=== PATIENT | female | born 1950 | race Caucasian/White ===

== ENCOUNTER 2023-10-05 11:08 | Outpatient (OUT) | payer MEDICARE, OTHER, SELFPAY ==
--- NOTE | 2023-10-05 | XR_ITS ---
The [address] [address] Patient Name: HINA OROZCO MRN: [id number] date: 1950 Sex: F Assigned Patient Location: Current Patient Location: Accession/Order Number: [id number] Exam Date: 10/05/2023 11:15 Report Date: 10/06/2023 07:08 At the request of: IVANNA ARREGUIN Procedure: XR foot LT min 3V PROCEDURE: XR foot LT min 3V HISTORY: LEFT FOOT PAIN ; pain when flexing toes; first toe pain and swelling COMPARISON: None. FINDINGS: BONES:Mild displaced proximal medial corner fracture involving the 5th proximal phalanx with intra-articular extension. Mild degenerative changes the first metatarsophalangeal joint. SOFT TISSUES:No visible soft tissue swelling. EFFUSION:None visible. OTHER: Negative. XR/XR foot LT min 3V IMPRESSION: 1. Mildly displaced proximal medial corner fracture of the 5th proximal phalanx. I suspect this is subacute to chronic. 2. Mild degenerative changes of the first metatarsophalangeal joint. Electronically authenticated by: LILIA STOUT Date: 10/06/2023 07:08
== END 2023-10-05 11:09 | disposition home or self-care (01) ==
LOC: EC 11:10
PROVIDERS: PCP Internal Medicine; Visit Provider Podiatrist Foot & Ankle Surgery
DX: M79.672 Pain in left foot (principal); S92.512A Displaced fracture of proximal phalanx of left lesser toe(s), initial encounter for closed fracture
CPT/HCPCS: 73630

== ENCOUNTER 2025-04-02 07:54 | Outpatient (OUT) | payer MEDICARE, SELFPAY ==
--- OUTSIDE RECORDS SUMMARY | 2025-03-21 14:00 | XMS_ITS | Encounter Summary ---
Author Organization [facility] Address [address] [place] [address] Care Team Providers Care Supervisor Communications And Signals Name Role Phone Tomas Paige DO Unavailable [phone] Chaitanya Dooley MD Primary Care Provider [phone] Encounter Details DateTypeDepartmentCare Team (Latest Contact Info)Hdjvosflyoy36/09/2025 2:00 PM EDTAncillary Procedure [facility] [address] [place] [phone] Breast pain Social History Tobacco UseTypesPacks/DayYears UsedDateSmoking Tobacco: NeverPassive Smoke Exposure: PastSmokeless Tobacco: NeverAlcohol UseStandard Drinks/WeekCommentsYes 0 (1 standard drink = 0.6 oz pure alcohol)Alcohol: 1 or 2 drinks on a typical day/monthly or less Caffeine: 5-6 cups a day of coffee per dayAUDIT-CAnswerDate RecordedQ1: How often do you have a drink containing alcohol?Monthly or less 03/28/2023Q2: How many drinks containing alcohol do you have on a typical day when you are drinking?1 or Q3: How often do you have six or more drinks on one occasion?Less than /16/2023PHQ-2AnswerDate Recorded Patient Health Questionnaire-2 Qqrfg872/29/2024CommentsNoSex and Gender InformationValueDate RecordedSex Assigned at BirthNot on fileLegal SexFemale 08/25/2022 7:05 PM EDTGender IdentityNot on fileSexual OrientationNot on file documented as of this encounter Plan of Treatment DateTypeDepartmentCare Team (Latest Contact Info)Tdbxszvrnrm60/22/2025 10:00 AM EDTAncillary Procedure [facility] [address] [place] [address] 04/03/2025 10:30 AM EDTOffice Visit [facility] [address] [place] [phone] Nadia Ceja MD [address] [place] [address] 04/11/2025 9:30 AM EDTOffice Visit [facility] [address] [place] [phone] 05/21/2025 11:00 AM ESTOffice Visit [facility] [address] [place] [facility] [place] [phone] Columba Nelson MD [address] [place] [address] 07/12/2025 11:00 AM ESTOffice Visit [facility] [address] [place] [phone] Harsha Philippe DO [address] [place] [address] documented as of this encounter Procedures Procedure NamePriorityDate/TimeAssociated DiagnosisCommentsBI MAMMOGRAM DIAGNOSTIC TOMOSYNTHESIS EXNYPNOPEBlbjpmb03/09/2025 2:16 PM EDT Breast pain documented in this encounter Results * Bilateral diagnostic mammogram with tomosynthesis (03/21/2025 2:16 PM EDT) Anatomical RegionLateralityModalityBreastBilateralMammographySpecimen (Source) Anatomical Location / LateralityCollection Method / VolumeCollection Time Received Time03/21/2025 5:02 PM EDT Impressions 03/21/2025 5:26 PM EDT No specific evidence of malignancy seen in either breast. Likely small benign finding on ultrasound in the left breast as noted. Based on the ultrasound finding, follow-up ultrasound study of the left breast with attention to the 12:00 region is recommendedin 6 months to assess stability. BI- RADS recommendation will be based on the ultrasound finding. BIRADS 3 - Probably Benign Findings DENSITY: There are scattered areas of fibroglandular density. FOLLOW-UP: Breast Ultrasound in 6 Months Board Certified Radiologists. ??Accredited by the ACR and FDA. MAMMOGRAPHY IS VERY IMPORTANT TO YOUR HEALTH. ??THE [employer] GUIDELINES RECOMMEND THAT WOMEN 40 YEARS OF AGE AND OLDER SHOULD HAVE A MAMMOGRAM EVERY YEAR. A REMINDER LETTER WILL BE SENT AT THE APPROPRIATE TIME. ?? ELECTRONICALLY SIGNED BY: Tarun Cuellar M.D. Narrative 03/21/2025 5:26 PM EDT EXAMINATION: BI MAMMOGRAM DIAGNOSTIC TOMOSYNTHESIS BILATERAL CLINICAL HISTORY: ??Breast pain TECHNIQUE: Diagnostic digital mammogram study of both breasts was performed with 2D and 3D tomosynthesis imaging. Study was compared to the screening mammogram study of the breasts dated 10/30/2024 and ultrasound study of the breasts dated 03/21/2025. FINDINGS: Standard views of the breasts were obtained as well as coned-down compression views and true lateral views bilaterally. Exaggerated lateral cc view was obtained on the right. Mild scattered benign-appearing vascular calcifications are noted bilaterally. No evidence of interval dominant spiculated mass, grouped microcalcifications or skin thickening which would be suggestive of malignancy. A few small benign- appearing asymmetric densities are seen bilaterally likely related to focal fibrocystic changes. Ultrasound study of the breasts demonstrates a likely small benign finding at the 12 o'clock position on the left without obvious correlating abnormality on the mammogram study. Based on the ultrasound finding, follow-up ultrasound study of the left breast with attention to this area in 6 months isrecommended to assess stability. Authorizing ProviderResult TypeResult StatusNadia Ceja MDIMTr BI PROCEDURES Final Result documented in this encounter Visit Diagnoses Diagnosis Breast pain Mastodynia documented in this encounter Additional Health Concerns AssessmentNoted TimePHQ-9 Depression Total Score: 10:00 AM EDT documented as of this encounter Care Teams Team MemberRelationshipSpecialtyStart DateEnd Date Tomas Paige DO [address] [place] [address] PCP - ACO Reach08/12/23 Chaitanya Dooley MD [address] [place] [address] PCP - GeneralInternal Medicine02/01/25documented as of this encounter
--- OUTSIDE RECORDS SUMMARY | 2025-03-21 14:30 | XMS_ITS | Encounter Summary ---
Author Organization [facility] Address [address] [place] [address] Care Team Providers Care Asphalt Roller Person Name Role Phone Tomas Paige DO Unavailable Chaitanya Dooley MD Primary Care Provider [phone] Encounter Details DateTypeDepartmentCare Team (Latest Contact Info)Iaszsiybjzz28/09/2025 2:30 PM EDTAncillary Procedure [facility] [address] [place] [address] Breast pain Social History Tobacco UseTypesPacks/DayYears UsedDateSmoking [...] or more drinks on one occasion?Less than datipny23/16/2023PHQ-2AnswerDate Recorded Patient Health Questionnaire-2 Tknrn017/29/2024CommentsNoSex and Gender InformationValueDate RecordedSex Assigned at BirthNot on fileLegal SexFemale 08/25/2022 7:05 PM EDTGender IdentityNot on fileSexual OrientationNot on file documented as of this encounter Plan of Treatment DateTypeDepartmentCare Team (Latest Contact Info)Pzxysnlczwk99/22/2025 10:00 AM EDTAncillary Procedure [facility] [address] [place] [phone] 04/03/2025 10:30 AM EDTOffice Visit [facility] [address] [place] [phone] Nadia Ceja MD [address] [place] [address] 04/11/2025 9:30 AM EDTOffice Visit [facility] [address] [place] [phone] 05/21/2025 11:00 AM ESTOffice Visit [facility] [address] [place] [phone] Columba Nelson MD [address] [place] [address] 07/12/2025 11:00 AM ESTOffice Visit [facility] [address] [place] [phone] Harsha Philippe DO [address] [place] [address] documented as of this encounter Procedures Procedure NamePriorityDate/TimeAssociated DiagnosisCommentsBI US BREAST COMPLETE YNUIUGEHVYobetgb85/09/2025 3:07 PM EDT Breast pain documented in this encounter Results * Bilateral breast US complete (03/21/2025 3:07 PM EDT)Anatomical Region LateralityModalityBreastBilateralUltrasoundSpecimen (Source)Anatomical Location / LateralityCollection Method / VolumeCollection TimeReceived Time 03/21/2025 5:16 PM EDT Impressions 03/21/2025 5:26 PM EDT Impression: Bilateral breast ultrasound study demonstrates a likely benign finding at the 12 o'clock position in the left breast as described. No obvious correlating mammographic abnormality. Follow-up ultrasound study of the left breast with attention to the 12:00 region likely benign finding is recommended in 6 months to assess stability. No obvious neoplasm. When correlating the studies no convincing evidence of neoplasm. BI-RADS 3 ELECTRONICALLY SIGNED BY: Tarun Cuellar M.D. Narrative 03/21/2025 5:26 PM EDT Examination: BI US BREAST COMPLETE BILATERAL Reason for Study: breast pain Comparison: Diagnostic mammogram study of the breasts dated 03/21/2025. Technique: Complete bilateral breast ultrasound study was performed to include all 4 quadrants, subareolar and axillary regions of the breasts. Findings: Within the 12 o'clock position of the left breast approximately 2.5 cm from the nipple there is an ovoid area of mild decreased echogenicity with internal echoes measuring 1.3 x 1.3 x 0.5 cm. No obvious internal vascularity or posterior shadowing. Finding has a benign appearance and may represent complex cyst, intramammary lymph node or fibroadenoma. Other possibly would be less likely.No obvious correlating abnormality on the mammogram study. No obvious solid vascular mass to suggest neoplasm. When correlating the studies no convincing evidence of neoplasm. No obvious abnormal calcifications or vascularity. There is mild ductal dilatation in the subareolar regions bilaterally not felt to be acutely significant. No obvious adenopathy in the axillary regions. Authorizing ProviderResult TypeResult StatusNadia Ceja MDIMTr US PROCEDURES Final Result documented in this encounter Visit Diagnoses Diagnosis Breast pain Mastodynia documented in this encounter Additional Health Concerns AssessmentNoted TimePHQ-9 Depression Total Score: 10:00 AM EDT documented as of this encounter Care Teams Team MemberRelationshipSpecialtyStart DateEnd Date Tomas Paige DO [address] [place] [address] PCP - ACO Reach08/12/23 Chaitanya Dooley MD [address] [place] [address] PCP - GeneralInternal Medicine02/01/25documented as of this encounter
--- OUTSIDE RECORDS SUMMARY | 2025-03-25 08:45 | XMS_ITS | Encounter Summary ---
Author Organization [facility] Address [address] [place] [address] Care Team Providers Care Rotary Helper Name Role Phone Tomas Paige Berto DO Unavailable [phone] Chaitanya Dooley MD Primary Care Provider [phone] Reason for Referral * Consultation (Routine) - ClosedSpecialtyDiagnoses / ProceduresReferred By ContactReferred To ContactBreast Surgery Diagnoses Breast pain Vaginal discharge Genetic predisposition to breast cancer Mammogram abnormal H/O breast biopsy Procedures NM OFFICE/OUTPATIENT [facility] 60 MINUTES Nadia Ceja MD [address] [facility] [address] [place] [address] Phone: tel: fax: Saundra Mcdowell MD [address] [place] [address] [place] [address] Phone: tel: fax: Referral IDStatusReasonStart DateExpiration DateVisits RequestedVisits [id number] Specialty Services Required / * Imaging (Routine) - AuthorizedSpecialtyDiagnoses / ProceduresReferred By ContactReferred To ContactRadiology Diagnoses Breast pain Breast tenderness Breast symptom Genetic predisposition to breast cancer Other specified disorders of breast Mammogram abnormal H/O breast biopsy Procedures Bilateral breast MR with and without contrast Nadia Ceja MD [address] [facility] [address] [place] [address] Phone: tel: fax: [facility] Centralized [place]uling [place] [address] Phone: tel: fax: Referral Carlitos DateExpiration DateVisits RequestedVisits [id number]/20/20254/ Reason for Visit * ReasonCommentsGynecologic ExamPatient present for New patient yearly, patient was last seen in 2019. Patient was unable to give aurine sample to send out for culture. 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 Encounter Details DateTypeDepartmentCare Team (Latest Contact Info)Tdzclqyhgte58/13/2025 8:45 AM EDTOffice Visit [facility] [place] [facility] [address] [place] [phone] Nadia Ceja MD [address] [place] [address] Encounter for gynecological examination without abnormal finding (Primary Dx); Vaginitis and vulvovaginitis; Cervicitis and endocervicitis; Encounter for gynecological examination; Breast pain; Breast tenderness; Erythema of breast; Breast symptom; Nocturia more than twice per night; Vaginal discharge; Vaginal itching; Encounter for screening for cervical cancer; Genetic predisposition to breast cancer; Other specified disorders of breast; Mammogram abnormal; H/O breast biopsy; Hormone imbalance; Miscarriage ([facility]); Acute vaginitis Social History Tobacco UseTypesPacks/DayYears UsedDateSmoking Tobacco: NeverPassive [...] or more drinks on one occasion?Less than eeugxch5703/28/2023HQ-2AnswerDate Recorded Patient Health Questionnaire-2 Byrny269/29/2024CommentsNoSex and Gender InformationValueDate RecordedSex Assigned at BirthNot on fileLegal SexFemale 08/25/2022 7:05 PM EDTGender IdentityNot on fileSexual OrientationNot on file documented as of this encounter Last Filed Vital Signs Vital SignReadingTime TakenCommentsBlood Kuqvyfaw245/7403/25/2025 8:39 AM EDT Pulse--Temperature--Respiratory Rate--Oxygen Saturation--Inhaled Oxygen Concentration--Weight--Tegrpl551.6 cm (5' 6 )03/25/2025 8:39 AM EDTBody Mass Index--documented in this encounter Progress Notes * Nadia Ceja MD - 03/25/2025 8:45 AM EDT Images from the original note were not included. Nadia Ceja MD Obstetrics and Gynecology Patient: Fide Sultana : 1950 (74 y.o.) Exam Date: 03/25/2025 Reason for Visit - Chief Complaint Patient presents with Gynecologic Exam Patient present for New patient yearly, patient was last seen in 2019. Patient was unable to give aurine sample to send out for culture. 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 She is also experiencing breast issues, she has been having breast pain, tenderness, redness, and warm to the touch in both breast for about a week also associated with the evening time and located around the nipple only, she does not have a history of any recent trauma. Mammogram and Ultrasound 03/21 Likely small benign finding on ultrasound in the left breast as noted. Based on the ultrasound finding, follow-up ultrasound study of the left breast with attention to the 12:00 region is recommendedin 6 months to assess stability. History of Present Illness History of Present Illness The patient presents with breast swelling and tenderness that has been ongoing for three weeks. Thesymptoms are most prominent at night and upon waking in the morning, with the patient describing the sensation as similar to how her breasts felt when she was younger while waiting for her menstrual period. She initially suspected her medication Crestor might be contributing to the symptoms, and upon discontinuing it, the symptoms resolved, which she reports is a common occurrence according to her daughter who is a pharmacist. The patient has been experiencing some vaginal itching but denies any vaginal discharge. She is notcurrently using any hormones or creams. The breast symptoms have caused her significant worry over the past three weeks. Visit Vitals BP 126/74 (BP Location: Left arm) Ht 5' 6 BMI 22.65 kg/m?? OB Status Postmenopausal Smoking Status Never BSA 1.72 m?? History of Present Illness, Associated Treatments and Results - OB History Para Term AB Living 0 0 0 0 0 2 SAB IAB Ectopic Multiple Live Births 0 0 0 0 0 Constitutional: Negative. HENT: Negative. Eyes: Negative. Respiratory: Negative. Cardiovascular: Negative. Gastrointestinal: Negative. Endocrine: Negative. Genitourinary: Negative. Musculoskeletal: Negative. Skin: Negative. Allergic/Immunologic: Negative. Neurological: Negative. Hematological: Negative. Psychiatric/Behavioral: Negative. Allergies Allergen Reactions Latex Unknown Sulfa Antibiotics Other Reaction(s): sulfa powder wong. Naproxen Palpitations Current Outpatient Medications: celecoxib (CeleBREX) 200 MG capsule, TAKE ONE CAPSULE BY MOUTH DAILY FOR 90 DAYS for 90, Disp: 90 capsule, Rfl: 3 cholecalciferol (Vitamin D-3) 50 MCG (1999) capsule, 1 capsule 1 (one) time each day at the sametime., Disp: , Rfl: cyclobenzaprine (Flexeril) 5 MG tablet, Take 1 tablet (5 mg) by mouth 2 (two) times a day as neededfor muscle spasms, Disp: 40 tablet, Rfl: 0 diazePAM (Valium) 5 MG tablet, Take 1 tablet (5 mg) by mouth every 12 (twelve) hours, Disp: 15 tablet, Rfl: 0 dorzolamide-timolol (Cosopt) 2-0.5 % ophthalmic solution, ADMINISTER 1 DROP INTO THE LEFT EYE IN THE MORNING AND 1 DROP BEFORE BEDTIME., Disp: 10 mL, Rfl: 3 ipratropium (Atrovent) 0.06 % nasal spray, INSTILL 2 SPRAYS IN EACH NOSTRIL THREE TIMES A DAY FOR 30 DAYS, Disp: 15 mL, Rfl: 1 latanoprost (Xalatan) 0.005 % ophthalmic solution, APPLY 1 DROP INTO BOTH EYES AT BEDTIME, Disp: 7.5 mL, Rfl: 4 rosuvastatin (Crestor) 10 MG tablet, Take 1 tablet (10 mg) by mouth at bedtime, Disp: 90 tablet, Rfl: 1 triamterene-hydroCHLOROthiazide (Dyazide) 37.5-25 MG capsule, TAKE ONE CAPSULE BY MOUTH ONCE DAILY IN THE MORNING, Disp: 90 capsule, Rfl: 2 Past Medical History: Diagnosis Date Dry eyes Epiretinal membrane (ERM) of both eyes Glaucoma Hepatitis B History of migraine headaches HTN (hypertension) IBS (irritable bowel syndrome) Meniere's disease Multilevel degenerative disc disease Myalgia Osteoarthritis Osteopenia PCO (posterior capsular opacification) Plantar wart, left foot Skin cancer Tinnitus, left Vertigo Vitamin D deficiency Past Surgical History: Procedure Laterality Date BREAST BIOPSY Right 2001 benign BUNIONECTOMY CARDIAC ELECTROPHYSIOLOGY MAPPING AND ABLATION 2000 Heart Ablation CATARACT EXTRACTION COLONOSCOPY 02/2010 IR JOINT ASPIRATION Arthrocentesis of the right knee joint PARS PLANA VITRECTOMY W/ EMP STRIPPING Left Dr. Heck NM ARTHROSCOPY KNEE DIAGNOSTIC W/WO SYNOVIAL BX SPX Left 2004 NM DRAIN/INJECT LARGE JOINT/BURSA Arthrocentesis of the left knee anserine bursa NM INJECT TENDON ORIGIN/INSERT NM INJECT TENDON SHEATH/LIGAMENT Family History Problem Relation Name Age of Onset Hypertension Mother Stroke Mother Thyroid disease Mother Alzheimer's disease Father Diabetes Father Hypertension Father Cancer Father Diabetes Sister Diabetes Paternal Grandmother Hypertension Child Social History Tobacco Use Smoking Status Never Passive exposure: Past Smokeless Tobacco Never Physical Exam - General appearance, mentation, extraocular movements, facial strength and movement, hearing, upper and lower extremity strength and tone, sensation to gross testing, coordination, and gait are normalor at baseline unless noted below. Physical Exam Constitutional: Appearance: Normal appearance. Genitourinary: Right Labia: No rash. Left Labia: No rash. Right Adnexa: no mass present. Left Adnexa: no mass present. No cervical lesion. Uterus is anteverted. Breasts: Right: Normal. No mass or nipple discharge. Left: Normal. No mass or nipple discharge. HENT: Head: Normocephalic and atraumatic. Cardiovascular: Rate and Rhythm: Normal rate and regular rhythm. Pulmonary: Breath sounds: Normal breath sounds. Abdominal: General: There is no distension. Palpations: Abdomen is soft. There is no mass. Tenderness: There is no abdominal tenderness. Musculoskeletal: General: Normal range of motion. Cervical back: Neck supple. Lymphadenopathy: Cervical: No cervical adenopathy. Neurological: Mental Status: She is alert and oriented to person, place, and time. Skin: General: Skin is warm and dry. Psychiatric: Mood and Affect: Mood normal. Behavior: Behavior normal. Breasts dense without erythema Assessment/Plan ICD-10-CM 1. Encounter for gynecological examination without abnormal finding Z01.419 IGP, APT HPV,RFX 16/18,45 2. Vaginitis and vulvovaginitis N76.0 GENITAL MYCOPLASMAS ALECIA, SWAB NuSwab Vaginitis Plus (VG+) 3. Cervicitis and endocervicitis N72 GENITAL MYCOPLASMAS ALECIA, SWAB NuSwab Vaginitis Plus (VG+) 4. Encounter for gynecological examination Z01.419 5. Breast pain N64.4 6. Breast tenderness N64.4 7. Erythema of breast L53.9 8. Breast symptom N64.59 9. Nocturia more than twice per night R35.1 10. Vaginal discharge N89.8 GENITAL MYCOPLASMAS ALECIA, SWAB NuSwab Vaginitis Plus (VG+) 11. Vaginal itching N89.8 GENITAL MYCOPLASMAS ALECIA, SWAB NuSwab Vaginitis Plus (VG+) 12. Encounter for screening for cervical cancer Z12.4 IGP, APT HPV,RFX 16/18,45 13. Genetic predisposition to breast cancer Z15.01 Pap ordered Pt can find results in MyChart in 72 hours Breast tenderness and swelling Assessment: Patient reports breast tenderness and swelling, primarily occurring at night and upon waking in the morning. Symptoms are described as similar to premenstrual breast changes experienced in youth. Patient discontinued Crestor (rosuvastatin) after suspecting it as the cause, and reports that this is a common side effect. However, symptoms have persisted for three weeks. No vaginal discharge reported, but patient mentions some itching. No current use of hormones or creams. Clinical examination does not suggest breast cancer, but further evaluation is warranted due to ongoing symptoms. Recent mammogram with findings and 6 mpnth follow up advised Plan: - Refer patient to breast specialist for further evaluation - Order breast MRI - Schedule ultrasound to assess ovarian health - Order estrogen level test - Follow up with breast specialist appointment-referral sent Vaginal swabs and prescriptions sent for vaginal symptoms Assessment & Plan documented in this encounter Plan of Treatment DateTypeDepartmentCare Team (Latest Contact Info)Aczadgqfjbt66/22/2025 10:00 AM EDTAncillary Procedure [facility] [address] [place] [phone] 04/03/2025 10:30 AM EDTOffice Visit [facility] [place] [facility] [address] [place] [address] Nadia Ceja MD [address] [place] [address] 04/11/2025 9:30 AM EDTOffice Visit [facility] [address] [place] [address] 05/21/2025 11:00 AM ESTOffice Visit [facility] [place] [phone] Columba Nelson MD [address] [place], [place] [phone] 07/12/2025 11:00 AM ESTOffice Visit N[facility] [address] [place] [phone] Harsha Philippe DO [address] [place] [address] (work) NameTypePriorityAssociated DiagnosesOrder ScheduleGENITAL MYCOPLASMAS ALECIA, SWAB Pathology and CytologyRoutine Vaginitis and vulvovaginitis Cervicitis and endocervicitis Vaginal discharge Vaginal itching Ordered: 03/25/2025NuSwab Vaginitis Plus (VG+)MicrobiologyRoutine Vaginitis and vulvovaginitis Cervicitis and endocervicitis Vaginal discharge Vaginal itching Ordered: 03/25/2025ilateral breast MR with and without contrastImagingRoutine Breast pain Breast tenderness Breast symptom Genetic predisposition to breast cancer Other specified disorders of breast Mammogram abnormal H/O breast biopsy Expected: 04/01/2025, Expires: 09/23/2025NameTypePriorityAssociated Diagnoses Order ScheduleAmbulatory referral to Breast ClinicOutpatient ReferralRoutine Breast pain Vaginal discharge Genetic predisposition to breast cancer Mammogram abnormal H/O breast biopsy Expected: 03/25/2025 (Approximate), Expires: 09/23/2025documented as of this encounter Procedures Procedure NamePriorityDate/TimeAssociated IwyxogkzfHgoealzmARRJtqjpbw16/13/2025 9:43 AM EDT Hormone imbalance IGP, APT HPV,RFX 16/18,41Pycdtvn17/13/2025 12:00 AM EDT Encounter for gynecological examination without abnormal finding Encounter for screening for cervical cancer documented in this encounter Results * (ABNORMAL) Follicle stimulating hormone (03/25/2025 9:43 AM EDT)ComponentValue Ref RangeTest MethodAnalysis TimePerformed AtPathologist PxkbobgezRBH13.4(L) 25.8 - 134.8 mIU/mLLABCORPComment: ? Adult Female ? Range ?Follicular phase ?3.5 - ??12.5 ?Ovulation phase ? 4.7 - ??21.5 ?Luteal phase ?1.7 - ?? 7.7 ?Postmenopausal ? 25.8 - 134.8 Specimen (Source)Anatomical Location / LateralityCollection Method / Volume Collection TimeReceived TimeBloodVenous blood specimen / Kzkabdi6403/25/2025 9:43 AM EDT1 Narrative [facility] - 03/25/2025 3:07 PM EDT Performed at: 01 - [facility] [address], [address], [place], [place] [id number] Photo Specialist: Fran Zelaya MD, Phone: ??[phone] Authorizing ProviderResult TypeResult StatusNadia Ceja MDLAB BLOOD ORDERABLESFinal ResultPerforming OrganizationAddressCity/State/ZIP CodePhone Number [facility] * IGP, APT HPV,RFX 16/18,45 (03/25/2025 12:00 AM EDT)ComponentValueRef RangeTest MethodAnalysis TimePerformed AtPathologist SignatureDiagnosis:CommentLABCORP Comment:NEGATIVE FOR INTRAEPITHELIAL LESION OR MALIGNANCY.Specimen Adequacy: CommentLABCORPComment:Satisfactory for evaluation. No endocervical component is identified.Clinician Provided ICD10:CommentLABCORPComment: Z01.419 Z12.4 Performed By:CommentLABCORPComment:Kathya Robbins, Contracting Officer ([facility])Cyto Comments .LABCORPNote:CommentLABCORPComment: The Pap smear is a screening test designed to aid in the detection of premalignant and malignant conditions of the uterine cervix. ??It is not a diagnostic procedure and should not be used as the sole means of detecting cervical cancer. ??Both false-positive and false-negative reports do occur. Test Methodology:CommentLABCORPComment: This liquid based ThinPrep(R) pap test was interpreted using the [employer]R) Genius(TM) Cervical Algorithm whole slide imaging system. HPV AptimaNegativeNegativeLABCORPComment: This nucleic acid amplification test detects fourteen high-risk HPV types (16,18,31,33,35,39,45,51,52,56,58,59,66,68) without differentiation. Specimen (Source)Anatomical Location / LateralityCollection Method / Volume Collection TimeReceived TimeVaginal Fluid/ Narrative [facility] - 03/28/2025 4:08 PM EDT Performed at: 01 - [facility] [address] ??[id number] Photo Specialist: Stacey Luevano MD, Phone: ??[phone] Performed at: ??02 - [facility] [address] ??[id number] Photo Specialist: Stacey Luevano MD, Phone: ??[phone] Specimen Comment: No. of containers..01 ThinPrep Vial Authorizing ProviderResult TypeResult StatusNadia Ceja [facility] BLOOD ORDERABLESFinal ResultPerforming OrganizationAddressCity/State/ZIP CodePhone Number [facility] documented in this encounter Visit Diagnoses Diagnosis Encounter for gynecological examination without abnormal finding- Primary Vaginitis and vulvovaginitis Cervicitis and endocervicitis Encounter for gynecological examination Breast pain Mastodynia Breast tenderness Mastodynia Erythema of breast Breast symptom Nocturia more than twice per night Vaginal discharge Leukorrhea, not specified as infective Vaginal itching Pruritus of genital organs Encounter for screening for cervical cancer Genetic predisposition to breast cancer Genetic susceptibility to malignant neoplasm of breast Other specified disorders of breast Mammogram abnormal Abnormal mammogram, unspecified H/O breast biopsy Hormone imbalance Miscarriage ([facility]) Unspecified spontaneous without mention of complication Acute vaginitis Unspecified vaginitis and vulvovaginitis documented in this encounter Additional Health Concerns AssessmentNoted TimePHQ-9 Depression Total Score: 10:00 AM EDT documented as of this encounter Care Teams Team MemberRelationshipSpecialtyStart DateEnd Date Tomas Paige DO [address] [address] [place] [address] PCP - ACO [place]08/12/23 Chaitanya Dooley MD [address] [place] [address] PCP - GeneralInternal Medicine02/01/25documented as of this encounter
--- OUTSIDE RECORDS SUMMARY | 2025-04-02 08:01 | XMS_ITS | Encounter Summary ---
Author Organization [facility] Address [address] [place] [address] Care Team Providers Care Grinder Set Up Operator Thread Name Role Phone Tomas Paige DO Unavailable [phone] Chaitanya Dooley MD Primary Care Provider [phone] Reason for Visit * ReasonOnset MajeNtuqxlgaAyvwohw55/19/2025 Encounter Details DateTypeDepartmentCare Team (Latest Contact Info)Xqwpcizmxzn54/19/2025Results Follow-Up [facility] [address] [facility] [address] [place] [phone] Nadia Ceja MD [address] [facility] [address] [place] [address] IGP, APT HPV,RFX 16/18,45, Follicle stimulating hormone Social History Tobacco UseTypesPacks/DayYears UsedDateSmoking Tobacco: NeverPassive [...] on a typical day when you are drinking? or Q3: How often do you have six or more drinks on one occasion?Less than fldyqqd9003/28/2023HQ-2AnswerDate Recorded Patient Health Questionnaire-2 Ckkaj810/29/2024CommentsNoSex and Gender InformationValueDate RecordedSex Assigned at BirthNot on fileLegal SexFemale 08/25/2022 7:05 PM EDTGender IdentityNot on fileSexual OrientationNot on file documented as of this encounter Miscellaneous Notes * Telephone Encounter - Jeanie Reddy LPN - 04/01/2025 12:57 PM EDT Pt returned call to . Reviewed chart, advised her per PPJ , she still needs to have MRI done, andrepeat TSH. Pt would like lab order sent to [facility]. Lab sent. Pt voiced understanding . * Addendum Note - Jeanie Reddy LPN - 04/01/2025 12:36 PM EDTAddended by: JEANIE REDDY on: 04/01/2025 12:36 PM Modules accepted: Orders * Telephone Encounter - Mouna Jaramillo MA - 04/01/2025 12:26 PM EDT Attempted to call patient back to advised PPJ would like her to continue with the MRI. No answer ----- Message from Dr. Nadia Ceja sent at 04/01/2025 11:42 AM EDT ----- Yes please complete MRI ----- Message ----- From: Mouna Jaramillo MA Sent: 04/01/2025 10:59 AM EDT To: Nadia Ceja MD ----- Message from Mouna Jaramillo MA sent at 04/01/2025 10:59 AM EDT ----- Patient not on any hormones, wanting to know if she should still get MRI * Result Encounter Note - Nadia Ceja MD - 04/01/2025 11:42 AM EDT Yes please complete MRI * Telephone Encounter - Mouna Jaramillo MA - 04/01/2025 10:54 AM EDT Patient returned call, advised patient of results. Patient stated she's currently not taking any hormones and just wants to be fixed. Advised patient that Dr. Ceja would like her to get the lab redrawn. Patient verbalized she understood and wanted to know if she still needed the MRI and if she needed to do anything in the meantime before the re draw of her FSH lab. * Telephone Encounter - Mouna Jaramillo MA - 04/01/2025 8:41 AM EDT 1st Attempt: Left detailed msg regarding labs, advised patient in the msg that labs came back and Dr. Ceja wanted to know if she was currently taking any hormone medications and that she would also like her to repeat these labs. Advised patient to return the call to further discuss, advised patient we are in office Tuesday - 8-4 and Tuesday 8-12. ----- Message from Dr. Nadia Ceja sent at 03/31/2025 8:59 PM EDT ----- Any hormones? Repeat FSH and estradiol ----- Message ----- From: Interface, [facility] Lab Results In Sent: 03/25/2025 3:07 PM EDT To: Nadia Ceja MD * Result Encounter Note - Nadia Ceja MD - 03/31/2025 8:59 PM EDT Any hormones? Repeat FSH and estradiol documented in this encounter Plan of Treatment DateTypeDepartmentCare Team (Latest Contact Info)Pqfatydkdea63/22/2025 10:00 AM EDTAncillary Procedure [facility] [place] [facility] [address] [place] [phone] 04/03/2025 10:30 AM EDTOffice Visit [facility] [place] [facility] [address] [place] [address] Nadia Ceja MD [address] [place] [address] 04/11/2025 9:30 AM EDTOffice Visit [facility] [address] [place] [phone] 05/21/2025 11:00 AM ESTOffice Visit [facility] [address] [place] [facility] [phone] Columba Nelson MD [address] [place] [address] 07/12/2025 11:00 AM ESTOffice Visit [facility] [address] [place] [phone] Harsha Philippe DO [address] [place] [address] NameTypePriorityAssociated DiagnosesOrder ScheduleFollicle stimulating hormone LabRoutine Encounter for gynecological examination Ordered: 04/01/2025documented as of this encounter Visit Diagnoses Diagnosis Encounter for gynecological examination- Primary documented in this encounter Additional Health Concerns AssessmentNoted TimePHQ-9 Depression Total Score: 10:00 AM EDT documented as of this encounter Care Teams Team MemberRelationshipSpecialtyStart DateEnd Date Tomas Paige DO [address] [place] [address] PCP - ACO [facility]08/12/23 Chaitanya Dooley MD [address] [place] [address] PCP - GeneralInternal Medicine02/01/25documented as of this encounter
--- OUTSIDE RECORDS SUMMARY | 2025-04-02 08:01 | XMS_ITS | Clinical Summary ---
Author Organization [facility] Address [address] [place] [address] Care Team Providers Care Night Order Selector Name Role Phone Tomas Paige DO Unavailable [phone] Chaitanya Dooley MD Primary Care Provider [phone] Allergies Active AllergyReactionsCriticalityNoted UloxIchmetrfFvksyNoqatug42/19/2023 NcwhnqyoRbtcrjoufugyMgc19/19/2023Sulfa Jglfmqngcsb50/19/2023 Other Reaction(s): sulfa powder wong. Medications MedicationSigDispense QuantityRefillsLast FilledStart DateEnd DateStatus cholecalciferol (Vitamin D-3) 50 MCG (1999) capsule 1 capsule 1 (one) time each day at the same time.Active triamterene-hydroCHLOROthiazide (Dyazide) 37.5-25 MG capsule Indications:Hypertension, essentialTAKE ONE CAPSULE BY MOUTH ONCE DAILY IN THE MORNING 90 capsule ctive diazePAM (Valium) 5 MG tablet Indications:Meniere's disease of both earsTake 1 tablet (5 mg) by mouth every 12 (twelve) hours 15 tablet 10/04/2023ctive cyclobenzaprine (Flexeril) 5 MG tablet Indications:Muscle spasmTake 1 tablet (5 mg) by mouth 2 (two) times a day as needed for muscle spasms 40 tablet 04/10/2024ctive ipratropium (Atrovent) 0.06 % nasal spray Indications:Chronic rhinitisINSTILL 2 SPRAYS IN EACH NOSTRIL THREE TIMES A DAY FOR 30 DAYS 15 mL ctive dorzolamide-timolol (Cosopt) 2-0.5 % ophthalmic solution Indications:Primary open angle glaucoma (POAG) of both eyes, mild stage ADMINISTER 1 DROP INTO THE LEFT EYE IN THE MORNING AND 1 DROP BEFORE BEDTIME. 10 mL /[id number] celecoxib (CeleBREX) 200 MG capsule Indications:Multilevel degenerative disc diseaseTAKE ONE CAPSULE BY MOUTH DAILY FOR 90 DAYS for 90 90 capsule 3045Active rosuvastatin (Crestor) 10 MG tablet Indications:Mixed hyperlipidemiaTake 1 tablet (10 mg) by mouth at bedtime 90 tablet 1045Active latanoprost (Xalatan) 0.005 % ophthalmic solution Indications:Primary open angle glaucoma (POAG) of both eyes, mild stageAPPLY 1 DROP INTO BOTH EYES AT BEDTIME 7.5 mL 5Active triamcinolone (Kenalog) 0.1 % cream Indications:Vaginitis and vulvovaginitis,Vaginal dischargeApply topically in the morning and before bedtime. To vulva. 30 g 5Active terconazole (Terazol 7) 0.4 % vaginal cream Indications:Vulvovaginal CandidiasisInsert 1 applicator into the vagina at bedtime for 7 days 45 g 51Expired Active Problems ProblemNoted DateDiagnosed DateEpiretinal membrane (ERM) of right eye07/13/2023 Need for immunization against ffnlsagqa51/16/2023olon cancer screening 03/28/2023MCI (mild cognitive impairment)03/28/2023Meniere's disease of both ears03/24/2023Sensorineural hearing loss, dredevzlz03/12/2023hronic rhinitis 03/24/2023AD (generalized anxiety disorder)03/24/2023Low vitamin D level 03/24/2023Mild major hlfsipjjef70/12/2023Mixed stress and urge urinary mvkisnoqsocl25/12/2023Multilevel degenerative disc nouqfbq2603/24/2023rimary osteoarthritis involving multiple bqosdo2303/24/20235592Xyyfqkloes03/12/2023Mixed tzibjdvzdxawbn65/12/2023rimary open angle glaucoma (POAG) of both eyes, mild stage03/01/2023CO (posterior capsular opacification), right03/01/2023ry eyes 03/01/2023 Resolved Problems ProblemNoted DateDiagnosed DateResolved DateIBS (irritable bowel syndrome) Encounters DateTypeDepartmentCare JhgbMbyvqnuitkd01/19/2025Results Follow-Up [facility] [address] [place] [phone] Nadia Ceja MD IGP, APT HPV,RFX 16/18,45, Follicle stimulating lsfojtc7103/25/2025 8:45 AM EDT Office Visit [facility] [address] [place] [phone] Nadia Ceja MD Encounter for gynecological examination without abnormal finding (Primary Dx); Vaginitis and vulvovaginitis; Cervicitis and endocervicitis; Encounter for gynecological examination; Breast pain; Breast tenderness; Erythema of breast; Breast symptom; Nocturia more than twice per night; Vaginal discharge; Vaginal itching; Encounter for screening for cervical cancer; Genetic predisposition to breast cancer; Other specified disorders of breast; Mammogram abnormal; H/O breast biopsy; Hormone imbalance; Miscarriage ([facility] Acute hlxrnopvr26/13/2025Telephone [facility] [address] [place] [address] Nadia Ceja MD 03/25/2025Telephone [facility] [address] [place] [address] Nadia Ceja MD 03/25/2025amboo flowsheet [facility] [address] [place] [address] Nadia Ceja MD 03/25/20258146Yojdtd38/09/2025 2:30 PM EDTAncillary Procedure [facility] [address] [place] [address] Breast pain03/21/2025 2:00 PM EDTAncillary Procedure [facility] [place] [facility] [address] [place] [address] Breast pain03/21/20255936Cjcgcq85/08/1970Salqcz21/01/2025Telephone [facility] [phone] [place] [address] Unallocated, Vaughn Doty MD 03/05/2025 10:15 AM EDTOffice Visit [facility] [address] [place] [address] Harsha Philippe, DO Primary open angle glaucoma (POAG) of both eyes, mild stage (Primary Dx); Epiretinal membrane (ERM) of right eye; Dry eyes; PCO (posterior capsular opacification), right03/05/2025amboo flowsheet [facility] [address] [place] [address] Harsha Philippe DO 03/05/20255482Ighyzn29/18/2025[facility]phone [facility] [address] [place] [address] Meme Daley LPN from Last 3 Months Immunizations ImmunizationAdministration DatesNext DueInfluenza, High Dose Seasonal, Preservative Free03/24/2022Influenza, Seasonal, Quadrivalent, Adjuvanted 03/28/2023Influenza, injectable, dzcrjrseqecv78/12/2018,04/04/2016Influenza, injectable, quadrivalent, preservative free04/12/2017Influenza, seasonal, injectable, preservative free04/03/2021,04/26/2015Influenza, seasonal, intradermal, preservative free03/07/2014,03/23/2013,05/26/2012,05/22/2008 Influenza, trivalent, luswvirbna88/29/2024,02/26/2020,04/11/2019Pneumococcal Conjugate PCV 13010/11/2017Pneumococcal Polysaccharide FAFO5448/09/2018Zoster, Tqkjrtvsewc87/23/2020,03/22/2020Zoster, live12/07/2012 Family History Medical HistoryRelationNameCommentsHypertensionChildAlzheimer's diseaseFather CancerFatherDiabetesFatherHypertensionFatherHypertensionMotherStrokeMother Thyroid diseaseMotherDiabetesPaternal GrandmotherDiabetesSisterRelationName StatusCommentsChildAlive1 son, 1 daughterFatherDeceasedMotherDeceasedPaternal GrandmotherSisterAlive3 sisters Social History Tobacco UseTypesPacks/DayYears UsedDateSmoking Tobacco: NeverPassive [...] or more drinks on one occasion?Less than agityfp59/16/2023PHQ-2AnswerDate Recorded Patient Health Questionnaire-2 Gfyrt0844CommentsNoSex and Gender InformationValueDate RecordedSex Assigned at BirthNot on fileLegal SexFemale 08/25/2022 7:05 PM EDTGender IdentityNot on fileSexual OrientationNot on file Last Filed Vital Signs Vital SignReadingTime TakenCommentsBlood Wsxwkjpg979/7403/25/2025 8:39 AM EDT Ducuq3625/29/2025 10:18 AM EDTTemperature--Respiratory Rate--Oxygen Saturation 98%10/09/2024 10:18 AM EDTInhaled Oxygen Concentration--Cjpxpy15.6 kg (140 lb 4.8 oz)10/09/2024 10:18 AM ONTJcwkjn531.6 cm (5' 6 )03/25/2025 8:39 AM EDTBody Mass Index22.65010/09/2024 10:18 AM EDT Plan of Treatment DateTypeDepartmentCare Team (Latest Contact Info)Qoxrkwozbpx72/22/2025 10:00 AM EDTAncillary Procedure [facility] [place] [facility] [address] [place] [address] 04/03/2025 10:30 AM EDTOffice Visit [facility] [place] [facility] [address] [place] [address] Nadia Ceja MD [address] [place] [address] 04/11/2025 9:30 AM EDTOffice Visit [facility] [place] [facility] [address] [place] [phone] 05/21/2025 11:00 AM ESTOffice Visit [facility] [address] [place] [facility] [place] [phone] Columba Nelson MD [address] [place] [address] 07/12/2025 11:00 AM ESTOffice Visit [facility] [address] [place] [address] Harsha Philippe DO [address] [place] [address] Health MaintenanceDue DateLast DoneCommentsCT Asxvfrhyyaps50/09/1953Colonoscopy 1952FIT1952FOBT1952 4871Eewqoachribjf24/09/1953Influenza Vaccine (#1), 03/28/2023, 03/24/2022, Additional history exists Medicare Annual Wellness (AWV), 03/24/2022Mammogram , 10/30/2024, 09/30/2023, Additional history exists Colorectal Cancer Hwmvcpmal90/03/2027FIT-DNA7006/15/2023, 05/28/2020, 05/28/2020Pneumococcal Vaccine: 65+ RrltvEvulsejcl26/04/2019, 10/11/2017 Procedures Procedure NamePriorityDate/TimeAssociated RghdgypdtXokrawewUPHBdvkcqc29/13/2025 9:43 AM EDT Hormone imbalance IGP, APT HPV,RFX 16/18,55Kpccnft62/13/2025 12:00 AM EDT Encounter for gynecological examination without abnormal finding Encounter for screening for cervical cancer BI US BREAST COMPLETE DZOOJQSUOIpjmcnv44/09/2025 3:07 PM EDT Breast pain BI MAMMOGRAM DIAGNOSTIC TOMOSYNTHESIS ZJTVWPQDFWlisdag98/09/2025 2:16 PM EDT Breast pain OCT, OPTIC NERVE - OU - BOTH JHHLOkzeewr39/23/2025 11:03 AM EDT Primary open angle glaucoma (POAG) of both eyes, mild stage OCT, RETINA - OU - BOTH GOGUVlafxfg41/23/2025 10:49 AM EDT Epiretinal membrane (ERM) of right eye LAB COLOGUARD?? COLON CANCER QTGSURAmwgdxu16/03/2024 8:30 AM EST Colon cancer screening from Last 3 Months or Most Recently Relevant to Health Maintenance Results * (ABNORMAL) Follicle stimulating hormone (03/25/2025 9:43 AM EDT)ComponentValue Ref RangeTest MethodAnalysis TimePerformed AtPathologist SgekiodcbVWF36.4(L) 25.8 - 134.8 mIU/mLLABCORPComment: ? Adult Female ? Range ?Follicular phase ?3.5 - ??12.5 ?Ovulation phase ? 4.7 - ??21.5 ?Luteal phase ?1.7 - ?? 7.7 ?Postmenopausal ? 25.8 - 134.8 Specimen (Source)Anatomical Location / LateralityCollection Method / Volume Collection TimeReceived TimeBloodVenous blood specimen / Rtaqqio1403/25/2025 9:43 AM EDT1 Narrative [facility] - 03/25/2025 3:07 PM EDT Performed at: 01 - [facility] [address] [facility], [address], [place], [place] ??[id number] Footwear Factory Worker: Fran Zelaya MD, Phone: ??[phone] Authorizing ProviderResult TypeResult StatusNadia Ceja MDOTTAWA COUNTY [facility] BLOOD ORDERABLESFinal ResultPerforming OrganizationAddressCity/State/ZIP CodePhone Number [facility] * IGP, APT HPV,RFX 16/18,45 (03/25/2025 12:00 AM EDT)ComponentValueRef RangeTest MethodAnalysis TimePerformed AtPathologist SignatureDiagnosis:CommentLABCORP Comment:NEGATIVE FOR INTRAEPITHELIAL LESION OR MALIGNANCY.Specimen Adequacy: CommentLABCORPComment:Satisfactory for evaluation. No endocervical component is identified.Clinician Provided ICD10:CommentLABCORPComment: Z01.419 Z12.4 Performed By:CommentLABCORPComment:Kathya Robbins, Plaster Form Maker ([facility])Cyto Comments .LABCORPNote:CommentLABCORPComment: The Pap smear is a screening test designed to aid in the detection of premalignant and malignant conditions of the uterine cervix. ??It is not a diagnostic procedure and should not be used as the sole means of detecting cervical cancer. ??Both false-positive and false-negative reports do occur. Test Methodology:CommentLABCORPComment: This liquid based ThinPrep(R) pap test was interpreted using the [employer] Genius(TM) Cervical Algorithm whole slide imaging system. HPV AptimaNegativeNegativeLABCORPComment: This nucleic acid amplification test detects fourteen high-risk HPV types (16,18,31,33,35,39,45,51,52,56,58,59,66,68) without differentiation. Specimen (Source)Anatomical Location / LateralityCollection Method / Volume Collection TimeReceived TimeVaginal Fluid/ Narrative [facility] - 03/28/2025 4:08 PM EDT Performed at: 01 - [facility] ??[id number] Footwear Factory Worker: Stacey Luevano MD, Phone: ??[phone] Performed at: ??02 - [facility] ??[id number] Footwear Factory Worker: Stacey Luevano MD, Phone: ??[phone] Specimen Comment: No. of containers..01 ThinPrep Vial Authorizing ProviderResult TypeResult StatusNadia Ceja MDOTTAWA COUNTY [facility]ENTER BLOOD ORDERABLESFinal ResultPerforming OrganizationAddressCity/State/ZIP CodePhone Number [facility] * Bilateral breast US complete (03/21/2025 3:07 [...] axillary regions. Authorizing ProviderResult TypeResult StatusNadia Ceja MDIMG US PROCEDURES Final Result * Bilateral diagnostic mammogram with tomosynthesis (03/21/2025 [...] IS VERY IMPORTANT TO YOUR HEALTH. ??THE [place] [employer] SOCIETY GUIDELINES RECOMMEND THAT WOMEN 40 YEARS OF AGE AND OLDER SHOULD HAVE A MAMMOGRAM EVERY YEAR. A REMINDER LETTER WILL BE SENT AT THE APPROPRIATE TIME. ?? ELECTRONICALLY SIGNED BY: Kimi Baxter 03/21/2025 5:26 PM EDT EXAMINATION: BI MAMMOGRAM [...] assess stability. Authorizing ProviderResult TypeResult StatusNadia Ceja MDIMG BI PROCEDURES Final Result * OCT, Optic Nerve - OU - Both Eyes (03/05/2025 11:03 AM EDT)Anatomical Region LateralityModalityHeadOptical Coherence Tomography Narrative 03/05/2025 11:03 AM EDT Right Eye Images reviewed and comparison made to baseline, Images reviewed. To assess optic nerve function and for use in future follow-up. Reliability: good and adequate. Left Eye Images reviewed and comparison made to baseline, Images reviewed. To assess optic nerve function and for use in future follow-up. Reliability: good and adequate. Notes Nerve fiber layer (NFL) thinning both eyes (OU). Increase in right eye (OD) from prior. Watch for need to add therapy. Authorizing ProviderResult TypeResult StatusHarsha Philippe DOCROSSROADS REGIONAL MEDICAL CENTER TOMOGRAPHY Edited Result - Final * OCT, Retina - OU - Both Eyes (03/05/2025 10:49 AM EDT)Anatomical Region LateralityModalityHeadOptical Coherence Tomography Narrative 03/05/2025 10:49 AM EDT Right Eye Quality was good. Scan locations included subfoveal. Progression has been stable. Findings include abnormal foveal contour, epiretinal membrane. Left Eye Quality was good. Scan locations included subfoveal. Progression has been stable. Findings include abnormal foveal contour, epiretinal membrane. Authorizing ProviderResult TypeResult StatusHarsha Philippe DOOPHTH TOMOGRAPHY Edited Result - Final * Cologuard?? colon cancer screening (06/15/2023 8:30 AM EST)ComponentValueRef RangeTest MethodAnalysis TimePerformed AtPathologist SignatureNONINV COLON CA DNA+OCC BLD SCRN STL-WPZLmygydhwBkuyabea29/09/2024 9:54 AM [employer] (CLIA #:[id number])Comment: NEGATIVE TEST RESULT. A negative Cologuard result indicates a low likelihood that a colorectal cancer (CRC) or advanced adenoma (adenomatous polyps with more advanced pre-malignant features) ??is present. The chance that a person with a negative Cologuard test has a colorectal cancer is less than 1in 1500 (negative predictive value >99.9%) or has an advanced adenoma is less than 5.3% (negative predictive value 94.7%). These data are based on a prospective cross-sectional study of 10,000individuals at average risk for colorectal cancer who were screened with both Cologuard and colonoscopy. (Kia Bettencourt al, N Engl J Med 2014;370(14):2656-8323) The normal value (reference range) for this assay is negative. COLOGUARD RE-SCREENING RECOMMENDATION: Periodic colorectal cancer screening is an important part ofpreventive healthcare for asymptomatic individuals at average risk for colorectal cancer. ??Following a negative Cologuard result, the [place] Cancer Society and U.S. Multi-Society Task Force screening guidelines recommend a Cologuard re-screening interval of 3 years. References: [place] [employer] Guideline for Colorectal Cancer Screening: https://www.cancer.or g/cancer/ofuvs-smnbvl-rzprip/cittxljhi-ossgvtqqo-kgvhpyd/acs-recommendations.htm roger; Yehuda DICKEY, Indu CARRERO, Lyle GrullonK, Colorectal Cancer Screening: Recommendations for Physicians and Patients from the U.S. Multi-Society Task Force on Colorectal Cancer Screening , Am J Gastroenterology 2017; 112:4578-1815. TEST DESCRIPTION: Composite algorithmic analysis of stool DNA-biomarkers with hemoglobin immunoassay. ?? Quantitative values of individual biomarkers are not reportable and are not associated with individual biomarker result reference ranges. Cologuard is intended for colorectal cancer screening ofadults of either sex, 45 years or older, who are at average-risk for colorectal cancer (CRC). Cologuard has been approved for use by the U.S. FDA. The performance of Cologuard was established in a cross sectional study of average-risk adults aged 50-84. Cologuard performance in patients ages 45 to 49 years was estimated by sub-group analysis of near-age groups. Colonoscopies performed for a positive result may find as the most clinically significant lesion: colorectal cancer [4.0%], advanced adenoma (including sessile serrated polyps greater than or equal to 1cm diameter) [20%] or non- advanced adenoma [31%]; or no colorectal neoplasia [45%]. These estimates are derived from a prospective cross-sectional screening study of 10,000 individuals at average risk for colorectal cancer who were screened with both Cologuard and colonoscopy. (Kia Hdez et al, N Engl J Med 2014;370(14):4884-2420.) Cologuard may produce a false negative or false positive result (no colorectal cancer or precancerous polyp present at colonoscopy follow up). A negative Cologuard test result does not guarantee the absence of CRC or advanced adenoma (pre-cancer). The current Cologuard screening interval is every 3 years. ([place] Cancer Society and U.S. Multi-Society Task Force). Cologuard performance data in a 10,000 patient pivotal study using colonoscopy as the reference method can be accessed at the following location: www.[employer].Liveset/results. Additional description of the Cologuard test process, warnings and precautions can be found at www.[employer] Grouprd.com. Specimen (Source)Anatomical Location / LateralityCollection Method / Volume Collection TimeReceived TimeStool specimen (specimen)06/15/2023 8:30 AM EST 06/16/2023 1:29 PM EST Narrative Authorizing ProviderResult TypeResult StatusMicheldeanne Anthony NPT[facility] ORDERABLESFinal ResultPerforming OrganizationAddressCity/State/ZIP CodePhone Number .[employer] (CLIA #:[id number]) [address] [place] [address], [employer] (CLIA #:[id number]) [address] [place] [address] from Last 3 Months or Most Recently Relevant to Health Maintenance Insurance Care Teams Team MemberRelationshipSpecialtyStart DateEnd Tomas Paige DO [address] [place] [address] PCP - ACO Reach08/12/23 Chaitanya Dooley MD [address] [place] [address] PCP - GeneralInternal Medicine02/01/25
--- OUTSIDE RECORDS SUMMARY | 2025-04-02 08:01 | XMS_ITS | Clinical Summary ---
Author Organization [facility] Address [address] [place] [address] Phone Care Team Providers Care Dural Mechanic Name Role Phone Tomas Paige DO Primary Care Provider Social History Tobacco UseTypesPacks/DayYears UsedDateSmoking Tobacco: Never Assessed CommentsUnknownSex and Gender InformationValueDate RecordedSex Assigned at Not on fileLegal HpoLlnwxj44/25/2022 5:00 PM ESTGender IdentityNot on fileSexual OrientationNot on file Last Filed Vital Signs Vital SignReadingTime TakenCommentsBlood Pressure--Pulse--Rhhizdottqc53.2 ??C (97.1 ??F)10/30/2020 11:07 AM EDTRespiratory Mjgu816310/14/2020 9:37 AM EDTOxygen Saturation--Inhaled Oxygen Concentration--Uarlay00.2 kg (135 lb)10/30/2020 11:07 AM JQDJhmxkt410.6 cm (5' 6 )10/30/2020 11:07 AM EDTBody Mass Index21.79 10/30/2020 11:07 AM EDT Plan of Treatment Not on file Care Teams Team MemberRelationshipSpecialtyStart DateEnd Date Tomas Paige DO [address] [place] [address] PCP - Eseiueu18/5/18
--- OUTSIDE RECORDS SUMMARY | 2025-04-02 08:01 | XMS_ITS | Encounter Summary ---
Author Organization [facility] Address [address] [facility] [place] [address] Care Team Providers Care Senior Attorney Name Role Phone Tomas Paige DO Unavailable [phone] Chaitanya Dooley MD Primary Care Provider [phone] Encounter Details DateTypeDepartmentCare Team (Latest Contact Info)Ijalibikswo80/08/2025Travel Social History Tobacco UseTypesPacks/DayYears UsedDateSmoking Tobacco: NeverPassive [...] or more drinks on one occasion?Less than nrqehcg52/16/2023PHQ-2AnswerDate Recorded Patient Health Questionnaire-2 Pjogm399/29/2024CommentsNoSex and Gender InformationValueDate RecordedSex Assigned at BirthNot on fileLegal SexFemale 08/25/2022 7:05 PM EDTGender IdentityNot on fileSexual OrientationNot on file documented as of this encounter Plan of Treatment DateTypeDepartmentCare Team (Latest Contact Info)Pyepnavbjqd91/22/2025 10:00 AM EDTAncillary Procedure [facility] [address] [place] [address] 04/03/2025 10:30 AM EDTOffice Visit [facility] [place] [facility] [address] [place] [address] Nadia Ceja MD [address] [place] [address] 04/11/2025 9:30 AM EDTOffice Visit [facility] [address] [place] [address] 05/21/2025 11:00 AM ESTOffice Visit [facility] [address] [place] [facility] [place] [address] Columba Nelson MD [address] [facility], [place] [address] 07/12/2025 11:00 AM ESTOffice Visit [facility] [address] [place] [phone] Harsha Philippe DO [address] [place] [address] documented as of this encounter Visit Diagnoses Not on filedocumented in this encounter Additional Health Concerns AssessmentNoted TimePHQ-9 Depression Total Score: 10:00 AM EDT documented as of this encounter Care Teams Team MemberRelationshipSpecialtyStart DateEnd Date Tomas Paige DO [address] [place] [address] PCP - ACO Reach/07/06 Chaitanya Dooley MD [address] [place] [address] PCP - GeneralInternal Medicine8/22/25documented as of this encounter
--- OUTSIDE RECORDS SUMMARY | 2025-04-02 08:01 | XMS_ITS | Patient Health Record ---
Author Organization [facility] in [place] Address [address] [place] [address] Care Team Providers Care Manager Harbor Name Role Phone Tomas Paige DO Primary Care Provider Unavail able Allergies No Known Allergies Reason For Referral No Information Medications Medication SIG (Take, Route, Frequency, Duration) Notes Start Date End Date Status Ondansetron HCl 8 MG Oral; Duration: 10 Days ActiveLatanoprost 0.005 %APPLY 1 DROP INTO BOTH EYES AT BEDTIME Ophthalmic; Duration: 25 DaysActiveLatanoprost 0.005 %APPLY 1 DROP INTO BOTH EYES AT BEDTIME Ophthalmic; Duration: 25 DaysActiveLatanoprost 0.005 %Ophthalmic; Duration: 25 DaysActiveIpratropium [place] 0.06 %INSTILL 2 SPRAYS IN EACH NOSTRIL THREE TIMES A DAY FOR 30 DAYS Nasal; Duration: 30 DaysActiveDorzolamide HCl-Timolol Mal 2- 0.5 %Ophthalmic; Duration: 100 DaysActivepredniSONE 10 MG 1 tablet Orally as directed; Duration: 9 days Take 30mg for 3 days, then take 20mg for 3 days, then take 10mg for 3 days 4Active Social History Tobacco Use: Social History Observation Description Date Details (start date - stop date) Never Smoker NA - NA Tobacco Control (Standard) Question Answer Notes Tobacco use: Nonsmoker Problems Problem Type SNOMED Code ICD Code Onset Dates Problem Status W/U Status Risk Notes Problem Acquired hallux rigidus (1559985) Hallux rigidus, left foot (M20.22) ActiveconfirmedProblemArthritis (6899407)Arthritis (M19.90)Activeconfirmed Plan Of Treatment No Information Insurance Providers Payer Name Payer Address Payer Phone Subscriber Number Group Number Insured Name Patient Relationship to Insured Coverage Start Date Coverage End Date [place] [address] [place] [address] [id number] KayyAmanda - [facility] the [facility] [address] [address] [place] [id number] NandinialexxAmanda slaughter - patient is the insured Medical (General) History Medical History History ICD Code Arthritis M19.90 Surgical History Surgery Date(Month/Year) chandrika Gaona 1980 2 csections heart [id number] tunnel L [id number]
--- OUTSIDE RECORDS SUMMARY | 2025-04-02 08:01 | XMS_ITS | Encounter Summary ---
Author Organization [facility] Address [address] [place] [address], [address] [place] [address] Care Team Providers Care Boilers Inspector Name Role Phone Unavailable Primary Care Provider Unavailabl e Reason for Visit * ReasonOnset DateCommentsCare Nwklptdjsvdw24/14/2025 Encounter Details DateTypeDepartmentCare Team (Latest Contact Info)Qinoypvtoko40/14/2025Telephone [facility] Breast Surg [address] [place], [place] [phone] [place] [address] [address] [place], [place] [phone] Care Coordination Social History Tobacco UseTypesPacks/DayYears UsedDateSmoking Tobacco: Never Assessed CommentsUnknownSex and Gender InformationValueDate RecordedSex Assigned at Not on fileLegal TyqKvlgfl19/13/2013 1:39 AM ESTGender IdentityNot on fileSexual OrientationNot on filedocumented as of this encounter Plan of Treatment Not on file documented as of this encounter Visit Diagnoses Not on filedocumented in this encounter
--- OUTSIDE RECORDS SUMMARY | 2025-04-02 08:01 | XMS_ITS | Clinical Summary ---
Author Organization [facility] Address [address] [place] [address], [address] [place] [address] Care Team Providers Care Finished Garment Inspector Name Role Phone Unavailable Primary Care Provider Unavailabl e Encounters DateTypeDepartmentCare SztsYupirollevl12/14/2025Telephone [facility] [address] [facility] [place], [place] [phone] America Acosta MD Care Coordinationfrom Last 3 Months Social History Tobacco UseTypesPacks/DayYears UsedDateSmoking Tobacco: Never Assessed CommentsUnknownSex and Gender InformationValueDate RecordedSex Assigned at Not on fileLegal SxcUvktsi93/13/2013 1:39 AM ESTGender IdentityNot on fileSexual OrientationNot on file Plan of Treatment Not on file
--- OUTSIDE RECORDS SUMMARY | 2025-04-02 08:01 | XMS_ITS | Encounter Summary ---
Author Organization [facility] Address [address] [facility] [place] [address] Care Team Providers Care Telegrapher Agent Name Role Phone Tomas Paige DO Unavailable Chaitanya Dooley MD Primary Care Provider [phone] Encounter Details DateTypeDepartmentCare Team (Latest Contact Info)Dwgpayfizpt51/13/2025Travel Social History Tobacco UseTypesPacks/DayYears UsedDateSmoking Tobacco: NeverPassive [...] occasion?Less than /16/2023PHQ-2AnswerDate Recorded Patient Health Questionnaire-2 Hgqgl889/29/2024CommentsNoSex and Gender InformationValueDate RecordedSex Assigned at BirthNot on fileLegal SexFemale 08/25/2022 7:05 PM EDTGender IdentityNot on fileSexual OrientationNot on file documented as of this encounter Plan of Treatment DateTypeDepartmentCare Team (Latest Contact Info)Stymekhumes22/22/2025 10:00 AM EDTAncillary Procedure [facility] [address] [place] [address] 04/03/2025 10:30 AM EDTOffice Visit [facility] [place] [facility] [address] [place] [address] Nadia Ceja MD [address] [place] [address] 04/11/2025 9:30 AM EDTOffice Visit [facility] [address] [place] [address] 05/21/2025 11:00 AM ESTOffice Visit [facility] [address] [place] [address] Columba Nelson MD [address] [facility], [place] [address] 07/12/2025 11:00 AM ESTOffice Visit [facility] Eye [address] [place] [address] Harsha Philippe DO [address] [place] [address] documented as of this encounter Visit Diagnoses Not on filedocumented in this encounter Additional Health Concerns AssessmentNoted TimePHQ-9 Depression Total Score: 10:00 AM EDT documented as of this encounter Care Teams Team MemberRelationshipSpecialtyStart DateEnd Date Tomas aPige DO [address] [place] [address] PCP - ACO Reach/07/06 Chaitanya Dooley MD [address] [place] [address] PCP - GeneralInternal Medicine8/22/25documented as of this encounter
--- OUTSIDE RECORDS SUMMARY | 2025-04-02 08:01 | XMS_ITS | Encounter Summary ---
Author Organization [facility] Address [address] [place] [address] Care Team Providers Care Rougher For Cement Name Role Phone Tomas Paige DO Unavailable [phone] Chaitanya Dooley MD Primary Care Provider [phone] Encounter Details DateTypeDepartmentCare Team (Latest Contact Info)Fbfosiazcas64/13/2025amboo flowsheet CATHY DIAS [address] [facility] [address] [place] [address] Nadia Ceja MD [address] [facility] [address] [place] [address] Social History Tobacco UseTypesPacks/DayYears UsedDateSmoking Tobacco: NeverPassive [...] or more drinks on one occasion?Less than ymuawgn70/16/2023PHQ-2AnswerDate Recorded Patient Health Questionnaire-2 Qvzdd173/29/2024CommentsNoSex and Gender InformationValueDate RecordedSex Assigned at BirthNot on fileLegal SexFemale 08/25/2022 7:05 PM EDTGender IdentityNot on fileSexual OrientationNot on file documented as of this encounter Plan of Treatment DateTypeDepartmentCare Team (Latest Contact Info)Sidbboubgdw52/22/2025 10:00 AM EDTAncillary Procedure [facility] [place] [facility] [address] [place] [address] 04/03/2025 10:30 AM EDTOffice Visit [facility] [address] [place] [address] Nadia Ceja MD [address] [place] [address] 04/11/2025 9:30 AM EDTOffice Visit [facility] [address] [place] [address] 05/21/2025 11:00 AM ESTOffice Visit [facility] [address] [place] [address] Columba Nelson MD [address] [place] [address] 07/12/2025 11:00 AM ESTOffice Visit [facility] [address] [place] [address] Harsha Philippe DO [address] [place] [address] documented as of this encounter Visit Diagnoses Not on filedocumented in this encounter Additional Health Concerns AssessmentNoted TimePHQ-9 Depression Total Score: 10:00 AM EDT documented as of this encounter Care Teams Team MemberRelationshipSpecialtyStart DateEnd Date Tomas Paige DO [address] [place] [address] PCP - ACO Reach08/12/23 Chaitanya Dooley MD [address] [facility] [address] [place] [address] PCP - GeneralInternal Medicine02/01/25documented as of this encounter
--- OUTSIDE RECORDS SUMMARY | 2025-04-02 08:01 | XMS_ITS | Encounter Summary ---
Author Organization [facility] Address [address] [facility] [place] [address] Care Team Providers Care Work Distributor Name Role Phone Tomas Paige DO Unavailable [phone] Chaitanya Dooley MD Primary Care Provider [phone] Encounter Details DateTypeDepartmentCare Team (Latest Contact Info)Hynvbvsgzka98/09/2025Travel Social History Tobacco UseTypesPacks/DayYears UsedDateSmoking Tobacco: NeverPassive [...] or more drinks on one occasion?Less than hhyakey86/16/2023PHQ-2AnswerDate Recorded Patient Health Questionnaire-2 Qklrz815/29/2024CommentsNoSex and Gender InformationValueDate RecordedSex Assigned at BirthNot on fileLegal SexFemale 08/25/2022 7:05 PM EDTGender IdentityNot on fileSexual OrientationNot on file documented as of this encounter Plan of Treatment DateTypeDepartmentCare Team (Latest Contact Info)Lrcwbeedgxy53/22/2025 10:00 AM EDTAncillary Procedure [facility] [address] [place] [address] 04/03/2025 10:30 AM EDTOffice Visit [facility] [place] [facility] [address] [place] [address] Nadia Ceja MD [address] [place] [address] 04/11/2025 9:30 AM EDTOffice Visit [facility] [address] [place] [address] 05/21/2025 11:00 AM ESTOffice Visit [facility] [address] [place] [facility] [place] [address] Columba Nelson MD [address] [facility], [place] [address] 07/12/2025 11:00 AM ESTOffice Visit [facility] Eye [address] [place] [address] Harsha Philippe DO [address] [place] [address] documented as of this encounter Visit Diagnoses Not on filedocumented in this encounter Additional Health Concerns AssessmentNoted TimePHQ-9 Depression Total Score: 10:00 AM EDT documented as of this encounter Care Teams Team MemberRelationshipSpecialtyStart DateEnd Date Tomas Paige DO [address] [place] [address] PCP - ACO Reach/07/06 Chaitanya Dooley MD [address] [place] [address] PCP - GeneralInternal Medicine8/22/25documented as of this encounter
--- OUTSIDE RECORDS SUMMARY | 2025-04-02 08:01 | XMS_ITS | Encounter Summary ---
Author Organization [facility] Address [address] [place] [address] Care Team Providers Care Anesthesiology Physician Name Role Phone Tomas Paige DO Unavailable Chaitanya Dooley MD Primary Care Provider [phone] Encounter Details DateTypeDepartmentCare Team (Latest Contact Info)Wzvfbtwrptt26/13/2025Telephone CATHY DIAS [address] [facility] [address] [place] [address] Nadia Ceja MD [address] [facility] [address] [place] [address] Social History Tobacco UseTypesPacks/DayYears UsedDateSmoking Tobacco: NeverPassive [...] or more drinks on one occasion?Less than sprvkly53/16/2023PHQ-2AnswerDate Recorded Patient Health Questionnaire-2 Yjooq660/29/2024CommentsNoSex and Gender InformationValueDate RecordedSex Assigned at BirthNot on fileLegal SexFemale 08/25/2022 7:05 PM EDTGender IdentityNot on fileSexual OrientationNot on file documented as of this encounter Miscellaneous Notes * Telephone Encounter - Sylvester Holguin - 03/25/2025 3:51 PM EDT Called and spoke with pt- scheduled 04/03 at 10am ok per RF. [facility] due tonurse question. * Telephone Encounter - Sylvester Holguin - 03/25/2025 9:14 AM EDT Pt needs pelvic us w ov LEXIS per PPJ. documented in this encounter Plan of Treatment DateTypeDepartmentCare Team (Latest Contact Info)Xuebueiposd26/22/2025 10:00 AM EDTAncillary Procedure [facility] [place] [facility] [address] [place] [address] 04/03/2025 10:30 AM EDTOffice Visit [facility] [place] [facility] [address] [place] [address] Nadia Ceja MD [address] [place] [address] 04/11/2025 9:30 AM EDTOffice Visit [facility] [place] [facility] [address] [place] [address] 05/21/2025 11:00 AM ESTOffice Visit [facility] [address] [facility] [place] [address] Columba Nelson MD [address] [place] [address] 07/12/2025 11:00 AM ESTOffice Visit [facility] [place] [address] [place] [address] Harsha Philippe DO [address] [place] [address] documented as of this encounter Visit Diagnoses Not on filedocumented in this encounter Additional Health Concerns AssessmentNoted TimePHQ-9 Depression Total Score: 10:00 AM EDT documented as of this encounter Care Teams Team MemberRelationshipSpecialtyStart DateEnd Date Tomas Paige DO [address] [place] [address] PCP - ACO Reach08/12/23 Chaitanya Dooley MD [address] [place] [address] PCP - GeneralInternal Medicine02/01/25documented as of this encounter
--- OUTSIDE RECORDS SUMMARY | 2025-04-02 08:01 | XMS_ITS | Encounter Summary ---
Author Organization [facility] Address [address] [place] [address] Care Team Providers Care Phlebotomy Program Coordinator Name Role Phone Tomas Paige DO Unavailable [phone] Chaitanya Dooley MD Primary Care Provider [phone] Encounter Details DateTypeDepartmentCare Team (Latest Contact Info)Gtwmnziqpxg10/13/2025Telephone CATHY DIAS [address] [facility] [address] [place] [address] Nadia Ceja MD [address] [facility] [address] [place] [address] Social History Tobacco UseTypesPacks/DayYears UsedDateSmoking Tobacco: NeverPassive [...] or more drinks on one occasion?Less than zmvywsb78/16/2023PHQ-2AnswerDate Recorded Patient Health Questionnaire-2 Lmjyl307/29/2024CommentsNoSex and Gender InformationValueDate RecordedSex Assigned at BirthNot on fileLegal SexFemale 08/25/2022 7:05 PM EDTGender IdentityNot on fileSexual OrientationNot on file documented as of this encounter Miscellaneous Notes * Telephone Encounter - Zenaida Talley - 03/25/2025 3:52 PM EDT Spoke with patient and patient stated that she is having some discomfort from pap, advised it is normal to have some discomfort after pap, she can try a heating pad or some tylenol to help with discomfort but it is normal, she voiced understanding documented in this encounter Plan of Treatment DateTypeDepartmentCare Team (Latest Contact Info)Xhfqegwpsyh98/22/2025 10:00 AM EDTAncillary Procedure [facility] [address] [place] [address] 04/03/2025 10:30 AM EDTOffice Visit [facility] [place] [facility] [address] [place] [address] Nadia Ceja MD [address] [place] [address] 04/11/2025 9:30 AM EDTOffice Visit [facility] [address] [place] [address] 05/21/2025 11:00 AM ESTOffice Visit [facility] [address] [place] [address] Columba Nelson MD [address] [place] [address] 07/12/2025 11:00 AM ESTOffice Visit [facility] [address] [place] [address] Harsha Philippe, [address] [place] [address] documented as of this encounter Visit Diagnoses Not on filedocumented in this encounter Additional Health Concerns AssessmentNoted TimePHQ-9 Depression Total Score: 10:00 AM EDT documented as of this encounter Care Teams Team MemberRelationshipSpecialtyStart DateEnd Date Tomas Paige DO [address] [place] [address] PCP - ACO Reach08/12/23 Chaitanya Dooley MD [address] [place] [address] PCP - GeneralInternal Medicine02/01/25documented as of this encounter
--- OUTSIDE RECORDS SUMMARY | 2025-04-02 08:02 | XMS_ITS | CCD ---
Author Organization [facility] Inform ion Partnership [facility] Care Team Providers Care Nut Chopper Name Role Phone Quin Waldron Attending Unavailable DEBRA ADDISON Referring Unavailable Tomas De Leon Primary Care UnavailDEBRA You Attending Unavailable Tomas De Leon Referring UnavailTomas Santos Primary Care UnavailTomas Santos Unavailable Unavailable Unavailable Means MANAGER OUTPATIENT-Debra BETHEA Unavailable Unavaila ble Tomas De Leon Unavailable Unavailable MARLEE SANCHEZ Admitting Unavailable MARLEE SANCHEZ Attending Unavailable DR TOMAS DE LEON Primary Care Unavailable MARLEE SANCHEZ Consulting Unavailable WILI BARRERA Admitting Unavailable WILI BARRERA Attending Unavailable MOISES, DR BOOTHE Primary Care Unavailable MOISES, DR BOOTHE Referring Unavailable WILI BARRERA Consulting Unavailable RODNEY JOHNSON Consulting Unavailable IVANNA ARREGUIN Admitting Unavailable IVANNA ARREGUIN Attending Unavailable MOISES, DR BOOTHE Primary Care Unavailable GIRISH, DR LILIA Diehl Consulting Unavailable IVANNA ARREGUIN Consulting Unavailable MARLEE SANCHEZ Admitting Unavailable MARLEE SANCHEZ Attending Unavailable DR TOMAS DE LEON Primary Care Unavailable MARLEE SANCHEZ Consulting Unavailable Milly Samuel Unavailable Мария Espinal Unavailable Lenore Berger Unavailable Tomas De Leon DO Primary Care Provider Tomas De Leon DO Unavailable Tomas De Leon DO Primary Care Provider TOMAS DE LEON Primary Care Unavailabl e ENGELER, G SHINE Attending Unavailable ENGELER, G SHINE Referring Unavailable ENGELER, G SHINE Attending Unavailable TOMAS DE LEON MONO Primary Care Unavailabl e MOISES, TOMAS MONO Primary Care Unavailabl e ENGELER, G SIHNE Attending Unavailable MOISES, TOMAS MONO Primary Care Unavailabl e MOISES, TOMAS MONO Primary Care Unavailabl e MOISES, TOMAS MONO Primary Care Unavailabl e MOISES, TOMAS MONO Primary Care Unavailabl e MOISES, TOMAS MONO Primary Care Unavailabl e MOISES, TOMAS MONO Primary Care Unavailabl e MOISES, TOMAS MONO Primary Care Unavailabl e ENGELER, G SHINE Referring Unavailable ENGELER, G SHINE Attending Unavailable MOISES, TOMAS MONO Primary Care Unavailabl e MOISES, TOMAS MONO Primary Care Unavailabl e ENGELER, G SHINE Attending Unavailable TOMAS DE LEON MONO Primary Care Unavailabl deanne DE LEON, TOMAS MONO Primary Care Unavailabl e MOISES, TOMAS MONO Primary Care Unavailabl e MOISES, TOMAS MONO Primary Care Unavailabl e MOISES, TOMAS MONO Primary Care Unavailabl e MOISES, TOMAS MONO Primary Care Unavailabl e ENGELER, G SHINE Attending Unavailable TOMAS DE LEON MONO Primary Care Unavailabl e MOISES, TOMAS MONO Primary Care Unavailabl e MOISES, TOMAS MONO Primary Care Unavailabl e ENGELER, G SHINE Attending Unavailable LANIR, G SHINE Referring Unavailable TOMAS DE LEON MONO Primary Care Unavailabl e MOISES, TOMAS MONO Primary Care Unavailabl e MOISES, TOMAS MONO Primary Care Unavailabl e MOISES, TOMAS MONO Primary Care Unavailabl e MOISES, TOMAS MONO Primary Care Unavailabl e ENGELER, G SHINE Referring Unavailable ENGELER, G SHINE Referring Unavailable ENGELER G SHINE Attending Unavailable TOMAS DE LEON MONO Primary Care Unavailabl e MOISES, TOMAS MONO Primary Care Unavailabl e ENGELER, G SHINE Referring Unavailable ENGELER, G SHINE Attending Unavailable TOMAS DE LEON MONO Primary Care Unavailabl e ENGKAELR, G SHINE Attending Unavailable COLUMBA KUMAR Referring Unavailable Miah MEDINAChaitanya Primary Care Provider TOMAS DE LEON Attending Unavailable TOMAS DE LEON Referring Unavailable TOMAS DE LEON Referring Unavailable MARLEE SANCHEZ Attending Unavailable MARLEE SANCHEZ Attending Unavailable NADIA CAMPUZANO Referring Unavailable NADIA CAMPUZANO Referring Unavailable TOMAS DE LEON Attending Unavailable TOMAS DE LEON Referring Unavailable MARLEE SANCHEZ Attending Unavailable NADIA CAMPUZANO Attending Unavailable Allergies Allergy ClassificationReported Allergen(s)Allergy TypeDate of OnsetReaction(s) FacilityDust (1 source)house dustSubstance TquamzvMI-[address] Work Phone: [phone] (1 source)bee pollenSubstance GyjkyphUL-[address]hs[address] Work Phone: [phone] (antibiotic) (1 source)Sulfamethoxazole; Translations: [sulfa]Drug QfnokefMT-[address] Work Phone: (4 sources)Latex Exam Gloves MISC; Translations: [Latex Exam Gloves MISC]Allergy to drug (finding)[facility] [address] Work Phone: (3 sources)bee pollenAllergy to substance (finding)[facility] [address] Work Phone: (3 sources)house dustAllergy to substance (finding)[facility] [address] Work Phone: (3 sources)Sulfamethoxazole; Translations: [sulfa]Drug Allergy [facility] [address] Work Phone: (2 sources)Latex; Translations: [LATEX]Drug allergy (disorder)18-17-4896Ikd [facility] Rep[facility] (1 source)Sulfonamides (Antibiotic)Drug allergy (disorder)40-38-4068Dip [facility] Repository (8 sources)LatexPropensity to adverse tpzcaucpo91-72-2898ZgbuayjMuzhbjdql Clinic (3 sources)Sulfacetamide / SulfurDrug AllergyBurning sensationNort [employer] Other (20 sources)LatexAllergy to zsosgohrj06-19-7137JcnlavcAQIY Healthcare Work Phone: (20 sources)Naproxen; Translations: [NAPROXEN]Drug Ppslrcz87-46-2829 Palpitations, Other: See [facility] (20 sources)Sulfonamides (Antibiotic)Drug Eoqexvp02-78-4506SkgmzqeUVYT Healthcare (1 source)Sulfonamides (Antibiotic); Translations: [SULFA (SULFONAMIDE ANTIBIOTICS)]Propensity to adverse reactions to drug (disorder)03-01-2023 [facility] Repository Medications Current Medications MedicationDrug Class(es)DatesSig (Normalized)Sig (Original)celecoxib 200 mg oral capsule (20 sources)Nonsteroidal Anti-inflammatory DrugStart: 03-15-2023 End: 29-62-0407jifwuychh (CeleBREX) 200 MG capsule Indications: Multilevel degenerative disc disease TAKE ONE CAPSULE BY MOUTH DAILY FOR 90 DAYS for 90 90 capsule 3 10/09/2024 ActiveCeleBREX ActiveCetirizine (2 sources)Histamine-1 Receptor AntagonistZyrTEC Activecholecalciferol 0.05 mg oral capsule (20 sources)Vitamin Dcholecalciferol (Vitamin D-3) 50 MCG (1999 UT) capsule 1 capsule 1 (one) time each day at the same time. ActiveCholecalciferol, Vitamin D3, 50 mcg (2,000 unit) cap 1 capsule. Activeclindamycin 10 mg/ml topical solution (1 source)Lincosamide AntibacterialStart: 46-77-6927Khdaxkrormq Phosphate 1 % 1 application Externally Twice a day for 5 day(s) Jan, Active cyclobenzaprine hydrochloride 5 mg oral tablet (20 sources)Muscle RelaxantStart: 04-10-2024 End: 85-95-2141qblx 1 tablet by mouth twice daily as needed for muscle spasms cyclobenzaprine (Flexeril) 5 MG tablet Indications: Muscle spasm Take 1 tablet (5 mg) by mouth 2 (two) times a day as needed for muscle spasms 40 tablet 04/10/2024 ActiveCyclobenzaprine HCl PRN ActiveCyclobenzaprine HCl Not-Taking diazePAM 5 mg oral tablet (20 sources)BenzodiazepineStart: 22-23-6301zyld 1 tablet by mouth oncediazePAM (Valium) 5 MG tablet Indications: Meniere's disease of both ears Take 1 tablet (5 mg) by mouth every 12 (twelve) hours 15 tablet 10/04/2023 ActiveStart: 55-31-6715owpr 1 tablet by mouth every twelve hoursdiazePAM (VALIUM) 5 mg tablet Take 5 mg by mouth every 12 hours. 10/04/2023 ActiveStart: 74-38-7122nmqh 1 tablet by mouth twice daily as neededdiazePAM 5 MG Oral Tablet TAKE 1 TABLET TWICE DAILY NEEDED. Quantity: 60 Refills: 0 Ordered: 02-Feb-2021 Lizett Mckenna MD Start : 30-Oct-2020 ActiveStart: 92-67-2171smnj 1 tablet by mouth every twelve hours as neededdiazePAM 5 MG Oral Tablet TAKE 1 TABLET every 12 hours NEEDED for vertigo or tinnitus Quantity: 10 Refills: 0 Ordered: 10-Jul-2020 Debra Ramirez Start : 19-May-2018 ActiveValium Activedorzolamide 20 mg/ml / timolol 5 mg/ml ophthalmic solution (20 sources)Carbonic Anhydrase Inhibitor, beta-Adrenergic BlockerStart: 05-30-2024 End: 26-50-7639nntx 1 drop(s) into the eye(s) in the morningdorzolamide-timolol (Cosopt) 2-0.5 % ophthalmic solution Indications: Primary open angle glaucoma (P OAG) of both eyes, mild stage ADMINISTER 1 DROP INTO THE LEFT EYE IN THE MORNING AND 1 DROP BEFORE BEDTIME. 10 mL 3 05/30/2024 05/30/2025 ActiveStart: 05-30-2024 End: 85-36-3832bzpzkfvwnrw-timolol (COSOPT) 22.3-6.8 mg/mL ophthalmic solution 1 drop. 05/30/2024 05/30/2025 ActiveStart: 03-01-2023 End: 62-27-3868gkvw 1 drop(s) into the eye(s) in the morningdorzolamide-timolol (Cosopt) 22.3-6.8 MG/ML ophthalmic solution Indications: Primary open angle glau coma (POAG) of both eyes, mild stage (CMS/HCC) Administer 1 drop into the left eye in the morning and 1 drop before bedtime. 10 mL 5 03/01/2023 02/29/2024 Activefluticasone (7 sources)CorticosteroidFlonase ActiveFlonase SUSP Quantity: 0 Refills: 0 Ordered: 19-May-2018 DO ActiveFlonase SUSP Refills: 0 ActivehydroCHLOROthiazide 25 mg / triamterene 37.5 mg oral capsule (20 sources)Potassium-sparing Diuretic, Thiazide DiureticStart: 28-64-5697qqxe 1 capsule by mouth once daily in the morningtriamterene-hydroCHLOROthiazide (Dyazide) 37.5-25 MG capsule Indications: Hypertension, essential TAKE ONE CAPSULE BY MOUTH ONCE DAILY IN THE MORNING 90 capsule 2 08/03/2023 Activetake 1 capsule by mouth once dailyTriamterene-HCTZ 37.5-25 MG Oral Capsule take 1 capsule by mouth once daily Quantity: 90 Refills: 3Ordered: 22-Feb-2020 Means Debra BURCH Activeipratropium bromide 0.042 mg/actuat metered dose nasal spray (20 sources)AnticholinergicStart: 77-18-2224ntbk 2 spray(s) nasal route three times dailyipratropium (Atrovent) 0.06 % nasal spray Indications: Chronic rhinitis INSTILL 2 SPRAYS IN EACH NOSTRIL THREE TIMES A DAY FOR 30 DAYS 15 mL 1 05/07/2024 ActiveStart: 65-22-2241nujs 2 spray(s) nasal route three times daily ipratropium bromide (ATROVENT) 42 mcg (0.06 %) nasal spray INSTILL 2 SPRAYS IN EACH NOSTRIL THREE TIMES A DAY FOR 30 DAYS 05/07/2024 ActiveStart: 09-23-2022 take 2 spray(s) nasal route three times dailyipratropium (Atrovent) 0.06 % nasal spray INSTILL 2 SPRAYS IN EACH NOSTRIL THREE TIMES A DAY FOR 30DAYS 09/23/2022 ActiveStart: 28-66-6379icvi 2 spray(s) nasal route three times dailyIpratropium Mercedita 0.06 % 2 sprays in each nostril Nasally Three times a day Nov, ActiveIpratropium Mercedita Activelatanoprost 0.05 mg/ml ophthalmic solution (20 sources)Prostaglandin AnalogStart: 10-17-2023 End: 28-15-5148wtcc 1 drop(s) into the eye(s) at bedtimelatanoprost (Xalatan) 0.005 % ophthalmic solution Indications: Primary open angle glaucoma (POAG) of both eyes, mild stage APPLY 1 DROP INTO BOTH EYES AT BEDTIME 7.5 mL 4 12/03/2024 ActiveLatanoprost Not-TakingLatanoprost 0.005 % Ophthalmic Solution Quantity: 0 Refills: 0 Ordered: 19-May-2018 DO ActiveLatanoprost 0.005 % Ophthalmic Solution Refills: 0 Activelevocetirizine (1 source)Histamine-1 Receptor AntagonistXyzal ActiveLoratadine (3 sources)Claritin ActivemethylPREDNISolone (12 sources)CorticosteroidStart: 12-02-2023 End: 62-76-7569qazvkgMAXNFFQlppzs (Medrol Dospak) 4 MG tablets Indications: Hallux rigidus of left foot Take as directed on package. 21 tablet 12/02/2023 10/09/2024 Discontinued (Therapy completed)Start: 23-80-4818anzcepJZOKPEEoeifh (Medrol Dospak) 4 MG tablets Indications: Hallux rigidus of left foot Take as directed on package. 21 tablet 12/02/2023 ActiveStart: 55-53-7702Cxfukg 4 MG as directed Orally for 6 days Sep, Not-Takingondansetron 8 mg oral tablet (17 sources)Serotonin-3 Receptor AntagonistStart: 10-04-2023 End: 47-18-2824lzha 1 tablet by mouth in the morningondansetron (Zofran) 8 MG tablet Indications: Meniere's disease of both ears Take 1 tablet (8 mg) by mouth in the morning and 1 tablet (8 mg) before bedtime. 20 tablet 1 10/04/2023 10/09/2024 Discontinued (Therapy completed)Start: 78-45-5330lqkt 1 tablet by mouth every eight hours as needed for nauseaOndansetron 8 MG Oral Tablet Disintegrating take one tab by mouth every 8 hours as needed for nausea Quantity: 15 Refills: 1 Ordered: 10-Jul-2020 Means Debra BURCH Start : 28-Wagner-2021 ActiveOndansetron ActivepredniSONE 20 mg oral tablet (5 sources)Start: 62-85-5567dadg 1 tablet by mouth every twelve hourspredniSONE 20 MG 1 tablet Orally 2 times a day for 5 day(s) Nov, ActiveStart: 17-59-8161ejljkiFGEC 10 MG Oral Tablet Take 60 mg for 6 days, take 40mg for 1 day, take 30mg for 1 day, take 20mg for 1 day, take 10mg for 1 day, then stop Quantity: 46 Refills: 0 Ordered: 10-Jul-2020 Means Debra BURCH Start : 19-May-2018 ActivePseudoephedrine (6 sources)alpha-Adrenergic AgonistSudafed ActiveSudafed TABS Quantity: 0 Refills: 0 Ordered: 19-May-2018 DO ActiveSudafed TABS Refills: 0 Active rosuvastatin calcium 10 mg oral tablet (20 sources)HMG-CoA Reductase InhibitorStart: 04-10-2024 End: 16-90-7905elpw 1 tablet by mouth at bedtimerosuvastatin (Crestor) 10 MG tablet Indications: Mixed hyperlipidemia Take 1 tablet (10 mg) by mouth at bedtime 90 tablet 1 10/09/2024 Activeterconazole 4 mg/ml vaginal cream (2 sources)Azole AntifungalStart: 03-25-2025 End: 59-56-0987itriemscogy (Terazol 7) 0.4 % vaginal cream Indications: Vulvovaginal Candidiasis Insert 1 applicator into the vagina at bedtime for 7 days 45 g 2 03/25/2025 04/01/2025 Activetriamcinolone acetonide 1 mg/ml topical cream (2 sources)CorticosteroidStart: 91-36-6287vufrmvttncron (Kenalog) 0.1 % cream Indications: Vaginitis and vulvovaginitis , Vaginal discharge Apply topically in the morning and before bedtime. To vulva. 30 g 2 03/25/2025 Active Triamterene-HCTZ (3 sources)Triamterene-HCTZ Active Completed/Discontinued Medications MedicationDrug Class(es)DatesSig (Normalized)Sig (Original)[id number] 200 actuat albuterol 0.09 mg/actuat metered dose inhaler (1 source)beta2-Adrenergic AgonistStart: 22-06-7458ikro 2 puff(s) by inhalation every four hours as neededAlbuterol Sulfate HFA 108 (90 Base) MCG/ACT 2 puffs as needed Inhalation every 4 hrs for 30 days 2020 Not-Takingmeclizine hydrochloride 25 mg oral tablet (4 sources)AntiemeticMeclizine HCl - 25 MG Oral Tablet Quantity: 0 Refills: 0 Ordered: 19-May-2018 DO ActiveMeclizine HCl - 25 MG Oral Tablet Refills: 0 Active methylPREDNISolone 4 MG Oral Tablet Therapy Pack (3 sources)Start: 58-10-0235voyhszLPRHUDOkfojm 4 MG Oral Tablet Therapy Pack take as directed on package insert, then repeat Quantity: 2 Refills: 0 Ordered: 01-Aug-2020 Means Debra BURCH Start : 01-Aug-2020 Activeomeprazole 20 mg delayed release oral capsule (4 sources)Proton Pump InhibitorStart: 85-56-0329quad 1 capsule by mouth once dailyOmeprazole 20 MG Oral Capsule Delayed Release TAKE 1 CAPSULE DAILY WHILE ON PREDNISONE Quantity: 10Refills: 0 Ordered: 10-Jul-2020 Means Debra BURCH Start : 19-May-2018 Active Problems Active Problems Problem ClassificationProblemDateDocumented DateEpisodic/Chronic Administrative/social admission (2 sources)Patient encounter status; Translations: [Other specified counseling] 13-40-6727TxddnlngFithoie disorders (20 sources)Generalized anxiety disorder; Translations: [Generalized anxiety disorder]Onset: 897780-10-7861ClomzpsDqztixfh (20 sources)Age-related nuclear cataract, right eye; Translations: [Age-related nuclear cataract, left eye]Onset: 29-68-4622JmoevegIcyyfdmalg associated with dizziness or vertigo (20 sources)Meniere's disease of left inner ear; Translations: [Meniere's disease, unspecified]Onset: 100187-62-0710ZqaspiiBsrgombbah associated with dizziness or vertigo (4 sources)Vertigo; Translations: [Dizziness and giddiness]EpisodicDisorders of lipid metabolism (20 sources)Mixed hyperlipidemia; Translations: [Mixed hyperlipidemia]Onset: 319891-08-4119JodvkweJismdjkrslxwm symptoms and ill-defined conditions (20 sources)Mixed urinary incontinence; Translations: [Mixed incontinence]Onset: 403293-42-9978DbxycexJivguyzbljcpz symptoms and ill-defined conditions (2 sources)Nocturia; Translations: [Nocturia]91-18-2641QzxdqllwQshrniix (20 sources)Primary open-angle glaucoma, right eye, mild stage; Translations: [Primary open-angle glaucoma, left eye, mild stage]Onset: ChronicInflammatory diseases of female pelvic organs (6 sources)Vulvovaginitis; Translations: [Acute vaginitis]06-41-7289Ustovtsu Melanomas of skin (1 source)Malignant melanoma of skinOnset: 26-97-9286EujyvowUkjp disorders (20 sources)Mild major depression; Translations: [Major depressive disorder, single episode, mild]Onset: 120405-92-8269RksomlxOvfincjdcgjr breast conditions (16 sources)Pain of breast; Translations: [Breast tenderness]48-83-7386Ntaddael Osteoarthritis (20 sources)Degenerative joint disease involving multiple joints; Translations: [Primary generalized (osteo)arthritis]Onset: 615309-99-9385UiymauyZphyv connective tissue disease (4 sources)H/O: arthritis; Translations: [Personal history of arthritis]Episodic Other connective tissue disease (4 sources)Spasm; Translations: [Other muscle spasm]73-67-7767GtwergfkDtewp ear and sense organ disorders (1 source)Sensorineural hearing loss, bilateral; Translations: [Sensorineural hearing loss, bilateral]Onset: 79-33-4158AvelmgcXshkz ear and sense organ disorders (3 sources)Sensorineural hearing loss, unilateral, left ear, with unrestricted hearing on the contralateral side; Translations: [Sensorineural hearing loss (SNHL) of left ear with unrestricted hearing of right ear]ChronicOther ear and sense organ disorders (20 sources)Sensorineural hearing loss, bilateral; Translations: [Sensorineural hearing loss, bilateral]Onset: 362642-22-8996JdimkttTamin ear and sense organ disorders (3 sources)Asymmetrical sensorineural hearing loss; Translations: [Sensorineural hearing loss, asymmetrical]ChronicOther ear and sense organ disorders (6 sources)Bilateral hearing loss; Translations: [Mixed hearing loss, bilateral] ChronicOther ear and sense organ disorders (1 source)Unilateral sensorineural hearing loss with unrestricted hearing on the contralateral side; Translations: [Sensorineural hearing loss, unilateral] ChronicOther ear and sense organ disorders (3 sources)Ear sensations - finding; Translations: [Other disorders of ear] EpisodicOther ear and sense organ disorders (3 sources)Subjective tinnitus of right ear; Translations: [Subjective tinnitus] EpisodicOther ear and sense organ disorders (4 sources)Subjective tinnitus of left ear; Translations: [Subjective tinnitus] EpisodicOther ear and sense organ disorders (3 sources)Sudden hearing loss; Translations: [Sudden hearing loss, unspecified] EpisodicOther endocrine disorders (2 sources)Disorder of endocrine system; Translations: [Endocrine disorder, unspecified]50-09-3499GovymfkuRqptz female genital disorders (4 sources)Vaginal discharge; Translations: [Other specified noninflammatory disorders of vagina]46-31-2291ScbyxwxtGgxgq female genital disorders (2 sources)Pruritus of vagina; Translations: [Other specified noninflammatory disorders of vagina]42-83-7794LtzwqkgmOvhvh hereditary and degenerative nervous system conditions (20 sources)Impaired cognition; Translations: [Mild cognitive impairment, so stated]Onset: 184313-30-6925FqrwohaUbvlz inflammatory condition of skin (2 sources)Red breast; Translations: [Erythematous condition, unspecified] 40-33-2864UfgbpwzbGqmbo nervous system disorders (1 source)Other specified mononeuropathies; Translations: [OTHER SPECIFIED MONONEUROPATHIES]Onset: 74-82-7193UhkmtpdEzpkh nervous system disorders (4 sources)H/O: glaucoma; Translations: [Personal history of other disorders of nervous system and sense organs]EpisodicOther non-epithelial cancer of skin (10 sources)Malignant basal cell neoplasm of skin; Translations: [Basal cell carcinoma of skin, unspecified]Onset: 736387-17-8919SmxdtaltUywck screening for suspected conditions (not mental disorders or infectious disease) (20 sources)Decreased vitamin D; Translations: [Other specified abnormal findings of blood chemistry]Onset: 914820-52-6483ZgdzuxhnZyuev upper respiratory disease (20 sources)Chronic rhinitis; Translations: [Chronic rhinitis]Onset: 03-24-2023 33-23-8915WxufzlrYprfzs media and related conditions (1 source)Unspecified perforation of tympanic membrane, right earEpisodic Residual codes; unclassified (6 sources)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; Translations: [Genetic susceptibility to malignant neoplasm of breast]21-78-3041OoraxlszRotdmawh codes; unclassified (6 sources)Past history of procedure; Translations: [Other specified postprocedural states]51-24-6253SikebwqaRexnskk detachments; defects; vascular occlusion; and retinopathy (20 sources)Epiretinal membrane of right eye; Translations: [Puckering of macula, right eye]Onset: 212574-85-8991HlxziffCcxvvocipkq (2 sources)Miscarriage; Translations: [Complete or unspecified spontaneous without complication]10-72-4467Qvndfzwi Past or Other Problems Problem ClassificationProblemDateDocumented DateEpisodic/ChronicChronic obstructive pulmonary disease and bronchiectasis (1 source)Bronchitis, not specified as acute or chronicOnset: 11-22-2021 Resolved: 50-73-8590NcbvhkuaP Codes: Natural/environment (1 source)Bitten or stung by nonvenomous insect and other nonvenomous arthropods, initial encounterOnset: 02-09-2022 Resolved: 71-07-0707RjqabirkLsnjaoxeihllc and screening for infectious disease (20 sources)Contact with and (suspected) exposure to other viral communicable diseases; Translations: [Needs influenza immunization]Onset: 11-22-2021 Resolved: 31-55-0697EdzynopyTszh disorders (20 sources)Mood disordersOnset: 03-28-2023 Resolved: Other bone disease and musculoskeletal deformities (20 sources)Osteopenia; Translations: [Other specified disorders of bone density and structure, unspecified site]Onset: 430249-14-3957XbxlrikuJeziz connective tissue disease (4 sources)Pain in right foot; Translations: [PAIN IN RIGHT FOOT]Onset: 06-58-1285SqmelxlkNkdpx eye disorders (20 sources)Dry eyes; Translations: [Dry eye syndrome of bilateral lacrimal glands]Onset: 169108-63-1139FvdvysslEiczx gastrointestinal disorders (20 sources)Irritable bowel syndrome; Translations: [Irritable bowel syndrome without diarrhea]Onset: 03-24-2023 Resolved: 149473-16-2079SkgfiswCkhue non-traumatic joint disorders (4 sources)Other instability, right ankle; Translations: [OTHER INSTABILITY RIGHT ANKLE]Onset: 16-51-9741UeudrxbfRatbb non-traumatic joint disorders (1 source)Pain in right ankle and joints of right foot; Translations: [PAIN IN RIGHT ANKLE]Onset: 55-15-6615AqexpxxtBwwjm upper respiratory infections (1 source)Acute sinusitis, unspecifiedOnset: 11-22-2021 Resolved: 94-95-0224DbozeaozZcxxpfczybv; intervertebral disc disorders; other back problems (20 sources)Degeneration of intervertebral disc; Translations: [Dorsopathy, unspecified]Onset: 375911-69-8642GmlcddanYtwmalagdvhj (3 sources)Sprain of right knee; Translations: [Right knee sprain]Unclassified (2 sources)Breast shpipcs86-77-1572PBPPEZH: Highlighted row has not occurred! Residual codes; unclassified (5 sources)DiseaseEpisodic Results Test NameValueInterpretationReference RangeFacilityLaboratory - Chemistry and Chemistry - challengeon [id number] Qn17.4 m[IU]/[facility] Comment on above:Adult Female Range Follicular phase 3.5 - 12.5 Ovulation phase 4.7 - 21.5 Luteal phase 1.7 - 7.7 Postmenopausal 25.8 - 134.8 No Panel Informationon [id number] and review of laboratory results AbnormalFreeman Neosho HospitalPerformed at: - LabCit[facility] [address], [address], [place], [place] [id number] Panel Edge Sealer: Fran Zelaya MD, Phone: [phone] HealthcareBI MAMMOGRAM DIAGNOSTIC TOMOSYNTHESIS BILATERALon 57-54-9486IE MAMMOGRAM DIAGNOSTIC TOMOSYNTHESIS BILATERALThis is a summary report. The complete report is available in the patient's medical record. If you cannot access the medical record, please contact the sending organization for a detailed fax or copy. EXAMINATION: BI MAMMOGRAM DIAGNOSTIC TOMOSYNTHESIS BILATERAL CLINICAL HISTORY: Breast pain TECHNIQUE: Diagnostic digital mammogram study of [...] in 6 months isrecommended to assess stability. IMPRESSION: No specific evidence of malignancy seen in [...] Ultrasound in 6 Months Board Certified Radiologists. Accredited by the ACR and FDA. MAMMOGRAPHY IS VERY IMPORTANT TO YOUR HEALTH. THE [employer] GUIDELINES RECOMMEND THATWOMEN 40 YEARS OF AGE AND OLDER SHOULD HAVE A MAMMOGRAM EVERY YEAR. A REMINDER LETTER WILL BE SENT AT THE APPROPRIATE TIME. ELECTRONICALLY SIGNED BY: Tarun Cuellar M.D.NormalNot AvailableBI US BREAST COMPLETE BILATERALon [id number] US BREAST COMPLETE BILATERALThis is a summary report. The complete report is available in the patient's medical record. If you cannot access the medical record, please contact the sending organization for a detailed fax or copy. Examination: BI US BREAST COMPLETE BILATERAL Reason [...] No obvious adenopathy in the axillary regions. IMPRESSION: Impression: Bilateral breast ultrasound study demonstrates a [...] BI-RADS 3 ELECTRONICALLY SIGNED BY: Tarun Cuellar M.D.NormalNot AvailableOphthalmic OCT panelon [id number] John's Saint [facility] Eye Images reviewed and comparison made to [...] from prior. Watch for need to add therapy.[facility] Radiology Study observation (narrative)[facility] HospitalOpt[facility] tomography study reporton [id number] Health Union WestRadiology Study observation (narrative)[facility] HealthcareCNOVon [id number] Visit (RADTSA) FIDE SULTANA ([id number]) 1950 F Date Time Provider Department 01/15/25 10:00 AM Tr LAWRENCE During your visit today, we recorded the following information about you: Temperature Pulse Respiration Blood pressure 96.7 degrees 60/minute 18/minute 142/87 Weight 66 kg Tr Lawrence MD 01/15/2025 11:55 AM Signed Radiation Oncology - Follow Up Note PATIENT NAME: Fide Sultana PATIENT DIAGNOSIS: Skin cancer left nose, basal cell carcinoma. RADIATION SUMMARY: DATES OF TREATMENT: 12/04/2024- 12/28/2024 AREA TREATED: Left Mid Nose Skin DELIVERED DOSE: Area: 4950 cGy in 18 fractions, 1 Field, Electron, 9 MeV TOTAL: 4950 cGy of 5500 cGy in 18 of 20 fractions ELAPSED TIME: 24 days. INTERVAL HISTORY: Doing well. Skin irritation much improved. ALLERGIES Allergen Reactions Latex Unknown Sulfa (Sulfonamide * Unknown Other Reaction(s): sulfa powder wong. Naproxen Other: See Comments MEDICATIONS: celecoxib (CELEBREX) 200 mg capsule TAKE ONE CAPSULE BY MOUTH DAILY FOR 90 DAYS for 90 Cholecalciferol, Vitamin D3, 50 mcg (2,000 unit) cap 1 capsule. cyclobenzaprine (FLEXERIL) 5 mg tablet Take 5 mg by mouth. diazePAM (VALIUM) 5 mg tablet Take 5 mg by mouth every 12 hours. dorzolamide-timolol (COSOPT) 22.3-6.8 mg/mL ophthalmic solution 1 drop. ipratropium bromide (ATROVENT) 42 mcg (0.06 %) nasal spray INSTILL 2 SPRAYS IN EACH NOSTRIL THREE TIMES A DAY FOR 30 DAYS latanoprost (XALATAN) 0.005 % ophthalmic solution APPLY 1 DROP INTO BOTH EYES AT BEDTIME rosuvastatin (CRESTOR) 10 mg tablet Take 10 mg by mouth. REVIEW OF SYSTEMS: GENERAL: Negative for weight loss, fevers, chills, or night sweats. HEENT: Nosebleed is resolving. NECK: Negative for masses in the neck. MUSCULOSKELETAL: Negative for limitations in movement, pain, or swelling. NEURO: Negative for dizziness, headache, weakness or numbness. HEMATOLOGIC: Negative for bleeding or easy bruising. SKIN: See HPI PHYSICAL EXAM: VS: BP 142/87 Pulse 60 Temp (!) 35.9 ?C (96.7 ?F) Resp 18 Wt 66 kg (145 lb 8.1 oz) SpO2 97% KPS: 100 General Appearance: Alert and oriented. No acute distress. HEENT: NCAT. Sclera anicteric. PERRL. EOMI. Skin: No rashes noted, mild hyperpigmentation on left lateral nose small area of dry desquamation at the site of the left lesion no areas suspicious for persistent disease. Lymphatics: No palpable lymphadenopathy. ASSESSMENT AND PLAN: Skin cancer, basal cell carcinoma involving left lateral mid nose. Doing well after recent completion of radiation. Resolving radiation dermatitis. Clinically no evidence of residual disease. Plan to see her back in 3 months. She has continued follow-up with dermatology. Signed by: Tr Lawrence MD cc: Tomas De Leon ([facility]) [address] [facility] [address] [place] [address] Tr Lawrence [address] [place] [address] [place] [address] Referring Provider: Tr LAWRENCE [[id number]] Allergies As of Date: 01/15/2025 Noted Allergy Reaction LATEX 03/01/2023 16 - Unknown SULFA (SULFONAMIDE ANTIBIOTICS) 03/01/2023 16 - Unknown Comments: Other Reaction(s): sulfa powder wong. NAPROXEN 03/01/2023 14 - Other: See Comments Date Reviewed: 01/15/2025 Reviewed by: Tish Patricio RN - Fully Assessed Reason for Visit: SKIN CANCER [930] Primary Visit Diagnosis:Skin cancer, basal cell [C44.91] Prescriptions as of 01/15/2025 - celecoxib (CELEBREX) 200 mg capsule TAKE ONE CAPSULE BY MOUTH DAILY FOR 90 DAYS for 90 - Cholecalciferol, Vitamin D3, 50 mcg (2,000 unit) cap 1 capsule. - cyclobenzaprine (FLEXERIL) 5 mg tablet Take 5 mg by mouth. - diazePAM (VALIUM) 5 mg tablet Take 5 mg by mouth every 12 hours. - dorzolamide-timolol (COSOPT) 22.3-6.8 mg/mL ophthalmic solution 1 drop. - ipratropium bromide (ATROVENT) 42 mcg (0.06 %) nasal spray INSTILL 2 SPRAYS IN EACH NOSTRIL THREE TIMES A DAY FOR 30 DAYS - latanoprost (XALATAN) 0.005 % ophthalmic solution APPLY 1 DROP INTO BOTH EYES AT BEDTIME - rosuvastatin (CRESTOR) 10 mg tablet Take 10 mg by mouth. Problem List As Of Date: 01/15/2025 (None) Disposition: Return in about 3 months (around 04/17/2025). Follow-up and Disposition History for Encounter Date Provider Department Center 01/15/2025 [id number] LAWRENCE [facility] Encounter Status:Closed by Tr LAWRENCE on 01/15/25[facility] [id number] Visit (VINCENT) KAYYFIDE Berto ([id number]) 1950 F Date Time Provider Department 12/31/24 10:00 AM Tr LAWRENCE During your visit today, we recorded the following information about you: Temperature Pulse Respiration Blood pressure 97.2 degrees 59/minute 16/minute 153/72 Weight 64.2 kg Tr Lawrence MD 12/31/2024 12:02 PM Signed Radiation Oncology - On Treatment Review (OTR) Note PATIENT NAME: Fide Sultana PATIENT DIAGNOSIS: Skin cancer left nose COURSE: definitive AREA TREATED: Left lateral mid nose CURRENT DOSE: 4950cGy in 18 fx PLANNED DOSE: 5500 cGy in 20 fx SUBJECTIVE: Doing well. Increased skin irritation. Some nasal bleeding EXAM: 12/31/24 0956 BP: 153/72 BP Site: Right Arm BP Position: Sitting BP Cuff Size: Regular Adult Pulse: (!) 59 Resp: 16 Temp: 36.2 ?C (97.2 ?F) TempSrc: Temporal SpO2: 100% Weight: 64.2 kg (141 lb 8.6 oz) KPS: 90 General Appearance: Alert and oriented. No acute distress. Radiation dermatitis: moderateerythema within treated area, no desquamation IMAGING/LAB RESULTS: None Treatment chart checked: Yes Patient treatment site reviewed and verified:Yes Port films reviewed and current:Yes Medications started: None ASSESSMENT/PLAN: Patient doing well. They are concerned about skin reaction and soreness. After discussion we will plan to discontinue treatment at this point. I do feel she was achieved appropriate dose. Will plan to see her back in 2 weeks. She will continue skin care as previously outlined. Tr Lawrence MD Allergies As of Date: 12/31/2024 Noted Allergy Reaction LATEX 03/01/2023 16 - Unknown SULFA (SULFONAMIDE ANTIBIOTICS) 03/01/2023 16 - Unknown Comments: Other Reaction(s): sulfa powder wong. NAPROXEN 03/01/2023 14 - Other: See Comments Date Reviewed: 12/31/2024 Reviewed by: Inés Rivas MA - Fully Assessed Reason for Visit: SKIN CANCER [930] Cmt: Treatment visit Primary Visit Diagnosis:Skin cancer, basal cell [C44.91] Prescriptions as of 12/31/2024 - celecoxib (CELEBREX) 200 mg capsule TAKE ONE CAPSULE BY MOUTH DAILY FOR 90 DAYS for 90 - Cholecalciferol, Vitamin D3, 50 mcg (2,000 unit) cap 1 capsule. - cyclobenzaprine (FLEXERIL) 5 mg tablet Take 5 mg by mouth. - diazePAM (VALIUM) 5 mg tablet Take 5 mg by mouth every 12 hours. - dorzolamide-timolol (COSOPT) 22.3-6.8 mg/mL ophthalmic solution 1 drop. - ipratropium bromide (ATROVENT) 42 mcg (0.06 %) nasal spray INSTILL 2 SPRAYS IN EACH NOSTRIL THREE TIMES A DAY FOR 30 DAYS - latanoprost (XALATAN) 0.005 % ophthalmic solution APPLY 1 DROP INTO BOTH EYES AT BEDTIME - rosuvastatin (CRESTOR) 10 mg tablet Take 10 mg by mouth. Problem List As Of Date: 12/31/2024 (None) Disposition: Return in about 2 weeks (around 01/14/2025). Follow-up and Disposition History for Encounter Date Provider Department Center 12/31/2024 [id number] LAWRENCE [facility] Encounter Status:Closed by Tr [facility]24[facility] [id number] Visit (VINCENT) KAYYFIDE ([id number]) 1950 F Date Time Provider Department 12/28/24 10:30 AM Tr LAWRENCE During your visit today, we recorded the following information about you: Tr Lawrence MD 01/04/2025 7:39 AM Signed Radiation Oncology - On Treatment Review (OTR) Note PATIENT NAME: Fide Sultana PATIENT DIAGNOSIS: Skin cancer left nose COURSE: definitive AREA TREATED: Left lateral mid nose CURRENT DOSE: 4950cGy in 18 fx PLANNED DOSE: 5500 cGy in 20 fx SUBJECTIVE: Patient having increased skin reaction. Occasional brief nosebleed from the left nasal orifice. No pain of the mild irritation. EXAM: KPS: 90 General Appearance: Alert and oriented. No acute distress. Radiation dermatitis: Moderate erythema within treated area, no desquamation IMAGING/LAB RESULTS: None Treatment chart checked: Yes Patient treatment site reviewed and verified:Yes Port films reviewed and current:Yes Medications started: None ASSESSMENT/PLAN: Patient doing well. She is having increased skin reaction with some epistasis. Discussed finishing last 2 fractions next week versus holding treatment at this point which should be an appropriate biologic dose for her. Will discuss further next week and see her pretreatment on Tuesday. Tr Lawrence MD Allergies As of Date: 12/28/2024 Noted Allergy Reaction LATEX 03/01/2023 16 - Unknown SULFA (SULFONAMIDE ANTIBIOTICS) 03/01/2023 16 - Unknown Comments: Other Reaction(s): sulfa powder wong. NAPROXEN 03/01/2023 14 - Other: See Comments Date Reviewed: 12/24/2024 Reviewed by: Tish Patricio RN - Fully Assessed Primary Visit Diagnosis:Skin cancer, basal cell [C44.91] Prescriptions as of 01/04/2025 - celecoxib (CELEBREX) 200 mg capsule TAKE ONE CAPSULE BY MOUTH DAILY FOR 90 DAYS for 90 - Cholecalciferol, Vitamin D3, 50 mcg (2,000 unit) cap 1 capsule. - cyclobenzaprine (FLEXERIL) 5 mg tablet Take 5 mg by mouth. - diazePAM (VALIUM) 5 mg tablet Take 5 mg by mouth every 12 hours. - dorzolamide-timolol (COSOPT) 22.3-6.8 mg/mL ophthalmic solution 1 drop. - ipratropium bromide (ATROVENT) 42 mcg (0.06 %) nasal spray INSTILL 2 SPRAYS IN EACH NOSTRIL THREE TIMES A DAY FOR 30 DAYS - latanoprost (XALATAN) 0.005 % ophthalmic solution APPLY 1 DROP INTO BOTH EYES AT BEDTIME - rosuvastatin (CRESTOR) 10 mg tablet Take 10 mg by mouth. Problem List As Of Date: 12/28/2024 (None) Encounter Status:Closed by Tr LAWRENCE on 01/04/25[facility] [id number] Visit (RADTSA) FIDE SULTANA ([id number]) 1950 F Date Time Provider Department 12/24/24 10:30 AM Tr LAWRENCE During your visit today, we recorded the following information about you: Temperature Pulse Respiration Blood pressure 96 degrees 57/minute 18/minute 157/74 Weight 60 kg Tish Patricio RN 12/24/2024 12:03 PM Signed Status: Post-menopausal. NEHEMIAH Segundo G Phillip, MD 12/24/2024 12:03 PM Signed Radiation Oncology - On Treatment Review (OTR) Note PATIENT NAME: Fide Sultana PATIENT DIAGNOSIS: Skin cancer left nose COURSE: definitive AREA TREATED: Left lateral mid nose CURRENT DOSE: 3850cGy in 14 fx PLANNED DOSE: 5500 cGy in 20 fx SUBJECTIVE: Doing well. Mild skin irritation. EXAM: 12/24/24 1058 BP: 157/74 Pulse: (!) 57 Resp: 18 Temp: (!) 35.6 ?C (96 ?F) SpO2: 100% Weight: 60 kg (132 lb 4.4 oz) KPS: 90 General Appearance: Alert and oriented. No acute distress. Radiation dermatitis: erythema within treated area, no desquamation IMAGING/LAB RESULTS: None Treatment chart checked: Yes Patient treatment site reviewed and verified:Yes Port films reviewed and current:Yes Medications started: None ASSESSMENT/PLAN: Patient doing well. Discussed skin care. Chart and imaging reviewed. Continue radiation as outlined. Tr Lawrence MD Referring Provider: Tr LAWRENCE [[id number]] Allergies As of Date: 12/24/2024 Noted Allergy Reaction LATEX 03/01/2023 16 - Unknown SULFA (SULFONAMIDE ANTIBIOTICS) 03/01/2023 16 - Unknown Comments: Other Reaction(s): sulfa powder wong. NAPROXEN 03/01/2023 14 - Other: See Comments Date Reviewed: 12/24/2024 Reviewed by: Tish Patricio RN - Fully Assessed Reason for Visit: Radiotherapy On-treatment Visit [1721] Primary Visit Diagnosis:Skin cancer, basal cell [C44.91] Prescriptions as of 12/24/2024 - celecoxib (CELEBREX) 200 mg capsule TAKE ONE CAPSULE BY MOUTH DAILY FOR 90 DAYS for 90 - Cholecalciferol, Vitamin D3, 50 mcg (2,000 unit) cap 1 capsule. - cyclobenzaprine (FLEXERIL) 5 mg tablet Take 5 mg by mouth. - diazePAM (VALIUM) 5 mg tablet Take 5 mg by mouth every 12 hours. - dorzolamide-timolol (COSOPT) 22.3-6.8 mg/mL ophthalmic solution 1 drop. - ipratropium bromide (ATROVENT) 42 mcg (0.06 %) nasal spray INSTILL 2 SPRAYS IN EACH NOSTRIL THREE TIMES A DAY FOR 30 DAYS - latanoprost (XALATAN) 0.005 % ophthalmic solution APPLY 1 DROP INTO BOTH EYES AT BEDTIME - rosuvastatin (CRESTOR) 10 mg tablet Take 10 mg by mouth. Problem List As Of Date: 12/24/2024 (None) Encounter Status:Closed by Tr LAWRENCE on 12/24/24[facility] [id number] Visit (RADTSA) KAYYFIDE ([id number]) 1950 F Date Time Provider Department 12/17/24 9:45 AM Tr LAWRENCE [facility] During your visit today, we recorded the following information about you: Temperature Pulse Respiration Blood pressure 96.8 degrees 49/minute 16/minute 158/81 Weight 66 kg Tr Lawrence MD 12/17/2024 10:31 AM Signed Radiation Oncology - On Treatment Review (OTR) Note PATIENT NAME: Fide Sultana PATIENT DIAGNOSIS: Skin cancer left nose COURSE: definitive AREA TREATED: Left lateral mid nose CURRENT DOSE: 2475 cGy in 9 fx PLANNED DOSE: 5500 cGy in 20 fx SUBJECTIVE: Doing well. EXAM: KPS: 90 General Appearance: Alert and oriented. No acute distress. Radiation dermatitis: No, very minimal erythema within treated area IMAGING/LAB RESULTS: None Treatment chart checked: Yes Patient treatment site reviewed and verified:Yes Port films reviewed and current:Yes Medications started: None ASSESSMENT/PLAN: Patient doing well. Chart and imaging reviewed. Continue radiation as outlined. Tr Lawrence MD Allergies As of Date: 12/17/2024 Noted Allergy Reaction LATEX 03/01/2023 16 - Unknown SULFA (SULFONAMIDE ANTIBIOTICS) 03/01/2023 16 - Unknown Comments: Other Reaction(s): sulfa powder wong. NAPROXEN 03/01/2023 14 - Other: See Comments Date Reviewed: 12/17/2024 Reviewed by: Inés Rivas MA - Fully Assessed Reason for Visit: SKIN CANCER [930] Cmt: Treatment visit Primary Visit Diagnosis:Skin cancer, basal cell [C44.91] Prescriptions as of 12/17/2024 - celecoxib (CELEBREX) 200 mg capsule TAKE ONE CAPSULE BY MOUTH DAILY FOR 90 DAYS for 90 - Cholecalciferol, Vitamin D3, 50 mcg (2,000 unit) cap 1 capsule. - cyclobenzaprine (FLEXERIL) 5 mg tablet Take 5 mg by mouth. - diazePAM (VALIUM) 5 mg tablet Take 5 mg by mouth every 12 hours. - dorzolamide-timolol (COSOPT) 22.3-6.8 mg/mL ophthalmic solution 1 drop. - ipratropium bromide (ATROVENT) 42 mcg (0.06 %) nasal spray INSTILL 2 SPRAYS IN EACH NOSTRIL THREE TIMES A DAY FOR 30 DAYS - latanoprost (XALATAN) 0.005 % ophthalmic solution APPLY 1 DROP INTO BOTH EYES AT BEDTIME - rosuvastatin (CRESTOR) 10 mg tablet Take 10 mg by mouth. Problem List As Of Date: 12/17/2024 (None) Encounter Status:Closed by Tr [facility] on [facility]17/24[facility] [id number] Visit (KIARAA) FIDE SULTANA ([id number]) 1950 F Date Time Provider Department 12/04/24 2:15 PM Tr LAWRENCE During your visit today, we recorded the following information about you: Tr Lawrence MD 12/05/2024 12:26 PM Signed Radiation Oncology - On Treatment Review (OTR) Note PATIENT NAME: Fide Sultana PATIENT DIAGNOSIS: Skin cancer left nose COURSE: definitive AREA TREATED: Left lateral mid nose CURRENT DOSE: 275 cGy in 1 fx PLANNED DOSE: 5500 cGy in 20 fx SUBJECTIVE: Here to start radiation, doing well. EXAM: KPS: 90 General Appearance: Alert and oriented. No acute distress. Radiation dermatitis: No IMAGING/LAB RESULTS: None Treatment chart checked: Yes Patient treatment site reviewed and verified:Yes Port films reviewed and current:Yes Medications started: None ASSESSMENT/PLAN: Patient starting radiation today. Plan of care and expectations again reviewed. Plan, MU calculations reviewed. Initial imaging including verification simulation field setup including block projection and bolus placement. First treatment given. Continue radiation as prescribed. Tr Lawrence MD Referring Provider: Tr LAWRENCE [[id number]] Allergies As of Date: 12/04/2024 (No Known Allergies) Date Reviewed: 11/16/2024 Reviewed by: Tamiko Del Rio RN - Fully Assessed Reason for Visit: Radiotherapy On-treatment Visit [1722] Primary Visit Diagnosis:Skin cancer, basal cell [C44.91] Prescriptions as of 12/05/2024 - celecoxib (CELEBREX) 200 mg capsule TAKE ONE CAPSULE BY MOUTH DAILY FOR 90 DAYS for 90 - Cholecalciferol, Vitamin D3, 50 mcg (2,000 unit) cap 1 capsule. - cyclobenzaprine (FLEXERIL) 5 mg tablet Take 5 mg by mouth. - diazePAM (VALIUM) 5 mg tablet Take 5 mg by mouth every 12 hours. - dorzolamide-timolol (COSOPT) 22.3-6.8 mg/mL ophthalmic solution 1 drop. - ipratropium bromide (ATROVENT) 42 mcg (0.06 %) nasal spray INSTILL 2 SPRAYS IN EACH NOSTRIL THREE TIMES A DAY FOR 30 DAYS - latanoprost (XALATAN) 0.005 % ophthalmic solution APPLY 1 DROP INTO BOTH EYES AT BEDTIME - rosuvastatin (CRESTOR) 10 mg tablet Take 10 mg by mouth. Problem List As Of Date: 12/04/2024 (None) Encounter Status:Closed by Tr LAWRENCE on 12/05/24[facility] [id number] Visit (RADTSA) FIDE SULTANA ([id number]) 1950 F Date Time Provider Department 11/28/24 12:00 PM [facility] During your visit today, we recorded the following information about you: Tr Lawrence MD 12/06/2024 2:57 PM Signed sim Referring Provider: Tr LAWRENCE [[id number]] Allergies As of Date: 11/28/2024 (No Known Allergies) Date Reviewed: 11/16/2024 Reviewed by: Tamiko Del Rio, RN - Fully Assessed Primary Visit Diagnosis:Skin cancer, basal cell [C44.91] Prescriptions as of 12/06/2024 - celecoxib (CELEBREX) 200 mg capsule TAKE ONE CAPSULE BY MOUTH DAILY FOR 90 DAYS for 90 - Cholecalciferol, Vitamin D3, 50 mcg (2,000 unit) cap 1 capsule. - cyclobenzaprine (FLEXERIL) 5 mg tablet Take 5 mg by mouth. - diazePAM (VALIUM) 5 mg tablet Take 5 mg by mouth every 12 hours. - dorzolamide-timolol (COSOPT) 22.3-6.8 mg/mL ophthalmic solution 1 drop. - ipratropium bromide (ATROVENT) 42 mcg (0.06 %) nasal spray INSTILL 2 SPRAYS IN EACH NOSTRIL THREE TIMES A DAY FOR 30 DAYS - latanoprost (XALATAN) 0.005 % ophthalmic solution APPLY 1 DROP INTO BOTH EYES AT BEDTIME - rosuvastatin (CRESTOR) 10 mg tablet Take 10 mg by mouth. Problem List As Of Date: 11/28/2024 (None) Encounter Status:Closed by Tr LAWRENCE on 12/06/24[facility] Visit (RADTSA) FIDE SULTANA ([id number]) 1950 F Date Time Provider Department 11/28/24 11:30 AM Tr LAWRENCE RADSUZANNEA During your visit today, we recorded the following information about you: Referring Provider: Tr LAWRENCE [[id number]] Allergies As of Date: 11/28/2024 (No Known Allergies) Date Reviewed: 11/16/2024 Reviewed by: Tamiko Del Rio, RN - Fully Assessed Reason for Visit: Simulation Request Form [5094] Primary Visit Diagnosis:Skin cancer, basal cell [C44.91] Order(s):RADIATION TREATMENT PER RADIATION ONCOLOGIST PLAN [3736544] Order #: [id number]: 1 PT ED CANCER [[id number]] Order #: [id number]: 1 CT SIM PLANNING RADIATION ONCOLOGY [[id number]] Order #: [id number] Prescriptions as of 12/06/2024 - celecoxib (CELEBREX) 200 mg capsule TAKE ONE CAPSULE BY MOUTH DAILY FOR 90 DAYS for 90 - Cholecalciferol, Vitamin D3, 50 mcg (2,000 unit) cap 1 capsule. - cyclobenzaprine (FLEXERIL) 5 mg tablet Take 5 mg by mouth. - diazePAM (VALIUM) 5 mg tablet Take 5 mg by mouth every 12 hours. - dorzolamide-timolol (COSOPT) 22.3-6.8 mg/mL ophthalmic solution 1 drop. - ipratropium bromide (ATROVENT) 42 mcg (0.06 %) nasal spray INSTILL 2 SPRAYS IN EACH NOSTRIL THREE TIMES A DAY FOR 30 DAYS - latanoprost (XALATAN) 0.005 % ophthalmic solution APPLY 1 DROP INTO BOTH EYES AT BEDTIME - rosuvastatin (CRESTOR) 10 mg tablet Take 10 mg by mouth. Problem List As Of Date: 11/28/2024 (None) Encounter Status:Closed by Tr LAWRENCE on 12/06/24[facility] [id number] Visit (RADTSA) FIDE SULTANA ([id number]) 1950 F Date Time Provider Department 11/16/24 9:30 AM Tr LAWRENCE RADSUZANNEA During your visit today, we recorded the following information about you: Temperature Pulse Respiration Blood pressure 97.1 degrees 65/minute 16/minute 146/69 Weight 65.8 kg Tamiko Del Rio RN 11/22/2024 12:36 PM Signed Pacemaker/Defibrillator?N Previous Cancer(s)?Basal Cell CA Previous Radiation?N Lupus/Scleroderma?N On body monitoring device?N NEHEMIAH Carrillo G Phillip, MD 11/22/2024 12:36 PM Signed Radiation Oncology - New Patient/Consult Note PATIENT NAME: Fide Sultana PATIENT REQUESTING PROVIDER: Dr. Kumar DIAGNOSIS: Skin cancer, basal cell carcinoma, nose HPI: 74 year old female who presents with above diagnosis, for an opinion regarding the role of radiation therapy in the management of the patient's disease. Final recommendations will be communicated back to the requesting physician by way of the shared medical record, or letter to requesting physician via US mail. Patient presents with an enlarging small lesion left nasal sidewall. She underwent shave biopsy by Dr. Kumar. She has had prior nonmelanoma skin cancers including right leg right lateral superior chest. Pathology from shave biopsy on 11/01/2024 demonstrated nodular type basal cell carcinoma. ALLERGIES No Known Allergies Current Outpatient Medications on File Prior to Visit Medication Sig celecoxib (CELEBREX) 200 mg capsule TAKE ONE CAPSULE BY MOUTH DAILY FOR 90 DAYS for 90 Cholecalciferol, Vitamin D3, 50 mcg (2,000 unit) cap 1 capsule. cyclobenzaprine (FLEXERIL) 5 mg tablet Take 5 mg by mouth. diazePAM (VALIUM) 5 mg tablet Take 5 mg by mouth every 12 hours. dorzolamide-timolol (COSOPT) 22.3-6.8 mg/mL ophthalmic solution 1 drop. ipratropium bromide (ATROVENT) 42 mcg (0.06 %) nasal spray INSTILL 2 SPRAYS IN EACH NOSTRIL THREE TIMES A DAY FOR 30 DAYS latanoprost (XALATAN) 0.005 % ophthalmic solution APPLY 1 DROP INTO BOTH EYES AT BEDTIME rosuvastatin (CRESTOR) 10 mg tablet Take 10 mg by mouth. No current facility-administered medications on file prior to visit. PAST MEDICAL HISTORY Diagnosis Date Glaucoma Hypercholesteremia Meniere's syndrome Prior radiation therapy, collagen vascular disease, or inflammatory bowel disease: No Any implanted or external electric devices? No status: Patient states there is no possibility she is at this time. Educated on risks of during treatment. PAST SURGICAL HISTORY Procedure Laterality Date BUNIONECTOMY, LAPIDUS-TYPE Right SNGL twice PAST SURGICAL HISTORY OF basal cell removed scalp, right chest, right ankle REVISE MEDIAN N/CARPAL TUNNEL SURG Left FAMILY HISTORY Problem Relation Age of Onset Prostate Cancer Father Social History Tobacco Use Smoking status: Never Smokeless tobacco: Never Substance Use Topics Alcohol use: Yes Comment: wine rarely Drug use: Not Currently COMPLETE REVIEW OF SYSTEMS: GENERAL: feeling well without fatigue, no recent change in weight NECK: denies swelling or pain in neck RESPIRATORY: no cough, no wheezing or shortness of breath CARDIOVASCULAR: no chest pain, no palpitations SKIN: See HPI As noted in HPI PHYSICAL EXAM: VS: BP 146/69 Pulse 65 Temp 36.2 ?C (97.1 ?F) Resp 16 Wt 65.8 kg (145 lb 1 oz) SpO2 98% Is the patient having any pain? No 0 on a scale of 0 to 10 KPS: 100 General Appearance: Alert and oriented. No acute distress. HEENT: NCAT. Sclera anicteric. PERRL. EOMI. small 5 mm lesion with eschar and pearly edges mid left side of nose. No intranasal findings. No other suspicious findings. Neck: Normal ROM. No palpable cervical or supraclavicular adenopathy. Skin: No rashes noted Lymphatics: No palpable lymphadenopathy. Hematologic: No signs of active bleeding. RADIOLOGY/LABORATORY DATA: see HPI ASSESSMENT AND PLAN: Skin cancer, basal cell carcinoma, nose Patient has been offered primary Mohs procedure for this small basal cell carcinoma. She does not want to pursue surgery. She would prefer radiation. I do feel she is appropriate candidate for radiation. We did discuss potential acute and long-term effects of radiation. I would recommend a 4-week course of treatment using electrons custom bolus and blocking. Patient expressed understanding of the information presented. Will plan to have her back for simulation in the next week. Signed by: Tr Lawrence MD cc: Tomas De Leon ([facility]) [address] [place] [address] Columba Kumar [address] [facility] [address] Referring Provider: COLUMBA KUMAR [[id number]] Allergies As of Date: 11/16/2024 (No Known Allergies) Date Reviewed: 11/16/2024 Re (more content not included)...NormalDayton Children'S HospitalCNPNon [id number] (RADTSA) FIDE SULTANA ([id number]) 1950 F Date Time Provider Department 11/16/24 Tr LAWRENCE During your visit today, we recorded the following information about you: Tamiko Del Rio RN 11/16/2024 10:33 AM Signed PSS/RT: please schedule Return for CT/sim with mask and machine setup-treating nose Presim consent needed Nurse ed today Thanks NEHEMIAH CarrilloRichardsonKaren 11/16/2024 11:09 AM Signed Rad Ed added and checked in for today. Maggy Blas, RT(R) 11/21/2024 8:34 AM Signed Please schedule pre sim consent for 11/28/24 at 11:30, sim to follow Notify patient to arrive at 11:15 on the , special instructions include no hair products. ThanksMaggy, RT(R)(T) Chanel Gold 11/21/2024 12:58 PM Signed Spoke to [facility] and confirmed 1115 arrival on 11/28 and no hair products. Allergies As of Date: 11/16/2024 (No Known Allergies) Date Reviewed: 11/16/2024 Reviewed by: Tamiko Del Rio RN - Fully Assessed Reason for Visit: Appointment [[id number]] Prescriptions as of 11/21/2024 - celecoxib (CELEBREX) 200 mg capsule TAKE ONE CAPSULE BY MOUTH DAILY FOR 90 DAYS for 90 - Cholecalciferol, Vitamin D3, 50 mcg (2,000 unit) cap 1 capsule. - cyclobenzaprine (FLEXERIL) 5 mg tablet Take 5 mg by mouth. - diazePAM (VALIUM) 5 mg tablet Take 5 mg by mouth every 12 hours. - dorzolamide-timolol (COSOPT) 22.3-6.8 mg/mL ophthalmic solution 1 drop. - ipratropium bromide (ATROVENT) 42 mcg (0.06 %) nasal spray INSTILL 2 SPRAYS IN EACH NOSTRIL THREE TIMES A DAY FOR 30 DAYS - latanoprost (XALATAN) 0.005 % ophthalmic solution APPLY 1 DROP INTO BOTH EYES AT BEDTIME - rosuvastatin (CRESTOR) 10 mg tablet Take 10 mg by mouth. Problem List As Of Date: 11/16/2024 (None) Encounter Status:Closed by TAMIKO DEL RIO on 11/21/24[facility] MAMMOGRAM SCREENING TOMOSYNTHESIS BILATERALon [id number] MAMMOGRAM SCREENING TOMOSYNTHESIS BILATERALThis is a summary report. The complete report is available in the patient's medical record. If you cannot access the medical record, please contact the sending organization for a detailed fax or copy. EXAMINATION: BI MAMMOGRAM SCREENING TOMOSYNTHESIS BILATERAL CLINICAL HISTORY:breast cancer screening COMPARISON: September 20, 2022; September 30, 2023 RESULT: Digital mammography and 3D tomosynthesis of bilateral breasts was performed. Scattered fibroglandular densities are noted with stable asymmetry. There are no developing masses, suspicious microcalcifications, or areas of architectural distortion identified on today's examination. There is no significant change when compared to the prior examinations identified, given differences in technique and positioning. IMPRESSION: BI-RADS 2: BENIGN FINDINGS. ROUTINE FOLLOW-UP MAMMOGRAPHY IS SUGGESTED IN ONE YEAR. DENSITY: There are scattered areas of fibroglandular density. Board Certified Radiologists. Accredited by the ACR and FDA. MAMMOGRAPHY IS VERY IMPORTANT TO YOUR HEALTH. THE [employer] [employer] GUIDELINES RECOMMEND THATWOMEN 40 YEARS OF AGE AND OLDER SHOULD HAVE A MAMMOGRAM EVERY YEAR. A REMINDER LETTER WILL BE SENT AT THE APPROPRIATE TIME. THIS FACILITY UTILIZES A REMINDER SYSTEM TOENSURE ALL PATIENTS RECEIVE REMINDER NOTIFICATIONS AT THE APPROPRIATE TIME BASED ON THE RECOMMENDATIONS OF THIS EXAM. THIS INCLUDES REMINDERS FOR ROUTINE SCREENING MAMMOGRAMS, DIAGNOSTIC MAMMOGRAMS IN WHICH THE PATIENT IS ASKED TO RETURN FOR ADDITIONAL VIEWS, OR OTHER BREAST IMAGING INTERVENTIONS WHEN APPROPRIATE. THE PATIENT WILL BE PLACED IN THE APPROPRIATE REMINDER SYSTEM INCLUDING A REMINDER AT THE APPROPRIATE TIME FOR ANY PENDING ADDITIONAL VIEWS. ELECTRONICALLY SIGNED BY: Bryce Fajardo AvailablePerimetry study on [id number] Neosho HospitalRadiology Study observation (narrative)[facility] Neosho HospitalOphthalmic OCT panelon [id number] John's Saint Francis Hospital Eye Images reviewed and comparison made to baseline, Images reviewed. To assess optic nerve function and for use in future follow-up. Reliability: good and adequate. Left Eye Images reviewed and comparison made to baseline, Images reviewed. To assess optic nerve function and for use in future follow-up. Reliability: good and adequate. 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 Change Rx for Iop control left eye (OS).[facility] WestRadiology Study observation (narrative)[facility] Neosho HospitalCOVID Quick Testingon [id number]0 Other Quick Strepon 2S. pyogenes Org specific cx Ql (Throat)NegativeUniversity Of Missouri Children'S HospitalGreenTrapOnline Other quick menschmaschine publishingh Zowee[employer] Other mm screening mammo BI w/CADon [id number] screening mammo BI w/CADMARTINS FERRY [facility] Main [place] [address] [place] [address] Mammography Report Signed Patient: Fide Sultana MR#: [id number] 0 : 1950 Acct:[id number] Age/Sex: 71 / F ADM Date: 09/17/21 Loc: [place] Room: Type: [facility] Attending Dr: Referral Self Ordering Provider: SELF,REFERRAL Date of Service: 09/17/21 MM/MM screening mammo BI w/CAD: SCREEN Copies to: Tomas De Leon DO SELF,REFERRAL CLINICAL DATA: Screening for malignancy. History of stereotactic biopsy of the right breast. SCREENING MAMMOGRAM - FULL FIELD DIGITAL WITH TOMOSYNTHESIS AND CAD COMPARISON:Mammograms dating back to 2019 Tomosynthesis craniocaudal and mediolateral oblique views of both breasts were obtained using low- dose digital technique. This examination was reviewed with the aid of CAD. The breast tissue is composed of scattered fibroglandular densities. There are no dominant masses, typically malignant calcifications or architectural distortion. There has been no significant in terval change. MM/MM screening mammo BI w/CAD IMPRESSION: NO MAMMOGRAPHIC EVIDENCE OF MALIGNANCY. ROUTINE FOLLOW-UP IS RECOMMENDED IN ONE YEAR. RESULT CODE: 1 Negative DENSITY CODE: 2 (approximately 25-50% glandular) FOLLOW UP: 1YR The false-negative rate of mammography is approximately 10-percent. Management of a palpable abnormality must be based on clinical grounds. Patient was entered into a reminder system with a target due date for the next mammogram. Impression dictated by: Melecio Thomson Jr., D.OLiza09/17/2021 10:51 AM Dictation Location: [facility] Transcribed By: CHADWICK 09/17/21 1051 Dictated By: Melecio Thomson Jr, DO 09/17/21 1050 Signed By: 09/17/21 1051L[facility] City HospitalBasic Metabolic Panelon [id number] gap [Moles/Vol]16 mmol/VJvwafw82-11Oiylpaqb [facility] SpecialistComment on above:Result Comment: Effective 06/18/2019 reference range changed.Performed By: #### BMP, LIPD, VITD #### [facility] [address] [place], [place] [id number] [Mass/Vol]9.9 mg/dLNormal8.6-10.2[facility] SpecialistComment on above:Performed By: #### BMP, LIPD, VITD #### [facility] [address] [place], [place] [id number] [Moles/Vol]102 mmol/EVrlzyl33-099Bbvestyp [facility] SpecialistComment on above:Performed By: #### BMP, LIPD, VITD #### [facility] [address] [place], [place] [id number] [Moles/Vol]26 mmol/RKxysct20-07Xgwaeaxi [facility] SpecialistComment on above:Performed By: #### BMP, LIPD, VITD #### [facility] [address] [place], [place] [id number] [Mass/Vol]0.7 mg/dLNormal0.6-1.4Nortcopper springs hospitaln [facility] SpecialistComment on above:Performed By: #### BMP, LIPD, VITD #### [facility] [address] [place], [place] [id number] mL/min/1.72w5Ksjvfq>60[facility] SpecialistComment on above:Performed By: #### BMP, LIPD, VITD #### [facility] [address] [place], [place] [id number] mL/min/1.79j5Xtimrw>60[facility] SpecialistComment on above:Performed By: #### BMP, LIPD, VITD #### [facility] [address] [place], [place] [id number] [Mass/Vol]100 mg/kIKkyr87-73Agboulva [facility] SpecialistComment on above:Result Comment: For FASTING Glucose --- ADA reference ranges: Normal 65-99 mg/dl Prediabetes 100-125 Diabetes >/= 126Performed By: #### BMP, LIPD, VITD #### [facility] [address] [place], [place] [id number] [Moles/Vol]3.9 mmol/LNormal3.5-5.5[facility] SpecialistComment on above:Performed By: #### BMP, LIPD, VITD #### [facility] [address] [place], [place] [id number] [Moles/Vol]141 mmol/DYyjxfn673-539Hkrrorws [facility] SpecialistComment on above:Performed By: #### BMP, LIPD, VITD #### [facility] [address] [place], [place] [id number] nitrogen [Mass/Vol]22 mg/dLNormal7-25[facility]ortco[facility] hospitaln [facility] SpecialistComment on above:Performed By: #### BMP, LIPD, VITD #### [facility] [address] [place], [place] [id number] Panelon [id number] [Mass/Vol]266 mg/dLHigh 125-200[facility] SpecialistComment on above:Result Comment: Low risk < 200mg/dL Borderline risk 201-239 mg/dl High risk > or equal to 240Performed By: #### BMP, LIPD, VITD #### [facility] [address] [place], [place] [id number] in HDL [Mass/Vol]84 mg/dLNormal>40[facility] SpecialistComment on above:Result Comment: High Cardiovascular Risk HDL <40 mg/dL Low Cardiovascular Risk HDL > or equal to 60 mg/dlPerformed By: #### BMP, LIPD, VITD #### [facility] [address] [place], [place] [id number] in LDL [Mass/Vol]160 mg/dLNormalNortcopper springs hospitaln [facility] SpecialistComment on above:Result Comment: LDL ATP III CLASSIFICATION LDL less than 100 mg/dl Optimal LDL 100-129 mg/dl Near or above optimal LDL 130-159 Borderline high LDL 160-189 High LDL greater than 189 mg/dl Very HighPerformed By: #### BMP, LIPD, VITD #### [facility] [address] [place], [place] [id number] in VLDL [Mass/Vol]22 mg/dLNormalAcmc Healthcare [facility] SpecialistComment on above:Performed By: #### BMP, LIPD, VITD #### [facility] [address] [place], [place] [id number].total/Cholesterol in HDL [Mass ratio]3 {ratio} NormalAcmc Healthcare System [facility] SpecialistComment on above:Performed By: #### BMP, LIPD, VITD #### [facility] [address] [place], [place] [id number] [Mass/Vol]109 mg/kOCjczqn80-836Hfkwsoxo [facility] SpecialistComment on above:Result Comment: TRIG ATPIII CLASSIFICATIONS TRIG less than 150 mg/dl Normal TRIG 150-199 mg/dl Borderline High TRIG 200-500 mg/dl High TRIG greather than 500 mg/dl Very HighPerformed By: #### BMP, LIPD, VITD #### [facility] [address] [place], [place] [id number] D 25-OHon 28-79-4771BDV D 25 OH31 ng/mlNormal>29 [facility] Hospital - ColumbusComment on above:Result Comment: Vitamin D Status Deficiency <20 ng/mL Insufficiency 20-29 ng/mL Optimal 30-100 ng/mL Possible Toxicity >=150 ng/mLPerformed By: #### BMP, LIPD, VITD #### [facility] [address] [place], [place] [id number] ANKLE RT WO CONon [id number] ANKLE RT WO CONEXAM: MRI ANKLE RT WO CON COMPARISON: Right ankle x-rays from 04/09/2021. HISTORY: Right ankle instability and chronic right ankle pain with pain radiating into the heel and arch of the foot for one year. TECHNIQUE: Multiplanar and multisequence imaging of the right ankle was performed without contrast. FINDINGS: No acute fracture or dislocation is evident. The distal tibia and fibula are intact. There is no OCD lesion involving the talar dome. Mild degenerative change is present throughout the midfoot and subtalar joint with space narrowing and spurring. There is moderate spurring along the dorsal aspect of the talonavicular joint. The tarsometatarsal alignment appears anatomic. There is no focal tear of the Lisfranc ligament. The sagittal STIR images include more of the forefoot and demonstrate postsurgical change along the medial aspect of the first metatarsal head with artifact in this area and chronic deformity of the first metatarsal head and neck consistent with prior bunionectomy. This is not included on the remainder of the images. The Achilles tendon is intact with a normal insertion onto the calcaneus posteriorly. No focal peroneal tendon tear is identified. The flexor and extensor tendons appear intact including the posterior tibialis tendon. Small amount of fluid tracks along the posterior tibialis tendon. There is a small accessory navicular bone along the posteromedial aspect of the navicular without adjacent bone marrow edema. There is mild attenuation and thinning of the anterior talofibular ligament consistent with a prior low-grade sprain. The calcaneofibular ligament, posterior talofibular ligament and superficial and deep components of the deltoid ligament appear intact. There is no cystic or solid mass in the region of the tarsal tunnel. There is thickening and heterogeneous intermediate to increased signal of the central band of the plantar fascia near the calcaneal attachment site consistent with moderately severe plantar fasciitis. There is a moderate-sized plantar calcaneal spur. IMPRESSION: 1. There is moderately severe plantar fasciitis with thickening and intermediate to mildly increased signal of the central band of the plantar fascia near the calcaneal attachment site. There is a moderate-sized plantar calcaneal spur. 2. No acute bony abnormality involving the ankle or visualized foot. There is no fracture or talar OCD lesion. 3. No focal tendon tear. A small amount of fluid tracks along the posterior tibialis tendon suggesting mild tenosynovitis. 4. Prior low-grade sprain of the anterior talofibular ligament. 5. There is mild diffuse degenerative change throughout the midfoot and involving the subtalar joint. Electronically authenticated by: RODNEY JOHNSON Date: 2021-04-21 10:01[facility])on 62-71-2228Nbeaar-up visit Diagnoses/Problems Asymmetrical sensorineural hearing loss (389.16) (H90.3) Patient Discussion/Summary Treatment plan 1. Daily use of hearing aids 2. Annual audiogram 1030 - 1050 Chief Complaint Hearing aid check within 90 days Adult Risk ScreeningThere are no spiritual/cultural practices/values/needs that are important to know Initial Fall Risk Screening: FIDE has not fallen in the last 6 months. FIDE does not have a fear of falling. She does not need assistance with sitting, standing or walking. Does not need assistance walking in her home. She does not need assistance in an unfamiliar setting. The patient is not using an assistive device. Domestic Violence Screen: Does not feel threatened or abused physically, emotionally or sexually. Do you feel UNSAFE? The patient feels safe in the home. Depression/Suicide Screening: During the past 2 weeks, the patient has not felt down, depressed or hopeless. During the past 2 weeks, the patient has not felt little interest or pleasure in doing things. History of Present Illness Fide Sultana, age 70 years, was seen for hearing aid check on February 17, 2021. She is within the 90 day period. Dot Reinoso P70 RT [id number] Ms. Sultana reports she can hear trains, airplanes etc over someone sitting next to her She feels she is having difficulty hearing speech on television Patient's preferred language: Cuban Preferred language of the parent, legal guardian or surrogate decision-maker of this minor or incapacitated patient: Not Applicable No overt signs of domestic violence/neglect/abuse. No referral made to Superintendent System Operation. Pain not interfering with optimal level of function or ability to assess and/or treat. Pain Scale rank: 0/10 Pain Scale used: Numeric No referral made to primary care provider (PCP). Factors/Barriers influencing patient's ability to complete assessment or learn: none. Person taught: patient. Readiness to learn: no barriers. Results of Teaching/Counseling: verbalize recall / understanding and teaching complete. Procedure Hearing aids were read in Serge Data logging indicates 13 hours of use per day Acclimatization increased to 100% -Low and mid gain was reduced Gain for speech in noise decreased [employer] alex was downloaded to Ms. Sultana's phone and the hearing aids were paired. Demonstration of use for volume adjustments was completed with both Ms. Sultana and her daughter. Cleaning of the aids was reviewed, she is encouraged to not use baby wipes to clean the aids Ms. Sultana was provided extra domes (different right and left). She is encouraged to return for annual audiogram. She prefers a location closer to her home ([facility]). Signatures Electronically signed by : Tyler Mercedes; Feb 17 2021 11:03AM EST (Author)[facility] TouchworksOffice Visit (Audiology)on 89-47-4145Pvezst-up visit Diagnoses/Problems Sensorineural hearing loss (SNHL) of left ear with restricted hearing of right ear (389.22) (H90.A22) Sensorineural hearing loss (SNHL) of right ear with restricted hearing of left ear (389.22) (H90.A21) Patient Discussion/Summary Patient reported good sound quality and benefit from hearing aids fit today. She will return in about one month for follow up. At that appointment, the focus will be on bringing adaptation to 100% from current 90%. Additionally, education about changing wax guards/domes. Dot Reinoso P70-RT fit 12/19/20 Right serial# [id number] Left serial# [id number] 1M receivers R/L Right medium open dome Left small power dome Warranty expiration: 02/27/2024 Plan: -Use of hearing aids during all waking hours. -Annual hearing tests. Time: 1254-7683 Chief Complaint Hearing Aid Fitting Self Pay - Paid in Full 11/28/20 Adult Risk ScreeningThere are no spiritual/cultural practices/values/needs that are important to know Initial Fall Risk Screening: FIDE has not fallen in the last 6 months. FIDE does not have a fear of falling. She does not need assistance with sitting, standing or walking. Does not need assistance walking in her home. She does not need assistance in an unfamiliar setting. The patient is not using an assistive device. Domestic Violence Screen: Does not feel threatened or abused physically, emotionally or sexually. Do you feel UNSAFE? The patient feels safe in the home. Depression/Suicide Screening: During the past 2 weeks, the patient has not felt down, depressed or hopeless. During the past 2 weeks, the patient has not felt little interest or pleasure in doing things. Reference Documentation See scanned note Procedure Note: Aided Testing. History of Present Illness Fide Sultana, age 70 years, was seen for a hearing aid fitting today. 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 She has beendiagnosed with bilateral Menieres disease. See previous notes for detailed history. She was given medical clearance for hearing aid use by Dr. Tran. Today, she was accompanied by her daughter Griffin. Patient's preferred language: Cuban Preferred language of the parent, legal guardian or surrogate decision-maker of this minor or incapacitated patient: Cuban No overt signs of domestic violence/neglect/abuse. Pain not interfering with optimal level of function or ability to assess and/or treat. Pain Scale rank: 0/10 Pain Scale used: Numeric No referral made to primary care provider (PCP). Factors/Barriers influencing patient's ability to complete assessment or learn: none. Person taught: patient and significant other / family (daughter). Readiness to learn: no barriers. Results of Teaching/Counseling: verbalize recall / understanding and teaching complete. Procedure Phonak Audeo P70-RT fit 12/19/20 Right serial# [id number] Left serial# [id number] 1M receivers R/L Right medium open dome Left small power dome Warranty expiration: 02/27/2024 Case SN: [id number] Mini Control Specialist Case: [id number] Power Pack: [id number] Programming was completed at 90% of Phonak prescriptive fitting strategy. Program and volume control signals were demonstrated for the patient. Care and maintenance of the device were discussed with the patient. The patient was able to properly insert and remove the hearing instrument from the ear.In addition to today?s verbal instruction of the hearing devices, the patient was given written instructions from the hearing aid foreign law consultant. Hearing aid limitations were discussed at length as well as realistic expectations. The patient was advised in order to receive full benefit of amplification, consistent use during all waking hours is recommended. The repair warranty and the conditions of the ikguj-zf-mygryl period (30-days) were discussed. The patient reports understanding of these conditions. Purchase agreement was signed (see scanned documents). Hearing aid verification was completed with hearing aids at 90% targets. Aided testing in the [facility] showed benefit with hearing aids. Signatures Electronically signed by : Tyler Martinez; Dec 19 2020 11:22AM EST (Author) [facility] TouchworksOffice Visit (Audiology)on 14-22-1236Mpzxys-up visit Diagnoses/Problems Sensorineural hearing loss (SNHL) of right ear with restricted hearing of left ear (389.22) (H90.A21) Sensorineural hearing loss (SNHL) of left ear with restricted hearing of right ear (389.22) (H90.A22) Patient Discussion/Summary Will order Phonak Audeo P70-RT in P1 with 1 M receivers bilaterally. Patient paid in full today. Nopayment needed at fitting. Plan: -Medical follow up with Dr. Tran as directed. -Retest hearing annually. -Return for hearing aid fitting on 12/19/20. Time: 5318-8730 Chief Complaint Hearing Aid Evaluation Patient elected to order Phonak Audeo P70-RT and paid in full today Adult Risk ScreeningThere are no spiritual/cultural practices/values/needs that are important to know Initial Fall Risk Screening: FDIE has not fallen in the last 6 months. FIDE does not have a fear of falling. She does not need assistance with sitting, standing or walking. Does not need assistance walking in her home. She does not need assistance in an unfamiliar setting. The patient is not using an assistive device. Domestic Violence Screen: Does not feel threatened or abused physically, emotionally or sexually. Do you feel UNSAFE? The patient feels safe in the home. Depression/Suicide Screening: During the past 2 weeks, the patient has not felt down, depressed or hopeless. During the past 2 weeks, the patient has not felt little interest or pleasure in doing things. Reference Documentation See scanned note Credit card receipt. History of Present Illness Fide Sultana, age 70 years, was seen for a hearing aid evaluation. 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 She has been diagnosed with bilateral Menieres disease. See previous notes for detailed history. She was given medical clearance for hearing aid use by Dr. Tran. Today, she was accompanied by her daughter Мария. Patient's preferred language: Cuban Preferred language of the parent, legal guardian or surrogate decision-maker of this minor or incapacitated patient: Cuban No overt signs of domestic violence/neglect/abuse. Pain not interfering with optimal level of function or ability to assess and/or treat. Pain Scale rank: 0/10 Pain Scale used: Numeric No referral made to primary care provider (PCP). Factors/Barriers influencing patient's ability to complete assessment or learn: none. Person taught: patient. Readiness to learn: no barriers. Results of Teaching/Counseling: verbalize recall / understanding and teaching complete. Family History Family history of Alzheimer's disease (V17.2) (Z82.0) Procedure Hearing aid technologies, styles, and communication needs were briefly discussed. Particular time and attention were paid to levels of technology. It was ultimately decided that she would pursue hearing aids for both ears. She paid $6480 today and no payment will need to be collected at the fitting appointment. 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) Vertigo (780.4) (R42) Asymmetrical sensorineural hearing loss (389.16) (H90.5) Bilateral sensorineural hearing loss (389.18) (H90.3) Sudden right hearing loss (388.2) (H91.21) Orders Audiology Referral Evaluation and Treatment Evaluate AND Treat hearing aids Status: Hold For - Scheduling,Retrospective By Protocol Authorization Requested for: [id number] Start: diazePAM 5 MG Oral Tablet; TAKE 1 TABLET TWICE DAILY NEEDED Provider Impressions Bilateral Mnire's disease Dizziness and vertigo Bilateral asymmetric sensorineural hearing loss Bilateral tinnitus Right-sided sudden sensorineural hearing loss Mnire's disease perspective she is medically managed with low-salt diet and diuretic. We will continue this. She uses Valium as needed basis for severe attacks. Overall her vertigo spells are well controlled and she just had one breakthrough episode last Tuesday. But there is reason to suspect that there was some dietary relaxation for this episode and I did convey to her that she has to watch hersalt intake. In terms of hearing she has stable bilateral sensorineural hearing loss now. We are 6 weeks out of the inciting decline so as such I did not recommend any further treatment. She does endorse stable hearing loss in the left ear and as such I would recommend hearing aid ear evaluation and trial for hearing amplification considering difficulty in speech comprehension. She has allergy and sinus issues and as such I recommended that she see truck hopper in our system if she is interested or even a local general/sinus doctor is recommended. I did recommend that she continue her antiallergy pills till that evaluation. Return to clinic as needed Chief Complaint 2 week follow up History of Present IllnessMs. Kayy returns today for follow-up after right intratympanic steroid injection 2 weeks ago. Hearing was initially worse on the right, but has improved after a coughing episode which caused the ear to pop . She did have an episode of vertigo last week which resolved after taking valium, though she did have rebound vertigo symptoms the next day which have since resolved. Otherwise, no otalgia or otorrhea. RECALL: Fide is a 70 year old female presenting for evaluation regarding acute right sided hearing loss andear fullness She has experienced bilateral tinnitus, left worse than right, for several years. Hearing has been diminished on the left side for years and was diagnosed with left MD. She reports acutely diminished hearing on the right side 5 weeks ago accompanied by upper respiratory symptoms; hearing has improved with oral steroids, though is not back to baseline. Also reports episodic vertigo, around 1 episode per year. She was previously diagnosed with Meniere's disease of the left ear, and was instructed to follow low-salt diet. She has also been taking Dyazide daily and valium as needed for vertiginous episodes. Review of Systems A comprehensive 10-point review of systems was obtained including constitutional, neurological, HEENT, pulmonary, cardiovascular, genito-urinary, and other pertinent systems and was negative except as noted in the HPI. 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) Meniere's disease, left (386.00) (H81.02) Sensorineural hearing loss (SNHL) of left ear with unrestricted hearing of right ear (389.15) (H90.42) Subjective tinnitus of right ear (388.31) (H93.11) Subjective tinnitus, left (388.31) (H93.12) Sudden right hearing loss (388.2) (H91.21) Vertigo (780.4) (R42) Past Medical History History of arthritis (V13.4) (Z87.39) History of glaucoma (V12.49) (Z86.69) Surgical History History of Bunionectomy History of section History of Hand surgery History of Heart surgery History of Knee arthroscopy Family History Family history of Alzheimer's disease (V17.2) (Z82.0) Social History Lives with significant other Non-smoker (V49.89) (Z78.9) Occasional alcohol use Retired (V61.07) (Z63.4) Allergies Latex Exam Gloves MISC Recorded By: Hazel Tejeda; 05/19/2018 10:31:22 AM sulfa Recorded By: Hazel Tejeda; 05/19/2018 10:31:22 AM Dust Recorded By: Hazel Tejeda; 05/19/2018 10:31:22 AM Pollen Recorded By: Hazel Tejeda; 05/19/2018 10:31:22 AM Current Meds Medication NameInstruction diazePAM 5 MG Oral TabletTAKE 1 TABLET every 12 hours NEEDED for vertigo or tinnitus Flonase SUSP Latanoprost 0.005 % Ophthalmic Solution Meclizine HCl - 25 MG Oral Tablet methylPREDNISolone 4 MG Oral Tablet Therapy Packtake as directed on package insert, then repeat Omeprazole 20 MG Oral Capsule Delayed ReleaseTAKE 1 CAPSULE DAILY WHILE ON PREDNISONE Ondansetron 8 MG Oral Tablet Di (more content not included)...[facility] TouchworksOffice Visit (Audiology)on [id number]-up visitDiagnoses/Problems Asymmetrical sensorineural hearing loss (389.16) (H90.5) Patient Discussion/Summary Results were explained to Fide. Results are essentially stable from previous testing. Hearing aids are recommended pending medical clearance. Treatment plan: -Follow up with ENT as recommended -Retest hearing in conjunction with otologic follow up -Recommend hearing aids pending patient interest Chief Complaint hearing test with ENT follow up Reference Documentation See scanned note :Audiogram. History of Present Illness Fide Sultana, age 70 years, was seen for a hearing evaluation and ENT follow up. Fide presents with history of asymmetric sensorineural hearing loss, worse in the left ear. She has recently been diagnosed with bilateral Menieres disease. See previous notes for detailed history. Patient's preferred language: Cuban Preferred language of the parent, legal guardian or surrogate decision-maker of this minor or incapacitated patient: Not Applicable No overt signs of domestic violence/neglect/abuse. No referral made to Superintendent System Operation. Pain not interfering with optimal level of function or ability to assess and/or treat. Pain Scale rank: 0/10 Pain Scale used: Numeric No referral made to primary care provider (PCP). Factors/Barriers influencing patient's ability to complete assessment or learn: none. Person taught: patient. Readiness to learn: no barriers. Results of Teaching/Counseling: verbalize recall / understanding and teaching complete. Procedure Otoscopy revealed clear ear canals with visualization of the tympanic membrane, bilaterally Tympanometry: Right Ear: Type B/As tympanogram with restricted mobility Left Ear: Type As tympanogram with restricted mobility Acoustic Reflexes: Could not maintain seal Behavioral Hearing Evaluation: Right Ear: Mild sloping to severe sensorineural hearing loss. Excellent word recognition, 100% Left Ear: Moderate to severe sensorineural hearing loss. Fair word recognition, 60% Speech recognition ability obtained down to 25 dB HL in the right ear and 35 dB HL in the left ear *essentially stable results from previous audiogram Signatures Electronically signed by : Tyler Hoang CCC-Berto; Oct 31 2020 9:10AM EST (Author)[facility] TouchworksEstablished Visit (Otolaryngology)on 10-14-2020 Established Visit (Otolaryngology)Diagnoses/Problems Asymmetrical sensorineural hearing loss (389.16) (H90.5) Bilateral sensorineural hearing loss (389.18) (H90.3) Subjective tinnitus, left (388.31) (H93.12) Vertigo (780.4) (R42) Sudden right hearing loss (388.2) (H91.21) 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 Tran's clinic. We are here to assist you through your ENT care at [facility]. Dr. Tran is an Ear surgeon. This means that he specializes in taking care of patients with complex ear, hearing and balance problems. Dr. Tran's office number is [phone]. While you may see him at a satellite office ([place]), he has a team committed to help meet your healthcare needs at [facility]'s main [place]. This number is the most direct way to communicate with the office. Alaina is Dr. Tran's ship design teacher and she answers the office phone from 7:30am- 4pm Mon-Fri. She canhelp you with many general questions and information. Questions that she cannot answer will be directed to the appropriate staff. You may need to leave a message. In this case, someone from the team will call you back. Carola is Dr. Tran's primary nurse and can be reached by calling the office. Carola is in clinicwith Dr. Tran on most days and can help you with more specific questions related to your healthcare needs from our office. Sometimes, other team members will also be involved in your care. These people may include sales correspondent, speech therapists, vestibular therapists, neurologist, and neurosurgeon. Dr. Tran will provide these referrals as needed. Please let us know if you would like to request a specific referral. For your convenience, Dr. Tran sees patients at several [facility] locations including [facility] ([facility]), and [facility] Office at the [facility]. While we try to make your appointments as convenient as possible, occasionally a visit to another location may be necessary to provide the best care for you. We look forward to working with you to meet your [facility] lthcare goals. Dr. Tran makes every effort to run on time for your appointments. Therefore, if you are more than 15 minutes late unrelated to a scan or another appointment such therapy or audiology , your appointment will need to be rescheduled to another day. We appreciate your understanding. Provider Impressions Bilateral Mnire's disease Dizziness and vertigo Bilateral asymmetric sensorineural hearing loss Bilateral tinnitus Right-sided sudden sensorineural hearing loss Today we injected intratympanic Decadron in the right ear. He tolerated well. He will return to clinic in 2 weeks with an updated audiogram. I did discuss with her continued use of medical managementfor Mnire's disease and to use Valium as needed basis for severe vertigo attacks Chief Complaint ESTABLISHED PATIENT VISIT, REFERRED BY DEBRA ADDISON, POSSIBLE STEROID INJECTION. History of Present IllnessBeth is a 70 year old female presenting for evaluation regarding acute right sided hearing loss and ear fullness She has experienced bilateral tinnitus, left worse than right, for several years. Hearing has been diminished on the left side for years and was diagnosed with left MD. She reports acutely diminished hearing on the right side 5 weeks ago accompanied by upper respiratory symptoms; hearing has improved with oral steroids, though is not back to baseline. Also reports episodic vertigo, around 1 episode per year. She was previously diagnosed with Meniere's disease of the left ear, and was instructed to follow low-salt diet. She has also been taking Dyazide daily and valium as needed for vertiginous episodes. Review of Systems A comprehensive 10-point review of systems was obtained including constitutional, neurological, HEENT, pulmonary, cardiovascular, genito-urinary, and other pertinent systems and was negative except as noted in the HPI. 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) Meniere's disease, left (386.00) (H81.02) Sensorineural hearing loss (SNHL) of left ear with unrestricted hearing of right ear (389.15) (H90.42) Subjective tinnitus of right ear (388.31) (H93.11) Subjective tinnitus, left (388.31) (H93.12) Vertigo (780.4) (R42) Past Medical History History of arthritis (V13.4) (Z87.39) History of glaucoma (V12.49) (Z86.69) Surgical History History of Bunionectomy History of section History of Hand surgery History of Heart surgery History of Knee arthroscopy Family History Family history of Alzheimer's disease (V17.2) (Z82.0) Social History Lives with significant other Non-smoker (V49.89) (Z78.9) Occasional alcohol use Retired (V61.07) (Z63.4) Allergies Latex [place] [facility] [place] (more content not included)...[facility] TouchworksOffice Visit (Audiology) on [id number]-up visitDiagnoses/Problems Asymmetrical sensorineural hearing loss (389.16) (H90.5) 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 Today's results indicate progressive hearing loss since her recent hearing test on 07/10/20. Treatment Plan: 1. Follow-up with Dr. Tran 2. Retest hearing in conjunction with medical management 3. Consider binaural amplification [id number] Chief Complaint hearing test Adult Risk ScreeningThere are no spiritual/cultural practices/values/needs that are important to know Initial Fall Risk Screening: Screening not indicated for medical reasons. Reference Documentation See scanned note Procedure Note: audiogram. History of Present Illness FIDE SULTANA, 70 years old, was seen for an audiologic evaluation prior to an evaluation with Dr. Tran on 10/14/20. She has a history of asymmetrical sensorineural hearing loss, worse in the left ear. She has recently been diagnosed with bilateral Meniere's disease, previously only left-sided Meniere's disease. She reported that she recently had her first vertigo attack in a year. Most recent hearing test from 07/10/20 indicates a right moderate low frequency sensorineural hearing loss rising tonormal at 1000 through 6000 Hz. Hearing on the left shows a moderate sloping to moderate/severe sensorineural hearing loss. Excellent word understanding and normal tympanograms bilaterally. Patient's preferred language: Cuban Preferred language of the parent, legal guardian or surrogate decision-maker of this minor or incapacitated patient: Not Applicable No overt signs of domestic violence/neglect/abuse. No referral made to Superintendent System Operation. Pain not interfering with optimal level of function or ability to assess and/or treat. Pain Scale rank: 0/10 Pain Scale used: Numeric No referral made to primary care provider (PCP). Factors/Barriers influencing patient's ability to complete assessment or learn: none. Person taught: patient. Readiness to learn: no barriers. Results of Teaching/Counseling: verbalize recall / understanding and teaching complete. Procedure Otoscopy revealed clear ear canals with visible tympanic membranes, bilaterally. Tympanometry: Right Ear: Normal middle ear function with normal ear canal volume, peak pressure, and compliance. Left Ear: Normal middle ear function with normal ear canal volume, peak pressure, and compliance. Ipsilateral Acoustic Reflexes: Right Ear: Present from 500-4000 Hz. Left Ear: Absent 500-4000 Hz. Behavioral Hearing Evaluation: Right Ear: moderate 250-500 Hz rising to mild 1414-9061 Hz sloping to moderately-severe sensorineural hearing loss. Excellent word understanding (100%) at 75 dB HL. Left Ear: moderate sloping to severe sensorineural hearing loss. Fair word understanding (78%) at 85 dB HL. Speech reception specialist threshold (25 dB HL in the right and 35 dB HL in the left) in agreement with pure tone averages. 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) (H81.03) Orders Start: Ondansetron 8 MG Oral Tablet Disintegrating; take one tab by mouth every 8 hours as needed for nausea Renew: diazePAM 5 MG Oral Tablet; TAKE 1 TABLET every 12 hours NEEDED for vertigo or tinnitus Renew: Omeprazole 20 MG Oral Capsule Delayed Release; TAKE 1 CAPSULE DAILY WHILE ON PREDNISONE Renew: predniSONE 10 MG Oral Tablet; Take 60 mg for 6 days, take 40mg for 1 day, take 30mg for 1 day, take 20mg for 1 day, take 10mg for 1 day, then stop Provider Impressions A/P This patient presents for subsequent evaluation of acute acquired vertigo, right-sided aural fullness, right-sided subjective tinnitus, as well as chronic acquired bilateral/asymmetrical sensorineural hearing loss and bilateral Mnire's disease. Unfortunately, I believe she now has active Mnire's disease in her right ear. I recommended she continue dietary modifications and daily Maxide. I also recommended a prednisone taper. Patient will contact my office in 2 weeks with an update on her symptoms. If right-sided hearing has not improved or she continues to have vertigo, I would refer her to one of my partners for a steroid injection. Patient is in agreement with the plan. New prescriptions were also sent for ondansetron and Valium. All questions were answered to patient's satisfaction. After the visit, I did update her daughter with the treatment plan as well. This note was created using speech recognition collection agent software. Despite proofreading, several typographical errors might be present that might affect the meaning of the content. Please call with any questions. Chief Complaint FUV with hearing test History of Present IllnessBecheri is a 70-year-old female who presents for a follow-up visit for left-sided Mnire's disease. Her symptoms have been very well controlled with dietary modifications and daily Maxide. Patient recalls that at the onset of her diagnosis her right ear had fluctuating hearingloss and tinnitus, but then symptoms switched to the left ear and had remained in the left ear for years. Today, she reports onset of right-sided fullness, tinnitus, distorted hearing. Symptoms have been gradually increasing over the past few weeks. 2 days ago, she started experiencing vertigo. This was relieved by taking Valium and going to bed. She has no complaints today on her left side. Review of Systems A comprehensive or 10 points review of the patient?s constitutional, neurological, HEENT, pulmonary, cardiovascular and genito-urinary systems showed only those mentioned in history of present illness. Active Problems Bilateral sensorineural hearing loss (389.18) (H90.3) Meniere's disease, left (386.00) (H81.02) Sensorineural hearing loss (SNHL) of left ear with unrestricted hearing of right ear (389.15) (H90.42) Subjective tinnitus, left (388.31) (H93.12) Vertigo (780.4) (R42) Past Medical History History of arthritis (V13.4) (Z87.39) History of glaucoma (V12.49) (Z86.69) Surgical History History of Bunionectomy History of section History of Hand surgery History of Heart surgery History of Knee arthroscopy Family History Family history of Alzheimer's disease (V17.2) (Z82.0) Social History Lives with significant other Non-smoker (V49.89) (Z78.9) Occasional alcohol use Retired (V61.07) (Z63.4) Allergies Latex Exam Gloves MISC Recorded By: Hazel Tejeda; 05/19/2018 10:31:22 AM sulfa Recorded By: Hazel Tejeda; 05/19/2018 10:31:22 AM Dust Recorded By: Hazel Tejeda; 05/19/2018 10:31:22 AM Pollen Recorded By: Hazel Tejeda; 05/19/2018 10:31:22 AM Current Meds Medication NameInstruction diazePAM 5 MG Oral TabletTAKE 1 TABLET every 12 hours NEEDED for vertigo or tinnitus Flonase SUSP Latanoprost 0.005 % Ophthalmic Solution Meclizine HCl - 25 MG Oral Tablet Omeprazole 20 MG Oral Capsule Delayed ReleaseTAKE 1 CAPSULE DAILY WHILE ON PREDNISONE predniSONE 10 MG Oral TabletTake 60 mg for 6 days, take 40mg for 1 day, take 30mg for 1 day, take 20mg for 1 day, take 10mg for 1 day, then stop Sudafed TABS Triamterene-HCTZ 37.5-25 MG Oral Capsuletake 1 capsule by mouth once daily Vitals Vital Signs Recorded: 10Jul2020 11:57AM Fwqrxhzwwtw76.1 F Height5 ft 6 in Kubqij057 lb BMI Ytsmtzmwba24.31 BSA Calculated1.68 Tobacco Useb) No Fall Screeninga) No falls within the last year Physical Exam Constitutional: no fever, chills, weight loss or weight gain General appearance: Appears well, well-nourished, well groomed. No acute distress. Communication: Normal communication Psychiatric: Oriented to person, place and time. Normal mood and affect. Neurologic: Cr (more content not included)...[facility] TouchworksOffice Visit (Audiology)on [id number]-up visitDiagnoses/Problems Asymmetrical sensorineural hearing loss (389.16) (H90.5) Patient Discussion/Summary Results indicating decreased hearing in the low frequencies in the right ear and decreased hearing at all frequencies in the left ear were reviewed with the patient. Treatment Plan: 1. Follow up with Debra Addison CNP. 2. Further audiologic evaluation in conjunction with medical management. Appointment time: [id number] Chief Complaint Hearing test, history of asymmetrical sensorineural hearing loss Adult Risk ScreeningThere are no spiritual/cultural practices/values/needs that are important to know Initial Fall Risk Screening: FIDE has not fallen in the last 6 months. FIDE does not have a fear of falling. She does not need assistance with sitting, standing or walking. Does not need assistance walking in her home. She does not need assistance in an unfamiliar setting. The patient is not using an assistive device. Domestic Violence Screen: Does not feel threatened or abused physically, emotionally or sexually. Do you feel UNSAFE? The patient feels safe in the home. Depression/Suicide Screening: During the past 2 weeks, the patient has not felt down, depressed or hopeless. During the past 2 weeks, the patient has not felt little interest or pleasure in doing things. Reference Documentation See scanned note Procedure Note: Audiogram. History of Present Illness FIDE SULTANA was seen for an audiologic evaluation in conjunction with an appointment with Debra Addison CNP. She has a history of asymmetrical sensorineural hearing loss, worse in the left ear, and has been diagnosed with left Meniere's disease. She reported that she recently had her first vertigo attack in a year. She also noted that she has been experiencing aural fullness in the right (better) ear and that the piano music at [employer] sounded very distorted and uncomfortable on that side in recent weeks. Patient's preferred language: Cuban Preferred language of the parent, legal guardian or surrogate decision-maker of this minor or incapacitated patient: Cuban No overt signs of domestic violence/neglect/abuse. No referral made to Superintendent System Operation. Pain not interfering with optimal level of function or ability to assess and/or treat. Pain Scale rank: 0/10 Pain Scale used: Numeric No referral made to primary care provider (PCP). Factors/Barriers influencing patient's ability to complete assessment or learn: none. Person taught: patient. Readiness to learn: no barriers. Results of Teaching/Counseling: verbalize recall / understanding and teaching complete. 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 Tympanic membranes were visualized in both ears. Audiologic evaluation was completed in the soundbooth using insert earphones. Results indicated a moderate sensorineural loss recovering to normal to borderline normal hearing in the right ear, and amoderate to moderately severe sensorineural loss in the left ear. Asymmetry noted, with poorer thresholds in the left ear, from 750-8000 Hz. Speech Auto Design Detailer Thresholds were obtained at 15 dB HL in the right ear and 30 dB HL in the left ear. Word Recognition scores were 100% in the right ear and 88% in the left ear. Immittance testing revealed Type A tympanograms, consistent with normal middle ear pressure, staticcompliance, and ear canal volumes bilaterally. Ipsilateral Acoustic Reflexes were present from 500-4000 Hz in the right ear and 500-2000 Hz in theleft ear. Signatures Electronically signed by : Tyler Rubio; Jul 10 2020 12:43PM EST (Author)[facility] Vital Signs Date TimeVital SignValuePerforming EaptxdwzeJtsevwbn44-96-2167 08:39-0400Body .6 Merry Campuzano MD Work Phone: [facility] HospitalFxxvxypsid94-52-0437 08:39-0400Diastolic blood uwrkwzrl18 mm[Hg]Nadia Campuzano MD Work Phone: [facility] HospitalFlxqcmcybt85-10-5316 08:39-0400Systolic blood weipuqkx185 mm[Hg]Nadia Campuzano MD Work Phone: [facility] HospitalBmddulctnd07-42-4305 09:56-0400Body temperature 97.2 [degF]ZEYAD Lawrence MD Work Phone: [facility]07-21-2025 09:56-0400Body iizplu45.2 kgZEYAD Lawrence MD Work Phone: [facility]07-21-2025 09:56-0400Diastolic blood wwvlqykr07 mm[Hg]ZEYAD Lawrence MD Work Phone: [facility]07-21-2025 09:56-0400Heart rate59 /min ZEYAD Lawrence MD Work Phone: [facility]07-21-2025 09:56-0400Respiratory rate 16 /NiloZEYAD Lawrence MD Work Phone: [facility]07-21-2025 09:56-9851IkH9% (BldA) [Mass fraction]100 %ZEYAD Lawrence MD Work Phone: [facility]07-21-2025 09:56-0400Systolic blood jruhlxxz498 mm[Hg]ZEYAD Lawrence MD Work Phone: [facility]07-14-2025 10:58-0400Body temperature 96.01 [degF]ZEYAD Lawrence MD Work Phone: [facility]07-14-2025 10:58-0400Body kg ZEYAD Lawrence MD Work Phone: [facility]07-14-2025 10:58-0400Diastolic blood qetnmjgp54 mm[Hg]ZEYAD Lawrence MD Work Phone: [facility]07-14-2025 10:58-0400Heart rate57 /min ZEYAD Lawrence MD Work Phone: [facility]07-14-2025 10:58-0400Respiratory rate 18 /NiloZEYAD Lawrence MD Work Phone: [facility]07-14-2025 10:58-0233RdB2% (BldA) [Mass fraction]100 %ZEYAD Lawrence MD Work Phone: [facility]07-14-2025 10:58-0400Systolic blood hbiikuac880 mm[Hg]ZEYAD Lawrence MD Work Phone: [facility]07-07-2025 10:21-0400Body temperature 96.8 [degF]ZEYAD Lawrence MD Work Phone: [facility]07-07-2025 10:21-0400Body matakf64 kg ZEYAD Lawrence MD Work Phone: [facility]07-07-2025 10:21-0400Diastolic blood litibzjf34 mm[Hg]ZEYAD Lawrence MD Work Phone: [facility]07-07-2025 10:21-0400Heart rate49 /min ZEYAD Lawrence MD Work Phone: [facility]07-07-2025 10:21-0400Respiratory rate 16 /NiloZEYAD Lawrence MD Work Phone: [facility]07-07-2025 10:21-1760KtN6% (BldA) [Mass fraction]100 %ZEYAD Lawrence MD Work Phone: [facility]07-07-2025 10:21-0400Systolic blood hdpahoit960 mm[Hg]ZEYAD Lawrence MD Work Phone: [facility]06-06-2025 09:42-0400Body temperature 97.11 [degF]ZEYAD Lawrence MD Work Phone: [facility]06-06-2025 09:42-0400Body xnxzaq46.8 kgZEYAD Lawrence MD Work Phone: [facility]06-06-2025 09:42-0400Diastolic blood fqejizni87 mm[Hg]ZEYAD Lawrence MD Work Phone: [facility]06-06-2025 09:42-0400Heart rate65 /min ZEYAD Lawrence MD Work Phone: [facility]06-06-2025 09:42-0400Respiratory rate 16 /NiloZEYAD Lawrence MD Work Phone: [facility]06-06-2025 09:42-2976HwC3% (BldA) [Mass fraction]98 %ZEYAD Lawrence MD Work Phone: [facility]06-06-2025 09:42-0400Systolic blood uvmmsknv829 mm[Hg]ZEYAD Lawrence MD Work Phone: [facility]04-29-2025 10:18-0400Body tretme831.6 cmJemoustapha De Leon DO Work Phone: [place] [address]Lrpihktxpf28-95-5013 10:18-0400Body mass index (BMI) [Ratio]22.65 kg/t8FfcztlvTomas De Leon DO Work Phone: [address] [place], [place] [address]Jgpzggmrut86-15-9098 10:18-0400Body cznoov26.64 kgJemoustapha De Leon DO Work Phone: [place] [phone] 10:18-0400Heart rate62 /min Tomas De Leon DO Work Phone: [place] [address]Rrpiohpqil08-30-5013 10:18-4317TvD8% (BldA) [Mass fraction]98 %Tomas De Leon DO Work Phone: [place] [phone] 10:49-0400Body mass index (BMI) [Ratio]23.24 kg/c9VmdqdhjTomas De Leon DO Work Phone: [place] [phone] 10:49-0400Body peujva09.32 kgTomas De Leon DO Work Phone: [place] [address]Injfcwinvr49-19-8589 10:49-0400Diastolic blood bimzykxd40 mm[Hg]Tomas De Leon DO Work Phone: noCustomInkTlngpllffu15-88-9213 10:49-0400Systolic blood twzosnkb456 mm[Hg]Tomas De Leon DO Work Phone: noCustomInkAdsosbhepm40-15-8572 11:30-0500Body edkwch667.91 Mirian Berger Other [employer] Other 11-22-2022 11:30-0500Body mass index (BMI) [Ratio] 22.26 kg/k3OapzcLenore Berger Other [employer] Other 11-22-2022 11:30-0500Body eepjyrrzdvp32.2 [degF]Lenore Berger Other [employer] Other 11-22-2022 11:30-0500Body kxmeph88.5 kgLenore Berger Other [employer] Other 11-22-2022 11:30-0500Diastolic blood caozyfrh26 mm[Hg] Lenore Berger Other [employer] Other 11-22-2022 11:30-0500Respiratory rate18 /minLenore Berger Other [employer] Other 11-22-2022 11:30-8380HvV5% (BldA) [Mass fraction]99 % Lenore Berger Other [employer] Other 11-22-2022 11:30-0500Systolic blood ehfszaxt492 mm[Hg] Lenore Berger Other [employer] Other 08-30-2022 11:00-0400Body oupglp283.91 Henrietta Espinal Other [employer] Other 08-30-2022 11:00-0400Body mass index (BMI) [Ratio] 22.26 kg/z4Cmnkauocx Kylie Other [employer] Other 08-30-2022 11:00-0400Body phcwxoknapc00.3 [degF] Мария Smithault Other [employer] Other 08-30-2022 11:00-0400Body gurzke75.5 kgStgaetano Smithault Other [employer] Other 08-30-2022 11:00-0400Diastolic blood kbeqzkib61 mm[Hg] Мария Kylie Other [employer] Other 08-30-2022 11:00-0400Respiratory rate18 /minSro Kylie Other [employer] Other 08-30-2022 11:00-8294DaJ5% (BldA) [Mass fraction]100 % Мария Kylie Other [employer] Other 08-30-2022 11:00-0400Systolic blood rjmfagzo035 mm[Hg] Мария Kylie Other [employer] Other 06-12-2022 10:25-0400Body oiylsr608.91 cmPamelberto Samuel Other [employer] Other 06-12-2022 10:25-0400Body mass index (BMI) [Ratio] 21.62 kg/b4Eudvxw Dymond Other [employer] Other 06-12-2022 10:25-0400Body srmhmuaejoo75 [degF]Milly Samuel Other [employer] Other 06-12-2022 10:25-0400Body rkuicx86.69 kgMilly Samuel Other [employer] Other 06-12-2022 10:25-0400Respiratory rate18 /minMilly Samuel Other [employer] Other 06-12-2022 10:25-3039MiG2% (BldA) [Mass fraction]96 % Milly Samuel Other [employer] Other Encounters Encounter DateEncounter TypeCare ProviderFacilityStart: 03-25-2025 End: 83-20-2591Qnedwf Claudy Campuzano MD Work Phone: [facility] [place] [facility]BGYNStart: 03-25-2025 End: 50-98-1421Eyarnc flowsSabrina Campuzano MD Work Phone: [facility] [place] OBGYNStart: 03-25-2025 End: 07-05-9204Bjtpynikm encounterNadia Campuzano MD Work Phone: [facility] [place] OBGYNStart: 03-25-2025 End: 57-87-6859Nszgdyo encounter procedureNadia Campuzano MD Work Phone: [facility] [place] OBGYNComment on above:Encounter for gynecological examination without abnormal finding (Primary Dx); Vaginitis and vulvovaginitis; Cervicitis and endocervicitis; Encounter for gynecological examination; Breast pain; Breast tenderness; Erythema of breast; Breast symptom; Nocturia more than twice per night; Vaginal discharge; Vaginal itching; Encounter for screening for cervical cancer; Genetic predisposition to breast cancer; Other specified disorders of breast; Mammogram abnormal; H/O breast biopsy; Hormone imbalance; Miscarriage ([facility]); Acute vaginitisStart: 03-25-2025 End: 93-23-8453Lmheyct encounter statusNadia Campuzano MD Work Phone: [facility] HealthcareStart: 03-25-2025 End: 48-09-9484lljbvahplhQWDUYE P JONESNot AvailableStart: 03-21-2025 End: 03-18-6445eacggouampMQOLJQ P JONESNot AvailableStart: 03-05-2025 End: 11-52-4735Drstix flowsEmperatriz Tong Zasolomon DO Work Phone: [facility] EyeStart: 03-05-2025 End: 01-81-5867Gjkzrr Brad Tong Zahler DO Work Phone: [facility] EyeStart: 03-05-2025 End: 41-11-1153vgrofhahsiBNGSUCBC D ZAHLERNot AvailableStart: 01-15-2025 End: 07-96-5384blypzdggckQ SHINE DANGELOacility:[facility] Start: 12-31-2024 End: 59-18-6066Zouvhrnbo Oncology NoteG Shine Lawrence MD Work Phone: Radiation OncologyComment on above:Completion Note Start: 12-31-2024 End: 60-52-7702Mgipijx encounter procedureG Shine Lawrence MD Work Phone: Radiation OncologyComment on above:Skin cancer, basal cell (Primary Dx)Start: 12-31-2024 End: 95-11-7649bwvmrrxdddKMVRGSG ALLAN GARMANcility:[facility] Start: 12-28-2024 End: 30-65-4935Syqhpfj encounter procedureTr Lawrence MD Work Phone: Radiation OncologyComment on above:Skin cancer, basal cell (Primary Dx)Start: 12-28-2024 End: 49-23-6096phthhnueodS PHILLIP ENGELERFacility:[facility] Start: 12-27-2024 End: 39-16-9817ustnpytgoeJPYJGMN ALLAN GARMANFacility:[facility] Start: 12-26-2024 End: 90-24-0295kdreyjqawmQWNIWMJ ALLAN GARMANFacility:[facility] Start: 12-25-2024 End: 43-94-8857wfrmiekiakTIATHQK ALLAN GARMANFacility:[facility] Start: 12-24-2024 End: 84-94-7830Yqoshqq encounter procedureG Shine Lawrence MD Work Phone: Radiation OncologyComment on above:Skin cancer, basal cell (Primary Dx)Start: 12-24-2024 End: 26-30-4629kzxvlgujleFHDXSPX ALLAN GARMANFacility:[facility] Start: 12-21-2024 End: 05-91-2286hihwqhofnwKCTCMOE ALLAN GARMANFacility:[facility] Start: 12-20-2024 End: 41-82-7718eglygvanxkDXMJVLY ALLAN GARMANFacility:[facility] Start: 12-19-2024 End: 56-12-1581grnmfulqglLAXEDFD ALLAN GARMANFacility:[facility] Start: 12-18-2024 End: 54-64-2587rqkhqazihvUQNIRCV ALLAN GARMANFacility:[facility] Start: 12-17-2024 End: 02-69-2359Odlkcru encounter procedureG Shine Lawrence MD Work Phone: Radiation OncologyComment on above:Skin cancer, basal cell (Primary Dx)Start: 12-17-2024 End: 97-27-6268edjpoxcojuHREWPNM ALLAN GARMANFacility:[facility] Start: 12-13-2024 End: 09-67-1934dmyvzwfjtuNHMWIBO ALLAN GARMANFacility:[facility] Start: 12-12-2024 End: 23-42-4885avasizytalPBONQACMis DE LEONFacility:[facility] Start: 12-11-2024 End: 94-03-5978oiqzbzaliqWTYQXHC ALLAN GARMANFacility:[facility] Start: 12-10-2024 End: 18-27-8175qtzpzznkptXLBDCEA ALLAN GARMANFacility:[facility] Start: 12-07-2024 End: 55-86-4851kjhpimpsteJZSKORN ALLAN GARMANcility:[facility] Start: 12-06-2024 End: 38-20-3386agprplhpqxYZPEJGM ALLAN GARMANcility:[facility] Start: 12-05-2024 End: 32-61-0380suwlefhyglJPQZQQD ALLAN GARMANcility:[facility] Start: 12-04-2024 End: 09-72-2251Gofaigb encounter procedureG Shine Lawrence MD Work Phone: Radiation OncologyComment on above:Skin cancer, basal cell (Primary Dx)Start: 12-04-2024 End: 49-34-4591jkojbfgewmQQTCQPY ALLAN GARMANcility:[facility] Start: 12-03-2024 End: 04-60-6050AaakawEioxzdjr D Zahler DO Work Phone: [facility] OPHTComment on above:Primary open angle glaucoma (POAG) of both eyes, mild stageStart: 11-28-2024 End: 18-50-2255Tmmgatihq Oncology NoteG Shine Lawrence MD Work Phone: Radiation OncologyComment on above:Simulation Note Treatment PlanningStart: 11-28-2024 End: 69-02-0165Jgexeel encounter procedureG Shine Lawrence MD Work Phone: Radiation OncologyComment on above:Skin cancer, basal cell (Primary Dx)Start: 11-28-2024 End: 23-93-6343tspfiejyahCPDKSWLSatya Angelcilpromedica bay [facility] Start: 11-23-2024 End: 43-25-3342Uvodtak encounter procedureCcf ProviderOhio [facility] Surgical Hospital DepartmentStart: 11-16-2024 End: 32-65-5995Jweojrfgb encounterG Shine Lawrence MD Work Phone: Radiation OncologyComment on above:AppointmentStart: 11-16-2024 End: 79-53-3108Zcouhx outpatient new 30 minutesG Shine Lawrence MD Work Phone: Radiation OncologyComment on above:Skin cancer, basal cell (Primary Dx)Start: 11-16-2024 End: 19-12-8372txyajtrlxtSfzcuy E Graves RNRadiation OncologyComment on above: Patient EducationStart: 10-31-2024 End: 93-20-2685Jcqoga Brad Sanchez DO Work Phone: [facility] OPHTStart: 10-31-2024 End: 28-50-8186Dawwfz Brad Sanchez DO Work Phone: [facility] OPHTStart: 10-31-2024 End: 88-78-0405paikjcbhohPCZTVLTB D ZAHLERNot AvailableStart: 10-30-2024 End: 75-03-8054bqgrglfymlCUFZAXT A GARMANNot AvailableStart: 10-09-2024 End: 38-32-0860Ziylyt flowsMasha De Leon DO Work Phone: [facility] IMStart: 10-09-2024 End: 81-00-9293Qsbbhp flowsMasha De Leon DO Work Phone: [facility] IMStart: 10-09-2024 End: 79-28-4010Gloozt outpatient visit 25 minutesJemoustapha De Leon DO Work Phone: [facility] IMComment on above:Primary osteoarthritis involving multiple joints (Primary Dx); Multilevel degenerative disc disease; Mixed hyperlipidemia (CMS/HCC); Osteopenia, unspecified location; Sensorineural hearing loss, bilateral; Meniere's disease of both earsStart: 10-09-2024 End: 69-61-7828bkzifouladSRHRFOX A GARMANNot AvailableStart: 06-26-2024 End: 22-81-7044Jyygug Brad Sanchez DO Work Phone: n[facility] OPHTStart: 06-26-2024 End: 82-49-0183Oxzibv flowsEmperatriz Sanchez DO Work Phone: noms OPHTStart: 06-26-2024 End: 55-64-6240omnvwlqvocIAOMDIDX D ZAHLERNot AvailableStart: 05-30-2024 End: 78-90-8946EixyieCohwsplg D Zahler DO Work Phone: noms OPHTComment on above:Primary open angle glaucoma (POAG) of both eyes, mild stage (CMS/HCC)Start: 04-10-2024 End: 69-83-1208Icpvzr flowsMasha De Leon DO Work Phone: [facility] IMStart: 04-10-2024 End: 77-31-4430Nfkypz Tammi De Leon DO Work Phone: [facility] IMStart: 04-10-2024 End: 47-48-7041Azwufl outpatient visit 25 minutesTomas De Leon DO Work Phone: [facility] IMComment on above:Encounter for subsequent annual wellness visit (AWV) in Medicare patient (Primary Dx); ACP (advance care planning); Need for immunization against influenza; Sensorineural hearing loss, bilateral; Meniere's disease of both ears; Mixed hyperlipidemia (CMS/HCC); Multilevel degenerative disc disease; Primary osteoarthritis involving multiple joints; Osteopenia, unspecified location; Primary open angle glaucoma (POAG) of both eyes, mild stage (CMS/HCC); Muscle spasmStart: 04-10-2024 End: 70-78-3495Stfcosi encounter procedureTomas De Leon DO Work Phone: [facility] Work Phone: Start: 04-10-2024 End: 71-76-0540mprxjpzdsuCORDTKX A GARMANNot AvailableStart: 02-14-2024 End: 62-04-0045Qhodvl flowsEmperatriz Sanchez DO Work Phone: n[facility] OPHTStart: 02-14-2024 End: 28-40-2508Nakgyx fiorellaheetMarlee Sanchez DO Work Phone: noCO[facility] OPHTStart: 05-04-2022 End: 99-87-3766hmaesnvvlvHtbbi Keller Other [facility] [employer] Other Start: 05-24-4592Kezkml outpatient visit 15 minutes Lenore HowardlerFPG Urgent Care ClydeStart: 02-09-2022 End: 76-53-6994plmzsjhywaMpfdzmpag Kylie Other nort [employer] Other Start: 74-61-0650Ichour outpatient visit 15 minutes Мария KylieFPG Urgent Care ClydeStart: 11-22-2021 End: 03-39-7894canomkibjwUmirch Lizzie Other [facility] [employer] Other Start: 37-39-2357Jtuhoq outpatient visit 15 minutes Milly LizzieFPG Urgent Care ClydeStart: 07-23-2021 End: 78-62-0174lpynnypomnGJVTZMUX ZAHLERFacility:F0Lgvma: 06-18-2021 End: 70-40-6550owqlblmfinXVITWCRG ZAHLERFacility:L5Iywhz: 04-17-2021 End: 84-45-7844ybjqizvsalFTRKPXNH CULLENFacility:K9Deuxk: 04-09-2021 End: 98-74-5495lwwhzzqwnnOBIGK HIGHLANDERFacility:G8Jjbyf: 74-75-7395Qwcfoo-up Gayathri De Leon Work Phone: [phone]-Yarkhunra-[place] [address] Work Phone: Start: 61-22-4760OCIOAErobyta A Garman Work Phone: [phone]-Fathgayzvuedsa-[facility] [address] Work Phone: Start: 30-47-4846Xldjku-up encounterTomas De Leon Work Phone: [phone]-Hhkpkdmaa-[address] Work Phone: Start: 00-25-8484Zwdtool encounter procedureLindsay Means QMBC-CYYPG-VqxypyigdzmesjKenmare [facility] 4100 Work Phone: Start: 06-97-9788Zunfmag encounter procedureLindsay Means OCOP-OPQZA-WbvieuxauoukmkSan[facility] 4100 Work Phone: Start: 20-12-3867Hxgakjh encounter procedureLINDSAY K MEANSFacility:9448 Procedures DateProcedureProcedure DetailPerforming ClinicianStart: 85-33-7958Mvmhmgwcvzse follicle stimulating hormoneNadia Campuzano MD Work Phone: start: 26-55-1013RgkoyedaaawMtaixn Jones MD Work Phone: start: 03-05-2025 End: 56-00-6053Vwzpedtjeuhh ophthalmic imaging optic nerveJonathan D Bamer DO Work Phone: Start: 03-05-2025 End: 54-70-4371BohgyCrittenden County Hospital&eval intermediate estab ptPrimary open angle glaucoma (POAG) of both eyes, mild stageJonathan D Zahler DO Work Phone: comment on above:Primary open angle glaucoma (POAG) of both eyes, mild stage (Primary Dx); Epiretinal membrane (ERM) of right eye; Dry eyes; PCO (posterior capsular opacification), rightStart: 10-31-2024 End: 01-73-4206SighgCrittenden County Hospital&eval comprhnsv estab pt 1/>Primary open angle glaucoma (POAG) of both eyes, mild stageJonathan D Zahler DO Work Phone: comment on above:Primary open angle glaucoma (POAG) of both eyes, mild stage (Primary Dx); PCO (posterior capsular opacification), right; Dry eyes; Epiretinal membrane (ERM) of right eyeStart: 73-65-1628OaztutvsyfsAtyjkmjn Zahler DO Work Phone: Start: 95-11-5227Biupyj field xm uni/bi w/interp extended examJojoaquin Tong Jose Martin DO Work Phone: Start: 06-26-2024 End: 58-98-3125Dbbol medical xm&eval intermediate estab ptPrimary open angle glaucoma (POAG) of both eyes, mild stage (CMS/HCC)Marlee Ran Jose Martin DO Work Phone: comment on above:Primary open angle glaucoma (POAG) of both eyes, mild stage (CMS/HCC) (Primary Dx); PCO (posterior capsular opacification), right; Dry eyes; Epiretinal membrane (ERM) of right eyeStart: 76-71-2617Yqjpvyumfspt ophthalmic imaging optic nerveMarlee Ran Jose Martin DO Work Phone: Start: 02-14-2024 End: 07-15-7813WnpdnCrittenden County Hospital&eval comprhnsv estab pt 1/>Primary open angle glaucoma (POAG) of both eyes, mild stage (CMS/HCC)Marlee Ran Jose Martin DO Work Phone: comment on above:Primary open angle glaucoma (POAG) of both eyes, mild stage (CMS/HCC) (Primary Dx); PCO (posterior capsular opacification), right; Dry eyes; Epiretinal membrane (ERM) of right eyeStart: 57-03-9405FawkqjudouwMexcvihj Zahler DO Work Phone: arthroscopy of kneeLindsay Means MANAGER OUTPATIENT-CNPCesarean sectionLindsay Means MANAGER OUTPATIENT-CNPExcision of bunionLindsay Means MANAGER OUTPATIENT-CNPOperation on heartLindsay Means MANAGER OUTPATIENT-CNPOperative procedure on handLindsay Means MANAGER OUTPATIENT-SERVICE TECH Plan of Treatment DateCare ActivityDetailAutrStart: 20-15-9049WHN Vaccine (1 - 1-dose 75+ series)RSV Vaccine (1 - 1-dose 75+ series)[facility]tart: 06-15-2026 Screening for malignant neoplasm of colonNOMS HealthcareStart: 03-21-2026 Screening for malignant neoplasm of breastMammogramNOMS HealthcareStart: 88-86-8580Dssgcoyxg for malignant neoplasm of breastNOMS HealthcareStart: 07-12-2025 End: 03-89-0712Jsbbrxi encounter xdjkhspeq62/30/2026 11:00 AM EST Office Visit [facility] [address] [place] [address] Marlee Sanchez, [address] [place] [address] [facility] EyeStart: 04-11-2025 End: 11-77-8397Eokqzcm encounter procedureNO LÓPEZ IMStart: 10-29-2025Medicare Annual Wellness (AWV)Medicare Annual Wellness (AWV)[facility] HealthcareStart: 04-03-2025 End: 58-30-6742Elgkboa encounter fvsptguhd69/22/2025 10:30 AM EDT Office Visit [facility] [address] [place] [id number] Nadia Campuzano MD [address] [place] [address] [facility]OMPe[facility] [place] OBGYNStart: 04-03-2025 End: 66-32-8802Zbifbypjzfuu / ancillary services jujwxmqywm78/22/2025 10:00 AM EDT Ancillary Procedure [facility]OMPe[facility] STOVERN [address] [place] [id number] [facility] [place] OBGYNStart: 04-01-2025 End: 56-87-4213KX Breast - bilateral WO and W contrast IVBilateral breast MR with and without contrast Imaging Routine Breast pain Breast tenderness Breast s ymptom Genetic predisposition to breast cancer Other specified disorders of breast Mammogram abnormal H/O breast biopsy Expected: 04/01/2025, Expires: 09/23/2025NOMS HealthcareComment on above:Expected: 04/01/2025, Expires: 09/23/2025Start: 03-25-2025 End: 33-12-7046Nhukqpv encounter dnfwapmpu32/13/2025 8:45 AM EDT Office Visit CATHY DIAS [address] [place] [address] Nadia Campuzano MD [address] [place] [address] Vaginitis and vulvovaginitis; Cervicitis and endocervicitis; Encounter for gynecological examination; Breast pain; Breast tenderness; Erythema of breast; Breast symptom; Nocturia more than twice per night; Vaginal discharge; Vaginal itchingNOMS Castillo OBGYNComment on above: Vaginitis and vulvovaginitis; Cervicitis and endocervicitis; Encounter for gynecological examination; Breast pain; Breast tenderness; Erythema of breast; Breast symptom; Nocturia more than twice per night; Vaginal discharge; Vaginal itchingStart: 03-05-2025 End: 00-56-4248Gsbrgee encounter procedureNOMS NB OPHTComment on above:Arrived Start: 80-19-1690Zvifhtcec vaccinationInfluenza Vaccine (#1)[facility] Start: 01-15-2025 End: 22-97-3657Lxwbgoh encounter dywwlaisn06/05/2025 1:30 PM EDT Office Visit Radiation Oncology [address] [place] [address] rT Lawrence MD [address] [place] [address] [place] [address] Final radiation follow upRadiation OncologyComment on above: Final radiation follow upStart: 01-01-2025 End: 64-66-6634Ddfbnxw encounter csyoflsbl96/22/2025 10:15 AM EDT Appointment Radiation Oncology [address] [place] [address] Electron NoseRadiation OncologyComment on above:Electron NoseStart: 12-31-2024 End: 97-58-5363Pykhhai encounter mnrtzcjyf14/21/2025 3:45 PM EDT Office Visit Radiation Oncology [address] [place] [address] Tr Lawrence MD [address] [place] [address] Location: [facility] TREATMENT REVRadiation OncologyComment on above:Location: [facility] TREATMENT REVStart: 12-31-2024 End: 35-11-2306Rheostg encounter procedureRadiation OncologyComment on above: Electron NoseLocation: [facility] TREATMENT REVStart: 12-28-2024 End: 94-74-8832Ldgaywd encounter procedureRadiation OncologyComment on above: Electron NoseElectron Nose, OTV today per GPEOTV today per Dr Rutledgetart: 12-27-2024 End: 59-45-7079Zartjmq encounter upwjewjxm14/17/2025 2:15 PM EDT Appointment Radiation Oncology [address] [place] [address] Electron Nose pt requested thist time for today; dlRadiation OncologyComment on above: Electron Nose pt requested thist time for today; dlStart: 12-27-2024 End: 68-03-2580Fmubuzx encounter rooqbqxga63/17/2025 10:15 AM EDT Appointment Radiation Oncology [address] [place] [address] Electron NoseRadiation OncologyComment on above:Electron NoseStart: 12-26-2024 End: 21-50-5882Ofsjekc encounter fraimqpod36/16/2025 10:15 AM EDT Appointment Radiation Oncology [address] [place] [address] Electron NoseRadiation OncologyComment on above:Electron NoseStart: 12-25-2024 End: 83-09-5730Lbqmtxl encounter pihdojfug46/15/2025 10:15 AM EDT Appointment Radiation Oncology [address] [place] [address] Electron NoseRadiation OncologyComment on above:Electron NoseStart: 12-24-2024 End: 52-31-5779Pmfaxbh encounter mkvrhlexx98/14/2025 3:45 PM EDT Office Visit Radiation Oncology [address] [place] [address] Tr Lawrence MD [address] [place] [address] Location: SA-ON TREATMENT REVRadiation OncologyComment on above:Location: SA-ON TREATMENT REVStart: 12-24-2024 End: 40-82-4808Calvknl encounter procedureRadiation OncologyComment on above: Electron NoseLocation: SA-ON TREATMENT REVStart: 12-21-2024 End: 15-60-9230Xlcejoh encounter lsijbajkz15/11/2025 10:30 AM EDT Appointment Radiation Oncology [address] [place] [address] Electron NoseRadiation OncologyComment on above:Electron NoseStart: 12-20-2024 End: 68-40-0668Igxrivf encounter eggxaeuiy97/10/2025 10:15 AM EDT Appointment Radiation Oncology [address] [place] [address] Electron NoseRadiation OncologyComment on above:Electron NoseStart: 12-19-2024 End: 71-25-4853Uolrlca encounter gkctmyfbu68/09/2025 10:15 AM EDT Appointment Radiation Oncology [address] [place] [address] Electron NoseRadiation OncologyComment on above:Electron NoseStart: 12-18-2024 End: 22-22-0996Oidjizm encounter wwvoozpju68/08/2025 10:15 AM EDT Appointment Radiation Oncology [address] [place] [address] Electron NoseRadiation OncologyComment on above:Electron NoseStart: 12-17-2024 End: 54-06-9754Cygsdic encounter yqbunghqu71/07/2025 3:45 PM EDT Office Visit Radiation Oncology [address] [place] [address] Tr Lawrence MD [address] [place] [address] Location: SA-ON TREATMENT REVRadiation OncologyComment on above:Location: SA-ON TREATMENT REVStart: 12-17-2024 End: 12-78-8333Fwclsvd encounter wqihywxhw61/07/2025 9:30 AM EDT Appointment Radiation Oncology [address] [place] [address] Electron NoseRadiation OncologyComment on above:Electron NoseStart: 12-13-2024 End: 86-10-1226Xdqaiqw encounter qnblixoei17/03/2025 11:00 AM EDT Appointment Radiation Oncology [address] [place] [address] Electron NoseRadiation OncologyComment on above:Electron NoseStart: 12-12-2024 End: 70-55-1297Bnycfop encounter ulpwwmlyt45/02/2025 11:00 AM EDT Appointment Radiation Oncology [address] [place] [address] Electron NoseRadiation OncologyComment on above:Electron NoseStart: 12-11-2024 End: 11-24-5007Hvrhjoq encounter hculeorco07/01/2025 10:30 AM EDT Appointment Radiation Oncology [address] [place] [address] Electron NoseRadiation OncologyComment on above:Electron NoseStart: 12-10-2024 End: 55-43-2108Howehtu encounter crggchayp42/30/2025 10:15 AM EDT Appointment Radiation Oncology [address] [place] [address] Electron NoseRadiation OncologyComment on above:Electron NoseStart: 12-07-2024 End: 60-74-0572Bzyesiz encounter utiplwlov10/27/2025 3:30 PM EDT Appointment Radiation Oncology [address] [place] [address] Electron NoseRadiation OncologyComment on above:Electron NoseStart: 12-06-2024 End: 61-15-6030Sicsmru encounter fghbnrzel80/26/2025 3:30 PM EDT Appointment Radiation Oncology [address] [place] [address] Electron Nose MOSFET with physics day 2Radiation OncologyComment on above:Electron Nose MOSFET with physics day 2Start: 12-04-2024 End: 64-56-0942Uzrnedl encounter procedureRadiation OncologyComment on above:[place], NOSENose e- prefers 3:30/3:45 watches grandchildStart: 11-28-2024 End: 27-47-6244Fwqazap encounter procedureRadiation OncologyComment on above:SIM - NOSE 3 PT MASK- CLINICAL SET UP - NEEDS CONSETPre sim consentStart: 10-31-2024 End: 72-73-4426Uwcexjv encounter procedureNOMS NB OPHTComment on above:Arrived Start: 10-16-2024 End: 03-31-0203Shmwlllmqbmt / ancillary services nypvgdffej98/06/2025 7:30 PM EDT Ancillary Procedure [facility] [place] [address] [place] [id number] [facility] AUGIEYStart: 10-09-2024 End: 40-21-5319Uxevtnw encounter procedureNOMS SWS IMComment on above:Arrived Start: 10-02-2024 End: 24-97-5230SXL W Auto Differential panel - BloodCBC and differential Lab Routine Primary osteoarthritis involving multiple joints Osteopenia, unspecified location Expected: 10/02/2024 (Approximate), Expires: 04/10/2025[facility] Comment on above:Expected: 10/02/2024 (Approximate), Expires: 04/10/2025Start: 10-02-2024 End: 93-41-4059Lshyaynjhjtbd metabolic 2000 panel - Serum or PlasmaComprehensive metabolic panel Lab Routine Meniere's disease of both ears Mixed hyperlipidemia (CMS/HCC) Osteopenia, unspecified location Expected: 10/02/2024 (Approximate), Expires: 04/10/2025[facility] Work Phone: Comment on above:Expected: 10/02/2024 (Approximate), Expires: 04/10/2025Start: 10-02-2024 End: 18-20-9626Czigg 1996 panel - Serum or PlasmaLipid panel Lab Routine Mixed hyperlipidemia (CMS/HCC) Expected: 10/02/2024 (Approximate), Expires:04/10/2025 [facility] HealthcareComment on above:Expected: 10/02/2024 (Approximate), Expires: 04/10/2025Start: 10-02-2024 End: 23-52-0709Xgncbyrwmlk [Units/volume] in Serum or PlasmaTSH Lab Routine Mixed hyperlipidemia (CMS/HCC) Osteopenia, unspecified location Expected: 10/02/2024 (Approximate), Expires: 04/10/2025[facility] HealthcareComment on above: Expected: 10/02/2024 (Approximate), Expires: 04/10/2025Start: 09-29-2024 Screening for malignant neoplasm of breastMammogramNOVA HealthcareStart: 06-26-2024 End: 03-06-9655Agvijkj encounter procedureNOMS NB OPHTComment on above:Arrived Start: 55-47-3296Mhxcchl Directive DiscussionAdvance Directive Discussion [facility]: 04-10[facility]2024 End: 27-74-9103Gkbyyet encounter procedureNOMS SWS IMComment on above:Encounter for subsequent annual wellness visit (AWV) in Medicare patient (Primary Dx); ACP (advance care planning)Start: 10-16-2024Medicare Annual Wellness (AWV) Medicare Annual Wellness (AWV)[facility] HealthcareStart: 02-14-2024 End: 01-77-2726Zxtzijh encounter mjsvgizmj96/03/2024 10:30 AM EDT Office Visit [facility] [address] [place] [id number] Marlee Sanchez DO [address] [place] [address] ArrivedNOVA NB OPHTComment on above:ArrivedStart: 95-70-5182Prnej-19 Vaccine ( season)Covid-19 Vaccine ( season)[facility]: 71-18-6137Pizvvnzmy vaccinationInfluenza Vaccine (#1)[facility] HealthcareStart: 76-21-7936Hpkvrrqjv for malignant neoplasm of colon [facility]: 10-12-2023Medicare Annual Wellness (AWV)Medicare Annual Wellness (AWV)[facility] HealthcareStart: 50-64-6518GHOOXTM, Provider: Selvin Pickens, Status: Pen, Time: 10:30 MARSHA, Provider: Selvin Pickens, Status: Pen, Time: 10:30 BOMI-Tudyoncbttndbo-[facility]ivesppSan[facility] Work Phone: Start: 70-52-7979EQVTWIV, Provider: Hortensia Ford, Status: Pen, Time: 10:00 MARSHA, Provider: Hortensia Ford, Status: Pen, Time: 10:00 QSGG-Ucnxkitcp-[address] Work Phone: Start: 01-01-2018Medicare Annual Wellness Visit Medicare Annual Wellness VisitWVUMedicine [facility] Hospitaltart: 87-82-7091Bcbtvjsw ScreeningDiabetes ScreeningWVUMedicine Barnesville Hospitaltart: 55-61-8298Hkhka panelLipid ScreeningWVUMedicine Barnesville Hospitaltart: 71-14-1774Wakxuevbu for malignant neoplasm of colonWVUMedicine Barnesville Hospitaltart: 40-37-4424Pcfsr microalbumin profileDTaP,Tdap,Td Vaccine (1 - Tdap)[facility]: 60-87-0793Wuyejzc ScreeningAnxiety ScreeningWVUMedicine Barnesville Hospitaltart: 28-32-3661Bhhcppfibh ScreeningDepression ScreeningWVUMedicine Barnesville Hospitaltart: 31-62-8630Awiaodjji C screeningHepatitis C ScreeningWVUMedicine Barnesville Hospitaltart: 23-01-4810Ugsrkwged for malignant neoplasm of colonNOVA HealthcareCT Guidance for radiation treatment of Unspecified body regionCT SIM PLANNING RADIATION ONCOLOGY Radiology Routine Skin cancer, basal cell Ordered: 11/28/2024[facility] Work Phone: Comment on above:Ordered: 11/28/2024GENITAL MYCOPLASMAS ALECIA, SWABGENITAL MYCOPLASMAS ALECIA, SWAB Pathology and Cytology Routine Vaginitis and vulvovaginitis Cervicitis and endocervicitis Vaginal discharge Vaginal itching Ordered: 03/25/2025[facility] Work Phone: comment on above:Ordered: 03/25/2025IGP, APT HPV,RFX 16/18,45IGP, APT HPV,RFX 16/18,45 Lab Routine Encounter for gynecological examination without abnormal finding Encounter for screening for cervical cancer Ordered: 03/25/2025[facility] HealthcareComment on above:Ordered: 03/25/2025NuSwab Vaginitis Plus (VG+)NuSwab Vaginitis Plus (VG+) Microbiology Routine Vaginitis and vulvovaginitis Cervicitis and endocervicitis Vaginal discharge Vaginal itching Ordered: 03/25/2025[facility] HealthcareComment on above:Ordered: 03/25/2025 Immunizations Immunization DateImmunizationNotesCare WxuxojqsVslolvvd55-62-5818Bcgpoaou trivalent influenza vaccine, adjuvanted, preservative freeTomas De Leon DO Work Phone: [facility] HospitalMxhwcsaufr25-47-5977fbgzgjash virus vaccine, unspecified formulationZEYAD Lawrence MD Work Phone: [facility] HospitalPwyeum29-94-0596Fgqmlzfpz, Seasonal, Quadrivalent, AdjuvantedJonathan Zahler DO Work Phone: [facility] HospitalVsdfrlruzd94-37-6813srqevhato virus vaccine, unspecified formulationJonathan Zahler DO Work Phone: [facility] HospitalRxdcofviuh17-04-1190yypzsbwiu, high dose seasonal, preservative-freeJonathan Zahler DO Work Phone: [facility] HospitalRzccuqgqym74-64-0405kqhwtbcbc, seasonal, injectable, preservative freeJonathan Zahler DO Work Phone: [facility] HospitalDxwotpytxj30-60-8626kcuzvl vaccine recombinant Marlee Zahler DO Work Phone: [facility] HospitalCvmenqbibi59-20-1446pwhoii vaccine recombinant Marlee Zahler DO Work Phone: [facility] HospitalVqolhhblyc00-22-4049Ruulbiwy trivalent influenza vaccine, adjuvanted, preservative freeJonathan Zahler DO Work Phone: [facility] HospitalYdghmrnlkv43-75-0188Btjqlprj trivalent influenza vaccine, adjuvanted, preservative freeJonathan Zahler DO Work Phone: [facility] HospitalDpeqegmtat35-30-6326jhwfcdimwobv polysaccharide vaccine, 23 valentJonathan Zahler DO Work Phone: [phone] [place], [place] [address]Gpqiwftals28-67-2905mvdzheqdd, injectable, quadrivalent, contains preservativeJonathan Zahler DO Work Phone: [phone] [place], [place] [address]Gqmlzxwsxk54-77-8516dmopvsoeadiz conjugate vaccine, 13 valentJonathan Zahler DO Work Phone: [phone] [place], [place] [address]Nkojveohbw96-22-3386sotcbtpmt, injectable, quadrivalent, preservative freeJonathan Zahler DO Work Phone: [phone] [place], [place] [address]Gdliyeeofn37-58-9015gonsknwpq, injectable, quadrivalent, contains preservativeJonathan Zahler DO Work Phone: [phone] [place], [place] [address]Rzyvdswfme49-81-2161oudllhgkc, seasonal, injectable, preservative freeJonathan Zahler DO Work Phone: [phone] [place], [place] [address]Nkuxecnult86-96-6114wnqajfus influenza, intradermal, preservative freeJonathan Zahler DO Work Phone: [phone] [place], [place] [address]Wofaozvtiw20-06-8510lscfhxgw influenza, intradermal, preservative freeJonathan Zahler DO Work Phone: [phone] [place], [place] [address]Nlrrhiwrkt67-79-9062ietcub vaccine, liveJonathan Zahler DO Work Phone: [phone] [place], [place] [address]Ukkbbzmrwj23-68-6931bfgdypwi influenza, intradermal, preservative freeJonathan Zahler DO Work Phone: [phone] [place], [place] [address]Yxnjpqrzve90-49-2168vwwqrubt influenza, intradermal, preservative freeJonathan Zahler DO Work Phone: [phone] [place] [address] Payers DatePayer CategoryPayerPolicy [id number] Health Insurance [id number] [id number] [id number] [id number] [id number] 2.16.840.1.976218.3.57[id number] 2.16.840.1.457530.3.57[id number] 2.16.840.1.651834.3.57[id number] 2.16.840.1.906130.3.57[id number] 2.16.840.1.903106.3.57[id number] 2.16.840.1.097595.3.57[id number] 2.16.840.1.221537.3.57[id number] 2.16.840.1.339503.3.57[id number] 2.16.840.1.513923.3.57[id number] 2.16.840.1.058486.3.57[id number] 2.16.840.1.073486.3.57[id number] 2.16.840.1.112462.3.57[id number] 2.16.840.1.949802.3.57[id number] 2.16.840.1.833062.3.57[id number] 2.16.840.1.502600.3.579.2.1259Unknown Social History DateTypeDetailFacilityStart: 03-28-2023 End: 78-03-5016Ggxcx with significant otherLives with significant other [place]-Wezwpmcygwtxwa-[facility]wcqsmgSan[facility] Work Phone: Start: 03-28-2023 End: 23-22-1496Qdv Assigned At [facility] [employer] Other Start: 03-28-2023 End: 87-31-1161Xxxbfwu smoking status NHISNever smoked tobaccoNOMS Healthcare History of tobacco usePassive smokerNOMS HealthcareStart: 03-28-2023 End: 93-45-2286Aeoiqsp use and exposureSmokeless tobacco non-userNOMS Healthcare Start: 02-14-2024 End: 21-96-6200Jgkjugvvu beverage intakeCurrent drinker of alcohol (finding)[facility] HealthcareHow often to you have a drink containing alcohol?Monthly or lessNOMS HealthcareHow many standard drinks containing alcohol do you have on a typical day?1 or 2NOMS HealthcareHow often do you have 6 or more drinks on 1 occasion? Less than monthlyNOMS HealthcareStart: 40-97-2254Gwutrgi CommentAlcohol: 1 or 2 drinks on a typical day/monthly or less Caffeine: 5-6 cups a day of coffee per dayNOMS HealthcareStart: 50-06-4567Uql assigned at birthNot on fileNOVA HealthcareStart: 67-91-3565Odpzlokv Score (1-100), lower number is lower risk64 [facility] HealthcareStart: 61-91-6632Soruyxn Commentwine rarelyOhio Valley Surgical Hospital Functional Status DateAssessmentResultFacilityNEGATED: Highlighted rowFunctional performance Functional status health issues are not documented Disease LC-Bzgtdxinexwizp-EqxayeiSanford Medical Center [facility] 4[facility] Work Phone: Mental Status DateAssessmentResultFacilityNEGATED: Highlighted rowCognitive function [Interpretation]Cognitive status health issues are not documented Disease TG-Hawqneiinvtdmu-DetfwiwN[facility] 0310 Work Phone: Clinical Notes 10-30-2020 to 03-25-2025 Note Date & YlvaAlzgPaonixmc87-49-4516 Telephone encounter Note* Telephone Encounter - Sylvester Holguin - 03/25/2025 3:51 PM EDT Called and spoke with pt- scheduled 04/03 at 10am ok per RF. [facility]. [facility] HospitalPoxdvsyetp23-27-3718 Miscellaneous Notes* Telephone Encounter - Sylvester Holguin - 03/25/2025 3:51 PM EDT Called and spoke with pt- scheduled 04/03 at 10am ok per RF. [facility]. * Telephone Encounter - Sylvester Holguin - 03/25/2025 9:14 AM EDT Pt needs pelvic us w ov LEXIS per PPJ. documented in this encounterFreeman Neosho HospitalWwgtihbtpt38-78-2895 Telephone encounter Note* Telephone Encounter - Sylvester Holguin - 03/25/2025 9:14 AM EDT Pt needs pelvic us w ov LEXIS per PPJ. [facility] HospitalRxabmrilpz36-38-2136 History of Present illness Narrative* Nadia Campuzano MD - 03/25/2025 8:45 AM EDT Images from the original note were not included. Nadia Campuzano MD Obstetrics and Gynecology Patient: Fide Sultana : 1950 (74 y.o.) Exam Date: 03/25/2025 Reason for Visit - Chief Complaint Patient presents with Gynecologic Exam Patient present for New patient yearly, patient was last seen in 2019. Patient was unable to give aurine sample to send out for culture. 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 Patient has been experiencing yeast infection symptoms [...] might be contributing to the symptoms, and upo n discontinuing it, the symptoms resolved, which she [...] Left arm) Ht 5' 6 BMI 22.65 kg/m OB Status Postmenopausal Smoking Status Never BSA 1.72 m History of Present Illness, Associated Treatments and [...] History: Procedure Laterality Date BREAST BIOPSY Right 2002 benign BUNIONECTOMY CARDIAC ELECTROPHYSIOLOGY MAPPING AND ABLATION 2000 Heart Ablation CATARACT EXTRACTION COLONOSCOPY 02/2010 IR JOINT ASPIRATION Arthrocentesis of the right knee joint PARS PLANA VITRECTOMY W/ EMP STRIPPING Left Dr. Heck GA ARTHROSCOPY KNEE DIAGNOSTIC W/WO SYNOVIAL BX SPX Left 2004 GA DRAIN/INJECT LARGE JOINT/BURSA Arthrocentesis of the left knee anserine bursa GA INJECT TENDON ORIGIN/INSERT GA INJECT TENDON SHEATH/LIGAMENT Family History Problem Relation [...] sent for vaginal symptoms Assessment & Plan Electronically signed by Nadia Campuzano MD documented in this encounterFreeman Neosho HospitalVyjowoblpu75-26-6402 NoteRight Eye Quality was good. Scan locations included subfoveal. Progression has been stable. Findings include abnormal foveal contour, epiretinal membrane. Left Eye Quality was good. Scan locations included subfoveal. Progression has been stable. Findings include abnormal foveal contour, epiretinal membrane.[facility] HospitalDmqpbtflix60-69-6184 History of Present illness Narrative* Marlee Sanchez, - 03/05/2025 10:15 AM EDT Images from the original note were not included. Assessment/Plan Assessment/Plan Diagnoses and all orders for this visit: Primary open angle glaucoma (POAG) of both eyes, mild stage (CMS/HCC) - Primary open angle glaucoma OU - Importance of taking medications as prescribed was stressed. Patient was advised to report any inability or unwillingness to take medications or if cost is a concern. Patient must report any side effects that may develop. Patient must report any change in systemic medications as they may interact or interfere with their glaucoma medications. Patient will be dilated at least on an annual basis for optic nerve evaluation and will likely have an automated visual field examination at least once a year. It was explained to the patient that they might require additional treatment for intraocular pressure control such as laser therapy or surgical intervention. - Cont Latanoprost both eyes (OU) at bedtime and Dorz/Mathew left eye (OS) BID. Pt states the latter wong and gave her advisement on how to use artificial tears to help. Watch intraocular pressure (IOP) left eye (OS). PCO (posterior capsular opacification), right - PCO OD: (Posterior Capsule Opacification) Can be observed without intervention if PCO is not visually significant. Nd:YAG laser capsulotomy may be considered if impairment of vision rises to a level that dose not meet the patient's functional needs or interferes with activities of daily living. Risks, benefits and alternatives to the procedure will be reviewed. If the patient has undergone Nd:YAG laser capsulotomy, they are to notify their adult education teacher promptly if they have a significant change in symptoms, such as flashes of light (photopsia), an increase in floaters, loss of visual field or decrease in visual acuity. Epiretinal membrane (ERM) of right eye - Condition d/w pt. Check OCT. Observe. Dry eyes - Dry Eyes OU -- Environmental changes to minimize dryness and exposure and the use of artificial tears were recommended. documented in this encounterFreeman Neosho HospitalZegjdoxikq24-98-8820 NoteHNO ID: [id number] Author: Tr LAWRENCE MD Service: ? Author Type: Physician Type: Progress Notes Filed: 01/15/2025 11:55 Note Text: Radiation Oncology - Follow Up Note PATIENT NAME: Fide Sultana PATIENT DIAGNOSIS: Skin cancer left nose, basal cell carcinoma. RADIATION SUMMARY: DATES OF TREATMENT: 12/04/2024- 12/28/2024 AREA TREATED: Left Mid Nose Skin DELIVERED DOSE: Area: 4950 cGy in 18 fractions, 1 Field, Electron, 9 MeV TOTAL: 4950 cGy of 5500 cGy in 18 of 20 fractions ELAPSED TIME: 24 days. INTERVAL HISTORY: Doing well. Skin irritation much improved. ALLERGIES Allergen Reactions Latex Unknown Sulfa (Sulfonamide * Unknown Other Reaction(s): sulfa powder wong. Naproxen Other: See Comments MEDICATIONS: celecoxib (CELEBREX) 200 mg capsule TAKE ONE CAPSULE BY MOUTH DAILY FOR 90 DAYS for 90 Cholecalciferol, Vitamin D3, 50 mcg (2,000 unit) cap 1 capsule. cyclobenzaprine (FLEXERIL) 5 mg tablet Take 5 mg by mouth. diazePAM (VALIUM) 5 mg tablet Take 5 mg by mouth every 12 hours. dorzolamide-timolol (COSOPT) 22.3-6.8 mg/mL ophthalmic solution 1 drop. ipratropium bromide (ATROVENT) 42 mcg (0.06 %) nasal spray INSTILL 2 SPRAYS IN EACH NOSTRIL THREE TIMES A DAY FOR 30 DAYS latanoprost (XALATAN) 0.005 % ophthalmic solution APPLY 1 DROP INTO BOTH EYES AT BEDTIME rosuvastatin (CRESTOR) 10 mg tablet Take 10 mg by mouth. REVIEW OF SYSTEMS: GENERAL: Negative for weight loss, fevers, chills, or night sweats. HEENT: Nosebleed is resolving. NECK: Negative for masses in the neck. MUSCULOSKELETAL: Negative for limitations in movement, pain, or swelling. NEURO: Negative for dizziness, headache, weakness or numbness. HEMATOLOGIC: Negative for bleeding or easy bruising. SKIN: See HPI PHYSICAL EXAM: VS: BP 142/87 Pulse 60 Temp (!) 35.9 ?C (96.7 ?F) Resp 18 Wt 66 kg (145 lb 8.1 oz) SpO2 97% KPS: 100 General Appearance: Alert and oriented. No acute distress. HEENT: NCAT. Sclera anicteric. PERRL. EOMI. Skin: No rashes noted, mild hyperpigmentation on left lateral nose small area of dry desquamation at the site of the left lesion no areas suspicious for persistent disease. Lymphatics: No palpable lymphadenopathy. ASSESSMENT AND PLAN: Skin cancer, basal cell carcinoma involving left lateral mid nose. Doing well after recent completion of radiation. Resolving radiation dermatitis. Clinically no evidence of residual disease. Plan to see her back in 3 months. She has continued follow-up with dermatology. Signed by: Tr Lawrence MD cc: Tomas De Leon ([facility]) [address] [place] [address] Tr Lawrence [address] [place] [address]HrkahitabDayton Children'S Hospital07-25-2025 NoteHNO ID: [id number] Author: Tr LAWRENCE MD Service: ? Author Type: Physician Type: Progress Notes Filed: 01/04/2025 07:39 Note Text: Radiation Oncology - On Treatment Review (OTR) Note PATIENT NAME: Fide Sultana PATIENT DIAGNOSIS: Skin cancer left nose COURSE: definitive AREA TREATED: Left lateral mid nose CURRENT DOSE: 4950cGy in 18 fx PLANNED DOSE: 5500 cGy in 20 fx SUBJECTIVE: Patient having increased skin reaction. Occasional brief nosebleed from the left nasal orifice. No pain of the mild irritation. EXAM: KPS: 90 General Appearance: Alert and oriented. No acute distress. Radiation dermatitis: Moderate erythema within treated area, no desquamation IMAGING/LAB RESULTS: None Treatment chart checked: Yes Patient treatment site reviewed and verified:Yes Port films reviewed and current:Yes Medications started: None ASSESSMENT/PLAN: Patient doing well. She is having increased skin reaction with some epistasis. Discussed finishing last 2 fractions next week versus holding treatment at this point which should be an appropriate biologic dose for her. Will discuss further next week and see her pretreatment on Tuesday. Tr Lawrence, [facility]07-25-2025 History of Present illness Narrative* Tr Lawrence MD - 01/04/2025 7:36 AM EDT Radiation Oncology - On Treatment Review (OTR) Note PATIENT NAME: Fide Sultana PATIENT DIAGNOSIS: Skin cancer left nose COURSE: definitive AREA TREATED: Left lateral mid nose CURRENT DOSE: 4950cGy in 18 fx PLANNED DOSE: 5500 cGy in 20 fx SUBJECTIVE: Patient having increased skin reaction. Occasional brief nosebleed from the left nasal orifice. No pain of the mild irritation. EXAM: KPS: 90 General Appearance: Alert and oriented. No acute distress. Radiation dermatitis: Moderate erythema within treated area, no desquamation IMAGING/LAB RESULTS: None Treatment chart checked: Yes Patient treatment site reviewed and verified:Yes Port films reviewed and current:Yes Medications started: None ASSESSMENT/PLAN: Patient doing well. She is having increased skin reaction with some epistasis. Discussed finishing last 2 fractions next week versus holding treatment at this point which should be an appropriate biologic dose for her. Will discuss further next week and see her pretreatment on Tuesday. Tr Lawrence MD documented [facility]25 NoteHNO ID: [id number] Author: Tr LAWRENCE MD Service: ? Author Type: Physician Type: Progress Notes Filed: 12/31/2024 12:02 Note Text: Radiation Oncology - On Treatment Review (OTR) Note PATIENT NAME: Fide Sultana PATIENT DIAGNOSIS: Skin cancer left nose COURSE: definitive AREA TREATED: Left lateral mid nose CURRENT DOSE: 4950cGy in 18 fx PLANNED DOSE: 5500 cGy in 20 fx SUBJECTIVE: Doing well. Increased skin irritation. Some nasal bleeding EXAM: 12/31/24 0956 BP: 153/72 BP Site: Right Arm BP Position: Sitting BP Cuff Size: Regular Adult Pulse: (!) 59 Resp: 16 Temp: 36.2 ?C (97.2 ?F) TempSrc: Temporal SpO2: 100% Weight: 64.2 kg (141 lb 8.6 oz) KPS: 90 General Appearance: Alert and oriented. No acute distress. Radiation dermatitis: moderateerythema within treated area, no desquamation IMAGING/LAB RESULTS: None Treatment chart checked: Yes Patient treatment site reviewed and verified:Yes Port films reviewed and current:Yes Medications started: None ASSESSMENT/PLAN: Patient doing well. They are concerned about skin reaction and soreness. After discussion we will plan to discontinue treatment at this point. I do feel she was achieved appropriate dose. Will plan to see her back in 2 weeks. She will continue skin care as previously outlined. Tr Lawrence, [facility]07-21-2025 History of Present illness Narrative* Tr Lawrence MD - 12/31/2024 11:55 AM EDT Radiation Oncology - On Treatment Review (OTR) Note PATIENT NAME: Fide Sultana PATIENT DIAGNOSIS: Skin cancer left nose COURSE: definitive AREA TREATED: Left lateral mid nose CURRENT DOSE: 4950cGy in 18 fx PLANNED DOSE: 5500 cGy in 20 fx SUBJECTIVE: Doing well. Increased skin irritation. Some nasal bleeding EXAM: 12/31/24 0956 BP: 153/72 BP Site: Right Arm BP Position: Sitting BP Cuff Size: Regular Adult Pulse: (!) 59 Resp: 16 Temp: 36.2 C (97.2 F) TempSrc: Temporal SpO2: 100% Weight: 64.2 kg (141 lb 8.6 oz) KPS: 90 General Appearance: Alert and oriented. No acute distress. Radiation dermatitis: moderateerythema within treated area, no desquamation IMAGING/LAB RESULTS: None Treatment chart checked: Yes Patient treatment site reviewed and verified:Yes Port films reviewed and current:Yes Medications started: None ASSESSMENT/PLAN: Patient doing well. They are concerned about skin reaction and soreness. After discussion we will plan to discontinue treatment at this point. I do feel she was achieved appropriate dose. Will plan to see her back in 2 weeks. She will continue skin care as previously outlined. Tr Lawrence MD documented in this encounterOhio [facility]07-[facility]25 History of Present illness Narrative* Tr Lawrence MD - 12/31/2024 12:00 AM EDT [facility] Radiation Oncology Department RADIATION ONCOLOGY - COMPLETION NOTE PATIENT: FIDE SULTANA: 1950 DATES OF TREATMENT: 12/04/2024- 12/28/2024 DIAGNOSIS: Skin cancer left nose AREA TREATED: L Mid Nose Skin DELIVERED DOSE: Area: 4950 cGy in 18 fractions, 1 Field, Electron, 9 MeV TOTAL: 4950 cGy of 5500 cGy in 18 of 20 fractions ELAPSED TIME: 24 days. CLINICAL SUMMARY: The patient tolerated radiation with mild to moderate radiation related dermatitis as expected. Also mild epistaxis. The disease response will be assessed in clinic. The patient will be seen again in 2 weeks for postradiation follow-up. Staff Physician Shine Lawrence M.D. / WST :58 AM Electronically Signed cc: Dr. Shikha De Leon documented in this encounterOhio Valley [facility] Hospital07-21-2025 NoteHNO ID: [id number] Author: Tr LAWRENCE MD Service: ? Author Type: Physician Type: Progress Notes Filed: 01/09/2025 10:58 Note Text: [facility] Radiation Oncology Department RADIATION ONCOLOGY - COMPLETION NOTE PATIENT: FIDE SULTANA: 1950 DATES OF TREATMENT: 12/04/2024- 12/28/2024 DIAGNOSIS: Skin cancer left nose AREA TREATED: L Mid Nose Skin DELIVERED DOSE: Area: 4950 cGy in 18 fractions, 1 Field, Electron, 9 MeV TOTAL: 4950 cGy of 5500 cGy in 18 of 20 fractions ELAPSED TIME: 24 days. CLINICAL SUMMARY: The patient tolerated radiation with mild to moderate radiation related dermatitis as expected. Also mild epistaxis. The disease response will be assessed in clinic. The patient will be seen again in 2 weeks for postradiation follow-up. Staff Physician Shine Lawrence M.D. / WST 0:58 AM Electronically Signed cc: [facility]ik[facility] NoteHNO ID: [id number] Author: Tr LAWRENCE MD Service: ? Author Type: Physician Type: Progress Notes Filed: 12/24/2024 12:03 Note Text: Radiation Oncology - On Treatment Review (OTR) Note PATIENT NAME: Fide Sultana PATIENT DIAGNOSIS: Skin cancer left nose COURSE: definitive AREA TREATED: Left lateral mid nose CURRENT DOSE: 3850cGy in 14 fx PLANNED DOSE: 5500 cGy in 20 fx SUBJECTIVE: Doing well. Mild skin irritation. EXAM: 12/24/24 1058 BP: 157/74 Pulse: (!) 57 Resp: 18 Temp: (!) 35.6 ?C (96 ?F) SpO2: 100% Weight: 60 kg (132 lb 4.4 oz) KPS: 90 General Appearance: Alert and oriented. No acute distress. Radiation dermatitis: erythema within treated area, no desquamation IMAGING/LAB RESULTS: None Treatment chart checked: Yes Patient treatment site reviewed and verified:Yes Port films reviewed and current:Yes Medications started: None ASSESSMENT/PLAN: Patient doing well. Discussed skin care. Chart and imaging reviewed. Continue radiation as outlined. Tr Lawrence, [facility]07-14-2025 History of Present illness Narrative* Tr Lawrence MD - 12/24/2024 12:01 PM EDT Radiation Oncology - On Treatment Review (OTR) Note PATIENT NAME: Fide Sultana PATIENT DIAGNOSIS: Skin cancer left nose COURSE: definitive AREA TREATED: Left lateral mid nose CURRENT DOSE: 3850cGy in 14 fx PLANNED DOSE: 5500 cGy in 20 fx SUBJECTIVE: Doing well. Mild skin irritation. EXAM: 12/24/24 1058 BP: 157/74 Pulse: (!) 57 Resp: 18 Temp: (!) 35.6 C (96 F) SpO2: 100% Weight: 60 kg (132 lb 4.4 oz) KPS: 90 General Appearance: Alert and oriented. No acute distress. Radiation dermatitis: erythema within treated area, no desquamation IMAGING/LAB RESULTS: None Treatment chart checked: Yes Patient treatment site reviewed and verified:Yes Port films reviewed and current:Yes Medications started: None ASSESSMENT/PLAN: Patient doing well. Discussed skin care. Chart and imaging reviewed. Continue radiation as outlined. Tr Lawrence MD * Tish Patricio RN - 12/24/2024 10:59 AM EDT Status: Post-menopausal. Tish Patricio RN documented in this encounterOhio Valley [facility] Hospital07-14-2025 NoteHNO ID: [id number] Author: TISH PATRICIO RN Service: ? Author Type: Registered Nurse Type: Progress Notes Filed: 12/24/2024 12:03 Note Text: Status: Post-menopausal. [facility]ish Patricio [facility] NoteHNO ID: [id number] Author: Tr LAWRENCE MD Service: ? Author Type: Physician Type: Progress Notes Filed: 12/17/2024 10:31 Note Text: Radiation Oncology - On Treatment Review (OTR) Note PATIENT NAME: Fide Sultana PATIENT DIAGNOSIS: Skin cancer left nose COURSE: definitive AREA TREATED: Left lateral mid nose CURRENT DOSE: 2475 cGy in 9 fx PLANNED DOSE: 5500 cGy in 20 fx SUBJECTIVE: Doing well. EXAM: KPS: 90 General Appearance: Alert and oriented. No acute distress. Radiation dermatitis: No, very minimal erythema within treated area IMAGING/LAB RESULTS: None Treatment chart checked: Yes Patient treatment site reviewed and verified:Yes Port films reviewed and current:Yes Medications started: None ASSESSMENT/PLAN: Patient doing well. Chart and imaging reviewed. Continue radiation as outlined. Tr Lawrence, [facility]07-07-2025 History of Present illness Narrative* Tr Lawrence MD - 12/17/2024 10:15 AM EDT Radiation Oncology - On Treatment Review (OTR) Note PATIENT NAME: Fide Sultana PATIENT DIAGNOSIS: Skin cancer left nose COURSE: definitive AREA TREATED: Left lateral mid nose CURRENT DOSE: 2475 cGy in 9 fx PLANNED DOSE: 5500 cGy in 20 fx SUBJECTIVE: Doing well. EXAM: KPS: 90 General Appearance: Alert and oriented. No acute distress. Radiation dermatitis: No, very minimal erythema within treated area IMAGING/LAB RESULTS: None Treatment chart checked: Yes Patient treatment site reviewed and verified:Yes Port films reviewed and current:Yes Medications started: None ASSESSMENT/PLAN: Patient doing well. Chart and imaging reviewed. Continue radiation as outlined. Tr Lawrence MD documented in this encounterOhio Valley Surgical Hospital06-26-2025 NoteHNO ID: [id number] Author: Tr LAWRENCE MD Service: ? Author Type: Physician Type: Progress Notes Filed: 12/06/2024 14:57 Note Text: [facility]06-26-2025 History of Present illness Narrative* Tr Lawrence MD - 12/06/2024 2:57 PM EDT sim documented in this encounterOhio Valley Surgical Hospital06-24-2025 NoteHNO ID: [id number] Author: Tr LAWRENCE MD Service: ? Author Type: Physician Type: Progress Notes Filed: 12/05/2024 12:26 Note Text: Radiation Oncology - On Treatment Review (OTR) Note PATIENT NAME: Fide Sultana PATIENT DIAGNOSIS: Skin cancer left nose COURSE: definitive AREA TREATED: Left lateral mid nose CURRENT DOSE: 275 cGy in 1 fx PLANNED DOSE: 5500 cGy in 20 fx SUBJECTIVE: Here to start radiation, doing well. EXAM: KPS: 90 General Appearance: Alert and oriented. No acute distress. Radiation dermatitis: No IMAGING/LAB RESULTS: None Treatment chart checked: Yes Patient treatment site reviewed and verified:Yes Port films reviewed and current:Yes Medications started: None ASSESSMENT/PLAN: Patient starting radiation today. Plan of care and expectations again reviewed. Plan, MU calculations reviewed. Initial imaging including verification simulation field setup including block projection and bolus placement. First treatment given. Continue radiation as prescribed. Tr Lawrence [facility]06-24-2025 History of Present illness Narrative* Tr Lawrence MD - 12/04/2024 12:24 PM EDT Radiation Oncology - On Treatment Review (OTR) Note PATIENT NAME: Fide Sultana PATIENT DIAGNOSIS: Skin cancer left nose COURSE: definitive AREA TREATED: Left lateral mid nose CURRENT DOSE: 275 cGy in 1 fx PLANNED DOSE: 5500 cGy in 20 fx SUBJECTIVE: Here to start radiation, doing well. EXAM: KPS: 90 General Appearance: Alert and oriented. No acute distress. Radiation dermatitis: No IMAGING/LAB RESULTS: None Treatment chart checked: Yes Patient treatment site reviewed and verified:Yes Port films reviewed and current:Yes Medications started: None ASSESSMENT/PLAN: Patient starting radiation today. Plan of care and expectations again reviewed. Plan, MU calculations reviewed. Initial imaging including verification simulation field setup including block projection and bolus placement. First treatment given. Continue radiation as prescribed. Tr Lawrence MD documented in this encounterOhio Valley [facility] Hospital06-18-2025 History of Present illness Narrative* Tr Lawrence MD - 11/28/2024 12:00 AM EDT FIDE SULTANA [id number] 11/28/2024 [facility] Radiation Oncology Department Clinical Electron Simulation DATE OF SIMULATION: 11/28/2024 MACHINE: [employer] AREA:NOSE Consent in Epic: 1 THERAPIST: Adele Thornton Comments: The patient was clinically set up in the room and the treatment field was outlined on thepatient's skin by the physician. The palmer were then transferred to templates for the constructionof the electron blocks. The setup, isocenter placement and treatment parameters outlines above wereapproved by the physician. PATIENT POSITION Head On: 40MM BLOCK, 20MM BLOCK X2, 9 DEGREE WEDGE HEEL SUP, 4 HEAD PAD Arms/ Hands: HOLDING RING ON CHEST Feet: BANDED Other: LEAD EYESHIELDS IN BOTH EYES, BASIC KNEE SPONGE A12, HEARING AIDS OUT FIXATION DEVICE: In order to achieve accurate and reproducible treatments, the patient is immobilized with 0 Custom Face mask1 Orfit Body Board 0 Custom Body mask0 Custom Head Rest 1 Custom Head/ Shoulder Mask0 Breast Board Flat 0 0 Custom Vac Bag0 Wing Board 0 Foot Bolster0 Belly Board 0 SBRT Knee Bolster1 Face Photos With riser 0 Without riser 0 TREATMENT PALMER Field #: Field #: Field #: Field #: Field #: Field #: Name: NOSE Gantry < 38.0 Collimator < 0 Couch < 8.0 Cone Size 6 X 6 Bolus 1.3 SSD to the skin 101.3 Table Vertical 33.02 Table Lateral 998.96 Table Longitudinal 68.07 Custom Block #4 2--cm ROUND Therapist: Magalys Bangura Electronically Signed Shine Lawrence Physicist :28 PM documented in this encounterOhio Valley Surgical Hospital06-18-2025 History of Present illness Narrative* Tr Lawrence MD - 11/28/2024 12:00 AM EDT FIDE SULTANA [id number] 11/28/2024 [facility] Radiation Oncology Department SIMULATION NOTE DATE OF SIMULATION: 11/28/2024 THERAPIST: Yvrose Sauceda MACHINE: [employer] DIAGNOSIS: Basal cell carcinoma of skin of noseC44.311 AREA: NOSE CONTRAST: None Consent in Epic: Yes PATIENT POSITION: Supine. FIXATION DEVICE: In order to achieve accurate and reproducible treatments, the patient is immobilized with ORFIT AIO SYSTEM, CUSTOM 3 PT MASK, LEAD ROBINS IN BOTH EYES. A time-out was conducted and recorded by the therapist. CT scan was completed for target localization and planning. Field arrangement will be determined after plan has been completed. The patient is scheduled for a verification simulation on the treatment machine to ensure proper set-up and field arrangement is correct prior to the first treatment of primary and boost palmer if applicable. Patient education will be completed per nursing. Electronically Signed Shine Lawrence M.D. / NRS :28 PM documented in this encounterOhio Valley Surgical Hospital06-18-2025 History of Present illness Narrative* Tr Lawrence MD - 11/28/2024 12:00 AM EDT FIDE SULTANA [id number] 11/28/2024 [facility] - Department of Radiation Oncology Treatment Planning Note For reasons stated in the consult note, Fide Sultana is a candidate for radiation therapy. Based on review and interpretation of the relevant diagnostic studies together with the exam findings, Fide Sultana was simulated on 11/28/2024 at which time the target volume and/or requisite palmer were delineated, as indicated in the simulation note, to be treated according to the prescription. After reviewing the treatment plan with dosimetry, the plan was approved to deliver the prescribed course of radiation to the target area to allow for the best isodose distribution, treating to the 100% isodose line with 9 MeV and 1 palmer. Custom electron block was the treatment device used to shape/modify the beams. A completed summary of this plan dated 12/03/2024 incorporated herein by reference includes dose, beam arrangements, energy, and blocking. Electronically Signed Shine Lawrence M.D. 53:59 PM documented in this encounterOhio Valley Surgical Hospital06-18-2025 NoteHNO ID: [id number] Author: Tr LAWRENCE MD Service: ? Author Type: Physician Type: Progress Notes Filed: 11/29/2024 13:28 Note Text: FIDE SULTANA [id number] 11/28/2024 [facility] Radiation Oncology Department Clinical Electron Simulation DATE OF SIMULATION: 11/28/2024 MACHINE: [employer] AREA:NOSE Consent in Epic: 1 THERAPIST: Adele Thornton Comments: The patient was clinically set up in the room and the treatment field was outlined on the patient's skin by the physician. The palmer were then transferred to templates for the construction of the electron blocks. The setup, isocenter placement and treatment parameters outlines above were approved by the physician. PATIENT POSITION Head On: 40MM BLOCK, 20MM BLOCK X2, 9 DEGREE WEDGE HEEL SUP, 4 HEAD PAD Arms/ Hands: HOLDING RING ON CHEST Feet: BANDED Other: LEAD EYESHIELDS IN BOTH EYES, BASIC KNEE SPONGE A12, HEARING AIDS OUT FIXATION DEVICE: In order to achieve accurate and reproducible treatments, the patient is immobilized with 0 Custom Face mask1 Orfit Body Board 0 Custom Body mask0 Custom Head Rest 1 Custom Head/ Shoulder Mask0 Breast Board Flat 0 0 Custom Vac Bag0 Wing Board 0 Foot Bolster0 Belly Board 0 SBRT Knee Bolster1 Face Photos With riser 0 Without riser 0 TREATMENT PALMER Field #: Field #: Field #: Field #: Field #: Field #: Name: NOSE Gantry < 38.0 Collimator < 0 Couch < 8.0 Cone Size 6 X 6 Bolus 1.3 SSD to the skin 101.3 Table Vertical 33.02 Table Lateral 998.96 Table Longitudinal 68.07 Custom Block #4 2--cm ROUND Therapist: Magalys Bangura Electronically Signed Shine Lawrence Physicist :28 [facility]06-18-2025 NoteHNO ID: [id number] Author: Tr LAWRENCE MD Service: ? Author Type: Physician Type: Progress Notes Filed: 11/29/2024 13:28 Note Text: FIDE SULTANA [id number] 11/28/2024 [facility] Radiation Oncology Department SIMULATION NOTE DATE OF SIMULATION: 11/28/2024 THERAPIST: Yvrose Sauceda MACHINE: [employer] mCT DIAGNOSIS: Basal cell carcinoma of skin of noseC44.311 AREA: NOSE CONTRAST: None Consent in Epic: Yes PATIENT POSITION: Supine. FIXATION DEVICE: In order to achieve accurate and reproducible treatments, the patient is immobilized with ORFIT AIO SYSTEM, CUSTOM 3 PT MASK, LEAD ROBINS IN BOTH EYES. A time-out was conducted and recorded by the therapist. CT scan was completed for target localization and planning. Field arrangement will be determined after plan has been completed. The patient is scheduled for a verification simulation on the treatment machine to ensure proper set-up and field arrangement is correct prior to the first treatment of primary and boost palmer if applicable. Patient education will be completed per nursing. Electronically Signed Shine Lawrence M.D. / NRS :28 [facility]06-18-2025 NoteHNO ID: [id number] Author: Tr LAWRENCE MD Service: ? Author Type: Physician Type: Progress Notes Filed: 12/03/2024 15:59 Note Text: FIDE SULTANA [id number] 11/28/2024 [facility] - Department of Radiation Oncology Treatment Planning Note For reasons stated in the consult note, Fide Sultana is a candidate for radiation therapy. Based on review and interpretation of the relevant diagnostic studies together with the exam findings, Fide Sultana was simulated on 11/28/2024 at which time the target volume and/or requisite palmer were delineated, as indicated in the simulation note, to be treated according to the prescription. After reviewing the treatment plan with dosimetry, the plan was approved to deliver the prescribed course of radiation to the target area to allow for the best isodose distribution, treating to the 100% isodose line with 9 MeV and 1 palmer. Custom electron block was the treatment device used to shape/modify the beams. A completed summary of this plan dated 12/03/2024 incorporated herein by reference includes dose, beam arrangements, energy, and blocking. Electronically Signed Shine Lawrence M.D. 53:59 [facility]06-12-2025 NoteHNO ID: [id number] Author: Tr LAWRENCE MD Service: ? Author Type: Physician Type: Progress Notes Filed: 11/22/2024 12:36 Note Text: Radiation Oncology - New Patient/Consult Note PATIENT NAME: Fide Sultana PATIENT REQUESTING PROVIDER: Dr. Kumar DIAGNOSIS: Skin cancer, basal cell carcinoma, nose HPI: 74 year old female who presents with above diagnosis, for an opinion regarding the role of radiation therapy in the management of the patient's disease. Final recommendations will be communicated back to the requesting physician by way of the shared medical record, or letter to requesting physician via US mail. Patient presents with an enlarging small lesion left nasal sidewall. She underwent shave biopsy by Dr. Kumar. She has had prior nonmelanoma skin cancers including right leg right lateral superior chest. Pathology from shave biopsy on 11/01/2024 demonstrated nodular type basal cell carcinoma. ALLERGIES No Known Allergies Current Outpatient Medications on File Prior to Visit Medication Sig celecoxib (CELEBREX) 200 mg capsule TAKE ONE CAPSULE BY MOUTH DAILY FOR 90 DAYS for 90 Cholecalciferol, Vitamin D3, 50 mcg (2,000 unit) cap 1 capsule. cyclobenzaprine (FLEXERIL) 5 mg tablet Take 5 mg by mouth. diazePAM (VALIUM) 5 mg tablet Take 5 mg by mouth every 12 hours. dorzolamide-timolol (COSOPT) 22.3-6.8 mg/mL ophthalmic solution 1 drop. ipratropium bromide (ATROVENT) 42 mcg (0.06 %) nasal spray INSTILL 2 SPRAYS IN EACH NOSTRIL THREE TIMES A DAY FOR 30 DAYS latanoprost (XALATAN) 0.005 % ophthalmic solution APPLY 1 DROP INTO BOTH EYES AT BEDTIME rosuvastatin (CRESTOR) 10 mg tablet Take 10 mg by mouth. No current facility-administered medications on file prior to visit. PAST MEDICAL HISTORY Diagnosis Date Glaucoma Hypercholesteremia Meniere's syndrome Prior radiation therapy, collagen vascular disease, or inflammatory bowel disease: No Any implanted or external electric devices? No status: Patient states there is no possibility she is at this time. Educated on risks of during treatment. PAST SURGICAL HISTORY Procedure Laterality Date BUNIONECTOMY, LAPIDUS-TYPE Right SNGL twice PAST SURGICAL HISTORY OF basal cell removed scalp, right chest, right ankle REVISE MEDIAN N/CARPAL TUNNEL SURG Left FAMILY HISTORY Problem Relation Age of Onset Prostate Cancer Father Social History Tobacco Use Smoking status: Never Smokeless tobacco: Never Substance Use Topics Alcohol use: Yes Comment: wine rarely Drug use: Not Currently COMPLETE REVIEW OF SYSTEMS: GENERAL: feeling well without fatigue, no recent change in weight NECK: denies swelling or pain in neck RESPIRATORY: no cough, no wheezing or shortness of breath CARDIOVASCULAR: no chest pain, no palpitations SKIN: See HPI As noted in HPI PHYSICAL EXAM: VS: BP 146/69 Pulse 65 Temp 36.2 ?C (97.1 ?F) Resp 16 Wt 65.8 kg (145 lb 1 oz) SpO2 98% Is the patient having any pain? No 0 on a scale of 0 to 10 KPS: 100 General Appearance: Alert and oriented. No acute distress. HEENT: NCAT. Sclera anicteric. PERRL. EOMI. small 5 mm lesion with eschar and pearly edges mid left side of nose. No intranasal findings. No other suspicious findings. Neck: Normal ROM. No palpable cervical or supraclavicular adenopathy. Skin: No rashes noted Lymphatics: No palpable lymphadenopathy. Hematologic: No signs of active bleeding. RADIOLOGY/LABORATORY DATA: see HPI ASSESSMENT AND PLAN: Skin cancer, basal cell carcinoma, nose Patient has been offered primary Mohs procedure for this small basal cell carcinoma. She does not want to pursue surgery. She would prefer radiation. I do feel she is appropriate candidate for radiation. We did discuss potential acute and long-term effects of radiation. I would recommend a 4-week course of treatment using electrons custom bolus and blocking. Patient expressed understanding of the information presented. Will plan to have her back for simulation in the next week. Signed by: Tr Lawrence MD cc: Tomas De Leon ([facility]) [address] [place] [address] Columba Kumar [address] [place] [facility] [id number]06[facility] History of Present illness Narrative* Tr Lawrence MD - 11/22/2024 12:30 PM EDT Radiation Oncology - New Patient/Consult Note PATIENT NAME: Fide Sultana PATIENT REQUESTING PROVIDER: Dr. Kumar DIAGNOSIS: Skin cancer, basal cell carcinoma, nose HPI: 74 year old female who presents with above diagnosis, for an opinion regarding the role of radiation therapy in the management of the patient's disease. Final recommendations will be communicated back to the requesting physician by way of the shared medical record, or letter to requesting physician via US mail. Patient presents with an enlarging small lesion left nasal sidewall. She underwent shave biopsy by Dr. Kumar. She has had prior nonmelanoma skin cancers including right leg right lateral superior chest. Pathology from shave biopsy on 11/01/2024 demonstrated nodular type basal cell carcinoma. ALLERGIES No Known Allergies Current Outpatient Medications on File Prior to Visit Medication Sig celecoxib (CELEBREX) 200 mg capsule TAKE ONE CAPSULE BY MOUTH DAILY FOR 90 DAYS for 90 Cholecalciferol, Vitamin D3, 50 mcg (2,000 unit) cap 1 capsule. cyclobenzaprine (FLEXERIL) 5 mg tablet Take 5 mg by mouth. diazePAM (VALIUM) 5 mg tablet Take 5 mg by mouth every 12 hours. dorzolamide-timolol (COSOPT) 22.3-6.8 mg/mL ophthalmic solution 1 drop. ipratropium bromide (ATROVENT) 42 mcg (0.06 %) nasal spray INSTILL 2 SPRAYS IN EACH NOSTRIL THREE TIMES A DAY FOR 30 DAYS latanoprost (XALATAN) 0.005 % ophthalmic solution APPLY 1 DROP INTO BOTH EYES AT BEDTIME rosuvastatin (CRESTOR) 10 mg tablet Take 10 mg by mouth. No current facility-administered medications on file prior to visit. PAST MEDICAL HISTORY Diagnosis Date Glaucoma Hypercholesteremia Meniere's syndrome Prior radiation therapy, collagen vascular disease, or inflammatory bowel disease: No Any implanted or external electric devices? No status: Patient states there is no possibility she is at this time. Educated on risks of during treatment. PAST SURGICAL HISTORY Procedure Laterality Date BUNIONECTOMY, LAPIDUS-TYPE Right SNGL twice PAST SURGICAL HISTORY OF basal cell removed scalp, right chest, right ankle REVISE MEDIAN N/CARPAL TUNNEL SURG Left FAMILY HISTORY Problem Relation Age of Onset Prostate Cancer Father Social History Tobacco Use Smoking status: Never Smokeless tobacco: Never Substance Use Topics Alcohol use: Yes Comment: wine rarely Drug use: Not Currently COMPLETE REVIEW OF SYSTEMS: GENERAL: feeling well without fatigue, no recent change in weight NECK: denies swelling or pain in neck RESPIRATORY: no cough, no wheezing or shortness of breath CARDIOVASCULAR: no chest pain, no palpitations SKIN: See HPI As noted in HPI PHYSICAL EXAM: VS: BP 146/69 Pulse 65 Temp 36.2 C (97.1 F) Resp 16 Wt 65.8 kg (145 lb 1 oz) SpO2 98% Is the patient having any pain? No 0 on a scale of 0 to 10 KPS: 100 General Appearance: Alert and oriented. No acute distress. HEENT: NCAT. Sclera anicteric. PERRL. EOMI. small 5 mm lesion with eschar and pearly edges mid leftside of nose. No intranasal findings. No other suspicious findings. Neck: Normal ROM. No palpable cervical or supraclavicular adenopathy. Skin: No rashes noted Lymphatics: No palpable lymphadenopathy. Hematologic: No signs of active bleeding. RADIOLOGY/LABORATORY DATA: see HPI ASSESSMENT AND PLAN: Skin cancer, basal cell carcinoma, nose Patient has been offered primary Mohs procedure for this small basal cell carcinoma. She does not want to pursue surgery. She would prefer radiation. I do feel she is appropriate candidate for radiation. We did discuss potential acute and long-term effects of radiation. I would recommend a 4-week course of treatment using electrons custom bolus and blocking. Patient expressed understanding of theinformation presented. Will plan to have her back for simulation in the next week. Signed by: Tr Lawrence MD cc: Tomas De Leon ([facility]) [address] [place] [address] Columba Kumar [address] [facility] [id number] * Tamiko Del Rio RN - 11/16/2024 9:35 AM EDT Pacemaker/Defibrillator?N Previous Cancer(s)?Basal Cell CA Previous Radiation?N Lupus/Scleroderma?N On body monitoring device?N Tamiko Del Rio RN documented [facility] Telephone encounter Note * Telephone Encounter - Chanel Gold - 11/21/2024 12:57 PM EDT Spoke to [facility] and confirmed [id number] arrival on 11/28 and no hair products. [facility]06-11-2025 Miscellaneous Notes* Telephone Encounter - Chanel Gold - 11/21/2024 12:57 PM EDT Spoke to [facility] and confirmed 1115 arrival on 11/28 and no hair products. * Telephone Encounter - Maggy Blas, RT(R) - 11/21/2024 8:32 AM EDT Please schedule pre sim consent for 11/28/24 at 11:30, sim to follow Notify patient to arrive at 11:15 on the , special instructions include no hair products. Maggy Rao RT(R)(T) * Telephone Encounter - Karen Cardona - 11/16/2024 11:09 AM EDT Rad Ed added and checked in for today. * Telephone Encounter - Tamiko Del Rio RN - 11/16/2024 10:32 AM EDT PSS/RT: please schedule Return for CT/sim with mask and machine setup-treating nose Presim consent needed Nurse ed today Maira Del Rio RN documented in this encounterOhio [facility]06-11-2025 Telephone encounter Note * Telephone Encounter - Maggy Blas RT(R) - 11/21/2024 8:32 AM EDT Please schedule pre sim consent for 11/28/24 at 11:30, sim to follow Notify patient to arrive at 11:15 on the , special instructions include no hair products. Maggy Rao RT(R)(T) [facility]06-06-2025 NoteHNO ID: [id number] Author: TAMIKO DEL RIO RN Service: ? Author Type: Registered Nurse Type: Progress Notes Filed: 11/16/2024 16:00 Note Text: Radiation Therapy - Patient Education Note PATIENT NAME: Fide Sultana PATIENT November 16, 2024 [facility] FACILITY/LOCATION: [facility] READINESS TO LEARN Cognitive Ability: Alert and oriented Motivation to learn: Interested Family Support: Unable to assess - Family not present Instruction provide to: Patient Patient learns best by: Multiple Methods Factors effecting learning: None Physical limitations effecting learning: Sensory Deficit Hearing: Hard of Hearing Hearing Aid LEARNING RESPONSE Diagnosis: Pt simulated today for radiation therapy to skin. Education Topic/Teaching Points: Radiation therapy, Side effects, and OTV: Method of instruction: Written instruction/Handouts Verbal instruction Patient /Family response: Patient verbalized understanding of radiation treatments, side effects, OTV, and transportation. Follow-up plan: Patient instructed to call with any further issues Recommend - Recommend continued instruction and follow up as directed Contact information given. Supplemental material: Informational handouts on Fatigue and Skin changes. Referral (recommendation): None, Pt denied need for social work, van service, and busgirl. Patient has an Onbody or Implanted device: No Signed by: Tamiko Del Rio RNDayton [facility]06-06-2025 History of Present illness Narrative* Tamiko Del Rio RN - 11/16/2024 3:59 PM EDT Radiation Therapy - Patient Education Note PATIENT NAME: Fide Sultana PATIENT November 16, 2024 [facility] FACILITY/LOCATION: [facility] READINESS TO LEARN Cognitive Ability: Alert and oriented Motivation to learn: Interested Family Support: Unable to assess - Family not present Instruction provide to: Patient Patient learns best by: Multiple Methods Factors effecting learning: None Physical limitations effecting learning: Sensory Deficit Hearing: Hard of Hearing Hearing Aid LEARNING RESPONSE Diagnosis: Pt simulated today for radiation therapy to skin. Education Topic/Teaching Points: Radiation therapy, Side effects, and OTV: Method of instruction: Written instruction/Handouts Verbal instruction Patient /Family response: Patient verbalized understanding of radiation treatments, side effects, OTV, and transportation. Follow-up plan: Patient instructed to call with any further issues Recommend - Recommend continued instruction and follow up as directed Contact information given. Supplemental material: Informational handouts on Fatigue and Skin changes. Referral (recommendation): None, Pt denied need for social work, van service, and busgirl. Patient has an Onbody or Implanted device: No Signed by: Tamiko Del Rio RN documented in this encounterOhio [facility] Hospital06-06-2025 Telephone encounter Note * Telephone Encounter - Karen Cardona - 11/16/2024 11:09 AM EDT Rad Andrew added and checked in for today. [facility]06-06-2025 Telephone encounter Note* Telephone Encounter - Tamiko Del Rio RN - 11/16/2024 10:32 AM EDT PSS/RT: please schedule Return for CT/sim with mask and machine setup-treating nose Presim consent needed Nurse ed today Thanks Tamiko Del Rio RN [facility]06-06-2025 NoteHNO ID: [id number] Author: TAMIKO DEL RIO RN Service: ? Author Type: Registered Nurse Type: Progress Notes Filed: 11/22/2024 12:36 Note Text: Pacemaker/Defibrillator?N Previous Cancer(s)?Basal Cell CA Previous Radiation?N Lupus/Scleroderma?N On body monitoring device?N Tamiko Del Rio RNDay[facility]06-06-2025 NoteEducation (RADTSA) FIDE SULTANA ([id number]) 1950 F Date Time Provider Department 11/16/24 TAMIKO DEL RIO Reason for Visit: Patient Education [91] During your visit today, we recorded the following information about you: Allergies As of Date: 11/16/2024 (No Known Allergies) Date Reviewed: 11/16/2024 Reviewed by: Tamiko Del Rio RN - Fully Assessed Prescriptions as of 11/16/2024 - celecoxib (CELEBREX) 200 mg capsule TAKE ONE CAPSULE BY MOUTH DAILY FOR 90 DAYS for 90 - Cholecalciferol, Vitamin D3, 50 mcg (2,000 unit) cap 1 capsule. - cyclobenzaprine (FLEXERIL) 5 mg tablet Take 5 mg by mouth. - diazePAM (VALIUM) 5 mg tablet Take 5 mg by mouth every 12 hours. - dorzolamide-timolol (COSOPT) 22.3-6.8 mg/mL ophthalmic solution 1 drop. - ipratropium bromide (ATROVENT) 42 mcg (0.06 %) nasal spray INSTILL 2 SPRAYS IN EACH NOSTRIL THREE TIMES A DAY FOR 30 DAYS - latanoprost (XALATAN) 0.005 % ophthalmic solution APPLY 1 DROP INTO BOTH EYES AT BEDTIME - rosuvastatin (CRESTOR) 10 mg tablet Take 10 mg by mouth. Encounter Status:Closed by TAMIKO DEL RIO on 11/16/24[facility] 10-31-[facility] History of Present illness Narrative* Marlee Sanchez DO - 10/31/2024 10:45 AM EDT Images from the original note were not included. Assessment/Plan Assessment/Plan Diagnoses and all orders for this visit: Primary open angle glaucoma (POAG) of both eyes, mild stage (CMS/HCC) - Primary open angle glaucoma OU - Importance of taking medications as prescribed was stressed. Patient was advised to report any inability or unwillingness to take medications or if cost is a concern. Patient must report any side effects that may develop. Patient must report any change in systemic medications as they may interact or interfere with their glaucoma medications. Patient will be dilated at least on an annual basis for optic nerve evaluation and will likely have an automated visual field examination at least once a year. It was explained to the patient that they might require additional treatment for intraocular pressure control such as laser therapy or surgical intervention. - Cont Latanoprost both eyes (OU) at bedtime and Dorz/Mathew left eye (OS) BID. Pt states the latter wong and gave her advisement on how to use artificial tears to help. Watch intraocular pressure (IOP) left eye (OS). PCO (posterior capsular opacification), right - PCO OD: (Posterior Capsule Opacification) Can be observed without intervention if PCO is not visually significant. Nd:YAG laser capsulotomy may be considered if impairment of vision rises to a level that dose not meet the patient's functional needs or interferes with activities of daily living. Risks, benefits and alternatives to the procedure will be reviewed. If the patient has undergone Nd:YAG laser capsulotomy, they are to notify their adult education teacher promptly if they have a significant change in symptoms, such as flashes of light (photopsia), an increase in floaters, loss of visual field or decrease in visual acuity. Epiretinal membrane (ERM) of right eye - Condition d/w pt. Check OCT. Observe. Dry eyes - Dry Eyes OU -- Environmental changes to minimize dryness and exposure and the use of artificial tears were recommended. documented in this encounterFreeman Neosho [id number] NoteRight Eye Reliability was good. Progression has been stable. Foveal threshold was normal. Findings include superior nasal step defect. Left Eye Reliability was good. Progression has been stable. Foveal threshold was normal. Findings include normal observations.[facility] Neosho [id number] History of Present illness Narrative* Marlee Sanchez DO - 06/26/2024 10:00 AM EST Images from the original note were not included. Assessment/Plan Assessment/Plan Diagnoses and all orders for this visit: Primary open angle glaucoma (POAG) of both eyes, mild stage (CMS/HCC) - Primary open angle glaucoma OU - Importance of taking medications as prescribed was stressed. Patient was advised to report any inability or unwillingness to take medications or if cost is a concern. Patient must report any side effects that may develop. Patient must report any change in systemic medications as they may interact or interfere with their glaucoma medications. Patient will be dilated at least on an annual basis for optic nerve evaluation and will likely have an automated visual field examination at least once a year. It was explained to the patient that they might require additional treatment for intraocular pressure control such as laser therapy or surgical intervention. - Cont Latanoprost both eyes (OU) at bedtime and Dorz/Mathew left eye (OS) BID. Pt states the latter wong and gave her advisement on how to use artificial tears to help. Watch intraocular pressure (IOP) left eye (OS). PCO (posterior capsular opacification), right - PCO OD: (Posterior Capsule Opacification) Can be observed without intervention if PCO is not visually significant. Nd:YAG laser capsulotomy may be considered if impairment of vision rises to a level that dose not meet the patient's functional needs or interferes with activities of daily living. Risks, benefits and alternatives to the procedure will be reviewed. If the patient has undergone Nd:YAG laser capsulotomy, they are to notify their adult education teacher promptly if they have a significant change in symptoms, such as flashes of light (photopsia), an increase in floaters, loss of visual field or decrease in visual acuity. Epiretinal membrane (ERM) of right eye - Condition d/w pt. Check OCT. Observe. Dry eyes - Dry Eyes OU -- Environmental changes to minimize dryness and exposure and the use of artificial tears were recommended. documented in this encounterFreeman Neosho [id number] History of Present illness Narrative* Tomas De Leon DO - 04/10/2024 9:45 AM EDT Images from the original note were not included. Fide Sultana is a 73 y.o. female presents with chief complaint of 6 month follow-up and Medicare Wellness (Pt is here for 6 month visit and Medicare Wellness. Pt did labs done prior to this visit.) HPI: I have reviewed and reconciled the history and medication list with the patient today. PAST MEDICAL HISTORY: Past Medical History: Diagnosis Date Dry eyes Epiretinal membrane (ERM) of both eyes Glaucoma (CMS/HCC) Hepatitis B History of migraine headaches HTN (hypertension) (CMS/HCC) IBS (irritable bowel syndrome) Meniere's disease Multilevel degenerative disc disease Myalgia Osteoarthritis Osteopenia PCO (posterior capsular opacification) Plantar wart, left foot Skin cancer Tinnitus, left Vertigo Vitamin D deficiency SURGICAL HISTORY: Past Surgical History: Procedure Laterality Date BREAST BIOPSY Right 2001 benign BUNIONECTOMY CARDIAC ELECTROPHYSIOLOGY MAPPING AND ABLATION 2000 Heart Ablation CATARACT EXTRACTION COLONOSCOPY 02/2010 IR JOINT ASPIRATION Arthrocentesis of the right knee joint PARS PLANA VITRECTOMY W/ EMP STRIPPING Left Dr. Heck GA ARTHROSCOPY KNEE DIAGNOSTIC W/WO SYNOVIAL BX SPX Left 2004 GA DRAIN/INJECT LARGE JOINT/BURSA Arthrocentesis of the left knee anserine bursa GA INJECT TENDON ORIGIN/INSERT GA INJECT TENDON SHEATH/LIGAMENT SOCIAL HISTORY: Social History Tobacco Use Smoking status: Never Passive exposure: Past Smokeless tobacco: Never Vaping Use Vaping status: Never Used Substance Use Topics Alcohol use: Yes Comment: Alcohol: 1 or 2 drinks on a typical day/monthly or less Caffeine: 5-6 cups a day of coffeeper day Drug use: Never Depression: Not at risk (04/10/2024) PHQ-2 PHQ-2 Score: 0 FAMILY HISTORY: Family History Problem Relation Name Age of Onset Hypertension Mother Stroke Mother Thyroid disease Mother Alzheimer's disease Father Diabetes Father Hypertension Father Cancer Father Diabetes Sister Diabetes Paternal Grandmother Hypertension Child MEDICATIONS: Current Outpatient Medications Medication Instructions celecoxib (CeleBREX) 200 MG capsule TAKE ONE CAPSULE BY MOUTH DAILY FOR 90 DAYS for 90 cholecalciferol (Vitamin D-3) 50 MCG (2000 UT) capsule 1 capsule, Every 24 hours cyclobenzaprine (Flexeril) 5 MG tablet 1 tablet Orally 2 times every day as needed diazePAM (VALIUM) 5 mg, Oral, Every 12 hours ipratropium (Atrovent) 0.06 % nasal spray INSTILL 2 SPRAYS IN EACH NOSTRIL THREE TIMES A DAY FOR 30DAYS latanoprost (Xalatan) 0.005 % ophthalmic solution APPLY 1 DROP INTO BOTH EYES AT BEDTIME methylPREDNISolone (Medrol Dospak) 4 MG tablets Take as directed on package. ondansetron (ZOFRAN) 8 mg, Oral, 2 times daily triamterene-hydroCHLOROthiazide (Dyazide) 37.5-25 MG capsule 1 capsule, Oral, Every morning ALLERGIES: Allergies Allergen Reactions Latex Unknown Sulfa Antibiotics Other Reaction(s): sulfa powder wong. Naproxen Palpitations Immunization History Administered Date(s) Administered Influenza, High Dose Seasonal, Preservative Free 03/24/2022 Influenza, Seasonal, Quadrivalent, Adjuvanted 03/28/2023 Influenza, injectable, quadrivalent 04/04/2016, 05/24/2018 Influenza, injectable, quadrivalent, preservative free 04/12/2017 Influenza, seasonal, injectable, preservative free 04/26/2015, 04/03/2021 Influenza, seasonal, intradermal, preservative free 05/22/2008, 05/26/2012, 03/23/2013, 03/07/2014 Influenza, trivalent, adjuvanted 04/11/2019, 02/26/2020 Corie SARS-CoV-2 08/17/2020, 04/24/2021 Pfizer Lange Cap SARS-CoV-2 Vaccination 12/25/2021 Pneumococcal Conjugate PCV 13 10/11/2017 Pneumococcal Polysaccharide PPSV23 02/14/2019 SARS-COV-2 (COVID-19) vaccine, mRNA, spike protein, LNP, bivalent, preservative free, 30 mcg/0.3 mLdose, bibi-sucrose formulation 04/16/2022 Zoster, Recombinant 03/22/2020, 06/04/2020 Zoster, live 12/07/2012 REVIEW OF SYMPTOMS: The ROS was neg. No chest pain or dyspnea. Denies any GI issues. Weight stable. No swellng. Denies any issues with meds. PHYSICAL EXAM: Visit Vitals OB Status Postmenopausal Smoking Status Never BP Readings from Last 3 Encounters: 10/04/23 110/74 03/28/23 122/72 03/24/22 110/80 Wt Readings from Last 3 Encounters: 01/23/24 145 lb 12/02/23 143 lb 10/04/23 143 lb Physical exam- No focal neuro signs. No enlarged Lymph Nodes, no thyromegaly/ nodules, HRRR, LCTA, benign ABD exam w/ no bruits. Carotid pulse wnl, no bruits. Pulses intact and palp in all extremities, no edema ASSESSMENT AND PLAN: Assessment/Plan Problem List Items Addressed This Visit Primary open angle glaucoma (POAG) of both eyes, mild stage (CMS/HCC) Meniere's disease of both ears Sensorineural hearing loss, bilateral Multilevel degenerative disc disease Primary osteoarthritis involving multiple joints Osteopenia Mixed hyperlipidemia (CMS/HCC) Need for immunization against influenza Relevant Orders Flu vaccine, trivalent, adjuvanted, preservative free Other Visit Diagnoses Encounter for subsequent annual wellness visit (AWV) in Medicare patient - Primary ACP (advance care planning) She has seen today for routine check up Porschea Medicare wellness. She has some fatigue and feels chilled at times. We discuss her age process and muscle mass loss. Her serum proteins and CMP and CBC are normal. Her TSH is normal and she s concerned whether she may have some thyroid disease. There s no goiter and there s no tenderness or enlargement and clinically. She appears normal thyroid with a normal TSH and the normal T4. She has a glaucoma and uses eyedrop and thought there was a correlation with thyroid eye disease. Her cardio pulmonary and G.I. and neuromuscular review systems is unremarkable. She does flexor on a rare basis. Her disease has been well under control now for four years and she does take the Dyazide less frequently although several days a week. We discussed an option of taking it every three or four day and waiting her self off, but she s concerned there may be a flare in the M ni re. She does have a core sensory hearing loss and issues with balance as well. No recent falls or injuries. I reviewed her lab and her charter bone densities been satisfactory. She s onsome supplements. Her LDL cholesterol is 142. We re gonna start Crestor milligrams. She ll get a flu shot today. The Medicare wellness was completed in a photo attached. She has a living well and power of defense attorney. She has a full code status. No no depression anxiety no recent falls or injuries and she uses no pain. Her balances satisfactory and she climbs up on the table quickly. She s had pneumonia vaccine five years ago. She had flu shot today. Her glucose was 94 last time and RDL is 140 and we re treating that now with stat therapy for primary prevention. She s had a negative colorguard. Osteopenia onbone density. BMI is stable. No will be Citi. At this point no additional change of medication or treatment required. Will be seen for a check up in six months. This note was Dictated and not read. documented in this encounterFreeman Neosho [id number] History of Present illness Narrative* Marlee Sanchez DO - 02/14/2024 10:30 AM EDT Images from the original note were not included. Assessment/Plan Assessment/Plan Diagnoses and all orders for this visit: Primary open angle glaucoma (POAG) of both eyes, mild stage (CMS/HCC) - Primary open angle glaucoma OU - Importance of taking medications as prescribed was stressed. Patient was advised to report any inability or unwillingness to take medications or if cost is a concern. Patient must report any side effects that may develop. Patient must report any change in systemic medications as they may interact or interfere with their glaucoma medications. Patient will be dilated at least on an annual basis for optic nerve evaluation and will likely have an automated visual field examination at least once a year. It was explained to the patient that they might require additional treatment for intraocular pressure control such as laser therapy or surgical intervention. - Cont Latanoprost both eyes (OU) at bedtime and Dorz/Mathew left eye (OS) BID. Pt states the latter wong and gave her advisement on how to use artificial tears to help. Watch intraocular pressure (IOP) left eye (OS). PCO (posterior capsular opacification), right - PCO OD: (Posterior Capsule Opacification) Can be observed without intervention if PCO is not visually significant. Nd:YAG laser capsulotomy may be considered if impairment of vision rises to a level that dose not meet the patient's functional needs or interferes with activities of daily living. Risks, benefits and alternatives to the procedure will be reviewed. If the patient has undergone Nd:YAG laser capsulotomy, they are to notify their adult education teacher promptly if they have a significant change in symptoms, such as flashes of light (photopsia), an increase in floaters, loss of visual field or decrease in visual acuity. Epiretinal membrane (ERM) of right eye - Condition d/w pt. Check OCT. Observe. Dry eyes - Dry Eyes OU -- Environmental changes to minimize dryness and exposure and the use of artificial tears were recommended. documented in this encounterFreeman Neosho [id number] Evaluation note* Encounter Date Diagnosis Assessment Notes Treatment Notes Treatment Clinical Notes Apr, Perforation of right tympanic me mbrane (ICD-10 - H72.91) Discussed diagnosis with patient. Advised that indeed she has perforation noted to tympanic membrane. Advised that there are no signs of infection present today in office. Advised that she needs follow up with ENT for management. Patient verbalizes understanding and is agreeable with treatment plan [employer] Other 08-30-2022 Evaluation note* Encounter Date Diagnosis Assessment Notes Treatment Notes Treatment Clinical Notes Jan, Bug bite, initial encounter (ICD -10 - W57.XXXA) Take medications as directed. Complete all doses. Unable to determine what type of insect cause bites. May try Calamine lotion and or Baking soda in bathtub for comfort. Follow up with primary care provider if no improvement of symptoms with treatment plan [employer] Other 06-12-2022 Evaluation note* Encounter Date Diagnosis Assessment Notes Treatment Notes Treatment Clinical Notes Nov, Contact with and (kellogg spected) exposure to other viral communicable diseases (ICD-10 - Z20.828) Nov,cute sinusitis, recurrence not specified, unspecified location (ICD-10 - J01.90)Continue your home medications as prescribed. Take the prednisone as prescribed until gone. Take the ipratropium nasal spray as prescribed until your symptoms improve. Take Robitussin-DM for your cough. Follow-up with your family physician if no improvement in 2 to 3 days. Nov,ronchitis (ICD-10 - J40) Nov,therAdditional time spent conducting pre-visit phone call, screening for symptoms, instructions on social distancing, application and removal of PPE, and cleaning of examination room, equipment and supplies was preformed. Patient education given for testing methodology and results. Patient care instructions given in writting by [facility] document. [employer] Other 02-10-2022 NoteHISTORY AND PHYSICAL EXAMINATION HISTORY: The patient is a 70 year-old white female with complaints of declining vision out of her left eye. She feels that this began approximately one year ago and gradually worsened over that timeframe. Most notably she's bothered by bright lights creating glare and halos. She's also having difficulty seeing the television scrolling at the bottom of the screen or the TV Guide. PAST OCULAR HISTORY: 1. Status post Pars plana vitrectomy with a macular peel of the left eye. 2. Macular pucker, left eye. 3. Low tension glaucoma bilaterally. 4. Dry eye syndrome. 5. Cataract bilaterally. 6. Diplopia. PAST MEDICAL HISTORY: Meniere's disease, vertigo, atrial fibrillation, status post ablation, general arthritis, hearing loss, wears hearing aids. Foot surgery, carpal tunnel, heart ablation. SOCIAL HISTORY: Denies tobacco, alcohol or recreational drug abuse. ALLERGIES: LATEX. REVIEW OF SYSTEMS: No pertinent positives. PHYSICAL EXAM: VITALS:Blood pressure is measured at 160/86 with a respiration rate of 12 and a pulse of 68. GENERAL: The patient is awake, alert and oriented x3, well-developed, well-nourished, in no acute distress. HEART:Regular rate and rhythm. LUNGS:Clear bilaterally. ABDOMEN:Soft, nontender, nondistended. EXTREMITIES: No pitting edema. OPHTHALMIC EXAM: Revealed a visual acuity of 20/30 -1 that glared to 20/100 in the right eye and 20/50 -2 that glared to 20/200 in the left eye. Pupils motility, muscle balance and confrontational visual palmer within normal limits bilaterally. Pressures are measured at 16 bilaterally. Slit lamp exam revealed blepharitis with a severe decrease in tear film bilaterally. Conjunctiva, cornea, anterior chamber and iris were within normal limits bilaterally. Lens status demonstrated a 2+ nuclear sclerosis with a small ASC bilaterally. FUNDUS EXAM: Revealed good view with good dilation bilaterally. Optic discs, macula, vessels, periphery and vitreous were within normal limits bilaterally. ASSESSMENT / PLAN: 1. Visually significant cataract, left eye. After risks, benefits, alternatives, as well as expectations were delivered to the patient, she would like to go forward with cataract removal. She understands those risks to include, but not limited to infection, bleeding, loss of vision or loss of the eye itself. Secondly, she understands that postoperatively she is likely required to require spectacle correction for her best visual acuity. Thirdly, a complete ophthalmic exam was performed, there is not determined to be any other source of recent decline other than that of the cataract. 2. Primary open angle glaucoma, mild in severity left eye. After risks, benefits, alternatives, as well as expectations were delivered to the patient she would like to go forward with a Hydrus stent implantation. She understands the risks to include but not limited to those listed for the cataract removal process. In combination with this, she's at a greater risk of intraocular bleeding at the time of or shortly after the procedure. She understands that this does not guarantee that she will not require glaucoma drops shortly after or in the distant future to control glaucoma. It does not prevent absolutely the progression of glaucoma and there is the possibility that at the time of the procedure the anatomy will not allow for the installment of the Hydrus stent, thus she would not receive it if this was the case. After understanding all risks as well as expectations as listed above, she would like to go forward with the procedure. 3. COVID-19, the patient was briefed in the office and consented for elective cataract surgery in the setting of the pandemic of coronavirus. She understands that she's at a heightened risk going into a hospital setting, however, feels that her activities of daily living are severe enough depleted by her cataracts that she is willing to incur this risk and go forward with her elective procedure. [facility] Signed and Approved by: MARLEE SANCHEZ 07/20/2021 13:25:00[facility]02-10-2022 NoteOPERATIVE NOTE OPERATION DATE: 06-18-21 ANESTHETIC: Topical. PREOPERATIVE DIAGNOSIS: 1. Nuclear sclerotic cataract of the left eye. 2. Primary open angle glaucoma left eye. POSTOPERATIVE DIAGNOSIS:Same. PROCEDURE NAME: 1. Cataract extraction with intraocular lens placement for the left eye. 2. Hydrus stent implantation left eye. ESTIMATED BLOOD LOSS: Zero. COMPLICATIONS: None. PROCEDURE: The patient was brought to the Operating Room in the supine position. After proper identification, the left eye was prepped and draped in the sterile ophthalmic fashion. Several drops of tetracaine were placed into the eye and a paracentesis created at the 5 o'clock position. Approximately 0.1 mL of 1% Xylocaine was injected into the anterior chamber followed by Amvisc Plus. Using a 2.6 mm Keratome blade a clear corneal incision was created at the 3 o'clock limbus. A cystotome was then utilized to begin a curvilinear capsulorrhexis that was continued for 360 degrees with Utrata forceps. BSS on a 26 gauge cannula was injected beneath the anterior capsule to hydrodissect as well as hydrodelineate the lens. After ensuring mobility, phaco emulsification was performed in a conquer and divide type fashion. After all nuclear material had been removed from the eye, IA was introduced and all residual cortical material was cleaned up. Additional Amvisc Plus was injected into the posterior bag and a lens model MX60 21.5 diopters was injected and dialed into position. After ensuring centration, steps were taken to move on to the Hydrus stent implantation portion. Healon 5 was injected into the anterior chamber localizing at the 9 o'clock trabecular meshwork at an anterior chamber angle to stabilize it. The patient's head was rotated away from the surgeon approximately 20 degrees with the operating microscope rotated towards the surgeon approximately 25 degrees. A gonioprism was placed on the eye with an Amvisc interface allowing visualization of the trabecular meshwork at the 9 o'clock location. Hydrus stent was called for and primed, inserted through the temporal wound with good visualization transiting across the anterior chamber until it reached the 9 o'clock trabecular meshwork. Utilizing the tip of the lining inserter, the trabecular meshwork was dissected and the stent was deployed into Schlemm's canal without difficulty. After checking for stabilization of the location, the lining inserter as well as the prism were removed from the eye and the head of the patient was removed moved back to a more neutral cataract removal position. IA was reintroduced into the anterior chamber and all residual Healon 5 and Amvisc Plus was removed from the eye. BSS on a 30 gauge cannula was injected into the stroma of both the clear corneal incision as well as the paracentesis to hydrate the wounds. Additional BSS was injected into the anterior chamber to pressurize the eye to approximately 20-22 mmHg by finger tension, 0.1 mL of antibiotic was injected into the anterior chamber and Wec cell sponge was used to check the wounds to be water tight. One drop of apraclonidine and 1 drop of prednisolone acetate were placed into the eye and shield was placed over top. The patient was sent to the postoperative area in satisfactory condition to followup the following day for postoperative care. [facility] Signed and Approved by: MARLEE SANCHEZ 07/20/2021 13:24:00[facility]02-10-2022 NotePre-Op History and Physical HISTORY: The patient is a 71-year-old while female who complains of declining vision out of her right eye. She believes over the last six months she has progressively lost capability of seeing distant objects such as road signs or the television. She also states having glare and halos at night time while driving. Additionally, she suffers from primary open angle glaucoma that she is concerned about its progression. She does not feel comfortable putting the drops in compliantly, feels that she misses them more than she should. PAST OCULAR HISTORY / PAST MEDICAL HISTORY / SOCIAL HISTORY / MEDICATIONS / ALLERGIES TO MEDICATIONS / REVIEW OF SYSTEMS / PHYSICAL EXAMINATION: Unchanged from previously dictated. ASSESSMENT AND PLAN: 1. Visually significant cataract, right eye. After the risks, benefits, and alternatives as well as expectations were delivered to the patient, she elected to go forward with cataract removal. She understands those risks to include but not limited to infection, bleeding, loss of vision or loss of the eye itself. Secondly, she understands that postoperatively she is likely to require spectacle correction for her best visual acuity. Finally, a complete ophthalmic exam was performed and there was not determined to be any other source of vision decline other than that of cataract. 2. Primary open angle glaucoma, mild severity. After risks, benefits, alternatives, as well as expectations went over with the patient, she elected to receive a Hydrus stent implantation. She understands the risks include but not limited to those listed for the cataract removal process. In addition to this, there is a higher increased risk of intra-ocular bleeding at the time of and post surgical procedure. Additionally, she understands that this does not guarantee the elimination of drops nor the possibility of progression of the disease. Finally, it was explained to her that there is a possibility that it might not be able to be placed into her eye as a consequence of the anatomy not allowing it to be. After all risks as well as expectations were delivered to the patient, she elected to move forward with the procedure listed above. 3. [id number] patient was briefed in the office and consented for elective cataract surgery in the setting of the pandemic of coronavirus. She understands that she is at a heightened risk of going into a hospital setting, however, feels that her activities of daily living are severely enough depleted by her cataracts that she is willing to incur this risk and go forward with this elective procedure. [facility] Signed and Approved by: MARLEE SANCHEZ 08/19/2021 16:28:00[facility]02-10-2022 NoteOP Note SURGEON: Marlee Sanchez D.O. PREOPERATIVE DIAGNOSIS: 1. Nuclear sclerotic cataract left eye 2. Primary open angle glaucoma left eye. POSTOPERATIVE DIAGNOSIS: 1. Nuclear sclerotic cataract left eye. 2. Primary open angle glaucoma left eye. PROCEDURE NAME: 1. Cataract extraction with intraocular lens placement of the left eye. 2. Hydrus stent implantation left eye. ANESTHESIA: Local. ESTIMATED BLOOD LOSS: Zero. COMPLICATIONS: None. PROCEDURE: The patient was brought to the Operating Room in supine position. After proper identification, the left eye was prepped and draped in a sterile ophthalmic fashion. A paracentesis was created at the 5 o'clock position. Approximately 1 mL of unpreserved Xylocaine was injected into the anterior chamber followed by Amvisc Plus. Using a 2.6 mm Keratome blade, a clear corneal incision was created at the 2 o'clock limbus. A cystotome was then used to begin a curvilinear capsulorrhexis that was continued for 360 degrees with the Utrata forceps. BSS on a 26 gauge cannula was injected beneath the anterior capsule to hydrodissect as well as hydrodelineate the lens. After ensuring mobility, phacoemulsification was performed in a qeogeko-gvx-cfiatb-type fashion. After all nuclear material had been removed from the eye, IA was introduced and all residual cortical material was cleaned up. Additional Amvisc Plus was injected into the posterior bag and a lens model MX60, 21.5 diopters was injected and dialed into position. After ensuring centration, steps were taken to move on to the Hydrus stent implantation portion of the case. The Hydrus stent was called for and primed. Amvisc Plus was placed on the surface of the gonioprism and finally, Healon 5 was injected into the anterior chamber inflating it further, and stabilizing the angle at the 9 o'clock location. The patient's head was then rotated away from the surgeon, approximately 20 degrees with the operating microscope rotated toward the surgeon, approximately 25 degrees. The gonioprism was placed on the surface of the eye and the Hydrus stent was visualized, inserted through the temporal wound and guided across the anterior chamber with visualization to the trabecular meshwork at the 9 o'clock location. Utilizing the tip of the lining inserter, the trabecular meshwork was dissected and the Schlemm's canal was accessed. The stent was deployed with a small amount of hemorrhage at the insertion site. The stent was then checked for localization and stabilization, and once felt adequate, the lining inserter and the gonioprism were removed from the eye. The patient's head was rotated back to a more neutral cataract removal position. IA was reintroduced into the anterior chamber and all residual Amvisc Plus and Healon 5 were removed from the eye. BSS on a 30 gauge cannula was then injected into the stroma of both the clear corneal incision as well as paracentesis to hydrate the wounds. Additional BSS was injected into the anterior chamber to pressurize the eye at approximately 20 to 22 mmHg by finger tension. 0.1 mL of antibiotic was injected into the anterior chamber. Weck-Fya sponges were used to check the wounds to be watertight. One drop of apraclonidine and one drop of prednisolone acetate were placed into the eye and a shield was placed over top. The patient was sent to the postoperative area in satisfactory condition to follow up the following day for postoperative care.[facility] [id number] NoteOP Note SURGEON: Marlee Sanchez D.O. PREOPERATIVE DIAGNOSIS: 1. Nuclear sclerotic cataract right eye. 2. Primary open angle glaucoma right eye. POSTOPERATIVE DIAGNOSIS: 1. Nuclear sclerotic cataract right eye. 2. Primary open angle glaucoma right eye. PROCEDURE NAME: 1. Cataract extraction with intraocular lens placement of the right eye. 2. Hydrus stent implantation right eye ANESTHESIA: Local. ESTIMATED BLOOD LOSS: Zero. COMPLICATIONS: None. PROCEDURE: The patient was brought to the Operating Room in supine position. After proper identification, the right eye was prepped and draped in a sterile ophthalmic fashion. A paracentesis created at the 11 o'clock position. Approximately 1 mL of unpreserved Xylocaine was injected into the anterior chamber followed by Amvisc Plus. Using a 2.6 mm Keratome blade, a clear corneal incision was created at the 9 o'clock limbus. A cystotome was then used to begin a curvilinear capsulorrhexis that was continued for 360 degrees with the Utrata forceps. BSS on a 26 gauge cannula was injected beneath the anterior capsule to hydrodissect as well as hydrodelineate the lens. After ensuring mobility, phacoemulsification was performed in a zsqmqig-zrx-ymapjt-type fashion. After all nuclear material had been removed from the eye, IA was introduced and all residual cortical material was cleaned up. Additional Amvisc Plus was injected into the posterior bag and a lens model MX60, 22.0 diopters was injected and dialed into position. After ensuring centration, steps were taken to move on to the Hydrus stent implantation portion of the case. First, Healon 5 was injected into the anterior chamber to further inflate it, by localizing this injection to the trabecular meshwork in the anterior chamber angle of the 3 o'clock location. Amvisc Plus was then placed on the surface of the gonioprism and the Hydrus stent was called for and primed. The patient's head was then rotated away from the surgeon, approximately 20 degrees, while the operating microscope was rotated toward the surgeon, approximately 25 degrees. With the gonioprism placed on the surface of the eye and the Hydrus stent inserted through the temporal wound and guided across the anterior chamber, visualization could be achieved of the trabecular meshwork at the 3 o'clock location. With the tip of the Hydrus stent, the trabecular meshwork was dissected and Schlemm's canal was accessed. The stent was then deployed into Schlemm's canal with a small amount of hemorrhage seen at the insertion site. After checking for stabilization and location, IA was reintroduced into the anterior chamber and all residual Amvisc Plus and Healon 5 were removed from the eye. BSS on a 30 gauge cannula was then injected into the stroma of both the clear corneal incision as well as paracentesis to hydrate the wounds. Additional BSS was injected into the anterior chamber to pressurize the eye at approximately 20 to 22 mmHg by finger tension. 0.1 mL of antibiotic was injected into the anterior chamber. Weck-Fay sponges were used to check the wounds to be watertight. One drop of apraclonidine and one drop of prednisolone acetate were placed into the eye and a shield was placed over top. The patient was sent to the postoperative area in satisfactory condition to follow up the following day for postoperative care. [facility] Signed and Approved by: MARLEE SANCHEZ 08/19/2021 16:29:00[facility]10-28-2021 NotePROCEDURE: XR ANKLE RT MIN 3 VIEWS, XR FOOT RT MIN 3 VIEWS HISTORY: Pain of right ankle joint ; chronic right foot and ankle pain COMPARISON: None. FINDINGS: BONES:Prior bunionectomy. Mild degenerative changes of the talonavicular joint. No fracture, dislocation, bone lesion. Small calcaneal plantar spur. Normal appearance of the ankle joint. SOFT TISSUES:No visible soft tissue swelling. EFFUSION:None visible. OTHER: Negative. IMPRESSION: 1. No acute bone abnormality or significant degenerative changes. 2. Prior bunionectomy. Electronically authenticated by: LILIA STOUT Date: 2021-04-09 16:22[facility]10-28-2021 NotePROCEDURE: XR ANKLE RT MIN 3 VIEWS, XR FOOT RT MIN 3 VIEWS HISTORY: Pain of right ankle joint ; chronic right foot and ankle pain COMPARISON: None. FINDINGS: BONES:Prior bunionectomy. Mild degenerative changes of the talonavicular joint. No fracture, dislocation, bone lesion. Small calcaneal plantar spur. Normal appearance of the ankle joint. SOFT TISSUES:No visible soft tissue swelling. EFFUSION:None visible. OTHER: Negative. IMPRESSION: 1. No acute bone abnormality or significant degenerative changes. 2. Prior bunionectomy. Electronically authenticated by: LILIA STOUT Date: 2021-04-09 16:22[facility]09-07-2021 History of Present illness Narrative* Fide Sultana, age 70 years, was seen for hearing aid check on February 17, 2021. She is within the 90 day period. * Luísak Jazlyno P70 RT * [id number] * [id number] * Ms. Sultana reports she can hear trains, airplanes etc over someone sitting next to her * She feels she is having difficulty hearing speech on television * Patient's preferred language: Cuban * Preferred language of the parent, legal guardian or surrogate decision-maker of this minor or incapacitated patient: Not Applicable * No overt signs of domestic violence/neglect/abuse. * No referral made to [employer]. * Pain not interfering with optimal level of function or ability to assess and/or treat. * Pain Scale rank: 0/10 * Pain Scale used: Numeric * No referral made to primary care provider (PCP). * Factors/Barriers influencing patient's ability to complete assessment or learn: none. * Person taught: patient. * Readiness to learn: no barriers. * Results of Teaching/Counseling: verbalize recall / understanding and teaching complete. [address] Work Phone: [phone]) 728-984105-20-2021 History of Present illness Narrative* Fide Sultana, age 70 years, was seen for a hearing aid fitting today. 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 She has beendiagnosed with bilateral Menieres disease. See previous notes for detailed history. She was given medical clearance for hearing aid use by Dr. rTan. * Today, she was accompanied by her daughter Griffin. * Patient's preferred language: Cuban * Preferred language of the parent, legal guardian or surrogate decision-maker of this minor or incapacitated patient: Cuban * No overt signs of domestic violence/neglect/abuse. * Pain not interfering with optimal level of function or ability to assess and/or treat. * Pain Scale rank: 0/10 * Pain Scale used: Numeric * No referral made to primary care provider (PCP). * Factors/Barriers influencing patient's ability to complete assessment or learn: none. * Person taught: patient and significant other / family (daughter). * Readiness to learn: no barriers. * Results of Teaching/Counseling: verbalize recall / understanding and teaching complete. [address] Work Phone: Evaluation note* Diagnosis Encounter for subsequent annual wellness visit (AWV) in Medicare patient- Primary ACP (advance care planning) Other specified counseling Need for immunization against influenza Need for prophylactic vaccination and inoculation against influenza Sensorineural hearing loss, bilateral Meniere's disease of both ears Mixed hyperlipidemia (CMS/HCC) Mixed hyperlipidemia Multilevel degenerative disc disease Primary osteoarthritis involving multiple joints Osteopenia, unspecified location Primary open angle glaucoma (POAG) of both eyes, mild stage (CMS/HCC) Muscle spasm Spasm of muscle documented [facility] Diagnosis Primary open angle glaucoma (POAG) of both eyes, mild stage (CMS/HCC)- Primary PCO (posterior capsular opacification), right Unspecified after-cataract Dry eyes Unspecified tear film insufficiency Epiretinal membrane (ERM) of right eye documented [facility] Diagnosis Primary open angle glaucoma (POAG) of both eyes, mild stage (CMS/HCC) [facility] Diagnosis Primary open angle glaucoma (POAG) of both eyes, mild stage (CMS/HCC)- Primary PCO (posterior capsular opacification), right Unspecified after-cataract Dry eyes Unspecified tear film insufficiency Epiretinal membrane (ERM) of right eye documented [facility]* Diagnosis Primary osteoarthritis involving multiple joints- Primary Multilevel degenerative disc disease Mixed hyperlipidemia (CMS/HCC) Mixed hyperlipidemia Osteopenia, unspecified location Sensorineural hearing loss, bilateral Meniere's disease of both ears documented [facility]* Diagnosis Primary open angle glaucoma (POAG) of both eyes, mild stage- Primary PCO (posterior capsular opacification), right Unspecified after-cataract Dry eyes Unspecified tear film insufficiency Epiretinal membrane (ERM) of right eye documented in this encounter [facility]* Diagnosis Skin cancer, basal cell- Primary Basal cell carcinoma of skin, site unspecified [facility] Diagnosis Primary open angle glaucoma (POAG) of both eyes, mild stage documented in this encounter [facility] note* Diagnosis Skin cancer, basal cell- Primary Basal cell carcinoma of skin, site unspecified [facility] Diagnosis Skin cancer, basal cell- Primary Basal cell carcinoma of skin, site unspecified [facility] Diagnosis Skin cancer, basal cell- Primary Basal cell carcinoma of skin, site unspecified [facility] Diagnosis Skin cancer, basal cell- Primary Basal cell carcinoma of skin, site unspecified [facility] Diagnosis Skin cancer, basal cell- Primary Basal cell carcinoma of skin, site unspecified [facility] Diagnosis Skin cancer, basal cell- Primary Basal cell carcinoma of skin, site unspecified [facility] Diagnosis Primary open angle glaucoma (POAG) of both eyes, mild stage- Primary Epiretinal membrane (ERM) of right eye Dry eyes Unspecified tear film insufficiency PCO (posterior capsular opacification), right Unspecified after-cataract documented in this encounter [facility] HealthcareEvaluation note* Diagnosis Encounter for gynecological examination without abnormal [...] vaginitis and vulvovaginitis documented in this encounter [facility] HealthcareHistory general Narrative - Reported* Type Description Date Medical History Glaucoma Medical HistoryMenieres disease, unspecified lateralitySurgical HistoryC section Surgical Historyarthroscopic knee surgerySurgical Historycarpal tunnel release Surgical Historyablasion of the heartSurgical Historybunion surgery Hospitalization Historysee surgical hx [facility] [employer] Other Instructions* Name Dates Details Instructions not documented [facility] Work Phone: Summary Purpose Family History Unknown Family Member Name Dates Details Family history of Alzheimer' s disease: Father(V17.2, Z82.0) Status:Active Unknown Family Member Name Dates Details Family history of Alzheimer' s disease: Father(V17.2, Z82.0) Status:Active Unknown Family Member Name Dates Details Family history of Alzheimer' s disease: Father(V17.2, Z82.0) Status:Active Father Name Dates Details Family history of Alzheimer' s disease(V17.2, Z82.0) Status:Active Advance Directives No Advanced Directives Records FoundNo Advanced Directives Records FoundNo Advanced Directives Records FoundNo Advanced Directives Records FoundNo Advanced Directives Records FoundNo Advanced Directives Records FoundNo Advanced Directives Records Found Chief Complaint * Hearing Aid Fitting * Self Pay - Paid in Full 11/28/20 * Hearing aid check * within 90 days Additional Source Comments INFORMATION SOURCE (unrecogn ized section and content) DATE CREATED AUTHOR 08/01/2018 [facility] DATE CREATED AUTHOR AUTHOR'S ORGANIZ ATION 02/17/2021 Proenza Schouer DATE CREATED AUTHOR AUTHOR'S ORGANIZ ATION 07/28/2021 [facility] [employer] DATE CREATED AUTHOR AUTHOR'S ORGANIZ ATION 08/20/2021 [facility] DATE CREATED AUTHOR AUTHOR'S ORGANIZ ATION 09/30/2021 [facility] DATE CREATED AUTHOR AUTHOR'S ORGANIZ ATION 01/18/2025 [facility] DATE CREATED AUTHOR AUTHOR'S ORGANIZ ATION 03/25/2025 [facility] EPIC REASON FOR VISIT (unrecogniz ed section and content) ReasonComments6 month follow-up and Medicare WellnessPt is here for 6 month visit and Medicare Wellness. Pt did labs done prior to this visit.ReasonComments Follow-upReasonCommentsMed RefillReasonCommentsGlaucomaReasonComments6 month follow upPt is being seen today for her 6 month follow up and managment of her chronic conditions. Pt had lab work done in preparations for todays visit, results and recommendations will be reviewed with them.ReasonCommentsPatient EducationReasonCommentsAppointmentReasonCommentsConsultReasonComments Radiotherapy On-treatment VisitReasonOnset DateCommentsSimulation Request Form 11/28/2024ReasonCommentsSKIN CANCERTreatment visitReasonCommentsFollow-up GlaucomaReasonCommentsGynecologic ExamPatient present for New patient yearly, patient was last seen in 2019. Patient was unable to give aurine sample to send out for culture. 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 Care Teams (unrecognized sec tion and content) Team MemberRelationshipSpecialtyStart DateEnd Date Tomas De Leon DO [address] [place] [address] PCP - GeneralInternal Medicine10/19/22 Tomas De Leon DO [address] [place] [address] PCP - [facility]CO [facility]08/12/23Team MemberRelationshipSpecialtyStart DateEnd Date Tomas De Leon DO [address] [place] [address] PCP - GeneralInternal Medicine10/19/22 Tomas De Leon DO [address] [place] [address] PCP - [facility]08/12/23Team MemberRelationshipSpecialtyStart DateEnd Date Tomas De Leon DO [address] [place] [address] PCP - GeneralInternal Medicine10/19/22 Tomas De Leon DO [address] [place] [address] PCP - [facility]08/12/23Team MemberRelationshipSpecialtyStart DateEnd Date Tomas De Leon, [address] [place] [address] PCP - GeneralInternal Medicine10/19/22 Tomas De Leon, DO [address] [place] [address] PCP - [facility]08/12/23Team MemberRelationshipSpecialtyStart DateEnd Date Tomas De Leon DO [address] [place] [address] PCP - GeneralInternal Medicine10/19/22 Tomas De Leon, DO [address] [place] [address] PCP - ACO [facility]08/12/23Team MemberRelationshipSpecialtyStart DateEnd Date Tomas De Leon, DO [address] [place] [address] PCP - GeneralInternal Medicine10/19/22 Tomas De Leon, DO [address] [place] [address] PCP - ACO [facility]08/12/23Team MemberRelationshipSpecialtyStart DateEnd Date Tomas De Leon, DO [address] [place] [address] PCP - GeneralInternal Medicine10/19/22 Tomas De Leon DO [address] [place] [address] PCP - [facility]08/12/23Team MemberRelationshipSpecialtyStart DateEnd Date Tomas De Leon DO [address] [place] [address] PCP - GeneralInternal Medicine10/19/22 Tomas De Leon DO [address] [place] [address] PCP - [facility]08/12/23Team MemberRelationshipSpecialtyStart DateEnd Date Tomas De Leon DO [address] [place] [address] PCP - GeneralInternal Medicine10/19/22 Tomas De Leon DO [address] [place] [address] PCP - [facility]08/12/23Team MemberRelationshipSpecialtyStart DateEnd Date Tomas De Leon DO [address] [place] [address] PCP - GeneralInternal Medicine11/09/24Team MemberRelationshipSpecialtyStart Date End Date Tomas De Leon DO [address] [place] [address] PCP - GeneralInternal Medicine11/09/24Team MemberRelationshipSpecialtyStart Date End Date Ricardo De Leonlacie Ojedaan, DO [address] [place] [address] PCP - GeneralInternal Medicine11/09/24Team MemberRelationshipSpecialtyStart Date End Date Tomas De Leon Mono DO [address] [place] [address] PCP - GeneralInternal Medicine11/09/24Team MemberRelationshipSpecialtyStart Date End Date Tomas De Leon DO [address] [place] [address] PCP - GeneralInternal Medicine10/19/22 Tomas De Leon DO [address] [place] [address] PCP - [facility]08/12/23Team MemberRelationshipSpecialtyStart DateEnd Date Ricardo De Leonlacie Villareal DO [address] [place] [address] PCP - GeneralInternal Medicine11/09/24Team MemberRelationshipSpecialtyStart Date End Date MoisesTomas DO [address] [place] [address] PCP - GeneralInternal Medicine11/09/24Team MemberRelationshipSpecialtyStart Date End Date MoisesTomas DO [address] [place] [address] PCP - GeneralInternal Medicine11/09/24Team MemberRelationshipSpecialtyStart Date End Date MoisesTomas cho Mono DO [address] [place] [address] PCP - GeneralInternal Medicine11/09/24 MemberRelationshipSpecialtyStart Date End Date MoisesTomas cho MonoDO [address] [place] [address] PCP - GeneralInternal Medicine11/09/24am MemberRelationshipSpecialtyStart Date End Date MoisesRicardo cholacie Villareal DO [address] [place] [address] PCP - GeneralInternal Medicine11/09/24 MemberRelationshipSpecialtyStart Date End Date MoisesTomas DO [address] [place] [address] PCP - GeneralInternal Medicine11/09/24Team MemberRelationshipSpecialtyStart Date End Date Tomas De Leon DO [address] [place] [address] PCP - [facility]08/12/23 Chaitanya Dooley MD [address] [place] [address] PCP - GeneralInternal Medicine02/01/25am MemberRelationshipSpecialtyStart Date End Date Tomas De Leon DO [address] [place] [address] PCP - [facility]08/12/23 Chaitanya Dooley MD [address] [place] [address] PCP - [facility]02/01/25Team MemberRelationshipSpecialtyStart Date End Date Tomas De Leon DO [address] [place] [address] [facility]08/12/23 hCaitanya Dooley MD [address] [place] [address] [facility]02/01/25Team MemberRelationshipSpecialtyStart Date End Date Tomas De Leon DO [address] [place] [address] [facility]08/12/23 Chaitanya Dooley MD [address] [place] [address] [facility]02/01/25Team MemberRelationshipSpecialtyStart Date End Date Tomas De Leon DO [address] [place] [address] [facility]08/12/23 Chaitanya Dooley MD [address] [place] [address] [facility]02/01/25 Source Comments (unrecognize d section and content) In the event this informatio n is protected by the Federal Confidentiality of Alcohol and Drug Abuse Patient Records regulations: The Federal rules restrict any use of the information to criminally investigate or prosecute any alcohol or drug abuse patient.[facility] the event this information is protected by the Federal Confidentiality of Alcohol and Drug Abuse Patient Records regulations: The Federal rules restrict any use of the information to criminally investigate or prosecute any alcohol or drug abuse patient.[facility] HospitalIn the event this information is protected by the Federal Confidentiality of Alcohol and Drug Abuse Patient Records regulations: The Federal rules restrict any use of the information to criminally investigate or prosecute any alcohol or drug abuse patient.[facility] HospitalIn the event this information is protected by the Federal Confidentiality of Alcohol and Drug Abuse Patient Records regulations: The Federal rules restrict any use of the information to criminally investigate or prosecute any alcohol or drug abuse patient.[facility] HospitalIn the event this information is protected by the Federal Confidentiality of Alcohol and Drug Abuse Patient Records regulations: The Federal rules restrict any use of the information to criminally investigate or prosecute any alcohol or drug abuse patient.[facility] HospitalIn the event this information is protected by the Federal Confidentiality of Alcohol and Drug Abuse Patient Records regulations: The Federal rules restrict any use of the information to criminally investigate or prosecute any alcohol or drug abuse patient.[facility] HospitalIn the event this information is protected by the Federal Confidentiality of Alcohol and Drug Abuse Patient Records regulations: The Federal rules restrict any use of the information to criminally investigate or prosecute any alcohol or drug abuse patient.[facility] HospitalIn the event this information is protected by the Federal Confidentiality of Alcohol and Drug Abuse Patient Records regulations: The Federal rules restrict any use of the information to criminally investigate or prosecute any alcohol or drug abuse patient.[facility] HospitalIn the event this information is protected by the Federal Confidentiality of Alcohol and Drug Abuse Patient Records regulations: The Federal rules restrict any use of the information to criminally investigate or prosecute any alcohol or drug abuse patient.[facility] HospitalIn the event this information is protected by the Federal Confidentiality of Alcohol and Drug Abuse Patient Records regulations: The Federal rules restrict any use of the information to criminally investigate or prosecute any alcohol or drug abuse patient.[facility] HospitalIn the event this information is protected by the Federal Confidentiality of Alcohol and Drug Abuse Patient Records regulations: The Federal rules restrict any use of the information to criminally investigate or prosecute any alcohol or drug abuse patient.[facility] HospitalIn the event this information is protected by the Federal Confidentiality of Alcohol and Drug Abuse Patient Records regulations: The Federal rules restrict any use of the information to criminally investigate or prosecute any alcohol or drug abuse patient.[facility] HospitalIn the event this information is protected by the Federal Confidentiality of Alcohol and Drug Abuse Patient Records regulations: The Federal rules restrict any use of the information to criminally investigate or prosecute any alcohol or drug abuse patient.[facility] HospitalIn the event this information is protected by the Federal Confidentiality of Alcohol and Drug Abuse Patient Records regulations: The Federal rules restrict any use of the information to criminally investigate or prosecute any alcohol or drug abuse patient.[facility] HospitalIn the event this information is protected by the Federal Confidentiality of Alcohol and Drug Abuse Patient Records regulations: The Federal rules restrict any use of the information to criminally investigate or prosecute any alcohol or drug abuse patient.[facility] FOR RECORDS PERTAINING TO PATIENTS WHO ARE OR HAVE BEEN ENROLLED IN A CHEMICAL DEPENDENCY/SUBSTANCEABUSE PROGRAM, SOME INFORMATION MAY BE OMITTED. This clinical summary was aggregated from multiple sources. Caution should be exercised in using it in the provision of clinical care. This summary normalizes information from multiple sources, and as a consequence, information in this document may materially change the coding, format and clinical context of patient data. In addition, data may be omitted in some cases. CLINICAL DECISIONS SHOULD BE BASED ON THE PRIMARY CLINICAL RECORDS. [facility] [employer] [facility]. provides no warranty or guarantee of the accuracy or completeness of information in this document.
[2025-04-02 10:14] LABS: Alanine Aminotransferase 24 U/L (14-59); Albumin Globulin Ratio 1.1; Albumin Level 3.6 g/dL (3.4-5.0); Alkaline Phosphatase 72 U/L (46-116); Anion Gap 11.4; Aspartate Amino Transferase 12 U/L (15-37); Blood Urea Nitrogen 20.0 mg/dL (7.0-18.0); Calcium 8.9 mg/dL (8.5-10.1); Carbon Dioxide 30.1 mmol/L (21.0-32.0); Chloride 106 mmol/L (98-107); Cholesterol 204 mg/dL (<=200); Estimated GFR (African America >60 (>=60 mL/min/1.73m^2); Estimated GFR (Non-African Ame >60 (>=60 mL/min/1.73m^2); Globulin 3.3 g/dL; Glucose 94 mg/dL (74-106); HDL Cholesterol 78 mg/dL (40-60); Potassium 4.5 mmol/L (3.5-5.1); Sodium 143 mmol/L (136-145); Total Protein 6.9 g/dL (6.4-8.2); Triglycerides 87 mg/dL (<=150); VLDL CHOLESTEROL 17.4 mg/dL
== END 2025-04-02 07:55 | disposition home or self-care (01) ==
PROVIDERS: PCP Internal Medicine; Visit Provider Internal Medicine
DX: Z01.419 Encounter for gynecological examination (general) (routine) without abnormal findings (principal); M53.9 Dorsopathy, unspecified; E78.2 Mixed hyperlipidemia
CPT/HCPCS: 36415; 80053; 80061; 83001

== ENCOUNTER 2025-04-02 08:03 | Outpatient (OUT) | payer MEDICARE, OTHER, SELFPAY ==
--- OUTSIDE RECORDS SUMMARY | 2025-04-02 08:10 | XMS_ITS | CCD ---
Author Organization [facility] Inform ion Partnership [facility] Care Team Providers Care Blow Torch Operator Name Role Phone Quin Waldron Attending Unavailable DEBRA ADDISON Referring Unavailable Tomas De Leon Primary Care UnavailDEBRA You Attending Unavailable Tomas De Leon Referring UnavailTomas Santos Primary Care UnavailTomas Santos Unavailable Unavailable Unavailable Means CIVIL DIVISION COMMANDER DEPUTY SHERIFF-Debra BETHEA Unavailable Unavaila ble Tomas De Leon [...] Unavailabl e ENGELER, G SHINE Attending Unavailable MOISES, TOMAS [...] TypeDate of OnsetReaction(s) FacilityDust (1 source)house dustSubstance PopdegqME-[address] Work Phone: [phone] (1 source)bee pollenSubstance CzyjplvEW-[address] Work Phone: [phone] (antibiotic) (1 source)Sulfamethoxazole; Translations: [sulfa]Drug KbtwaawKK-[address] Work Phone: (4 sources)Latex Exam Gloves MISC; Translations: [Latex Exam Gloves MISC]Allergy to drug (finding)[facility] [address] Work Phone: (3 sources)bee pollenAllergy to substance (finding)[facility] [address] Work Phone: (3 sources)house dustAllergy to substance (finding)[facility] [address] Work Phone: (3 sources)Sulfamethoxazole; Translations: [sulfa]Drug Allergy [facility] [address] Work Phone: (2 sources)Latex; Translations: [LATEX]Drug allergy (disorder)95-55-3139Kui [facility] Repository (1 source)Sulfonamides (Antibiotic)Drug allergy (disorder)21-16-6057Kjs [facility]ository (8 sources)LatexPropensity to adverse pnapwkrjw72-63-4160WgzvgyuCixxymhkl Clinic (3 sources)Sulfacetamide / SulfurDrug AllergyBurning sensationNort Mentegram Other (20 sources)LatexAllergy to fuwzvykku41-49-8277GfsffghGWXS Healthcare Work Phone: (20 sources)Naproxen; Translations: [NAPROXEN]Drug Ervklly16-69-9039 Palpitations, Other: See [facility] (20 sources)Sulfonamides (Antibiotic)Drug Ivudoin31-30-8154IfarpbzNWOB Healthcare (1 source)Sulfonamides (Antibiotic); Translations: [SULFA (SULFONAMIDE ANTIBIOTICS)]Propensity to adverse reactions to drug (disorder)03-01-2023 [facility] Repository Medications Current Medications MedicationDrug Class(es)DatesSig (Normalized)Sig (Original)celecoxib 200 mg oral capsule (20 sources)Nonsteroidal Anti-inflammatory DrugStart: 03-15-2023 End: 59-16-3845dfupbyzox (CeleBREX) 200 MG capsule Indications: Multilevel degenerative [...] 10 mg/ml topical solution (1 source)Lincosamide AntibacterialStart: 13-83-6950Kbstxhvtffv Phosphate 1 % 1 application Externally Twice a day for 5 day(s) Jan, Active cyclobenzaprine hydrochloride 5 mg oral tablet (20 sources)Muscle RelaxantStart: 04-10-2024 End: 45-42-8916cxak 1 tablet by mouth twice daily as needed for muscle spasms cyclobenzaprine (Flexeril) 5 MG tablet Indications: Muscle spasm Take 1 tablet (5 mg) by mouth 2 (two) times a day as needed for muscle spasms 40 tablet 04/10/2024 ActiveCyclobenzaprine HCl PRN ActiveCyclobenzaprine HCl Not-Taking diazePAM 5 mg oral tablet (20 sources)BenzodiazepineStart: 43-19-4412cevf 1 tablet by mouth oncediazePAM (Valium) 5 MG tablet Indications: Meniere's disease of both ears Take 1 tablet (5 mg) by mouth every 12 (twelve) hours 15 tablet 10/04/2023 ActiveStart: 97-25-3145urem 1 tablet by mouth every twelve hoursdiazePAM (VALIUM) 5 mg tablet Take 5 mg by mouth every 12 hours. 10/04/2023 ActiveStart: 83-54-5480phkx 1 tablet by mouth twice daily as neededdiazePAM 5 MG Oral Tablet TAKE 1 TABLET TWICE DAILY NEEDED. Quantity: 60 Refills: 0 Ordered: 02-Feb-2021 Lizett Mckenna MD Start : 30-Oct-2020 ActiveStart: 54-67-4436invv 1 tablet by mouth every twelve hours as neededdiazePAM 5 MG Oral Tablet TAKE 1 TABLET every 12 hours NEEDED for vertigo or tinnitus Quantity: 10 Refills: 0 Ordered: 10-Jul-2020 Debra Ramirez Start : 19-May-2018 ActiveValium Activedorzolamide 20 mg/ml / timolol 5 mg/ml ophthalmic solution (20 sources)Carbonic Anhydrase Inhibitor, beta-Adrenergic BlockerStart: 05-30-2024 End: 03-37-8290xbde 1 drop(s) into the eye(s) in the morningdorzolamide-timolol (Cosopt) 2-0.5 % ophthalmic solution Indications: Primary open angle glaucoma (P OAG) of both eyes, mild stage ADMINISTER 1 DROP INTO THE LEFT EYE IN THE MORNING AND 1 DROP BEFORE BEDTIME. 10 mL 3 05/30/2024 05/30/2025 ActiveStart: 05-30-2024 End: 52-77-6409jlbvkmmmwbg-timolol (COSOPT) 22.3-6.8 mg/mL ophthalmic solution 1 drop. 05/30/2024 05/30/2025 ActiveStart: 03-01-2023 End: 55-66-9638ctbi 1 drop(s) into the eye(s) in the [...] oral capsule (20 sources)Potassium-sparing Diuretic, Thiazide DiureticStart: 58-83-5964mopb 1 capsule by mouth once daily in [...] mg/actuat metered dose nasal spray (20 sources)AnticholinergicStart: 86-90-6993cors 2 spray(s) nasal route three times dailyipratropium (Atrovent) 0.06 % nasal spray Indications: Chronic rhinitis INSTILL 2 SPRAYS IN EACH NOSTRIL THREE TIMES A DAY FOR 30 DAYS 15 mL 1 05/07/2024 ActiveStart: 77-47-6304tapm 2 spray(s) nasal route three times daily ipratropium bromide (ATROVENT) 42 mcg (0.06 %) nasal spray INSTILL 2 SPRAYS IN EACH NOSTRIL THREE TIMES A DAY FOR 30 DAYS 05/07/2024 ActiveStart: 09-23-2022 take 2 spray(s) nasal route three times dailyipratropium (Atrovent) 0.06 % nasal spray INSTILL 2 SPRAYS IN EACH NOSTRIL THREE TIMES A DAY FOR 30DAYS 09/23/2022 ActiveStart: 95-78-0843bzbo 2 spray(s) nasal route three times dailyIpratropium [place] 0.06 % 2 sprays in each nostril Nasally Three times a day Nov, ActiveIpratropium [place] Activelatanoprost 0.05 mg/ml ophthalmic solution (20 sources)Prostaglandin AnalogStart: 10-17-2023 End: 43-79-3408zlsb 1 drop(s) into the eye(s) at bedtimelatanoprost [...] (3 sources)Claritin ActivemethylPREDNISolone (12 sources)CorticosteroidStart: 12-02-2023 End: 71-10-2524lxfnrcMXAKEZVhvtwz (Medrol Dospak) 4 MG tablets Indications: Hallux rigidus of left foot Take as directed on package. 21 tablet 12/02/2023 10/09/2024 Discontinued (Therapy completed)Start: 18-67-7401kwogyfKORLNNMkvutf (Medrol Dospak) 4 MG tablets Indications: Hallux rigidus of left foot Take as directed on package. 21 tablet 12/02/2023 ActiveStart: 21-69-9974Pekagq 4 MG as directed Orally for 6 days Sep, Not-Takingondansetron 8 mg oral tablet (17 sources)Serotonin-3 Receptor AntagonistStart: 10-04-2023 End: 03-17-2977dtia 1 tablet by mouth in the morningondansetron (Zofran) 8 MG tablet Indications: Meniere's disease of both ears Take 1 tablet (8 mg) by mouth in the morning and 1 tablet (8 mg) before bedtime. 20 tablet 1 10/04/2023 10/09/2024 Discontinued (Therapy completed)Start: 04-84-8222kmgg 1 tablet by mouth every eight hours as needed for nauseaOndansetron 8 MG Oral Tablet Disintegrating take one tab by mouth every 8 hours as needed for nausea Quantity: 15 Refills: 1 Ordered: 10-Jul-2020 Means Debra BURCH Start : 28-Wagner-2021 ActiveOndansetron ActivepredniSONE 20 mg oral tablet (5 sources)Start: 16-31-0684augc 1 tablet by mouth every twelve hourspredniSONE 20 MG 1 tablet Orally 2 times a day for 5 day(s) Nov, ActiveStart: 91-46-0903zxaxvvBOXV 10 MG Oral Tablet Take 60 mg [...] tablet (20 sources)HMG-CoA Reductase InhibitorStart: 04-10-2024 End: 69-07-5601xkle 1 tablet by mouth at bedtimerosuvastatin (Crestor) 10 MG tablet Indications: Mixed hyperlipidemia Take 1 tablet (10 mg) by mouth at bedtime 90 tablet 1 10/09/2024 Activeterconazole 4 mg/ml vaginal cream (2 sources)Azole AntifungalStart: 03-25-2025 End: 94-82-9770agcacqpqkde (Terazol 7) 0.4 % vaginal cream Indications: Vulvovaginal Candidiasis Insert 1 applicator into the vagina at bedtime for 7 days 45 g 2 03/25/2025 04/01/2025 Activetriamcinolone acetonide 1 mg/ml topical cream (2 sources)CorticosteroidStart: 18-88-2766dhtoukzogninr (Kenalog) 0.1 % cream Indications: Vaginitis and vulvovaginitis , Vaginal discharge Apply topically in the morning and before bedtime. To vulva. 30 g 2 03/25/2025 Active Triamterene-HCTZ (3 sources)Triamterene-HCTZ Active Completed/Discontinued Medications MedicationDrug Class(es)DatesSig (Normalized)Sig (Original)[id number] 200 actuat albuterol 0.09 mg/actuat metered dose inhaler (1 source)beta2-Adrenergic AgonistStart: 79-92-9731pumw 2 puff(s) by inhalation every four hours [...] MG Oral Tablet Therapy Pack (3 sources)Start: 65-89-0142xjloooPHIQPXLppvgi 4 MG Oral Tablet Therapy Pack take as directed on package insert, then repeat Quantity: 2 Refills: 0 Ordered: 01-Aug-2020 Means Debra BURCH Start : 01-Aug-2020 Activeomeprazole 20 mg delayed release oral capsule (4 sources)Proton Pump InhibitorStart: 19-55-6240vbjd 1 capsule by mouth once dailyOmeprazole 20 MG Oral Capsule Delayed Release TAKE 1 CAPSULE DAILY WHILE ON PREDNISONE Quantity: 10Refills: 0 Ordered: 10-Jul-2020 Means Debra BURCH Start : 19-May-2018 Active Problems Active Problems Problem ClassificationProblemDateDocumented DateEpisodic/Chronic Administrative/social admission (2 sources)Patient encounter status; Translations: [Other specified counseling] 72-46-6970VpqdhmdtNhnpfxz disorders (20 sources)Generalized anxiety disorder; Translations: [Generalized anxiety disorder]Onset: 832607-47-2849DnrktrzIxfimada (20 sources)Age-related nuclear cataract, right eye; Translations: [Age-related nuclear cataract, left eye]Onset: 89-19-4600PxlcdsbYxrfnwirqj associated with dizziness or vertigo (20 sources)Meniere's disease of left inner ear; Translations: [Meniere's disease, unspecified]Onset: 561768-33-6043CsbfbcsRmifvhnhdz associated with dizziness or vertigo (4 sources)Vertigo; Translations: [Dizziness and giddiness]EpisodicDisorders of lipid metabolism (20 sources)Mixed hyperlipidemia; Translations: [Mixed hyperlipidemia]Onset: 903534-49-5370GncngtwEeyocbigyqbua symptoms and ill-defined conditions (20 sources)Mixed urinary incontinence; Translations: [Mixed incontinence]Onset: 993022-26-0066JzqkmscDouggzruxjcqe symptoms and ill-defined conditions (2 sources)Nocturia; Translations: [Nocturia]25-50-9672SffohkplTiccaxfk (20 sources)Primary open-angle glaucoma, right eye, mild stage; Translations: [Primary open-angle glaucoma, left eye, mild stage]Onset: ChronicInflammatory diseases of female pelvic organs (6 sources)Vulvovaginitis; Translations: [Acute vaginitis]43-21-1454Ytebaewv Melanomas of skin (1 source)Malignant melanoma of skinOnset: 76-24-0276VejvycmWkar disorders (20 sources)Mild major depression; Translations: [Major depressive disorder, single episode, mild]Onset: 803240-91-1485JhotrspQokjwrbzekjz breast conditions (16 sources)Pain of breast; Translations: [Breast tenderness]71-42-4838Lomflwxd Osteoarthritis (20 sources)Degenerative joint disease involving multiple joints; Translations: [Primary generalized (osteo)arthritis]Onset: 328890-27-3061LfyrmoxIhswt connective tissue disease (4 sources)H/O: arthritis; Translations: [Personal history of arthritis]Episodic Other connective tissue disease (4 sources)Spasm; Translations: [Other muscle spasm]97-49-5271KiwvhrcgMzsjh ear and sense organ disorders (1 source)Sensorineural hearing loss, bilateral; Translations: [Sensorineural hearing loss, bilateral]Onset: 59-74-2153FgowxplXpzhz ear and sense organ disorders (3 sources)Sensorineural hearing loss, unilateral, left ear, with unrestricted hearing on the contralateral side; Translations: [Sensorineural hearing loss (SNHL) of left ear with unrestricted hearing of right ear]ChronicOther ear and sense organ disorders (20 sources)Sensorineural hearing loss, bilateral; Translations: [Sensorineural hearing loss, bilateral]Onset: 734090-52-9218YapgtsvJygoy ear and sense organ disorders (3 sources)Asymmetrical [...] sources)Disorder of endocrine system; Translations: [Endocrine disorder, unspecified]41-40-1143VozswzwiSmusa female genital disorders (4 sources)Vaginal discharge; Translations: [Other specified noninflammatory disorders of vagina]89-06-0429DocjcxcmNedtg female genital disorders (2 sources)Pruritus of vagina; Translations: [Other specified noninflammatory disorders of vagina]00-81-9423QudfqzknJbmfy hereditary and degenerative nervous system conditions (20 sources)Impaired cognition; Translations: [Mild cognitive impairment, so stated]Onset: 908636-00-4937EhmjfggEcaup inflammatory condition of skin (2 sources)Red breast; Translations: [Erythematous condition, unspecified] 28-90-2838OpxaqcsbWudvx nervous system disorders (1 source)Other specified mononeuropathies; Translations: [OTHER SPECIFIED MONONEUROPATHIES]Onset: 43-70-7699NmymjnwMvqxb nervous system disorders (4 sources)H/O: glaucoma; Translations: [Personal history of other disorders of nervous system and sense organs]EpisodicOther non-epithelial cancer of skin (10 sources)Malignant basal cell neoplasm of skin; Translations: [Basal cell carcinoma of skin, unspecified]Onset: 518600-48-3222NkkwgeztAntde screening for suspected conditions (not mental disorders or infectious disease) (20 sources)Decreased vitamin D; Translations: [Other specified abnormal findings of blood chemistry]Onset: 474006-19-7624TwkeltfbLxrlx upper respiratory disease (20 sources)Chronic rhinitis; Translations: [Chronic rhinitis]Onset: 03-24-2023 69-68-7934HgyoaktCfntcy media and related conditions (1 source)Unspecified perforation of tympanic membrane, right earEpisodic Residual codes; unclassified (6 sources)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; Translations: [Genetic susceptibility to malignant neoplasm of breast]26-53-3044OhybdyhqDlokmkyz codes; unclassified (6 sources)Past history of procedure; Translations: [Other specified postprocedural states]26-90-7716LtnldssuMyiiigm detachments; defects; vascular occlusion; and retinopathy (20 sources)Epiretinal membrane of right eye; Translations: [Puckering of macula, right eye]Onset: 373686-45-8806RjytsmlZcqkqpcdtnv (2 sources)Miscarriage; Translations: [Complete or unspecified spontaneous without complication]40-15-5712Eoxntiwi Past or Other Problems Problem ClassificationProblemDateDocumented DateEpisodic/ChronicChronic obstructive pulmonary disease and bronchiectasis (1 source)Bronchitis, not specified as acute or chronicOnset: 11-22-2021 Resolved: 60-42-0050SvjwnykxY Codes: Natural/environment (1 source)Bitten or stung by nonvenomous insect and other nonvenomous arthropods, initial encounterOnset: 02-09-2022 Resolved: 82-48-0527CznsrxzjKrkvjiaevfrgt and screening for infectious disease (20 sources)Contact with and (suspected) exposure to other viral communicable diseases; Translations: [Needs influenza immunization]Onset: 11-22-2021 Resolved: 94-34-3610AfbnfbgiVsxb disorders (20 sources)Mood disordersOnset: 03-28-2023 Resolved: Other bone disease and musculoskeletal deformities (20 sources)Osteopenia; Translations: [Other specified disorders of bone density and structure, unspecified site]Onset: 921905-24-3706KzygvsukJrwsl connective tissue disease (4 sources)Pain in right foot; Translations: [PAIN IN RIGHT FOOT]Onset: 13-96-6567GbsezxjwLvzwg eye disorders (20 sources)Dry eyes; Translations: [Dry eye syndrome of bilateral lacrimal glands]Onset: 306558-83-5731EctaserwFrits gastrointestinal disorders (20 sources)Irritable bowel syndrome; Translations: [Irritable bowel syndrome without diarrhea]Onset: 03-24-2023 Resolved: 858729-96-6782HkvyctnLymca non-traumatic joint disorders (4 sources)Other instability, right ankle; Translations: [OTHER INSTABILITY RIGHT ANKLE]Onset: 45-28-0587ObgicvosNpopw non-traumatic joint disorders (1 source)Pain in right ankle and joints of right foot; Translations: [PAIN IN RIGHT ANKLE]Onset: 75-74-4649DhcyerwkTmjrk upper respiratory infections (1 source)Acute sinusitis, unspecifiedOnset: 11-22-2021 Resolved: 88-91-9041UmllpryfOeoocftqojc; intervertebral disc disorders; other back problems (20 sources)Degeneration of intervertebral disc; Translations: [Dorsopathy, unspecified]Onset: 448284-57-5099IyzvdimsIeseqsfjhrgd (3 sources)Sprain of right knee; Translations: [Right knee sprain]Unclassified (2 sources)Breast zfygbpe24-27-6879LVSSQOG: Highlighted row has not occurred! Residual codes; unclassified (5 sources)DiseaseEpisodic Results Test NameValueInterpretationReference RangeFacilityLaboratory - Chemistry and Chemistry - challengeon 23-20-4001Dxeylnoemii Qn17.4 m[IU]/[facility] Comment on above:Adult Female Range Follicular phase 3.5 - 12.5 Ovulation phase 4.7 - 21.5 Luteal phase 1.7 - 7.7 Postmenopausal 25.8 - 134.8 No Panel Informationon 92-83-7269Ckqloocuvglddc and review of laboratory results AbnormalDeaconess Incarnate Word Health SystemPerformed at: - LabMoberly Regional Medical Center [address], [address], [place], [place] [id number] Business Risk Analyst: Fran Zelaya MD, Phone: [phone] HealthcareBI MAMMOGRAM DIAGNOSTIC TOMOSYNTHESIS BILATERALon 53-10-2351KP MAMMOGRAM DIAGNOSTIC TOMOSYNTHESIS BILATERALThis is a summary [...] IS VERY IMPORTANT TO YOUR HEALTH. THE [place] CANC[employer] SOCIETY GUIDELINES RECOMMEND THATWOMEN 40 YEARS OF AGE AND OLDER SHOULD HAVE A MAMMOGRAM EVERY YEAR. A REMINDER LETTER WILL BE SENT AT THE APPROPRIATE TIME. ELECTRONICALLY SIGNED BY: Tarun Cuellar M.D.NormalNot AvailableBI US BREAST COMPLETE BILATERALon 34-64-8350LF US BREAST COMPLETE BILATERALThis is a summary [...] BY: Tarun Cuellar M.D.NormalNot AvailableOphthalmic OCT panelon 25-57-2415FTMQLafayette Regional Health Center Eye Images reviewed and comparison made to [...] from prior. Watch for need to add therapy.[facility] Radiology Study observation (narrative)[facility] Health SystemOptical coherence tomography study reporton 75-48-0419HAQDCarePartners Rehabilitation HospitalRadiology Study observation (narrative)[facility] HealthcareCNOVon 70-39-4961KLNMYckmnx Visit (RADTSA) FIDE SULTANA ([id number]) 1950 F Date Time Provider Department 01/15/25 [...] Tr Lawrence MD cc: Tomas De Leon ([facility]) [address] [facility] [address] [place] [address] Tr Lawrence [address] [place] [address] [place] [address] Referring Provider: Tr LAWRENCE [[id number]] Allergies As of Date: 01/15/2025 Noted Allergy [...] for Encounter Date Provider Department Center 01/15/2025 [id number] LAWRENCE [facility] Encounter Status:Closed by Tr LAWRENCE on 01/15/25[facility] 39-61-6000OQCZLzcnbe Visit (VINCENT) KAYYFIDE Berto ([id number]) 1950 F Date Time Provider Department 12/31/24 10:00 AM Tr LAWRENCE During your visit today, we recorded the following information about you: Temperature Pulse Respiration Blood pressure 97.2 degrees 59/minute 16/minute 153/72 Weight 64.2 kg Tr Lawrence MD 12/31/2024 12:02 PM Signed Radiation Oncology - On Treatment Review (OTR) Note PATIENT NAME: Fied Sultana PATIENT DIAGNOSIS: Skin cancer left nose [...] for Encounter Date Provider Department Center 12/31/2024 [id number] LAWRENCE [facility] Encounter Status:Closed by Tr LAWRENCE on 12/31/24[facility] 60-58-6574PCQMRkpoek Visit (VINCENT) KAYYFIDE ([id number]) 1950 F Date Time Provider Department 12/28/24 [...] (None) Encounter Status:Closed by Tr LAWRENCE on 01/04/25[facility] 43-81-8304DTHLXkqzln Visit (RADTSA) FIDE SULTANA ([id number]) 1950 F Date Time Provider Department 12/24/24 [...] Tr Lawrence MD Referring Provider: Tr LAWRENCE [[id number]] Allergies As of Date: 12/24/2024 Noted Allergy [...] (None) Encounter Status:Closed by Tr LAWRENCE on 12/24/24[facility] 70-37-1352DSWVUigwyk Visit (RADTSA) KAYYFIDE ([id number]) 1950 F Date Time Provider Department 12/17/24 9:45 AM Tr LAWERNCE [facility] During your visit today, we recorded [...] (None) Encounter Status:Closed by Tr LAWRENCE on 12/17/24[facility] 87-19-6656IENIYkglhi Visit (KIARAA) FIDE SULTANA ([id number]) 1950 F Date Time Provider Department 12/04/24 [...] Tr Lawrence MD Referring Provider: Tr LAWRENCE [[id number]] Allergies As of Date: 12/04/2024 (No Known [...] (None) Encounter Status:Closed by Tr LAWRENCE on 12/05/24[facility] HospitalMAR[facility] M 46-64-5958QHPQCtrlrv Visit (RADTSA) FIDE SULTANA ([id number]) 1950 F Date Time Provider Department 11/28/24 12:00 PM Tr LAWRENCE [facility] [employer] During your visit today, we recorded the following information about you: Tr Lawrence MD 12/06/2024 2:57 PM Signed sim Referring Provider: Tr LAWRENCE [[id number]] Allergies As of Date: 11/28/2024 (No Known [...] (None) Encounter Status:Closed by Tr LAWRENCE on 12/06/24[facility] Visit (RADTSA) FIDE SULTANA ([id number]) 1950 F Date Time Provider Department 11/28/24 11:30 AM Tr LAWRENCE RADSUZANNEA During your visit today, we recorded the following information about you: Referring Provider: Tr LAWRENCE [[id number]] Allergies As of Date: 11/28/2024 (No Known Allergies) Date Reviewed: 11/16/2024 Reviewed by: Tamiko Del Rio, RN - Fully Assessed Reason for Visit: Simulation Request Form [6178] Primary Visit Diagnosis:Skin cancer, basal cell [C44.91] Order(s):RADIATION TREATMENT PER RADIATION ONCOLOGIST PLAN [4950056] Order #: [id number]: 1 PT ED CANCER [[id number]] Order #: [id number]: 1 CT SIM PLANNING RADIATION ONCOLOGY [5270947] Order #: [id number] Prescriptions as of 12/06/2024 - celecoxib (CELEBREX) [...] (None) Encounter Status:Closed by Tr LAWRENCE on 12/06/24[facility] 84-66-2404DJJYZoiogg Visit (RADTSA) FIDE SULTANA ([id number]) 1950 F Date Time Provider Department 11/16/24 [...] Tr Lawrence MD cc: Tomas De Leon ([facility]) [address] [place] [address] Columba Kumar [address] [facility] [address] Referring Provider: COLUMBA KUMAR [[id number]] Allergies As of Date: 11/16/2024 (No Known Allergies) Date Reviewed: 11/16/2024 Re (more content not included)...NormalUniversity Hospitals Conneaut Medical CenterCNPNon 49-38-5348EWYABrqanvuiq (RADTSA) FIDE SULTANA ([id number]) 1950 F Date Time Provider Department 11/16/24 [...] Gold 11/21/2024 12:58 PM Signed Spoke to [facility] and confirmed 1115 arrival on 11/28 and [...] Encounter Status:Closed by TAMIKO DEL RIO on 11/21/24[facility] MAMMOGRAM SCREENING TOMOSYNTHESIS BILATERALon 67-39-7743OG MAMMOGRAM SCREENING TOMOSYNTHESIS BILATERALThis is a summary [...] IS VERY IMPORTANT TO YOUR HEALTH. THE [employer] CAN[employer] SOCIETY GUIDELINES RECOMMEND THATWOMEN 40 YEARS [...] SIGNED BY: Bryce Fajardo AvailablePerimetry study on 02-74-0165VVDBDeaconess Incarnate Word Health SystemRadiology Study observation (narrative)[facility] Health SystemOphthalmic OCT panelon 83-63-4828UMQVLafayette Regional Health Center Eye Images reviewed and comparison made to [...] Change Rx for Iop control left eye (OS).[facility] HospitalRadiology Study observation (narrative)[facility] Health SystemCOVID Quick Testingon 85-99-8340OftzhkBzprncvsRvjiwCellceutix Other Quick Strepon 2S. pyogenes Org specific cx Ql (Throat)NegativeSalem Memorial District HospitalNagi Other quick Nykaah Mentegram Other mm screening mammo BI w/CADon 19-62-3125QN screening mammo BI w/CADBETHESDA [facility] Main [employer] [address] [place] [address] Mammography Report Signed Patient: Fide Sultana MR#: [id number] 0 : 1950 Acct:[id number] Age/Sex: 71 / F ADM Date: 09/17/21 Loc: [place] Room: Type: [facility] Attending Dr: Referral Self Ordering Provider: SELF,REFERRAL [...] Thomson Jr., D.OLiza09/17/2021 10:51 AM Dictation Location: [facility] Transcribed By: CHADWICK 09/17/21 1051 Dictated By: Melecio Thomson Jr, DO 09/17/21 1050 Signed By: 09/17/21 1051Holzer HospitalBasic Metabolic Panelon 70-48-1890Civbh gap [Moles/Vol]16 mmol/OFjspmi97-56Swcigqvb [facility] Medical SpecialistComment on above:Result Comment: Effective 06/18/2019 reference range changed.Performed By: #### BMP, LIPD, VITD #### [facility] [address] [place], [place] [id number] [Mass/Vol]9.9 mg/dLNormal8.6-10.2Northern [facility] SpecialistComment on above:Performed By: #### BMP, LIPD, VITD #### [facility] [address], [place] [id number] [Moles/Vol]102 mmol/ZBrhreu28-960Eocvptig [facility] SpecialistComment on above:Performed By: #### BMP, LIPD, VITD #### [facility] [address], [place] [id number] [Moles/Vol]26 mmol/XIaetzn93-26Ejoqmguy [facility] SpecialistComment on above:Performed By: #### BMP, LIPD, VITD #### [facility] [address], [place] [id number] [Mass/Vol]0.7 mg/dLNormal0.6-1.4[facility] SpecialistComment on above:Performed By: #### BMP, LIPD, VITD #### [facility] [address], [place] [id number] mL/min/1.60y9Msuiko>60[facility] SpecialistComment on above:Performed By: #### BMP, LIPD, VITD #### [facility] [address], [place] [id number] mL/min/1.37a4Lxfaer>60[facility] SpecialistComment on above:Performed By: #### BMP, LIPD, VITD #### [facility] [address], [place] [id number] [Mass/Vol]100 mg/lRNsmt30-92Wtlrqsnw [facility] SpecialistComment on above:Result Comment: For FASTING Glucose --- ADA reference ranges: Normal 65-99 mg/dl Prediabetes 100-125 Diabetes >/= 126Performed By: #### BMP, LIPD, VITD #### [facility] [address], [place] [id number] [Moles/Vol]3.9 mmol/LNormal3.5-5.5[facility] SpecialistComment on above:Performed By: #### BMP, LIPD, VITD #### [facility] [address], [place] [id number] [Moles/Vol]141 mmol/KCwzfzd684-197Xmydecvb [facility] SpecialistComment on above:Performed By: #### BMP, LIPD, VITD #### [facility] [address], [place] [id number] nitrogen [Mass/Vol]22 mg/dLNormal7-25[facility] SpecialistComment on above:Performed By: #### BMP, LIPD, VITD #### [facility] [address], [place] [id number] Panelon 02-39-6897Bfnnqcvsqrq [Mass/Vol]266 mg/dLHigh 125-200[facility] SpecialistComment on above:Result Comment: Low risk < 200mg/dL Borderline risk 201-239 mg/dl High risk > or equal to 240Performed By: #### BMP, LIPD, VITD #### [facility] [address], [place] [id number] in HDL [Mass/Vol]84 mg/dLNormal>40[facility] SpecialistComment on above:Result Comment: High Cardiovascular Risk HDL <40 mg/dL Low Cardiovascular Risk HDL > or equal to 60 mg/dlPerformed By: #### BMP, LIPD, VITD #### [facility] [address], [place] [id number] in LDL [Mass/Vol]160 mg/dLNormalNortdiamond children's medical centern [facility] SpecialistComment on above:Result Comment: LDL ATP III CLASSIFICATION LDL less than 100 mg/dl Optimal LDL 100-129 mg/dl Near or above optimal LDL 130-159 Borderline high LDL 160-189 High LDL greater than 189 mg/dl Very HighPerformed By: #### BMP, LIPD, VITD #### [facility] [address], [place] [id number] in VLDL [Mass/Vol]22 mg/dLNormalAv[facility] SpecialistComment on above:Performed By: #### BMP, LIPD, VITD #### [facility] [address], [place] [id number].total/Cholesterol in HDL [Mass ratio]3 {ratio} NormalAv[facility] SpecialistComment on above:Performed By: #### BMP, LIPD, VITD #### [facility] [address], [place] [id number] [Mass/Vol]109 mg/kAYifaql79-000Kqdgywaz [facility] SpecialistComment on above:Result Comment: TRIG ATPIII CLASSIFICATIONS TRIG less than 150 mg/dl Normal TRIG 150-199 mg/dl Borderline High TRIG 200-500 mg/dl High TRIG greather than 500 mg/dl Very HighPerformed By: #### BMP, LIPD, VITD #### [facility] [address], [place] [id number] D 25-OHon 75-18-7978TSH D 25 OH31 ng/mlNormal>29 TrihealthComment on above:Result Comment: Vitamin D Status Deficiency <20 ng/mL Insufficiency 20-29 ng/mL Optimal 30-100 ng/mL Possible Toxicity >=150 ng/mLPerformed By: #### BMP, LIPD, VITD #### [facility] [address], [place] [id number] ANKLE RT WO CONon 13-76-6214GQR ANKLE RT WO CONEXAM: MRI ANKLE RT [...] Electronically authenticated by: RODNEY JOHNSON Date: 2021-04-21 10:01[facility] ([facility])on 64-39-0512Tvbkev-up visit Diagnoses/Problems Asymmetrical sensorineural hearing loss (389.16) [...] 90 day period. Dot Reinoso P70 RT [id number] Ms. Sultana reports she can hear trains, airplanes etc over someone sitting next to her She feels she is having difficulty hearing speech on television Patient's preferred language: Maltese Preferred language of the parent, legal guardian or surrogate decision-maker of this minor or incapacitated patient: Not Applicable No overt signs of domestic violence/neglect/abuse. No referral made to Timber Incisor Operator. Pain not interfering with optimal level of [...] reduced Gain for speech in noise decreased SocialKaty alex was downloaded to Ms. Sultana's phone [...] prefers a location closer to her home ([facility]). Signatures Electronically signed by : Tyler Mercedes; Feb 17 2021 11:03AM EST (Author)[facility] TouchworksOffice Visit (Audiology)on 66-09-9600Jojsug-up visit Diagnoses/Problems Sensorineural hearing loss (SNHL) of [...] Dot Reinoso P70-RT fit 12/19/20 Right serial# [id number] Left serial# [id number] 1M receivers R/L Right medium open dome Left small power dome Warranty expiration: 02/27/2024 Plan: -Use of hearing aids during all waking hours. -Annual hearing tests. Time: 9827-0455 Chief Complaint Hearing Aid Fitting Self Pay [...] by her daughter Griffin. Patient's preferred language: Maltese Preferred language of the parent, legal guardian or surrogate decision-maker of this minor or incapacitated patient: Maltese No overt signs of domestic violence/neglect/abuse. Pain [...] Phonak Audeo P70-RT fit 12/19/20 Right serial# [id number] Left serial# [id number] 1M receivers R/L Right medium open dome Left small power dome Warranty expiration: 02/27/2024 Case SN: [id number] and [id number] Mini Men'S Designer Case: [id number] Power Pack: [id number] Programming was completed at 90% of Phonak [...] given written instructions from the hearing aid hand glove cleaner. Hearing aid limitations were discussed at length as well as realistic expectations. The patient was advised in order to receive full benefit of amplification, consistent use during all waking hours is recommended. The repair warranty and the conditions of the alknq-cg-bcqceu period (30-days) were discussed. The patient reports understanding of these conditions. Purchase agreement was signed (see scanned documents). Hearing aid verification was completed with hearing aids at 90% targets. Aided testing in the [facility] showed benefit with hearing aids. Signatures Electronically signed by : Tyler Martinez; Dec 19 2020 11:22AM EST (Author) [facility] TouchworksOffice Visit (Audiology)on 49-02-5211Aybstn-up visit Diagnoses/Problems Sensorineural hearing loss (SNHL) of [...] for hearing aid fitting on 12/19/20. Time: 2026-4285 Chief Complaint Hearing Aid Evaluation Patient elected [...] by her daughter Мария. Patient's preferred language: Maltese Preferred language of the parent, legal guardian or surrogate decision-maker of this minor or incapacitated patient: Maltese No overt signs of domestic violence/neglect/abuse. 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) Vertigo (780.4) (R42) Asymmetrical sensorineural hearing loss (389.16) (H90.5) Bilateral sensorineural hearing loss (389.18) (H90.3) Sudden right hearing loss (388.2) (H91.21) Orders Audiology Referral Evaluation and Treatment Evaluate AND Treat hearing aids Status: Hold For - Scheduling,Retrospective By Protocol Authorization Requested for: [id number] Start: diazePAM 5 MG Oral Tablet; TAKE [...] as such I recommended that she see invasive cardiologist in our system if she is interested [...] MG Oral Tablet Di (more content not included)...[facility] TouchworksOffice Visit (Audiology)on 14-68-0304Tvkvdm-up visitDiagnoses/Problems Asymmetrical sensorineural hearing loss (389.16) (H90.5) [...] notes for detailed history. Patient's preferred language: Maltese Preferred language of the parent, legal guardian or surrogate decision-maker of this minor or incapacitated patient: Not Applicable No overt signs of domestic violence/neglect/abuse. No referral made to Timber Incisor Operator. 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 Tran's clinic. We are here to assist you through your ENT care at [facility]. Dr. Tran is an Ear surgeon. This means that he specializes in taking care of patients with complex ear, hearing and balance problems. Dr. Tran's office number is [phone]. While you may see him at a satellite office ([place]), he has a team committed to help meet your healthcare needs at [facility]'s main [place]. This number is the most direct way to communicate with the office. Alaina is Dr. Tran's home mortgage disclosure act specialist and she answers the office phone from [...] in your care. These people may include assistant attorney general, speech therapists, vestibular therapists, neurologist, and neurosurgeon. Dr. Tran will provide these referrals as needed. Please let us know if you would like to request a specific referral. For your convenience, Dr. Tran sees patients at several [facility] locations including [facility] and [facility] Office at the [facility]. While we try to make your appointments as convenient as possible, occasionally a visit to another location may be necessary to provide the best care for you. We look forward to working with you to meet your [facility] lthcare goals. Dr. 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 Today's results indicate progressive hearing loss since her recent hearing test on 07/10/20. Treatment Plan: 1. Follow-up with Dr. Tran 2. Retest hearing in conjunction with medical management 3. Consider binaural amplification 3986-2631 Chief Complaint hearing test Adult Risk ScreeningThere [...] and normal tympanograms bilaterally. Patient's preferred language: Maltese Preferred language of the parent, legal guardian or surrogate decision-maker of this minor or incapacitated patient: Not Applicable No overt signs of domestic violence/neglect/abuse. No referral made to Timber Incisor Operator. Pain not interfering with optimal level of [...] Ear: moderate 250-500 Hz rising to mild 3544-5744 Hz sloping to moderately-severe sensorineural hearing loss. Excellent word understanding (100%) at 75 dB HL. Left Ear: moderate sloping to severe sensorineural hearing loss. Fair word understanding (78%) at 85 dB HL. Speech legal receptionist threshold (25 dB HL in the right and 35 dB HL in the left) in agreement with pure tone averages. Signatures Electronically signed by : Tyler Schrader; Oct 13 2020 11:34AM EST (Author)[facility] TouchworksInitial Visit (Otolaryngology)on 81-80-5726Wxzgtun Visit (Otolaryngology)Diagnoses/Problems Vertigo (780.4) (R42) Bilateral sensorineural [...] This note was created using speech recognition manager med surg software. Despite proofreading, several typographical errors might [...] daily Vitals Vital Signs Recorded: 10Jul2020 11:57AM Cignmxdpxum11.1 F Height5 ft 6 in Xdyxll668 lb BMI Hssawerhlx67.31 BSA Calculated1.68 Tobacco Useb) No Fall Screeninga) No falls within the last year Physical Exam Constitutional: no fever, chills, weight loss or weight gain General appearance: Appears well, well-nourished, well groomed. No acute distress. Communication: Normal communication Psychiatric: Oriented to person, place and time. Normal mood and affect. Neurologic: Cr (more content not included)...NormalUH TouchworksOffice Visit (Audiology)on 61-39-9306Sahkqd-up visitDiagnoses/Problems Asymmetrical sensorineural hearing loss (389.16) (H90.5) Patient Discussion/Summary Results indicating decreased hearing in the low frequencies in the right ear and decreased hearing at all frequencies in the left ear were reviewed with the patient. Treatment Plan: 1. Follow up with Debra Addison CNP. 2. Further audiologic evaluation in conjunction with medical management. Appointment time: 8095-5308 Chief Complaint Hearing test, history of asymmetrical [...] ear and that the piano music at [employer] sounded very distorted and uncomfortable on that side in recent weeks. Patient's preferred language: Maltese Preferred language of the parent, legal guardian or surrogate decision-maker of this minor or incapacitated patient: Maltese No overt signs of domestic violence/neglect/abuse. No referral made to Timber Incisor Operator. Pain not interfering with optimal level of [...] the left ear, from 750-8000 Hz. Speech Sales Representative Meats Thresholds were obtained at 15 dB HL [...] Jul 10 2020 12:43PM EST (Author)[facility] Vital Signs Date TimeVital SignValuePerforming YqcomtwxqWisxtnqs71-07-2408 08:39-0400Body owctpj860.6 Merry Campuzano MD Work Phone: [facility] SystemMyvnqngetz94-15-8975 08:39-0400Diastolic blood cjitczly74 mm[Hg]Nadia Campuzano MD Work Phone: [facility] SystemLwfggxinhz82-54-7048 08:39-0400Systolic blood izniqbmw411 mm[Hg]Nadia Campuzano MD Work Phone: [facility] SystemIcctowiumy75-57-1007 09:56-0400Body temperature 97.2 [degF]ZEYAD Lawrence MD Work Phone: [facility]07-21-2025 09:56-0400Body ccnhzo15.2 kgZEYAD Lawrence MD Work Phone: [facility]07-21-2025 09:56-0400Diastolic blood dnryqefr41 mm[Hg]ZEYAD Lawrence MD Work Phone: [facility]07-21-2025 09:56-0400Heart rate59 /min ZEYAD Lawrence MD Work Phone: [facility]07-21-2025 09:56-0400Respiratory rate 16 /NiloZEYAD Lawrence MD Work Phone: [facility]07-21-2025 09:56-7451LuR7% (BldA) [Mass fraction]100 %ZEYAD Lawrence MD Work Phone: [facility]07-21-2025 09:56-0400Systolic blood whoucazf571 mm[Hg]ZEYAD Lawrence MD Work Phone: [facility]07-14-2025 10:58-0400Body temperature 96.01 [degF]ZEYAD Lawrence MD Work Phone: [facility]07-14-2025 10:58-0400Body lkfykl33 kg ZEYAD Lawrence MD Work Phone: [facility]07-14-2025 10:58-0400Diastolic blood gabqciyg53 mm[Hg]ZEYAD Lawrence MD Work Phone: [facility]07-14-2025 10:58-0400Heart rate57 /min ZEYAD Lawrence MD Work Phone: [facility]07-14-2025 10:58-0400Respiratory rate 18 /NiloZEYAD Lawrence MD Work Phone: [facility]07-14-2025 10:58-4847ShT6% (BldA) [Mass fraction]100 %ZEYAD Lawrence MD Work Phone: [facility]07-14-2025 10:58-0400Systolic blood mm[Hg]ZEYAD Lawrence MD Work Phone: [facility]07-07-2025 10:21-0400Body temperature 96.8 [degF]ZEYAD Lawrence MD Work Phone: [facility]07-07-2025 10:21-0400Body rxhtuz51 kg ZEYAD Lawrence MD Work Phone: [facility]07-07-2025 10:21-0400Diastolic blood shuvsubk08 mm[Hg]ZEYAD Lawrence MD Work Phone: [facility]07-07-2025 10:21-0400Heart rate49 /min ZEYAD Lawrence MD Work Phone: [facility]07-07-2025 10:21-0400Respiratory rate 16 /NiloZEYAD Lawrence MD Work Phone: [facility]07-07-2025 10:21-8269AsG3% (BldA) [Mass fraction]100 %ZEYAD Lawrence MD Work Phone: [facility]07-07-2025 10:21-0400Systolic blood dutgicha886 mm[Hg]ZEYAD Lawrence MD Work Phone: [facility]06-06-2025 09:42-0400Body temperature 97.11 [degF]ZEYAD Lawrence MD Work Phone: [facility]06-06-2025 09:42-0400Body dkheid25.8 kgZEYAD Lawrence MD Work Phone: [facility]06-06-2025 09:42-0400Diastolic blood eepxvoou01 mm[Hg]ZEYAD Lawrence MD Work Phone: [facility]06-06-2025 09:42-0400Heart rate65 /min ZEYAD Lawrence MD Work Phone: [facility]06-06-2025 09:42-0400Respiratory rate 16 /NiloZEYAD Lawrence MD Work Phone: [facility]06-06-2025 09:42-2026ThD9% (BldA) [Mass fraction]98 %ZEYAD Lawrence MD Work Phone: [facility]06-06-2025 09:42-0400Systolic blood gkwrwyet634 mm[Hg]ZEYAD Lawrence MD Work Phone: [facility]04-29-2025 10:18-0400Body yvrtse612.6 cmJemoustapha De Leon DO Work Phone: [place] [address]Cyzsmskeki80-28-9494 10:18-0400Body mass index (BMI) [Ratio]22.65 kg/b0LashbqvTomas De Leon DO Work Phone: [address] [place], [place] [address]Uepsgzngax93-41-7198 10:18-0400Body epador16.64 kgJemoustapha D eLeon DO Work Phone: [place] [address]Tqqouhclze62-78-4937 10:18-0400Heart rate62 /min Tomas De Leon DO Work Phone: [place] [address]Tleycjnhzo46-64-7609 10:18-0710WcR5% (BldA) [Mass fraction]98 %Tomas De Leon DO Work Phone: [place] [address]Figcgwfymd49-87-5118 10:49-0400Body mass index (BMI) [Ratio]23.24 kg/h5MjmguhgTomas De Leon DO Work Phone: [place] [address]Wfexnnqtvs89-92-7613 10:49-0400Body txnxoz34.32 kgTomas De Leon DO Work Phone: [place] [address]Gzjuviubbr08-55-8823 10:49-0400Diastolic blood brdgvfry04 mm[Hg]Tomas De Leon DO Work Phone: noFangxinmeiStgjgajqyd63-81-4858 10:49-0400Systolic blood vqjuwapk761 mm[Hg]Tomas De Leon DO Work Phone: noFangxinmeiRqhhzrmqes93-54-5377 11:30-0500Body .91 Mirian Berger Other [employer] Other 11-22-2022 11:30-0500Body mass index (BMI) [Ratio] 22.26 kg/u6RmqqkLenore Berger Other [employer] Other 11-22-2022 11:30-0500Body qaxwqoflhzy09.2 [degF]Lenore Berger Other [employer] Other 11-22-2022 11:30-0500Body jolksu74.5 kgLenore Berger Other [employer] Other 11-22-2022 11:30-0500Diastolic blood gcuksveq96 mm[Hg] Lenore Berger Other [employer] Other 11-22-2022 11:30-0500Respiratory rate18 /minLenore Berger Other [employer] Other 11-22-2022 11:30-9158JyJ2% (BldA) [Mass fraction]99 % Lenore Berger Other [employer] Other 11-22-2022 11:30-0500Systolic blood mm[Hg] Lenore Berger Other [employer] Other 08-30-2022 11:00-0400Body zmsrxy212.91 Henrietta Espinal Other [employer] Other 08-30-2022 11:00-0400Body mass index (BMI) [Ratio] 22.26 kg/a3Lbohyelqm Kylie Other [employer] Other 08-30-2022 11:00-0400Body kmflshamybp67.3 [degF] Мария Smithault Other [employer] Other 08-30-2022 11:00-0400Body jetwwo75.5 kgStgaetano Smithault Other [employer] Other 08-30-2022 11:00-0400Diastolic blood inbfxhiv47 mm[Hg] Мария Kylie Other [employer] Other 08-30-2022 11:00-0400Respiratory rate18 /minSro Kylie Other [employer] Other 08-30-2022 11:00-0032CaM5% (BldA) [Mass fraction]100 % Мария Kylie Other [employer] Other 08-30-2022 11:00-0400Systolic blood udlxbnrr812 mm[Hg] Мария Kylie Other [employer] Other 06-12-2022 10:25-0400Body .91 cmPamelberto Samuel Other [employer] Other 06-12-2022 10:25-0400Body mass index (BMI) [Ratio] 21.62 kg/e4Lplvuc Dymond Other [employer] Other 06-12-2022 10:25-0400Body hsoyttjsphg06 [degF]Milly Samuel Other [employer] Other 06-12-2022 10:25-0400Body eaynbf83.69 kgMilly Samuel Other [employer] Other 06-12-2022 10:25-0400Respiratory rate18 /minMilly Samuel Other [employer] Other 06-12-2022 10:25-0433ErT6% (BldA) [Mass fraction]96 % Milly Samuel Other [employer] Other Encounters Encounter DateEncounter TypeCare ProviderFacilityStart: 03-25-2025 End: 93-90-2877Rdkjbw Claudy Campuzano MD Work Phone: [facility]BGYNStart: 03-25-2025 End: 87-53-4779Zbivei flowsSabrina Campuzano MD Work Phone: [facility]BGYNStart: 03-25-2025 End: 92-35-6253Ommjfjsti encounterNadia Campuzano MD Work Phone: [facility]BGYNStart: 03-25-2025 End: 21-11-9650Adjlhlk encounter procedureNadia Campuzano MD Work Phone: [facility] [...] H/O breast biopsy; Hormone imbalance; Misc[facility]riage ([facility]); Acute vaginitisStart: 03-25-2025 End: 22-46-3340Tmulrvb encounter statusNadia Campuzano MD Work Phone: [facility] HealthcareStart: 03-25-2025 End: 71-26-0452hlmajzhwotDGJSMU P JONESNot AvailableStart: 03-21-2025 End: 54-43-3838jpaabkyrkbMBDUOP P JONESNot AvailableStart: 03-05-2025 End: 84-03-0558Abjrnx flowsEmperatriz Tong Zasolomon DO Work Phone: [facility] EyeStart: 03-05-2025 End: 73-95-5778Ahgfyb Brad Tong Zahler DO Work Phone: [facility] EyeStart: 03-05-2025 End: 07-03-3915gyoarbjrqcMTSPMQQX D ZAHLERNot AvailableStart: 01-15-2025 End: 22-68-6503zmtkcdrxawV SHINE DANGELOacility:[facility] Start: 12-31-2024 End: 07-12-8322Ddhxftmrd Oncology NoteG Shine Lawrence MD Work Phone: Radiation OncologyComment on above:Completion Note Start: 12-31-2024 End: 51-16-2007Bywstwu encounter procedureG Shine Lawrence MD Work Phone: Radiation OncologyComment on above:Skin cancer, basal cell (Primary Dx)Start: 12-31-2024 End: 03-13-5230fuklprqexuYZFQGQD ALLAN GARMANcility:[facility] Start: 12-28-2024 End: 69-24-7600Itvrbgm encounter procedureTr Lawrence MD Work Phone: Radiation OncologyComment on above:Skin cancer, basal cell (Primary Dx)Start: 12-28-2024 End: 63-24-8272sfxewlwuxhG PHILLIP ENGELERFacility:[facility] Start: 12-27-2024 End: 36-15-2888wucspflufwLHSFMHV ALLAN GARMANFacility:[facility] Start: 12-26-2024 End: 92-68-7567ddbofphuqdTUWXLFU ALLAN GARMANFacility:[facility] Start: 12-25-2024 End: 56-18-0807ldaikksjtvFWTXUWF ALLAN GARMANFacility:[facility] Start: 12-24-2024 End: 13-27-7747Rejoxik encounter procedureG Shine Lawrence MD Work Phone: Radiation OncologyComment on above:Skin cancer, basal cell (Primary Dx)Start: 12-24-2024 End: 54-19-4563ilrsgcnnidAKQHCIA ALLAN GARMANFacility:[facility] Start: 12-21-2024 End: 28-62-0154wvkyauucujXDLBPQJ ALLAN GARMANFacility:[facility] Start: 12-20-2024 End: 91-14-3589vhwhicymdhOIVSUZF ALLAN GARMANFacility:[facility] Start: 12-19-2024 End: 39-80-8373gecbvdmixfGXNRMEP ALLAN GARMANFacility:[facility] Start: 12-18-2024 End: 28-87-4969iinutnlndmDURNRLK ALLAN GARMANFacility:[facility] Start: 12-17-2024 End: 36-44-5281Psmxmla encounter procedureG Shine Lawrence MD Work Phone: Radiation OncologyComment on above:Skin cancer, basal cell (Primary Dx)Start: 12-17-2024 End: 38-46-2936beazuvaqjfRUPDPBK ALLAN GARMANFacility:[facility] Start: 12-13-2024 End: 60-92-4984jymmcoieblOQAYKCB ALLAN GARMANFacility:[facility] Start: 12-12-2024 End: 14-20-2758gpbjogdqcmXZHCYDBMis DE LEONFacility:[facility] Start: 12-11-2024 End: 74-20-3206cwcayjmefaUIMPLCY ALLAN GARMANFacility:[facility] Start: 12-10-2024 End: 07-74-9796vketvnrlrmTWEEUIZ ALLAN GARMANFacility:[facility] Start: 12-07-2024 End: 62-61-7785ukyglcsjtbOFHMOBK ALLAN GARMANcility:[facility] Start: 12-06-2024 End: 10-64-0880ekmjnfhujmMIEEFTN ALLAN GARMANcility:[facility] Start: 12-05-2024 End: 14-28-5189tfdaorzmroUHFWZCH ALLAN GARMANcility:[facility] Start: 12-04-2024 End: 16-77-3032Jhztoak encounter procedureG Shine Lawrence MD Work Phone: Radiation OncologyComment on above:Skin cancer, basal cell (Primary Dx)Start: 12-04-2024 End: 85-19-2975icmyqczpvkKIFSCMN ALLAN GARMANcility:[facility] Start: 12-03-2024 End: 52-78-3752HbmzoaNoblpjzr D Zahler DO Work Phone: NOVF NB OPHTComment on above:Primary open angle glaucoma (POAG) of both eyes, mild stageStart: 11-28-2024 End: 42-30-6426Qwtnpgdzv Oncology NoteG Shine Lawrence MD Work Phone: Radiation OncologyComment on above:Simulation Note Treatment PlanningStart: 11-28-2024 End: 71-40-9102Nkejcru encounter procedureG Shine Lawrence MD Work Phone: Radiation OncologyComment on above:Skin cancer, basal cell (Primary Dx)Start: 11-28-2024 End: 79-21-0413zonelaqkdeJZDRHGTSatya [facility]ciluc [facility] Start: 11-23-2024 End: 24-29-7371Ohobbcy encounter procedureCcf ProviderCleveland Clinic [facility] DepartmentStart: 11-16-2024 End: 38-62-6946Zbmybwzmj encounterG Shine Lawrence MD Work Phone: Radiation OncologyComment on above:AppointmentStart: 11-16-2024 End: 45-73-7618Tlslwa outpatient new 30 minutesG Shine Lawrence MD Work Phone: Radiation OncologyComment on above:Skin cancer, basal cell (Primary Dx)Start: 11-16-2024 End: 63-79-2123qaxicczdxmRjheok E Graves RNRadiation OncologyComment on above: Patient EducationStart: 10-31-2024 End: 02-20-3701Vvvkgg Brad Sanchez DO Work Phone: noms OPHTStart: 10-31-2024 End: 77-46-0512Njhmbj Brad Sanchez DO Work Phone: noms OPHTStart: 10-31-2024 End: 58-24-9359ylkcllcuchPJTUFJBH D ZAHLERNot AvailableStart: 10-30-2024 End: 10-79-4590qkzatqunidONZKBIL A GARMANNot AvailableStart: 10-09-2024 End: 00-31-1888Ojevjc flowsMasha De Leon DO Work Phone: noms [facility] IMStart: 10-09-2024 End: 91-49-4742Trqyuu flowsMasha De Leon DO Work Phone: noms [facility] IMStart: 10-09-2024 End: 81-76-5991Cuxrnk outpatient visit 25 minutesJemoustapha De Leon DO Work Phone: noms [facility] IMComment on above:Primary osteoarthritis involving multiple joints (Primary Dx); Multilevel degenerative disc disease; Mixed hyperlipidemia (CMS/HCC); Osteopenia, unspecified location; Sensorineural hearing loss, bilateral; Meniere's disease of both earsStart: 10-09-2024 End: 42-31-6610fwbuqmkdqoXAZRFIF A GARMANNot AvailableStart: 06-26-2024 End: 19-65-9106Ewqvte Brad Sanchez DO Work Phone: noms OPHTStart: 06-26-2024 End: 86-55-3575Ptypek flowsEmperatriz Sanchez DO Work Phone: noms OPHTStart: 06-26-2024 End: 02-75-1268bqiulqugnkFIENUQWP D ZAHLERNot AvailableStart: 05-30-2024 End: 78-87-8571DxtrntWlugfpsg D Zahler DO Work Phone: noms OPHTComment on above:Primary open angle glaucoma (POAG) of both eyes, mild stage (CMS/HCC)Start: 04-10-2024 End: 37-03-1011Bmndlm flowsMasha De Leon DO Work Phone: noms [facility] IMStart: 04-10-2024 End: 24-88-8423Zscuvo Tammi De Leon DO Work Phone: noms [facility] IMStart: 04-10-2024 End: 72-35-2259Yxtnqc outpatient visit 25 minutesTomas De Leon DO Work Phone: noms [facility] IMComment on above:Encounter for subsequent annual wellness visit (AWV) in Medicare patient (Primary Dx); ACP (advance care planning); Need for immunization against influenza; Sensorineural hearing loss, bilateral; Meniere's disease of both ears; Mixed hyperlipidemia (CMS/HCC); Multilevel degenerative disc disease; Primary osteoarthritis involving multiple joints; Osteopenia, unspecified location; Primary open angle glaucoma (POAG) of both eyes, mild stage (CMS/HCC); Muscle spasmStart: 04-10-2024 End: 57-04-6749Tysrxub encounter procedureTomas De Leon DO Work Phone: [facility] Work Phone: Start: 04-10-2024 End: 27-35-5259ekioxhicivLXSRQXD A GARMANNot AvailableStart: 02-14-2024 End: 43-79-6293Qngxzu flowsEmperatriz Sanchez DO Work Phone: noms OPHTStart: 02-14-2024 End: 64-29-1057Fjsxpv fiorellaheetMarlee Sanchez DO Work Phone: noMET[facility] OPHTStart: 05-04-2022 End: 67-90-1700ntyldpgytbMoeah Keller Other [facility] Other Start: 63-14-8723Kuswoo outpatient visit 15 minutes Lenore HowardlerFPG Urgent Care ClydeStart: 02-09-2022 End: 27-63-8462axgufeczsxAfvortjdq Kylie Other nort [employer] Other Start: 71-99-8924Qkdjsl outpatient visit 15 minutes Мария KylieFPG Urgent Care ClydeStart: 11-22-2021 End: 01-76-5501jkphetyifwUpofda Lizzie Other [facility] Other Start: 29-22-4781Dmzhfa outpatient visit 15 minutes Milly LizzieFPG Urgent Care ClydeStart: 07-23-2021 End: 98-39-7381agvirdxdelHCNAWPKV ZAHLERFacility:G9Pqdec: 06-18-2021 End: 66-10-9915nseabemdblZRRSHWFI ZAHLERFacility:U9Eospu: 04-17-2021 End: 98-31-2732qvxsodvragPOQUZCZW CULLENFacility:J7Zegyw: 04-09-2021 End: 95-62-7924ayrhyznzrsTFRCQ HIGHLANDERFacility:Q7Nndyw: 25-94-9051Hkbpkm-up Gayathri De Leon Work Phone: [phone]-Oerozmmcp-[place] [address] Work Phone: Start: 56-50-4139MSCWYMrcodra A Garman Work Phone: [phone]-Ctcumtsqmnwdbo-[facility] [address] Work Phone: Start: 08-64-4098Adjoys-up encounterTomas De Leon Work Phone: [phone]-Vewtckofq-[address] Work Phone: Start: 83-66-7778Vbgqlek encounter procedureLindsay Means IDXB-RGVBV-AkwtrtvpaqgzemSouthwest [facility] 4100 Work Phone: Start: 56-40-5836Wbbkqmz encounter procedureLindsay Means YLKZ-VIGBH-ObxfaalhpbegfbCarrington Health Center 4100 Work Phone: Start: 80-40-8393Nxqsets encounter procedureLINDSAY K MEANSFacility:9448 Procedures DateProcedureProcedure DetailPerforming ClinicianStart: 31-31-8895Cctfmvaszauf follicle stimulating hormoneNadia Campuzano MD Work Phone: start: 56-15-4134JomjnfznwuhAipylh Jones MD Work Phone: start: 03-05-2025 End: 17-59-1991Qcyoancrmpzd ophthalmic imaging optic nerveJonathan D Bamer DO Work Phone: Start: 03-05-2025 End: 55-53-7450IppqzKing's Daughters Medical Center&eval intermediate estab ptPrimary open angle glaucoma (POAG) of both eyes, mild stageJonathan D Zahler DO Work Phone: comment on above:Primary open angle glaucoma (POAG) of both eyes, mild stage (Primary Dx); Epiretinal membrane (ERM) of right eye; Dry eyes; PCO (posterior capsular opacification), rightStart: 10-31-2024 End: 28-88-9462RpmbdKing's Daughters Medical Center&eval comprhnsv estab pt 1/>Primary open angle glaucoma (POAG) of both eyes, mild stageJonathan D Zahler DO Work Phone: comment on above:Primary open angle glaucoma (POAG) of both eyes, mild stage (Primary Dx); PCO (posterior capsular opacification), right; Dry eyes; Epiretinal membrane (ERM) of right eyeStart: 68-72-3343MmvzmupdnihHfqmmuyc Zahler DO Work Phone: Start: 47-75-0256Ebqlmy field xm uni/bi w/interp extended examJojoaquin Tong Jose Martin DO Work Phone: Start: 06-26-2024 End: 69-99-2429Liqsa medical xm&eval intermediate estab ptPrimary open angle glaucoma (POAG) of both eyes, mild stage (CMS/HCC)Marlee Ran Jose Martin DO Work Phone: comment on above:Primary open angle glaucoma (POAG) of both eyes, mild stage (CMS/HCC) (Primary Dx); PCO (posterior capsular opacification), right; Dry eyes; Epiretinal membrane (ERM) of right eyeStart: 70-25-2475Cmjfhcjzzffv ophthalmic imaging optic nerveMarlee Ran Jose Martin DO Work Phone: Start: 02-14-2024 End: 01-21-5227RduujKing's Daughters Medical Center&eval comprhnsv estab pt 1/>Primary open angle glaucoma (POAG) of both eyes, mild stage (CMS/HCC)Marlee Ran Jose Martin DO Work Phone: comment on above:Primary open angle glaucoma (POAG) of both eyes, mild stage (CMS/HCC) (Primary Dx); PCO (posterior capsular opacification), right; Dry eyes; Epiretinal membrane (ERM) of right eyeStart: 24-36-2738YkvwiodvoxmFsyiykbm Zahler DO Work Phone: arthroscopy of kneeLindsay Means CIVIL DIVISION COMMANDER DEPUTY SHERIFF-CNPCesarean sectionLindsay Means CIVIL DIVISION COMMANDER DEPUTY SHERIFF-CNPExcision of bunionLindsay Means CIVIL DIVISION COMMANDER DEPUTY SHERIFF-CNPOperation on heartLindsay Means CIVIL DIVISION COMMANDER DEPUTY SHERIFF-CNPOperative procedure on handLindsay Means CIVIL DIVISION COMMANDER DEPUTY SHERIFF-ENGINE TEST CELL TECHNICIAN Plan of Treatment DateCare ActivityDetailAutrStart: 16-41-2706KCT Vaccine (1 - 1-dose 75+ series)RSV Vaccine (1 - 1-dose 75+ series)[facility]art: 06-15-2026 Screening for malignant neoplasm of colonNOMS HealthcareStart: 03-21-2026 Screening for malignant neoplasm of breastMammogramNOMS HealthcareStart: 35-38-4789Gmaibnsho for malignant neoplasm of breastNOMS HealthcareStart: 07-12-2025 End: 64-83-4065Cwfnfuw encounter rifwripzx43/30/2026 11:00 AM EST Office Visit [facility] [address] [place] [address] Marlee Sanchez, [address] [place] [address] [facility] EyeStart: 04-11-2025 End: 92-38-1390Vnwwswi encounter procedureNO LÓPEZ IMStart: 10-29-2025Medicare Annual Wellness (AWV)Medicare Annual Wellness (AWV)[facility] HealthcareStart: 04-03-2025 End: 93-76-3148Vedluan encounter wkjezoopx30/22/2025 10:30 AM EDT Office Visit NOMPepe DIAS [address] [place] [phone] Nadia Campuzano MD [address] [place] [address] NOMPeep [place] OBGYNStart: 04-03-2025 End: 68-24-5797Nqzpakoegndw / ancillary services vpdfqrekmi08/22/2025 10:00 AM EDT Ancillary Procedure NOMPepe STOVERN [address] [place] [address] NOMS Jonathan OBGYNStart: 04-01-2025 End: 35-66-6604GV Breast - bilateral WO and W contrast IVBilateral breast MR with and without contrast Imaging Routine Breast pain Breast tenderness Breast s ymptom Genetic predisposition to breast cancer Other specified disorders of breast Mammogram abnormal H/O breast biopsy Expected: 04/01/2025, Expires: 09/23/2025NOMS HealthcareComment on above:Expected: 04/01/2025, Expires: 09/23/2025Start: 03-25-2025 End: 32-53-5930Udymdjp encounter rgtjznega57/13/2025 8:45 AM EDT Office Visit CATHY DIAS [address] [place] [address] Nadia Campuzano MD [address] [place] [address] Vaginitis and vulvovaginitis; Cervicitis and endocervicitis; Encounter [...] night; Vaginal discharge; Vaginal itchingStart: 03-05-2025 End: 12-22-7160Wfgkpah encounter procedureNOMS NB OPHTComment on above:Arrived Start: 54-39-3989Khyoraply vaccinationInfluenza Vaccine (#1)[facility] Start: 01-15-2025 End: 45-11-3459Dqsqrcy encounter ezgynrkyz27/05/2025 1:30 PM EDT Office Visit Radiation Oncology [address] [place] [address] Tr Lawrence MD [address] [place] [address] [place] [address] Final radiation follow upRadiation OncologyComment on above: Final radiation follow upStart: 01-01-2025 End: 56-89-3703Maiwkgg encounter chlblmwix36/22/2025 10:15 AM EDT Appointment Radiation Oncology [address] [place] [address] Electron NoseRadiation OncologyComment on above:Electron NoseStart: 12-31-2024 End: 06-43-9363Tirqokv encounter bczjyokwf52/21/2025 3:45 PM EDT Office Visit Radiation Oncology [address] [place] [address] Tr Lawrence MD [address] [place] [address] Location: [facility]-ON TREATMENT REVRadiation OncologyComment on above:Location: [facility] TREATMENT REVStart: 12-31-2024 End: 20-93-2853Ljzgjdc encounter procedureRadiation OncologyComment on above: Electron NoseLocation: [facility]-ON TREATMENT REVStart: 12-28-2024 End: 97-28-5056Xtmkzyo encounter procedureRadiation OncologyComment on above: Electron NoseElectron Nose, OTV today per GPEOTV today per Dr Rutledgetart: 12-27-2024 End: 80-54-3130Eukcdmq encounter fusvvcppy86/17/2025 2:15 PM EDT Appointment Radiation Oncology [address] [place] [address] Electron Nose pt requested thist time for today; dlRadiation OncologyComment on above: Electron Nose pt requested thist time for today; dlStart: 12-27-2024 End: 38-55-6763Oukavfz encounter emlbijiok52/17/2025 10:15 AM EDT Appointment Radiation Oncology [address] [place] [address] Electron NoseRadiation OncologyComment on above:Electron NoseStart: 12-26-2024 End: 10-61-4486Yiwazzp encounter oacwyxwce87/16/2025 10:15 AM EDT Appointment Radiation Oncology [address] [place] [address] Electron NoseRadiation OncologyComment on above:Electron NoseStart: 12-25-2024 End: 94-18-1105Mnxbkpx encounter oliojjqer72/15/2025 10:15 AM EDT Appointment Radiation Oncology [address] [place] [address] Electron NoseRadiation OncologyComment on above:Electron NoseStart: 12-24-2024 End: 60-44-2873Kefelhy encounter mxjjubbzf00/14/2025 3:45 PM EDT Office Visit Radiation Oncology [address] [place] [address] Tr Lawrence MD [address] [place] [place] [address] Location: SA-ON TREATMENT REVRadiation OncologyComment on above:Location: [facility]-ON TREATMENT REVStart: 12-24-2024 End: 56-75-5966Alyferh encounter procedureRadiation OncologyComment on above: Electron NoseLocation: SA-ON TREATMENT REVStart: 12-21-2024 End: 68-87-8876Nejwyxo encounter oavcyfwkk85/11/2025 10:30 AM EDT Appointment Radiation Oncology [address] [place] [address] Electron NoseRadiation OncologyComment on above:Electron NoseStart: 12-20-2024 End: 20-39-9620Zydtisq encounter sjqwtaakq31/10/2025 10:15 AM EDT Appointment Radiation Oncology [address] [place] [address] Electron NoseRadiation OncologyComment on above:Electron NoseStart: 12-19-2024 End: 84-49-7827Saaqboz encounter /09/2025 10:15 AM EDT Appointment Radiation Oncology [address] [place] [address] Electron NoseRadiation OncologyComment on above:Electron NoseStart: 12-18-2024 End: 63-47-9337Icjtvya encounter /08/2025 10:15 AM EDT Appointment Radiation Oncology [address] [place] [address] Electron NoseRadiation OncologyComment on above:Electron NoseStart: 12-17-2024 End: 96-29-0092Hvqcjwe encounter crtpamijz70/07/2025 3:45 PM EDT Office Visit Radiation Oncology [address] [place] [address] Tr Lawrence MD [address] [place] [address] Location: SA-ON TREATMENT REVRadiation OncologyComment on above:Location: SA-ON TREATMENT REVStart: 12-17-2024 End: 90-41-7134Ekswtzk encounter skiqejowt49/07/2025 9:30 AM EDT Appointment Radiation Oncology [address] [place] [address] Electron NoseRadiation OncologyComment on above:Electron NoseStart: 12-13-2024 End: 17-66-7304Yocksfh encounter kfejiklfs21/03/2025 11:00 AM EDT Appointment Radiation Oncology [address] [place] [address] Electron NoseRadiation OncologyComment on above:Electron NoseStart: 12-12-2024 End: 76-03-7184Ndcgtsx encounter xmtkmroea75/02/2025 11:00 AM EDT Appointment Radiation Oncology [address] [facility] [address] Electron NoseRadiation OncologyComment on above:Electron NoseStart: 12-11-2024 End: 44-26-3417Fcqlwdp encounter ioaifudjo54/01/2025 10:30 AM EDT Appointment Radiation Oncology [address] [place] [address] Electron NoseRadiation OncologyComment on above:Electron NoseStart: 12-10-2024 End: 14-66-8984Meomdpk encounter nhzuiwbdo43/30/2025 10:15 AM EDT Appointment Radiation Oncology [address] [facility] [place] [address] Electron NoseRadiation OncologyComment on above:Electron NoseStart: 12-07-2024 End: 68-76-4947Nwtszix encounter zurzkqoft84/27/2025 3:30 PM EDT Appointment Radiation Oncology [address] [place] [address] Electron NoseRadiation OncologyComment on above:Electron NoseStart: 12-06-2024 End: 87-75-7761Apmqcqk encounter fywcikvhh37/26/2025 3:30 PM EDT Appointment Radiation Oncology [address] [facility] [place] [address] Electron Nose MOSFET with physics day 2Radiation OncologyComment on above:Electron Nose MOSFET with physics day 2Start: 12-04-2024 End: 88-31-2430Wylrnrt encounter procedureRadiation OncologyComment on above:[place], NOSENose e- prefers 3:30/3:45 watches grandchildStart: 11-28-2024 End: 71-38-0595Njbcfpf encounter procedureRadiation OncologyComment on above:SIM - NOSE 3 PT MASK- CLINICAL SET UP - NEEDS CONSETPre sim consentStart: 10-31-2024 End: 95-08-9693Ziekcgk encounter procedureNOMS NB OPHTComment on above:Arrived Start: 10-16-2024 End: 31-30-7412Awjckvscwbad / ancillary services ygqhuriwod32/06/2025 7:30 PM EDT Ancillary Procedure [facility] [place] [address] [place] [address] NOMS IMAGING AUGIEYStart: 10-09-2024 End: 77-91-8073Aivbibl encounter procedureNOMS SWS IMComment on above:Arrived Start: 10-02-2024 End: 42-27-2980BIL W Auto Differential panel - BloodCBC and differential Lab Routine Primary osteoarthritis involving multiple joints Osteopenia, unspecified location Expected: 10/02/2024 (Approximate), Expires: 04/10/2025[facility] Comment on above:Expected: 10/02/2024 (Approximate), Expires: 04/10/2025Start: 10-02-2024 End: 69-85-4276Ljbomxpwgxqcl metabolic 2000 panel - Serum or PlasmaComprehensive metabolic panel Lab Routine Meniere's disease of both ears Mixed hyperlipidemia (CMS/HCC) Osteopenia, unspecified location Expected: 10/02/2024 (Approximate), Expires: 04/10/2025[facility] Work Phone: Comment on above:Expected: 10/02/2024 (Approximate), Expires: 04/10/2025Start: 10-02-2024 End: 42-26-9656Hllnf 1996 panel - Serum or PlasmaLipid panel Lab Routine Mixed hyperlipidemia (CMS/HCC) Expected: 10/02/2024 (Approximate), Expires:04/10/2025 [facility] HealthcareComment on above:Expected: 10/02/2024 (Approximate), Expires: 04/10/2025Start: 10-02-2024 End: 90-72-0283Yhclkbduvdi [Units/volume] in Serum or PlasmaTSH Lab Routine Mixed hyperlipidemia (CMS/HCC) Osteopenia, unspecified location Expected: 10/02/2024 (Approximate), Expires: 04/10/2025N[facility] HealthcareComment on above: Expected: 10/02/2024 (Approximate), Expires: 04/10/2025Start: 09-29-2024 Screening for malignant neoplasm of breastMammogramNONY HealthcareStart: 06-26-2024 End: 83-88-7749Wedovvq encounter procedureNOMS NB OPHTComment on above:Arrived Start: 26-91-1232Mgafdeq Directive DiscussionAdvance Directive Discussion [facility]: 04-10-2024 End: 08-05-3300Oslghcb encounter procedureNOMS SWS IMComment on above:Encounter for subsequent annual wellness visit (AWV) in Medicare patient (Primary Dx); ACP (advance care planning)Start: 10-16-2024Medicare Annual Wellness (AWV) Medicare Annual Wellness (AWV)[facility] HealthcareStart: 02-14-2024 End: 71-14-1954Mafsnoz encounter ndanayvxt80/03/2024 10:30 AM EDT Office Visit [facility] [address] [place] [phone] Marlee Sanchez DO [address] [place] [address] ArrivedNONY NB OPHTComment on above:ArrivedStart: 31-98-5041Vdqdn-19 Vaccine ( season)Covid-19 Vaccine ( season)[facility]: 22-17-3872Klngpmbtt vaccinationInfluenza Vaccine (#1)[facility] HealthcareStart: 42-17-9215Wggkkvlwl for malignant neoplasm of colon [facility]: 10-12-2023Medicare Annual Wellness (AWV)Medicare Annual Wellness (AWV)[facility] HealthcareStart: 21-65-3738ZLCZCUN, Provider: Selvin Pickens, Status: Pen, Time: 10:30 MARSHA, Provider: Selvin Pickens, Status: Pen, Time: 10:30 EJUZ-Qvayxgmvqounfx-JjyqrigCarrington Health Center 4100 Work Phone: Start: 02-30-9520YFLHZGD, Provider: Hortensia Ford, Status: Pen, Time: 10:00 MARSHA, Provider: Hortensia Ford, Status: Pen, Time: 10:00 EVOY-Cbgdmlydz-[address] Work Phone: Start: 01-01-2018Medicare Annual Wellness Visit Medicare Annual Wellness VisitOhioHealth Van Wert Hospitaltart: 08-40-8312Utdlvaqo ScreeningDiabetes ScreeningOhioHealth Van Wert Hospitaltart: 26-20-5786Tozrg panelLipid ScreeningOhioHealth Van Wert Hospitaltart: 20-34-4726Lxoitcubz for malignant neoplasm of colonOhioHealth Van Wert Hospitaltart: 44-02-2976Afbqq microalbumin profileDTaP,Tdap,Td Vaccine (1 - Tdap)[facility]: 14-73-5843Jrsetat ScreeningAnxiety ScreeningOhioHealth Van Wert Hospitaltart: 33-04-2156Chprmyenwu ScreeningDepression ScreeningOhioHealth Van Wert Hospitaltart: 87-12-8088Qcqlprmli C screeningHepatitis C ScreeningOhioHealth Van Wert Hospitaltart: 93-18-1776Mkqdyvkvg for malignant neoplasm of colonNONY HealthcareCT Guidance for radiation treatment of Unspecified body regionCT SIM PLANNING RADIATION ONCOLOGY Radiology Routine Skin cancer, basal cell Ordered: 11/28/2024[facility] Work Phone: Comment on above:Ordered: 11/28/2024GENITAL MYCOPLASMAS ALECIA, SWABGENITAL MYCOPLASMAS ALECIA, SWAB Pathology and Cytology Routine Vaginitis and vulvovaginitis Cervicitis and endocervicitis Vaginal discharge Vaginal itching Ordered: 03/25/2025[facility] Work Phone: comment on above:Ordered: 03/25/2025IGP, APT HPV,RFX 16/18,45IGP, APT HPV,RFX 16/18,45 Lab Routine Encounter for gynecological examination without abnormal finding Encounter for screening for cervical cancer Ordered: 03/25/2025[facility] HealthcareComment on above:Ordered: 03/25/2025NuSwab Vaginitis Plus (VG+)NuSwab Vaginitis Plus (VG+) Microbiology Routine Vaginitis and vulvovaginitis Cervicitis and endocervicitis Vaginal discharge Vaginal itching Ordered: 03/25/2025[facility] HealthcareComment on above:Ordered: 03/25/2025 Immunizations Immunization DateImmunizationNotesCare FsxjpgepCseltski12-42-7780Lrzfjqwt trivalent influenza vaccine, adjuvanted, preservative freeTomas De Leon DO Work Phone: [facility] SystemIbcgncjhxt19-60-5688pbnptbtix virus vaccine, unspecified formulationZEYAD Lawrence MD Work Phone: [facility] HospitalCazrbc74-24-2399Jobawmrpf, Seasonal, Quadrivalent, AdjuvantedJonathan Zahler DO Work Phone: [facility] SystemWqjwzpibca64-10-6599rymqtfhop virus vaccine, unspecified formulationJonathan Zahler DO Work Phone: [facility] SystemVxezsctsiq84-20-3151ejbickxgl, high dose seasonal, preservative-freeJonathan Zahler DO Work Phone: [facility] SystemEflarqallm76-67-5889riiulijbt, seasonal, injectable, preservative freeJonathan Zahler DO Work Phone: [facility] SystemTsrkqsypku77-00-8399dhhxtq vaccine recombinant Marlee Zahler DO Work Phone: [facility] SystemRuuvkgurqm22-64-4327ytdrft vaccine recombinant Marlee Zahler DO Work Phone: [facility] SystemCfdavgagxm65-69-6930Nildwfrl trivalent influenza vaccine, adjuvanted, preservative freeJonathan Zahler DO Work Phone: [facility] SystemVvbbrcyiyb13-71-3767Zuypnquw trivalent influenza vaccine, adjuvanted, preservative freeJonathan Zahler DO Work Phone: [facility] SystemKxvoyugiia01-62-1334rwzxsppdbwrn polysaccharide vaccine, 23 valentJonathan Zahler DO Work Phone: [phone] [place], [place] [address]Zqosudmxwu78-73-8186qwnrtvsur, injectable, quadrivalent, contains preservativeJonathan Zahler DO Work Phone: [phone] [place], [place] [address]Ihlvhewyhb77-67-8306xghzqcjdwsjr conjugate vaccine, 13 valentJonathan Zahler DO Work Phone: [phone] [place], [place] [address]Fqzgtgjyaz66-93-3379ssdfieret, injectable, quadrivalent, preservative freeJonathan Zahler DO Work Phone: [phone] [place], [place] [address]Cedycixhdp57-07-5941xbbgjygaf, injectable, quadrivalent, contains preservativeJonathan Zahler DO Work Phone: [phone] [place], [place] [address]Yuywwoaiff22-31-7178jismfmhdi, seasonal, injectable, preservative freeJonathan Zahler DO Work Phone: [phone] [place], [place] [address]Aivfmelize76-09-8969bmesxxyg influenza, intradermal, preservative freeJonathan Zahler DO Work Phone: [phone] [place], [place] [address]Gaxsbygyml40-27-8599cebwuhvo influenza, intradermal, preservative freeJonathan Zahler DO Work Phone: [phone] [place], [place] [address]Xsmrlobfeg90-47-3064yhsnvm vaccine, liveJonathan Zahler DO Work Phone: [phone] [place], [place] [address]Flcfupgmda93-63-5155nnckliwl influenza, intradermal, preservative freeJonathan Zahler DO Work Phone: [phone] [place], [place] [address]Nwtzaiznmu48-24-1274nqtkccyc influenza, intradermal, preservative freeJonathan Zahler DO Work Phone: [phone] [place] [address] Payers DatePayer CategoryPayerPolicy [id number] Health Insurance [id number] [id number] [id number] [id number] [id number] 2.16.840.1.235400.3.57[id number] 2.16.840.1.675188.3.57[id number] 2.16.840.1.290905.3.57[id number] 2.16.840.1.855395.3.57[id number] 2.16.840.1.498781.3.57[id number] 2.16.840.1.603261.3.57[id number] 2.16.840.1.865831.3.57[id number] 2.16.840.1.787376.3.57[id number] 2.16.840.1.417896.3.57[id number] 2.16.840.1.722066.3.57[id number] 2.16.840.1.780362.3.57[id number] 2.16.840.1.383912.3.57[id number] 2.16.840.1.235448.3.57[id number] 2.16.840.1.630854.3.57[id number] 2.16.840.1.535407.3.579.2.1259Unknown Social History DateTypeDetailFacilityStart: 03-28-2023 End: 13-10-7028Tdfdt with significant otherLives with significant other CD-Gnqyyiiihvwzsa-[facility]yilhnmTi[facility] Work Phone: Start: 03-28-2023 End: 41-88-9176Url Assigned At [facility] [employer] Other Start: 03-28-2023 End: 10-95-5614Znqskue smoking status NHISNever smoked tobaccoNOMS Healthcare History of tobacco usePassive smokerNOMS HealthcareStart: 03-28-2023 End: 81-00-0790Yzhkacd use and exposureSmokeless tobacco non-userNOMS Healthcare Start: 02-14-2024 End: 85-92-7076Lxiueyaib beverage intakeCurrent drinker of alcohol (finding)NOMS HealthcareHow often to you have a drink containing alcohol?Monthly or lessNOMS HealthcareHow many standard drinks containing alcohol do you have on a typical day?1 or 2NOMS HealthcareHow often do you have 6 or more drinks on 1 occasion? Less than monthlyNOMS HealthcareStart: 49-06-2285Ijorniu CommentAlcohol: 1 or 2 drinks on a typical day/monthly or less Caffeine: 5-6 cups a day of coffee per dayNOMS HealthcareStart: 03-07-2799Gui assigned at birthNot on fileNONY HealthcareStart: 54-74-2826Lstmpznh Score (1-100), lower number is lower risk64 NOMS HealthcareStart: 24-89-4264Sdkdbgu Commentwine rarelyC[facility] Clinic [facility] Functional Status DateAssessmentResultFacilityNEGATED: Highlighted rowFunctional performance Functional status health issues are not documented Disease ZU-Hozqvjtzvdauqv-MngrcowCarrington [facility] 4100 Work Phone: Mental Status DateAssessmentResultFacilityNEGATED: Highlighted rowCognitive function [Interpretation]Cognitive status health issues are not documented Disease LO-Efqjygxnidogks-VmcfiqeAltru Health Systems 2008 Work Phone: Clinical Notes 10-30-2020 to 03-25-2025 Note Date & JgfzAnhxKolosdem63-24-3545 Telephone encounter Note* Telephone Encounter - Sylvester Holguin - 03/25/2025 3:51 PM EDT Called and spoke with pt- scheduled 04/03 at 10am ok per RF. Pt was then transferred to [facility] question. [facility] SystemFfciangpxn82-60-1125 Miscellaneous Notes* Telephone Encounter - Slyvester Holguin - 03/25/2025 3:51 PM EDT Called and spoke with pt- scheduled 04/03 at 10am ok per RF. Pt was then transferred to [facility] question. * Telephone Encounter - Sylvester Holguin - 03/25/2025 9:14 AM EDT Pt needs pelvic us w ov LEXIS per PPJ. documented in this encounterDeaconess Incarnate Word Health SystemIakbfuodzs26-35-0281 Telephone encounter Note* Telephone Encounter - Sylvester Holguin - 03/25/2025 9:14 AM EDT Pt needs pelvic us w ov LEXIS per PPJ. [facility] SystemQwoajducej90-24-1492 History of Present illness Narrative* Nadia Campuzano [...] sample to send out for culture. 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 Heck CO ARTHROSCOPY KNEE DIAGNOSTIC W/WO SYNOVIAL BX SPX Left 2004 CO DRAIN/INJECT LARGE JOINT/BURSA Arthrocentesis of the left knee anserine bursa CO INJECT TENDON ORIGIN/INSERT CO INJECT TENDON SHEATH/LIGAMENT Family History Problem Relation [...] by Nadia Campuzano MD documented in this encounterDeaconess Incarnate Word Health SystemKznavezlig59-92-1839 NoteRight Eye Quality was good. Scan locations included subfoveal. Progression has been stable. Findings include abnormal foveal contour, epiretinal membrane. Left Eye Quality was good. Scan locations included subfoveal. Progression has been stable. Findings include abnormal foveal contour, epiretinal membrane.[facility] SystemAykyirohax04-34-7613 History of Present illness Narrative* Marlee Sanchez, [...] laser capsulotomy, they are to notify their health technician hearing promptly if they have a significant change [...] artificial tears were recommended. documented in this encounterDeaconess Incarnate Word Health SystemAeyivspjye71-40-4730 NoteHNO ID: [id number] Author: Tr LAWRENCE MD Service: ? Author [...] Tr Lawrence MD cc: Tomas De Leon ([facility]) [address] [place] [address] Tr Lawrence [address] [place] [address]QflkazwyxUniversity Hospitals Conneaut [facility]07-25-2025 NoteHNO ID: [id number] Author: Tr LAWRENCE MD Service: ? Author [...] see her pretreatment on Tuesday. Tr Lawrence, [facility]07-25-2025 History of Present illness Narrative* Tr Lawrence [...] Tuesday. Tr Lawrence MD documented in this encounterCleveland Clinic Marymount Hospital07-21-2025 NoteHNO ID: [id number] Author: Tr LAWRENCE MD Service: ? Author [...] skin care as previously outlined. Tr Lawrence, [facility]07-21-2025 History of Present illness Narrative* Tr Lawrence [...] outlined. Tr Lawrence MD documented in this encounterCleveland Clinic Marymount Hospital07-21-2025 History of Present illness Narrative* Tr Lawrence MD - 12/31/2024 12:00 AM EDT [facility] Radiation Oncology Department RADIATION ONCOLOGY - COMPLETION [...] Dr. Shikha De Leon documented in this encounterCleveland Clinic Marymount Hospital07-21-2025 NoteHNO ID: [id number] Author: Tr LAWRENCE MD Service: ? Author Type: Physician Type: Progress Notes Filed: 01/09/2025 10:58 Note Text: [facility] Radiation Oncology Department RADIATION ONCOLOGY - COMPLETION [...] AM Electronically Signed cc: Dr. Shikha De LeonUniversity Hospitals Conneaut Medical Center07-14-2025 NoteHNO ID: [id number] Author: Tr LAWRENCE MD Service: ? Author [...] reviewed. Continue radiation as outlined. Tr Lawrence, [facility]07-14-2025 History of Present illness Narrative* Tr Lawrence [...] Post-menopausal. Tish Patricio RN documented in this encounterCleveland Clinic Marymount Hospital07-14-2025 NoteHNO ID: [id number] Author: TISH PATRICIO RN Service: ? Author Type: Registered Nurse Type: Progress Notes Filed: 12/24/2024 12:03 Note Text: Status: Post-menopausal. Tish Patricio RNUniversity Hospitals Conneaut Medical Center07-07-2025 NoteHNO ID: [id number] Author: Tr LAWRENCE MD Service: ? Author [...] reviewed. Continue radiation as outlined. Tr Lawrence, [facility]07-07-2025 History of Present illness Narrative* Tr Lawrence [...] outlined. Tr Lawrence MD documented in this encounterCleveland Clinic Marymount Hospital06-26-2025 NoteHNO ID: [id number] Author: Tr LAWRENCE MD Service: ? Author Type: Physician Type: Progress Notes Filed: 12/06/2024 14:57 Note Text: [facility]06-26-2025 History of Present illness Narrative* Tr Lawrence MD - 12/06/2024 2:57 PM EDT sim documented in this encounterCleveland Clinic Marymount Hospital06-24-2025 NoteHNO ID: [id number] Author: Tr LAWRENCE MD Service: ? Author [...] given. Continue radiation as prescribed. Tr Lawrence [facility]06-24-2025 History of Present illness Narrative* Tr Lawrence [...] prescribed. Tr Lawrence MD documented in this encounterCleveland Clinic Marymount Hospital06-18-2025 History of Present illness Narrative* Tr Lawrence MD - 11/28/2024 12:00 AM EDT FIDE SULTANA [id number] 11/28/2024 [facility] Radiation Oncology Department Clinical Electron Simulation DATE OF SIMULATION: 11/28/2024 MACHINE: [employer] AREA:NOSE Consent in Epic: 1 THERAPIST: Adele [...] Lawrence Physicist :28 PM documented in this encounterCleveland Clinic Marymount Hospital06-18-2025 History of Present illness Narrative* Tr Lawrence MD - 11/28/2024 12:00 AM EDT FIDE SULTANA [id number] 11/28/2024 [facility] Radiation Oncology Department SIMULATION NOTE DATE OF SIMULATION: 11/28/2024 THERAPIST: Yvrose Sauceda MACHINE: [employer] DIAGNOSIS: Basal cell carcinoma of skin of [...] / NRS :28 PM documented in this encounterCleveland Clinic Marymount Hospital06-18-2025 History of Present illness Narrative* Tr Lawrence MD - 11/28/2024 12:00 AM EDT FIDE SULTANA [id number] 11/28/2024 [facility] Cancer Douglas [facility] - Department of Radiation Oncology Treatment Planning [...] Lawrence M.D. 53:59 PM documented in this encounterCleveland Clinic Marymount Hospital06-18-2025 NoteHNO ID: [id number] Author: Tr LAWRENCE MD Service: ? Author Type: Physician Type: Progress Notes Filed: 11/29/2024 13:28 Note Text: FIDE SULTANA [id number] 11/28/2024 [facility] Radiation Oncology Department Clinical Electron Simulation DATE OF SIMULATION: 11/28/2024 MACHINE: [employer] AREA:NOSE Consent in Epic: 1 THERAPIST: Adele [...] Bangura Electronically Signed Shine Lawrence Physicist :28 [facility]06-18-2025 NoteHNO ID: [id number] Author: Tr LAWRENCE MD Service: ? Author Type: Physician Type: Progress Notes Filed: 11/29/2024 13:28 Note Text: FIDE SULTANA [id number] 11/28/2024 [facility] Radiation Oncology Department SIMULATION NOTE DATE OF SIMULATION: 11/28/2024 THERAPIST: Yvrose Sauceda MACHINE: [employer] mCT DIAGNOSIS: Basal cell carcinoma of skin [...] Signed Shine Lawrence M.D. / NRS :28 [facility]06-18-2025 NoteHNO ID: [id number] Author: Tr LAWRENCE MD Service: ? Author Type: Physician Type: Progress Notes Filed: 12/03/2024 15:59 Note Text: FIDE SULTANA [id number] 11/28/2024 [facility] - Department of Radiation Oncology Treatment Planning [...] blocking. Electronically Signed Shine Lawrence M.D. 53:59 [facility]06-12-2025 NoteHNO ID: [id number] Author: Tr LAWRENCE MD Service: ? Author [...] Tr Lawrence MD cc: Tomas De Leon ([facility]) [address] [place] [address] Columba Kumar [address] [facility] [address]JtmutpukxUniversity Hospitals Conneaut Medical Center06-12-2025 History of Present illness Narrative* Tr Lawrence [...] Tr Lawrence MD cc: Tomas De Leon ([facility]) [address] [place] [address] Columba Kumar [address] [facility] [facility] [address] * Tamiko Del Rio RN - 11/16/2024 9:35 AM EDT Pacemaker/Defibrillator?N Previous Cancer(s)?Basal Cell CA Previous Radiation?N Lupus/Scleroderma?N On body monitoring device?N Tamiko Del Rio RN documented in this encounterCleveland Clinic Marymount Hospital06-11-2025 Telephone encounter Note * Telephone Encounter - Chanel Gold - 11/21/2024 12:57 PM EDT Spoke to [facility] and confirmed 1115 arrival on 11/28 and no hair products. [facility]06-11-2025 Miscellaneous Notes* Telephone Encounter - Chanel Gold - 11/21/2024 12:57 PM EDT Spoke to [facility] and confirmed 1115 arrival on 11/28 and [...] Maira Del Rio RN documented in this encounterCleveland Clinic Marymount Hospital06-11-2025 Telephone encounter Note * Telephone Encounter - Maggy Blas RT(R) - 11/21/2024 8:32 AM EDT Please schedule pre sim consent for 11/28/24 at 11:30, sim to follow Notify patient to arrive at 11:15 on the , special instructions include no hair products. Maggy Rao RT(R)(T) [facility]06-06-2025 NoteHNO ID: [id number] Author: TAMIKO DEL RIO RN Service: ? Author Type: Registered Nurse Type: Progress Notes Filed: 11/16/2024 16:00 Note Text: Radiation Therapy - Patient Education Note PATIENT NAME: Fide Sultana PATIENT November 16, 2024 [facility] FACILITY/LOCATION: [facility] READINESS TO LEARN Cognitive Ability: Alert [...] need for social work, van service, and simplex printer installer. Patient has an Onbody or Implanted device: No Signed by: Tamiko Del Rio RNUniversity Hospitals Conneaut Medical Center06-06-2025 History of Present illness Narrative* Tamiko Del Rio RN - 11/16/2024 3:59 PM EDT Radiation Therapy - Patient Education Note PATIENT NAME: Fide Sultana PATIENT November 16, 2024 [facility] FACILITY/LOCATION: [facility] READINESS TO LEARN Cognitive Ability: Alert [...] need for social work, van service, and simplex printer installer. Patient has an Onbody or Implanted device: No Signed by: Tamiko Del Rio RN documented in this encounterCleveland Clinic Mary[facility] Hospital06-06-2025 Telephone encounter Note * Telephone Encounter - Karen Cardona - 11/16/2024 11:09 AM EDT Rad Andrew added and checked in for today. [facility]06-06-2025 Telephone encounter Note* Telephone Encounter - Tamiko Del Rio RN - 11/16/2024 10:32 AM EDT PSS/RT: please schedule Return for CT/sim with mask and machine setup-treating nose Presim consent needed Nurse ed today Thanks Tamiko Del Rio RN [facility]06-06-2025 NoteHNO ID: [id number] Author: TAMIKO DEL RIO RN Service: ? Author Type: Registered Nurse Type: Progress Notes Filed: 11/22/2024 12:36 Note Text: Pacemaker/Defibrillator?N Previous Cancer(s)?Basal Cell CA Previous Radiation?N Lupus/Scleroderma?N On body monitoring device?N Tamiko Del Rio RNUniversity Hospitals Conneaut Medical Center06-06-2025 NoteEducation (RADTSA) FIDE SULTANA ([id number]) 1950 F Date Time Provider Department 11/16/24 [...] Encounter Status:Closed by TAMIKO DEL RIO on 11/16/24[facility] 10-31-2024 History of Present illness Narrative* Marlee [...] laser capsulotomy, they are to notify their health technician hearing promptly if they have a significant change [...] artificial tears were recommended. documented in this encounterDeaconess Incarnate Word Health SystemZqtamyevud60-37-2465 NoteRight Eye Reliability was good. Progression has been stable. Foveal threshold was normal. Findings include superior nasal step defect. Left Eye Reliability was good. Progression has been stable. Foveal threshold was normal. Findings include normal observations.[facility] SystemHxrsmdjfer47-64-4489 History of Present illness Narrative* Marlee Sanchez [...] laser capsulotomy, they are to notify their health technician hearing promptly if they have a significant change [...] artificial tears were recommended. documented in this encounterDeaconess Incarnate Word Health SystemIbioeocyto92-83-4832 History of Present illness Narrative* Tomas De [...] VITRECTOMY W/ EMP STRIPPING Left Dr. Heck CO ARTHROSCOPY KNEE DIAGNOSTIC W/WO SYNOVIAL BX SPX Left 2004 CO DRAIN/INJECT LARGE JOINT/BURSA Arthrocentesis of the left knee anserine bursa CO INJECT TENDON ORIGIN/INSERT CO INJECT TENDON SHEATH/LIGAMENT SOCIAL HISTORY: Social History [...] has a living well and power of mergers and acquisitions attorney. She has a full code status. [...] Dictated and not read. documented in this encounterDeaconess Incarnate Word Health SystemCzjvrdevyt51-36-7192 History of Present illness Narrative* Marlee Sanchez [...] laser capsulotomy, they are to notify their health technician hearing promptly if they have a significant change [...] artificial tears were recommended. documented in this encounterDeaconess Incarnate Word Health SystemBrzpggrizd09-56-0449 Evaluation note* Encounter Date Diagnosis Assessment Notes [...] understanding and is agreeable with treatment plan [facility] Other 08-30-2022 Evaluation note* Encounter Date Diagnosis [...] no improvement of symptoms with treatment plan [facility] Other 06-12-2022 Evaluation note* Encounter Date Diagnosis [...] Patient care instructions given in writting by [facility] document. [facility] Other 02-10-2022 NoteHISTORY AND PHYSICAL EXAMINATION HISTORY: [...] and go forward with her elective procedure. [facility] Signed and Approved by: MARLEE SANCHEZ 07/20/2021 13:25:00[facility]02-10-2022 NoteOPERATIVE NOTE OPERATION DATE: 06-18-21 ANESTHETIC: Topical. [...] trabecular meshwork. Utilizing the tip of the flight operations coordinator, the trabecular meshwork was dissected and the stent was deployed into Schlemm's canal without difficulty. After checking for stabilization of the location, the flight operations coordinator as well as the prism were removed [...] followup the following day for postoperative care. [facility] Signed and Approved by: MARLEE SANCHEZ 07/20/2021 13:24:00[facility]02-10-2022 NotePre-Op History and Physical HISTORY: The patient [...] forward with the procedure listed above. 3. QPICC-57-Bpy patient was briefed in the office and [...] and go forward with this elective procedure. [facility] Signed and Approved by: MARLEE SANCHEZ 08/19/2021 16:28:00[facility]02-10-2022 NoteOP Note SURGEON: Marlee Sanchez D.O. PREOPERATIVE [...] ensuring mobility, phacoemulsification was performed in a kqtbqkm-ubk-tfbenn-type fashion. After all nuclear material had been [...] o'clock location. Utilizing the tip of the flight operations coordinator, the trabecular meshwork was dissected and the Schlemm's canal was accessed. The stent was deployed with a small amount of hemorrhage at the insertion site. The stent was then checked for localization and stabilization, and once felt adequate, the flight operations coordinator and the gonioprism were removed from the [...] up the following day for postoperative care.[facility] HospitalWozjnggv35-56-1769 NoteOP Note SURGEON: Marlee Sanchez D.O. PREOPERATIVE [...] ensuring mobility, phacoemulsification was performed in a udlyjlx-fvx-nxgobf-type fashion. After all nuclear material had been [...] up the following day for postoperative care. [facility] Signed and Approved by: MARLEE SANCHEZ 08/19/2021 16:29:00[facility]10-28-2021 NotePROCEDURE: XR ANKLE RT MIN 3 VIEWS, [...] Electronically authenticated by: LILIA STOUT Date: 2021-04-09 16:22[facility]10-28-2021 NotePROCEDURE: XR ANKLE RT MIN 3 VIEWS, [...] Electronically authenticated by: LILIA STOUT Date: 2021-04-09 16:22[facility]09-07-2021 History of Present illness Narrative* Fide Sultana, age 70 years, was seen for hearing aid check on February 17, 2021. She is within the 90 day period. * Luísak Jazlyno P70 RT * [id number] * [id number] * Ms. Sultana reports she can hear trains, airplanes etc over someone sitting next to her * She feels she is having difficulty hearing speech on television * Patient's preferred language: Maltese * Preferred language of the parent, legal guardian or surrogate decision-maker of this minor or incapacitated patient: Not Applicable * No overt signs of domestic violence/neglect/abuse. * No referral made to Timber Incisor Operator. * Pain not interfering with optimal level [...] verbalize recall / understanding and teaching complete. [address] Work Phone: [phone] 470-308005-20-2021 History of Present illness Narrative* Fide Sultana, age 70 years, was seen for a hearing aid fitting today. 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 She has beendiagnosed with bilateral Menieres disease. See previous notes for detailed history. She was given medical clearance for hearing aid use by Dr. Tran. * Today, she was accompanied by her daughter Griffin. * Patient's preferred language: Maltese * Preferred language of the parent, legal guardian or surrogate decision-maker of this minor or incapacitated patient: Maltese * No overt signs of domestic violence/neglect/abuse. [...] verbalize recall / understanding and teaching complete. [address] Work Phone: Evaluation note* Diagnosis [...] of right eye documented in this encounter [facility] HealthcareEvaluation note* Diagnosis Skin cancer, basal cell- Primary Basal cell carcinoma of skin, site unspecified [facility] Diagnosis Primary open angle glaucoma (POAG) of both eyes, mild stage documented in this encounter [facility]* Diagnosis Skin cancer, basal cell- Primary Basal cell carcinoma of skin, site unspecified documented in this encounter [facility] HospitalEvalunemours foundation note* Diagnosis Skin cancer, basal cell- Primary Basal cell carcinoma of skin, site unspecified documented in this encounter [facility] HospitalEvalunemours foundation note* Diagnosis Skin cancer, basal cell- Primary Basal cell carcinoma of skin, site unspecified documented in this encounter [facility] HospitalEvalunemours foundation note* Diagnosis Skin cancer, basal cell- Primary Basal cell carcinoma of skin, site unspecified documented in this encounter [facility] HospitalEvalunemours foundation note* Diagnosis Skin cancer, basal cell- Primary Basal cell carcinoma of skin, site unspecified documented in this encounter [facility] HospitalEvalunemours foundation note* Diagnosis Skin cancer, basal cell- Primary Basal cell carcinoma of skin, site unspecified documented in this encounter [facility] HospitalEvalunemours foundation note* Diagnosis Primary open angle glaucoma (POAG) of both eyes, mild stage- Primary Epiretinal membrane (ERM) of right eye Dry eyes Unspecified tear film insufficiency PCO (posterior capsular opacification), right Unspecified after-cataract documented in this encounter [facility]* Diagnosis Encounter for gynecological examination [...] vaginitis and vulvovaginitis documented in this encounter [facility] HealthcareHistory general Narrative - Reported* Type Description Date Medical History Glaucoma Medical HistoryMenieres disease, unspecified lateralitySurgical HistoryC section Surgical Historyarthroscopic knee surgerySurgical Historycarpal tunnel release Surgical Historyablasion of the heartSurgical Historybunion surgery Hospitalization Historysee surgical hx [facility] [employer] Other Instructions* Name Dates Details Instructions not documented DM-Dfagspliqjcagc-CfntcegAltru Health Systems 4100 Work Phone: Summary Purpose Family History [...] section and content) DATE CREATED AUTHOR 08/01/2018 [facility] DATE CREATED AUTHOR AUTHOR'S ORGANIZ ATION 02/17/2021 [employer] DATE CREATED AUTHOR AUTHOR'S ORGANIZ ATION 07/28/2021 [facility] [employer] DATE CREATED AUTHOR AUTHOR'S ORGANIZ ATION 08/20/2021 [facility] DATE CREATED AUTHOR AUTHOR'S ORGANIZ ATION 09/30/2021 [facility] DATE CREATED AUTHOR AUTHOR'S ORGANIZ ATION 01/18/2025 [facility] DATE CREATED AUTHOR AUTHOR'S ORGANIZ ATION 03/25/2025 [facility] EPIC REASON FOR VISIT (unrecogniz [...] sample to send out for culture. LMP: CUSTOMER SUPPORT REPRESENTATIVE Care Teams (unrecognized sec tion and content) Team MemberRelationshipSpecialtyStart DateEnd Date Tomas De Leon DO [address] [place] [address] PCP - GeneralInternal Medicine10/19/22 Tomas De Leon DO [address] [place] [address] PCP - ACO Reach08/12/23Team MemberRelationshipSpecialtyStart DateEnd Date Tomas De Leon DO [address] [place] [address] PCP - GeneralInternal Medicine10/19/22 Tomas De Leon DO [address] [place] [address] PCP - ACO Reach08/12/23Team MemberRelationshipSpecialtyStart DateEnd Date Tomas De Leon DO [address] [place] [address] PCP - GeneralInternal Medicine10/19/22 Tomas De Leon DO [address] [place] [address] PCP - ACO Reach08/12/23Team MemberRelationshipSpecialtyStart DateEnd Date Tomas De Leon, [address] [place] [address] PCP - GeneralInternal Medicine10/19/22 Tomas De Leon, DO [address] [place] [address] PCP - ACO Reach08/12/23Team MemberRelationshipSpecialtyStart DateEnd Date Tomas De Leon DO [address] [place] [address] PCP - GeneralInternal Medicine10/19/22 Tomas De Leon, DO [address] [place] [address] PCP - ACO [facility]08/12/23Team MemberRelationshipSpecialtyStart DateEnd Date Tomas De Leon, DO [address] [place] [address] PCP - GeneralInternal Medicine10/19/22 Tomas De Leon, DO [address] [place] [address] PCP - ACO [facility]08/12/23Team MemberRelationshipSpecialtyStart DateEnd Date Tomas De Leon, DO [address] [place] [address] PCP - GeneralInternal Medicine10/19/22 Tomas De Leon DO [address] [place] [address] PCP - ACO Reach08/12/23Team MemberRelationshipSpecialtyStart DateEnd Date Tomas De Leon DO [address] [place] [address] PCP - GeneralInternal Medicine10/19/22 Tomas De Leon DO [address] [place] [address] PCP - ACO Reach08/12/23Team MemberRelationshipSpecialtyStart DateEnd Date Tomas De Leon DO [address] [place] [address] PCP - GeneralInternal Medicine10/19/22 Tomas De Leon DO [address] [place] [address] PCP - ACO Reach08/12/23Team MemberRelationshipSpecialtyStart DateEnd Date Tomas De Leon DO [address] [place] [address] PCP - GeneralInternal Medicine11/09/24Team MemberRelationshipSpecialtyStart Date End Date Tomas De Leon DO [address] [place] [address] PCP - GeneralInternal Medicine11/09/24Team MemberRelationshipSpecialtyStart Date End Date Ricardo De Leonlacie Ojedaan, DO [address] [place] [address] PCP - GeneralInternal Medicine11/09/24Team MemberRelationshipSpecialtyStart Date End Date Tomas De Leon Mono DO [address] [place] [address] PCP - GeneralInternal Medicine11/09/24Team MemberRelationshipSpecialtyStart Date End Date Tomas De Leon DO [address] [place] [address] PCP - GeneralInternal Medicine10/19/22 Tomas De Leon DO [address] [place] [address] PCP - ACO Reach08/12/23Team MemberRelationshipSpecialtyStart DateEnd Date Ricardo De Leonlacie Villareal DO [address] [place] [address] PCP - GeneralInternal Medicine11/09/24Team MemberRelationshipSpecialtyStart Date End Date MoisesTomas DO [address] [place] [address] PCP - GeneralInternal Medicine11/09/24Team MemberRelationshipSpecialtyStart Date End Date MoisesTomas DO [address] [place] [address] PCP - GeneralInternal Medicine11/09/24Team MemberRelationshipSpecialtyStart Date End Date MoisesTomas cho Mono DO [address] [place] [address] PCP - GeneralInternal Medicine11/09/24 MemberRelationshipSpecialtyStart Date End Date MoisesTomas cho MonoDO [address] [place] [address] PCP - GeneralInternal Medicine11/09/24am MemberRelationshipSpecialtyStart Date End Date MoisesRicardo cholacie Villareal DO [address] [place] [address] PCP - GeneralInternal Medicine11/09/24 MemberRelationshipSpecialtyStart Date End Date MoisesTomas DO [address] [place] [address] PCP - GeneralInternal Medicine11/09/24Team MemberRelationshipSpecialtyStart Date End Date Tomas De Leon DO [address] [place] [address] PCP - ACO Reach08/12/23 Chaitanya Dooley MD [address] [place] [address] PCP - GeneralInternal Medicine02/01/25am MemberRelationshipSpecialtyStart Date End Date Tomas De Leon DO [address] [place] [address] PCP - ACO Reach08/12/23 Chaitanya Dooley MD [address] [place] [address] [facility]02/01/25Team MemberRelationshipSpecialtyStart Date End Date Tomas De Leon DO [address] [place] [address] [facility]08/12/23 Chaitanya Dooley MD [address] [place] [address] [facility]02/01/25Team MemberRelationshipSpecialtyStart Date End Date Tomas De Leon DO [address] [place] [address] [facility]08/12/23 Chaitanya Dooley MD [address] [place] [address] [facility]02/01/25Team MemberRelationshipSpecialtyStart Date End Date Tomas De Leon DO [address] [place] [address] [facility]08/12/23 Chaitanya Dooley MD [address] [place] [address] [facility]02/01/25 Source Comments (unrecognize d section and content) In the event this informatio n is protected by the Federal Confidentiality of Alcohol and Drug Abuse Patient Records regulations: The Federal rules restrict any use of the information to criminally investigate or prosecute any alcohol or drug abuse patient.[facility] Hospital[facility] the event this information is protected by the Federal Confidentiality of Alcohol and Drug Abuse Patient Records regulations: The Federal rules restrict any use of the information to criminally investigate or prosecute any alcohol or drug abuse patient.[facility] HospitalIn the event this information is protected by the Federal Confidentiality of Alcohol and Drug Abuse Patient Records regulations: The Federal rules restrict any use of the information to criminally investigate or prosecute any alcohol or drug abuse patient.[facility] HospitalIn the event this information is protected by the Federal Confidentiality of Alcohol and Drug Abuse Patient Records regulations: The Federal rules restrict any use of the information to criminally investigate or prosecute any alcohol or drug abuse patient.[facility] HospitalIn the event this information is protected by the Federal Confidentiality of Alcohol and Drug Abuse Patient Records regulations: The Federal rules restrict any use of the information to criminally investigate or prosecute any alcohol or drug abuse patient.[facility] HospitalIn the event this information is protected by the Federal Confidentiality of Alcohol and Drug Abuse Patient Records regulations: The Federal rules restrict any use of the information to criminally investigate or prosecute any alcohol or drug abuse patient.[facility] HospitalIn the event this information is protected by the Federal Confidentiality of Alcohol and Drug Abuse Patient Records regulations: The Federal rules restrict any use of the information to criminally investigate or prosecute any alcohol or drug abuse patient.[facility] HospitalIn the event this information is protected by the Federal Confidentiality of Alcohol and Drug Abuse Patient Records regulations: The Federal rules restrict any use of the information to criminally investigate or prosecute any alcohol or drug abuse patient.[facility] HospitalIn the event this information is protected by the Federal Confidentiality of Alcohol and Drug Abuse Patient Records regulations: The Federal rules restrict any use of the information to criminally investigate or prosecute any alcohol or drug abuse patient.[facility] HospitalIn the event this information is protected by the Federal Confidentiality of Alcohol and Drug Abuse Patient Records regulations: The Federal rules restrict any use of the information to criminally investigate or prosecute any alcohol or drug abuse patient.[facility] HospitalIn the event this information is protected by the Federal Confidentiality of Alcohol and Drug Abuse Patient Records regulations: The Federal rules restrict any use of the information to criminally investigate or prosecute any alcohol or drug abuse patient.[facility] HospitalIn the event this information is protected by the Federal Confidentiality of Alcohol and Drug Abuse Patient Records regulations: The Federal rules restrict any use of the information to criminally investigate or prosecute any alcohol or drug abuse patient.[facility] HospitalIn the event this information is protected by the Federal Confidentiality of Alcohol and Drug Abuse Patient Records regulations: The Federal rules restrict any use of the information to criminally investigate or prosecute any alcohol or drug abuse patient.[facility] HospitalIn the event this information is protected by the Federal Confidentiality of Alcohol and Drug Abuse Patient Records regulations: The Federal rules restrict any use of the information to criminally investigate or prosecute any alcohol or drug abuse patient.[facility] HospitalIn the event this information is protected by the Federal Confidentiality of Alcohol and Drug Abuse Patient Records regulations: The Federal rules restrict any use of the information to criminally investigate or prosecute any alcohol or drug abuse patient.[facility] FOR RECORDS PERTAINING TO PATIENTS WHO [...] BE BASED ON THE PRIMARY CLINICAL RECORDS. [facility] [employer] [facility]. provides no warranty or guarantee of the accuracy or completeness of information in this document.
--- OUTSIDE RECORDS SUMMARY | 2025-04-02 08:10 | XMS_ITS | Clinical Summary ---
Author Organization [facility] Address [address] [place] [address] Care Team Providers Care Burrer Hand Name Role Phone Tomas Paige DO Primary Care Provider + Nadia Ceja MD Unavailable [phone] Allergies Active AllergyReactionsCriticalityNoted AytyZjriowwhLdudsTzocrus18/19/2023 NaproxenOther: See MmkufscyRok62/19/2023Sulfa (Sulfonamide Antibiotics)Unknown 03/01/2023 Other Reaction(s): sulfa powder wong. Medications MedicationSigDispense QuantityRefillsLast FilledStart DateEnd DateStatus celecoxib (CELEBREX) 200 mg capsule TAKE ONE CAPSULE BY MOUTH DAILY FOR 90 DAYS for tive Cholecalciferol, Vitamin D3, 50 mcg (2,000 unit) cap 1 capsule.Active cyclobenzaprine (FLEXERIL) 5 mg tablet Take 5 mg by mouth.04/10/2024ctive diazePAM (VALIUM) 5 mg tablet Take 5 mg by mouth every 12 hours.10/04/2023ctive dorzolamide-timolol (COSOPT) 22.3-6.8 mg/mL ophthalmic solution 1 drop.tive ipratropium bromide (ATROVENT) 42 mcg (0.06 %) nasal spray INSTILL 2 SPRAYS IN EACH NOSTRIL THREE TIMES A DAY FOR 30 DAYS05/07/2024ctive latanoprost (XALATAN) 0.005 % ophthalmic solution APPLY 1 DROP INTO BOTH EYES AT CFYSYJI0010/17/2023ctive rosuvastatin (CRESTOR) 10 mg tablet Take 10 mg by mouth.5Active Encounters DateTypeDepartmentCare BmluOuntbichity29/14/2025Transcribe Orders [facility]ician [facility] [place] [address] Nadia Ceja MD Breast pain (Primary Dx); Genetic predisposition to breast cancer; Vaginal discharge; History of breast mjakbi1401/15/2025 10:00 AM EDTOffice Visit Radiation Oncology [address] [place] [address] Tr Thomas MD Skin cancer, basal cell (Primary Dx)12/31/2024 10:00 AM EDTOffice Visit Radiation Oncology [address] [place] [address] Tr Thomas MD Skin cancer, basal cell (Primary Dx)12/31/2024Radiation Oncology Note Radiation Oncology [address] [place] [place] [address] [place] [address] Tr Thomas MD Completion Note12/31/2024Travelfrom Last 3 Months Immunizations ImmunizationAdministration DatesNext Dueinfluenza (HD-IIV3) vaccine, age 65+ yr, high dose, trivalent, PF (FLUZONE HIGH-DOSE)03/24/2022influenza (IIV3) vaccine, trivalent, PF (AFLURIA, FLUARIX, FLULAVAL, FLUVIRIN, FLUZONE)04/03/2021, 04/26/2015influenza (IIV3) vaccine, trivalent, PF, intradermal (FLUZONE INTRADERMAL)03/07/2014,03/23/2013,05/26/2012,05/22/2008influenza (IIV4) vaccine, age 6 mo - 64 yr, quadrivalent, PF (AFLURIA, FLUARIX, FLULAVAL, FLUZONE) 04/12/2017influenza (IIV4) vaccine, quadrivalent (AFLURIA, FLULAVAL, FLUZONE) 05/24/2018,04/04/2016influenza (aIIV3) vaccine, age 65+ yr, trivalent, PF (FLUAD)04/10/2024,02/26/2020,04/11/2019influenza (aIIV4) vaccine, age 65+ yr, quadrivalent, PF (FLUAD QUAD)3pneumococcal conjugate (PCV13) vaccine, 13 valent (PREVNAR 13)10/11/2017pneumococcal polysaccharide (PPV23) vaccine, 23 valent (PNEUMOVAX 23)02/14/2019zoster (RZV) vaccine, recombinant (SHINGRIX) 06/04/2020,03/22/2020zoster (ZVL) vaccine, live (ZOSTAVAX)12/07/2012 Family History Medical HistoryRelationCommentsProstate CancerFatherRelationStatusCommentsFather Social History Tobacco UseTypesPacks/DayYears UsedDateSmoking Tobacco: NeverSmokeless Tobacco: Never Tobacco Cessation:Counseling Given: Not Answered Alcohol UseStandard Drinks/WeekCommentsYes0 (1 standard drink = 0.6 oz pure alcohol)wine rarelyArea Deprivation IndexAnswerDate RecordedNational Score (1- 100), lower number is lower akxs341311/16/2024State Score (1-10), lower number is lower zlkr252Data from: https://www.neighborhoodatlas.[facility].edu/. Last address used for [address] [address]CommentsNoSex and Gender Information ValueDate RecordedSex Assigned at BirthNot on fileLegal GpdZxiyck28/30/2025 3:14 PM EDTGender IdentityNot on fileSexual OrientationNot on file Last Filed Vital Signs Vital SignReadingTime TakenCommentsBlood Cluzezlk780/8708 9:46 AM EDT Pimvt7107 9:46 AM ZOXUehhemgpqtb28.9 ??C (96.7 ??F)01/15/2025 9:46 AM EDTRespiratory Ecxm496901/15/2025 9:46 AM EDTOxygen Cerrdbjdlh24%01/15/2025 9:46 AM EDTInhaled Oxygen Concentration--Fgtoqq57 kg (145 lb 8.1 oz)01/15/2025 9:46 AM EDTHeight--Body Mass Index-- Plan of Treatment DateTypeDepartmentCare Team (Latest Contact Info)Dkkmnncllqr58/05/2025 10:00 AM ESTOffice Visit Radiation Oncology [address] [place] [address] Tr Thomas MD [address] [place] [address] 3 month follow up05/08/2025 9:30 AM ESTOffice Visit Breast Center [address] [place] [phone] Perla Santiago, HAT BLOCKING MACHINE OPERATOR.CUSTOMER ACCOUNT COORDINATOR [address] [place], [place] [id number] Breast pain (CC)Health MaintenanceDue DateLast DoneCommentsAnxiety Screening 1970Depression Rcthxpulf85/09/1971Hepatitis C Dtqtbnias31/09/1971 DTaP,Tdap,Td Vaccine (1 - Tdap)1971CT Cipsaiznsvfl66/09/1998Colonoscopy 1997Diabetes Uqdwxoimo65/09/1998Fecal Occult Blood1997Lipid Pvfahvfwy39/09/7632Xxsyneurclxvm42/09/1998Medicare Annual Wellness Visit 06/13/2017Cologuard (FIT-DNA)Colorectal Cancer Screening 05/28/2023dvance Directive Ozhrrtkbep97/01/2025ovid-19 Vaccine ( season)511/09/2021, 12/25/2021, 04/24/2021, Additional history exists Influenza Vaccine (#1)/, 03/28/2023, 03/24/2022, Additional history existsMammogram Zptipoxsx46/02/2025, 03/21/2025, 10/30/2024, Additional history existsRSV Vaccine (1 - 1-dose 75+ series)2027 Pneumococcal Vaccine: 50+Fumprssik72/04/2019, 10/11/2017Shingrix Vaccine Bjkkfydmv75/23/2020, 03/22/2020, 12/07/2012one Density ScreeningCompleted 06/22/2022, 06/26/2019 Insurance Care Teams Team MemberRelationshipSpecialtyStart Date Tomas Paige DO [address] [place] [address] PCP - GeneralInternal Medicine11/09/24 Nadia Ceja MD [address] [place] [address] ReferringOb/Gyn03/26/25
--- OUTSIDE RECORDS SUMMARY | 2025-04-02 08:10 | XMS_ITS | Encounter Summary ---
Author Organization [facility] Address [address] [place] [address] Care Team Providers Care Boot Maker Name Role Phone Tomas Paiegan Primary Care Provider + Nadia Ceja MD Unavailable [phone] Source Comments In the event this information is protected by the Federal Confidentiality of Alcohol and Drug AbusePatient Records regulations: The Federal rules restrict any use of the information to criminally investigate or prosecute any alcohol or drug abuse patient.[facility] Reason for Referral * Consult, Test, Treat (Routine) - AuthorizedSpecialtyDiagnoses / Procedures Referred By ContactReferred To ContactBreast Diseases Diagnoses Breast pain Genetic predisposition to breast cancer Vaginal discharge History of breast biopsy Procedures OFFICE/[facility] 60 MINUTES Nadia Ceja MD [address] [facility] [address] [place] [address] Phone: tel: fax: Referral IDStatusReasonStart DateExpiration DateVisits RequestedVisits [id number] PCP Requested Referral Scheduling Instructions Reason for consult: Abnormal mammogram (outside facility) Preferred Location: [facility] [place] Encounter Details DateTypeDepartmentCare Team (Latest Contact Info)Adoqasbunow96/14/2025Transcribe Orders Referring Physician [address] [place] [address] Nadia Ceja MD [address] [place] [phone] Breast pain (Primary Dx); Genetic predisposition to breast cancer; Vaginal discharge; History of breast biopsy Social History Tobacco UseTypesPacks/DayYears UsedDateSmoking Tobacco: NeverSmokeless Tobacco: NeverAlcohol UseStandard Drinks/WeekCommentsYes0 (1 standard drink = 0.6 oz pure alcohol)wine rarelyArea Deprivation IndexAnswerDate RecordedNational Score (1- 100), lower number is lower xisu153111/16/2024State Score (1-10), lower number is lower sbyg994Data from: https://www.neighborhoodatlas.med[facility].edu/. Last address used for [address] [place] [address]/16/2024CommentsNoSex and Gender Information ValueDate RecordedSex Assigned at BirthNot on fileLegal WwxChwerf88/30/2025 3:14 PM EDTGender IdentityNot on fileSexual OrientationNot on filedocumented as of this encounter Plan of Treatment DateTypeDepartmentCare Team (Latest Contact Info)Hmyfyywgtmw79/05/2025 10:00 AM ESTOffice Visit Radiation Oncology [address] [place] [address] Tr Thomas MD [address] [place] [address] 3 month follow up05/08/2025 9:30 AM ESTOffice Visit Breast Center [address] [place] [phone] Perla Santiago, TICKET CLERK.METAL CEILING BUILDER [address] [place] [address] Breast pain (CC)NameTypePriorityAssociated DiagnosesOrder ScheduleCONSULT TO BREAST CENTERReferralRoutine Breast pain Genetic predisposition to breast cancer Vaginal discharge History of breast biopsy 1 Occurrences starting 03/26/2025 until 03/26/2026documented as of this encounter Visit Diagnoses Diagnosis Breast pain- Primary Mastodynia Genetic predisposition to breast cancer Genetic susceptibility to malignant neoplasm of breast Vaginal discharge Leukorrhea, not specified as infective History of breast biopsy Other postprocedural status documented in this encounter Care Teams Team MemberRelationshipSpecialtyStart DateEnd Date Tomas Paige DO [address] [place] [address] PCP - GeneralInternal Medicine11/09/24 Nadia Ceja MD [address] [place] [address] ReferringOb/Gyn03/26/25documented as of this encounter
[2025-04-03 04:08] LABS: FSH 16.4 mIU/mL (25.8-134.8)
== END 2025-04-02 08:04 | disposition home or self-care (01) ==
LOC: LAB 08:06
PROVIDERS: PCP Internal Medicine; Visit Provider Specialist
DX: Z01.419 Encounter for gynecological examination (general) (routine) without abnormal findings (principal)
CPT/HCPCS: 36415; 83001

== ENCOUNTER 2025-04-30 07:58 | Outpatient (OUT) | payer MEDICARE, SELFPAY | END 2025-04-30 07:59 | disposition home or self-care (01) | LOC: LAB 08:00 | PROVIDERS: PCP Family Medicine; Visit Provider Specialist | DX: E34.9 Endocrine disorder, unspecified (principal) | CPT/HCPCS: 36415; 82670; 84144 ==